=== PATIENT | male | born 1985 | race Caucasian/White ===

== ENCOUNTER 2017-12-15 01:18 | Emergency (ER) | payer MEDICAID ==
[~2017-12-15] VITALS: Ht 172.7 cm; Wt 100.7 kg
[~2017-12-15 01:18] MED LIST: ANAPROX DS550 MG PO; NKM
[2017-12-15] MEDS ORDERED: Morphine Sulfate 4mg/ml Inj IVP ONE (01:45)
[2017-12-15 01:53] LABS: APPEARANCE,URINE CLEAR; BILIRUBIN, URINE NEGATIVE (NEGATIVE); COLOR,URINE PALE YELLOW; GLUCOSE, URINE (UA) NEGATIVE (NEGATIVE); KETONES,URINE NEGATIVE (NEGATIVE); LEUKOCYTE ESTERASE ,URINE NEGATIVE (NEGATIVE); NITRITE,URINE NEGATIVE (NEGATIVE); PH,URINE 6 (4.5-8.0); PROTEIN,URINE NEGATIVE (NEGATIVE); UROBILINOGEN,URINE NORMAL MG/DL (0.0-1.0)
[2017-12-15 02:09] LABS: BASOPHILS % (AUTO) 0.9 % (0.0-2.0); EOSINOPHILS % (AUTO) 0.7 % (0.0-3.0); HEMATOCRIT 48.1 % (42.0-52.0); HEMOGLOBIN 16.5 G/DL (14.2-18.0); LYMPHOCYTES % (AUTO) 26.2 % (20.0-45.0); MEAN CORPUSCULAR VOLUME 81 FL (80-99); MONOCYTES % (AUTO) 9.5 % (1.0-10.0); NEUTROPHILS % (AUTO) 62.8 % (45.0-75.0); PLATELET COUNT 311 K/UL (150-450); RED BLOOD COUNT 5.91 M/UL (4.70-6.10); RED CELL DISTRIBUTION WIDTH 11.9 % (11.6-14.8); WHITE BLOOD COUNT 10.5 K/UL (4.8-10.8)
[2017-12-15 02:15] LABS: ANION GAP 11 mmol/L (5-15); BLOOD UREA NITROGEN 9 mg/dL (7-18); CALCIUM 9.2 MG/DL (8.5-10.1); CARBON DIOXIDE 26 MMOL/L (21-32); CHLORIDE 103 MMOL/L (98-107); CREATININE 1.1 MG/DL (0.55-1.30); POTASSIUM 3.7 MMOL/L (3.5-5.1); SODIUM 140 MMOL/L (136-145)
[2017-12-15 02:20] LABS: ALANINE AMINOTRANSFERASE 28 U/L (12-78); ALBUMIN 3.8 G/DL (3.4-5.0); ALBUMIN/GLOBULIN RATIO 0.9 (1.0-2.7); ALKALINE PHOSPHATASE 63 U/L (46-116); ASPARTATE AMINO TRANSFERASE 16 U/L (15-37); BILIRUBIN,TOTAL 0.3 MG/DL (0.2-1.0)
[2017-12-15] MEDS ORDERED: PEPCID AC20 M2 PO (02:28)
[2017-12-15] MEDS ORDERED: VISTARIL10 MG ORAL (02:28)
[2017-12-15] MEDS ORDERED: HydrOXYzine tab 25 MG TAB ORAL ONE (02:30)
[2017-12-15 02:34] VITALS: BP 130/79
[2017-12-15 02:40] VITALS: BP 130/79
--- NOTE | 2017-12-15 04:28 | Emergency Room Report ---
History of Present Illness General Chief Complaint: Abdominal Pain Source: Patient Present Illness HPI Patient is a 32-year-old male brought in by self after increased abdominal discomfort. Patient reports having increased epigastric pain after recent alcohol intake. He reports having prior history of pancreatitis. The patient describes having epigastric pain. This did not radiate. He had not been vomiting. He reported having some increased nausea. He denies any black or bloody stools. It having increased itching to his extremities Allergies: Coded Allergies: METOCLOPRAMIDE (Verified Adverse Reaction, Mild, 12/15/17) anxiety Patient History Past Medical History: see triage record Reviewed Nursing Documentation: PMH: Agreed; PSxH: Agreed Nursing Documentation-PMH Past Medical History: No History, Except For Review of Systems All Other Systems: negative except mentioned in HPI Physical Exam Vital Signs Date Time Temp Pulse Resp B/P (MAP) Pulse Ox O2 Delivery O2 Flow Rate FiO2 12/15/17 01:21 98.9 114 16 160/89 95 Room Air 99.0 Sp02 EP Interpretation: reviewed, normal General Appearance: normal inspection, well appearing, no apparent distress, alert, GCS 15 Head: atraumatic ENT: normal ENT inspection, hearing grossly normal, normal voice Neck: normal inspection, full range of motion, supple, no bony tend Respiratory: normal inspection, lungs clear, normal breath sounds, no respiratory distress, no retraction, no wheezing Cardiovascular #1: regular rate, rhythm, no edema Gastrointestinal: normal inspection, normal bowel sounds, non tender, soft, no guarding, no hernia Genitourinary: no CVA tenderness Musculoskeletal: normal inspection, back normal, normal range of motion Neurologic: normal inspection, alert, oriented x3, responsive, car 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 Differential diagnoses included ischemic bowel, appendicitis, perforated viscus, abdominal aortic aneurysm, inferior myocardial infarction, viral gastroenteritis. Because of complexity of patient' s case laboratory testing and imaging studies were ordered. The laboratory testing was unremarkable. Patient was noted at to have prior history which is somewhat concerning. The blood alcohol was noted to be somewhat elevated. Patient does not appear to be intoxicated at this time. The patient was given acid blockers as well as Atarax.patient does not appear to have pancreatitis this time. 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 Patient is advised to return if any worsening condition or if any changes in status that are concerning. This report is dictated with [employer] handle finisher software which may occasionally lead to discrepancies related to use of this software. Labs Test 12/15/17 01:20 12/15/17 01:50 Urine Color Pale yellow Urine Appearance Clear Urine pH 6 (4.5-8.0) Urine Specific [place] 1.010 (1.005-1.035) Urine Protein Negative (NEGATIVE) Urine Glucose (UA) Negative (NEGATIVE) Urine Ketones Negative (NEGATIVE) Urine Occult Blood 2+ (NEGATIVE) Urine Nitrite Negative (NEGATIVE) Urine Bilirubin Negative (NEGATIVE) Urine Urobilinogen Normal MG/DL (0.0-1.0) Urine Leukocyte Esterase Negative (NEGATIVE) Urine RBC 2-4 /HPF (0 - 0) Urine WBC 0 /HPF (0 - 0) Urine Squamous Epithelial Cells Occasional /LPF Urine Bacteria Occasional /HPF (NONE) White Blood Count 10.5 K/UL (4.8-10.8) Red Blood Count 5.91 M/UL (4.70-6.10) Hemoglobin 16.5 G/DL (14.2-18.0) Hematocrit 48.1 % (42.0-52.0) Mean Corpuscular Volume 81 FL (80-99) Mean Corpuscular Hemoglobin 27.9 PG (27.0-31.0) Mean Corpuscular Hemoglobin Concent 34.3 G/DL (32.0-36.0) Red Cell Distribution Width 11.9 % (11.6-14.8) Platelet Count 311 K/UL (150-450) Mean Platelet Volume 6.3 FL (6.5-10.1) Neutrophils (%) (Auto) 62.8 % (45.0-75.0) Lymphocytes (%) (Auto) 26.2 % (20.0-45.0) Monocytes (%) (Auto) 9.5 % (1.0-10.0) Eosinophils (%) (Auto) 0.7 % (0.0-3.0) Basophils (%) (Auto) 0.9 % (0.0-2.0) Prothrombin Time 10.2 SEC (9.30-11.50) Prothromb Time International Ratio 1.0 (0.9-1.1) Activated Partial Thromboplast Time 27 SEC (23-33) Sodium Level 140 MMOL/L (136-145) Potassium Level 3.7 MMOL/L (3.5-5.1) Chloride Level 103 MMOL/L (98-107) Carbon Dioxide Level 26 MMOL/L (21-32) Anion Gap 11 mmol/L (5-15) Blood Urea Nitrogen 9 mg/dL (7-18) Creatinine 1.1 MG/DL (0.55-1.30) Estimat Glomerular Filtration Rate > 60 mL/min (>60) Glucose Level 95 MG/DL (74-106) Calcium Level 9.2 MG/DL (8.5-10.1) Total Bilirubin 0.3 MG/DL (0.2-1.0) Aspartate Amino Transf (AST/SGOT) 16 U/L (15-37) Alanine Aminotransferase (ALT/SGPT) 28 U/L (12-78) Alkaline Phosphatase 63 U/L (46-116) Troponin I 0.017 ng/mL (0.000-0.056) Total Protein 8.2 G/DL (6.4-8.2) Albumin 3.8 G/DL (3.4-5.0) Globulin 4.4 g/dL Albumin/Globulin Ratio 0.9 (1.0-2.7) Lipase 175 U/L (73-393) Serum Alcohol 90 mg/dL Last Vital Signs Date Time Temp Pulse Resp B/P (MAP) Pulse Ox O2 Delivery O2 Flow Rate FiO2 12/15/17 02:40 97.8 90 14 130/79 97 Room Air 97.8 Status: improved Disposition: HOME, SELF-CARE Condition: Stable Scripts Hydroxyzine HCl (Hydroxyzine HCl) 10 Mg Tablet 10 MG ORAL EVERY 6 HOURS, #20 TAB 0 Refills Prov: Terrance oMy 12/15/17 Famotidine (PEPCID AC) 20 Mg Tablet 20 MG PO TWICE A DAY, #30 TAB Prov: Terrance Moy 12/15/17 Patient Instructions: Abdominal Pain, Adult Terrance Moy December 15, 2017 04:28
[2017-12-16] MEDS ORDERED: MAALOX MAXIMUM355 M1 PO (23:08)
[2017-12-16] MEDS ORDERED: TRAMADOL HCL50 MG ORAL (23:08)
[2017-12-16] MEDS ORDERED: BENADRYL ALLERG25 M1 PO (23:08)
[2017-12-16] MEDS ORDERED: LIDOCAINE VISC100 ML ORAL (23:08)
== END 2017-12-15 02:40 | disposition home or self-care (01) ==
LOC: EMR 01:42
DX: K29.70 Gastritis, unspecified, without bleeding (principal); Z88.8 Allergy status to other drugs, medicaments and biological substances
CPT/HCPCS: 36415; 80053; 80329; 81003; 82962; 83690; 84484; 85025; 85610; 85730; 96360; 96374; 96375; 99284; J2270; S0028

== ENCOUNTER 2017-12-16 20:00 | Emergency (ER) | payer MEDICAID ==
[~2017-12-16] VITALS: Ht 172.7 cm; Wt 99.8 kg
[~2017-12-16 20:00] MED LIST changes: +PEPCID AC20 M2 PO; +VISTARIL10 MG ORAL
[2017-12-16 20:30] VITALS: BP 131/73
[2017-12-16] MEDS ORDERED: DiphenhydrAMINE 50mg/ml Inj IVP ONE (20:45)
[2017-12-16] MEDS ORDERED: EPINEPHrine 1mg/1ml Amp IM ONE (20:45)
[2017-12-16 21:03] LABS: BASOPHILS % (AUTO) 0.7 % (0.0-2.0); EOSINOPHILS % (AUTO) 1.5 % (0.0-3.0); HEMATOCRIT 45.2 % (42.0-52.0); HEMOGLOBIN 14.8 G/DL (14.2-18.0); MEAN CORPUSCULAR VOLUME 81 FL (80-99); MONOCYTES % (AUTO) 11.6 % (1.0-10.0); NEUTROPHILS % (AUTO) 62.2 % (45.0-75.0); PLATELET COUNT 293 K/UL (150-450); RED BLOOD COUNT 5.58 M/UL (4.70-6.10); RED CELL DISTRIBUTION WIDTH 11.8 % (11.6-14.8); WHITE BLOOD COUNT 8.9 K/UL (4.8-10.8)
[2017-12-16 21:04] LABS: APPEARANCE,URINE CLEAR; BILIRUBIN, URINE NEGATIVE (NEGATIVE); COLOR,URINE PALE YELLOW; GLUCOSE, URINE (UA) NEGATIVE (NEGATIVE); KETONES,URINE NEGATIVE (NEGATIVE); LEUKOCYTE ESTERASE ,URINE NEGATIVE (NEGATIVE); NITRITE,URINE NEGATIVE (NEGATIVE); PH,URINE 7 (4.5-8.0); PROTEIN,URINE 1+ (NEGATIVE); UROBILINOGEN,URINE NORMAL MG/DL (0.0-1.0)
[2017-12-16 21:16] LABS: ANION GAP 12 mmol/L (5-15); BLOOD UREA NITROGEN 10 mg/dL (7-18); CALCIUM 9.5 MG/DL (8.5-10.1); CARBON DIOXIDE 24 MMOL/L (21-32); CHLORIDE 103 MMOL/L (98-107); CREATININE 1.1 MG/DL (0.55-1.30); POTASSIUM 3.6 MMOL/L (3.5-5.1); SODIUM 139 MMOL/L (136-145)
[2017-12-16 21:21] LABS: ALANINE AMINOTRANSFERASE 27 U/L (12-78); ALBUMIN 3.8 G/DL (3.4-5.0); ALBUMIN/GLOBULIN RATIO 0.9 (1.0-2.7); ALKALINE PHOSPHATASE 62 U/L (46-116); ASPARTATE AMINO TRANSFERASE 18 U/L (15-37); BILIRUBIN,TOTAL 0.4 MG/DL (0.2-1.0); CREATINE KINASE 196 U/L (26-308)
[2017-12-16 22:28] VITALS: BP 108/73
[2017-12-16] MEDS ORDERED: Morphine Sulfate 4mg/ml Inj IVP ONE (22:45)
--- NOTE | 2017-12-16 22:51 | Emergency Room Report ---
History of Present Illness General Chief Complaint: Abdominal Pain Source: Patient Present Illness HPI Patient presents with hives nausea and epigastric pain. This has been a recurrent problem. Appetite has epigastric pain he gets hives. He was discharged on Pepcid. The pain is fairly severe in his epigastric area. Denies vomiting blood. He states is allergic to Reglan but hasn't had any recently. The pain is rated at 7/10, burning, constant and not radiating. No pain medicine at home or medicine for vomiting/nausea. No melena. The hives are mainly on his arms - redness and itching. No swelling in his throat or difficulty breathing or swallowing. He was seen yesterday after the ingestion of alcohol. Dx gastritis and rx pepcid. The patient has a history of gastritis. He also has a history of pancreatitis in the past. He has no pain medication at home. He was recently prescribed Pepcid. He states he has not had endoscopy, that during prior hospitalizations, he gets better and leaves the hospital before endoscopy is performed. He drank some alcohol a few days ago (beers) and feels this might be related to pain and episodes of vomiting. No fevers, chills, chest pain, dyspnea, cough, sore throat, headache, rashes, extremity pain, SI. Allergies: Coded Allergies: METOCLOPRAMIDE (Verified Adverse Reaction, Mild, 12/15/17) anxiety Patient History Past Medical History: see triage record Social History: Reports: alcohol use; Denies: smoking Social History Narrative at home Reviewed Nursing Documentation: PMH: Agreed; PSxH: Agreed Nursing Documentation-PM Past Medical History: No History, Except For Hx Gastrointestinal Problems: Yes - pancreatitis Review of Systems All Other Systems: negative except mentioned in HPI Physical Exam Vital Signs Date Time Temp Pulse Resp B/P (MAP) Pulse Ox O2 Delivery O2 Flow Rate FiO2 12/16/17 20:18 98.0 69 18 144/88 96 Room Air 98.1 Sp02 EP Interpretation: reviewed, normal General Appearance: well appearing, no apparent distress, GCS 15 Head: normocephalic Eyes: bilateral eye normal inspection, bilateral eye PERRL ENT: moist mucus membranes - vomitus without blood Neck: supple Respiratory: lungs clear, normal breath sounds Cardiovascular #1: regular rate, rhythm Cardiovascular #2: 2+ radial (R) Gastrointestinal: normal inspection, normal bowel sounds, no mass, non- distended, no guarding, no rebound, tenderness - epigastric area Musculoskeletal: back normal, gait/station normal, normal range of motion Neurologic: alert, oriented x3, grossly normal Psychiatric: mood/affect normal Skin: warm/dry, other - erythema and slightly raised lesions (wheel flare) anticubital areas Medical Decision Making Diagnostic Impression: Primary Impression: Hives Additional Impressions: Abdominal pain Qualified Codes: R10.13 - Epigastric pain Gastritis Qualified Codes: K29.20 - Alcoholic gastritis without bleeding ER Course Patient presents with epigastric pain and vomiting and hives. He states that he gets the epigastric pain he breaks out in hives. He's doesn't believe it's any medication he's been exposed to causing the skin break out. He does not show signs of anaphylaxis at this time. Needs be treated with Benadryl, Pepcid and epinephrine. Need to exclude pancreatitis and cardiac cause. EKG without injury. Labs with normal WBC, H/H, CMP and lipase. Patient rashes better after treatment. Now is complaining about epigastric pain is 7/10. Discussion with him about what to treat him with a padgett he is requesting morphine. A dose of morphine has been ordered. Patient improved with morphine. Patient stable for outpatient observation and treatment. Laboratory Tests Test 12/16/17 20:40 White Blood Count 8.9 K/UL (4.8-10.8) Red Blood Count 5.58 M/UL (4.70-6.10) Hemoglobin 14.8 G/DL (14.2-18.0) Hematocrit 45.2 % (42.0-52.0) Mean Corpuscular Volume 81 FL (80-99) Mean Corpuscular Hemoglobin 26.4 PG (27.0-31.0) L Mean Corpuscular Hemoglobin Concent 32.6 G/DL (32.0-36.0) Red Cell Distribution Width 11.8 % (11.6-14.8) Platelet Count 293 K/UL (150-450) Mean Platelet Volume 5.9 FL (6.5-10.1) L Neutrophils (%) (Auto) 62.2 % (45.0-75.0) Lymphocytes (%) (Auto) 24.0 % (20.0-45.0) Monocytes (%) (Auto) 11.6 % (1.0-10.0) H Eosinophils (%) (Auto) 1.5 % (0.0-3.0) Basophils (%) (Auto) 0.7 % (0.0-2.0) Urine Color Pale yellow Urine Appearance Clear Urine pH 7 (4.5-8.0) Urine Specific [place] 1.010 (1.005-1.035) Urine Protein 1+ (NEGATIVE) H Urine Glucose (UA) Negative (NEGATIVE) Urine Ketones Negative (NEGATIVE) Urine Occult Blood 2+ (NEGATIVE) H Urine Nitrite Negative (NEGATIVE) Urine Bilirubin Negative (NEGATIVE) Urine Urobilinogen Normal MG/DL (0.0-1.0) Urine Leukocyte Esterase Negative (NEGATIVE) Urine RBC 5-10 /HPF (0 - 0) H Urine WBC 0-2 /HPF (0 - 0) Urine Squamous Epithelial Cells None /LPF (NONE/OCC) Urine Bacteria Occasional /HPF (NONE) Sodium Level 139 MMOL/L (136-145) Potassium Level 3.6 MMOL/L (3.5-5.1) Chloride Level 103 MMOL/L (98-107) Carbon Dioxide Level 24 MMOL/L (21-32) Anion Gap 12 mmol/L (5-15) Blood Urea Nitrogen 10 mg/dL (7-18) Creatinine 1.1 MG/DL (0.55-1.30) Estimate Glomerular Filtration Rate > 60 mL/min (>60) Glucose Level 92 MG/DL (74-106) Calcium Level 9.5 MG/DL (8.5-10.1) Total Bilirubin 0.4 MG/DL (0.2-1.0) Aspartate Amino Transferase (AST) 18 U/L (15-37) Alanine Aminotransferase (ALT) 27 U/L (12-78) Alkaline Phosphatase 62 U/L (46-116) Total Creatine Kinase 196 U/L (26-308) Total Protein 8.0 G/DL (6.4-8.2) Albumin 3.8 G/DL (3.4-5.0) Globulin 4.2 g/dL Albumin/Globulin Ratio 0.9 (1.0-2.7) L Lipase 136 U/L (73-393) EKG Diagnostic Results Rate: normal Rhythm: NSR ST Segments: no acute changes Rhythm Strip Diag. Results EP Interpretation: yes Rhythm: NSR, no PVC's, no ectopy Last Vital Signs Date Time Temp Pulse Resp B/P (MAP) Pulse Ox O2 Delivery O2 Flow Rate FiO2 12/16/17 23:45 98.2 66 19 143/77 100 Room Air 98.2 Status: improved Disposition: HOME, SELF-CARE Condition: Improved Scripts Tramadol Hcl* (ULTRAM*) 50 Mg Tablet 50 MG ORAL Q6H PRN for For Pain, #6 TAB 0 Refills Prov: Jamie aCrrillo M.D. 12/16/17 Mag Hydrox/Al Hydrox/Simeth (MAALOX MAXIMUM STRENGTH SUSP) 355 Ml Oral.susp 30 ML PO Q6HR, #240 ML Prov: Jamie Carrillo M.D. 12/16/17 Lidocaine HCl 2% Viscous (Lidocaine HCl 2% Viscous) 100 Ml Solution 10 ML ORAL QID PRN for For Pain, #90 ML Prov: Jamie Carrillo M.D. 12/16/17 Diphenhydramine Hcl (BENADRYL ALLERGY) 25 Mg Tablet 25 MG PO Q6HR PRN for Itching, #14 TAB Prov: Jamie Carrillo M.D. 12/16/17 Jamie Carrillo M.D. December 16, 2017 22:51
[2017-12-16] MEDS ORDERED: TRAMADOL HCL50 MG ORAL (23:08)
[2017-12-16] MEDS ORDERED: BENADRYL ALLERG25 M1 PO (23:08)
[2017-12-16] MEDS ORDERED: LIDOCAINE VISC100 ML ORAL (23:08)
[2017-12-16] MEDS ORDERED: MAALOX MAXIMUM355 M1 PO (23:08)
[2017-12-16 23:43] VITALS: BP 143/77
[2017-12-16 23:45] VITALS: BP 143/77
--- NOTE | 2017-12-20 19:38 | Cardiology Report ---
APPROVED REPORT EKG Measurement Heart [id number] Normal sinus rhythm with sinus arrhythmia Normal ECG
== END 2017-12-16 23:45 | disposition home or self-care (01) ==
LOC: EMR 23:04
DX: L50.9 Urticaria, unspecified (principal); K29.70 Gastritis, unspecified, without bleeding; Z88.8 Allergy status to other drugs, medicaments and biological substances
CPT/HCPCS: 36415; 80053; 81003; 82550; 83690; 85025; 93005; 96361; 96372; 96374; 96375; 99284; J0171; J1200; J2270; J2405; S0028

== ENCOUNTER 2018-01-01 22:48 | Emergency (ER) | payer MEDICAID ==
[~2018-01-01] VITALS: Ht 172.7 cm; Wt 98.9 kg
[~2018-01-01 22:48] MED LIST changes: +BENADRYL ALLERG25 M1 PO; +LIDOCAINE VISC100 ML ORAL; +MAALOX MAXIMUM355 M1 PO; +TRAMADOL HCL50 MG ORAL
[2018-01-01] MEDS ORDERED: NKM (23:07)
[2018-01-01 23:30] VITALS: BP 140/79
--- NOTE | 2018-01-02 00:10 | Emergency Room Report ---
History of Present Illness General Chief Complaint: Abdominal Pain Source: Patient Present Illness HPI Is a 32-year-old male with a history of chronic abdominal pain with vomiting and diarrhea. Also complaining of rash. He presents with chief complaint abdominal pain with itchiness and rash. Onset for last 2 days. His been here multiple times in this month already. Workup unremarkable. He said he can get a CAT scan because he had 5 CAT scan done in [place] already. Said all were negative. No trauma. Pain is 7 out of 10. Vomiting is nonbloody nonbilious. Diarrhea is watery. Allergies: Coded Allergies: KETOROLAC (Verified Allergy, Unknown, 01/01/18) METOCLOPRAMIDE (Verified Adverse Reaction, Mild, 12/15/17) anxiety Patient History Past Medical History: see triage record, old chart reviewed Past Surgical History: none Pertinent Family History: none Social History: Denies: smoking Immunizations: other Reviewed Nursing Documentation: PMH: Agreed; PSxH: Agreed Nursing Documentation-PMH Hx Gastrointestinal Problems: Yes - pancreatitis, gastritis Review of Systems Eye: Denies: eye pain, blurred vision ENT: Denies: ear pain, nose congestion, throat swelling Respiratory: Denies: cough, shortness of breath Cardiovascular: Denies: chest pain, palpitations Gastrointestinal: Reports: abdominal pain, diarrhea, nausea, vomiting Musculoskeletal: Denies: back pain, joint pain Skin: Denies: rash Neurological: Denies: headache, numbness Endocrine: Denies: increased thirst, increased urine Hematologic/Lymphatic: Denies: easy bruising All Other Systems: negative except mentioned in HPI Physical Exam Vital Signs Date Time Temp Pulse Resp B/P (MAP) Pulse Ox O2 Delivery O2 Flow Rate FiO2 01/01/18 23:02 98.3 81 18 142/87 99 Room Air 98.2 vitals normal Sp02 EP Interpretation: reviewed, normal General Appearance: well appearing, no apparent distress, alert Head: normocephalic, atraumatic Eyes: bilateral eye PERRL, bilateral eye EOMI ENT: hearing grossly normal, normal pharynx Neck: full range of motion, supple, no meningismus Respiratory: chest non-tender, lungs clear, normal breath sounds Cardiovascular #1: regular rate, rhythm, no murmur Gastrointestinal: normal bowel sounds, non tender, no mass, no organomegaly, no bruit, non-distended Musculoskeletal: back normal, gait/station normal, normal range of motion Psychiatric: mood/affect normal Skin: warm/dry Medical Decision Making Diagnostic Impression: Primary Impression: Abdominal pain Qualified Codes: R10.84 - Generalized abdominal pain ER Course Patient presents with chief point abdominal pain. There is no evidence of any acute abdomen on exam. He has no pain on my examination. His rash is not consistent. I gave him Benadryl here. He refuse any further workup. After getting the Benadryl he got up and left. I suspect there may be some psychological issue going on. She left without paperwork. Last Vital Signs Date Time Temp Pulse Resp B/P (MAP) Pulse Ox O2 Delivery O2 Flow Rate FiO2 01/01/18 23:02 98.3 81 18 142/87 99 Room Air 98.2 Status: unchanged Disposition: HOME, SELF-CARE Condition: Stable Referrals: NOT CHOSEN IPA/,REFERRING (PCP) Patient Instructions: Abdominal Pain, Adult ISIS YBARRA M.D. January 02, 2018 00:10
[2018-01-02 01:00] VITALS: BP 140/79
== END 2018-01-02 01:00 | disposition home or self-care (01) ==
LOC: EMR 23:18
DX: R10.9 Unspecified abdominal pain (principal); R19.7 Diarrhea, unspecified; R11.2 Nausea with vomiting, unspecified; Z88.8 Allergy status to other drugs, medicaments and biological substances; Z87.19 Personal history of other diseases of the digestive system
CPT/HCPCS: 80307; 99283

== ENCOUNTER 2018-11-20 12:34 | Inpatient (IN) | payer MEDICAID ==
[~2018-11-20] VITALS: Ht 172.7 cm; Wt 98.9 kg
[2018-11-20] MEDS ORDERED: ZOFRAN ODT8 MG ORAL (12:42)
[2018-11-20 13:01] VITALS: BP 146/87
[2018-11-20] MEDS ORDERED: Morphine Sulfate 4mg/ml Inj (IV USE ONLY) IVP ONE ×2 (13:30→17:15)
[2018-11-20 14:06] LABS: APPEARANCE,URINE CLEAR; BILIRUBIN, URINE NEGATIVE (NEGATIVE); COLOR,URINE PALE YELLOW; GLUCOSE, URINE (UA) NEGATIVE (NEGATIVE); KETONES,URINE NEGATIVE (NEGATIVE); LEUKOCYTE ESTERASE ,URINE NEGATIVE (NEGATIVE); NITRITE,URINE NEGATIVE (NEGATIVE); PH,URINE 6 (4.5-8.0); PROTEIN,URINE 1+ (NEGATIVE); UROBILINOGEN,URINE NORMAL MG/DL (0.0-1.0)
[2018-11-20 14:08] LABS: BASOPHILS % (AUTO) 0.9 % (0.0-2.0); EOSINOPHILS % (AUTO) 1.6 % (0.0-3.0); HEMATOCRIT 46.1 % (42.0-52.0); LYMPHOCYTES % (AUTO) 24.1 % (20.0-45.0); MEAN CORPUSCULAR VOLUME 80 FL (80-99); MONOCYTES % (AUTO) 11.2 % (1.0-10.0); NEUTROPHILS % (AUTO) 62.2 % (45.0-75.0); PLATELET COUNT 307 K/UL (150-450); RED BLOOD COUNT 5.79 M/UL (4.70-6.10); RED CELL DISTRIBUTION WIDTH 12.6 % (11.6-14.8); WHITE BLOOD COUNT 11.4 K/UL (4.8-10.8)
--- NOTE | 2018-11-20 14:26 | Diagnostic Imaging Report ---
Indication: Abdominal pain Technique: Supine view of the abdomen Comparison: none Findings: The bowel gas pattern is unremarkable. A catheter is seen in the epigastric region, likely a pancreatic duct stent. No masses or unusual calcifications are demonstrated. Impression: No acute process Probable pancreatic duct stent noted
--- NOTE | 2018-11-20 14:26 | Diagnostic Imaging Report ---
Indication: Chest pain Technique: One view of the chest Comparison: none Findings: Lungs and pleural spaces are clear. Heart size is normal Impression: No acute process
--- NOTE | 2018-11-20 14:27 | Emergency Room Report ---
History of Present Illness General Chief Complaint: Abdominal Pain Source: Patient (Jamie Carrillo MD) Present Illness HPI Patient presents with 3 days of vomiting unable to keep down medication. He has Zofran at home that's not working. He states he is unable to take any other antiemetics He also has epigastric and right upper quadrant pain it's rating towards his back. In the past he's had pancreatitis when he's had pain like this. He has a stent placed 3 months ago in [place]. He' been vomiting clear material. Also he's had loose stools since also been clear and brown without any blood or melena. He denies any fevers or chills. He does have Imbler at home but elected not to take it as he was vomiting. He states there is some anatomic and normally in his pancreatic ducts. He was told that the condition was extremely rare. This was by the doctor that placed the stent. He has been improved after the stent placement. No chest pain, palpitations, dysuria, shortness of breath, depression, visual changes, headache. (Jamie Carrillo MD) Allergies: Coded Allergies: MORPHINE (Verified Allergy, Mild, itching, 11/20/18) HALOPERIDOL (Verified Allergy, Unknown, 11/20/18) KETOROLAC (Verified Allergy, Unknown, 01/01/18) PROCHLORPERAZINE (Verified Allergy, Unknown, 11/20/18) PROMETHAZINE (Verified Allergy, Unknown, 11/20/18) METOCLOPRAMIDE (Verified Adverse Reaction, Mild, 12/15/17) anxiety Patient History Past Medical History: see triage record Social History: Denies: smoking, alcohol use Social History Narrative from home Reviewed Nursing Documentation: PMH: Agreed; PSxH: Agreed (Jamie Carrillo MD) Nursing Documentation-PMH Past Medical History: No History, Except For Hx Gastrointestinal Problems: Yes - PANCREATITIS (Jamie Carrillo MD) Review of Systems All Other Systems: negative except mentioned in HPI (Jamie Carrillo MD) Physical Exam Vital Signs Date Time Temp Pulse Resp B/P (MAP) Pulse Ox O2 Delivery O2 Flow Rate FiO2 11/20/18 12:40 98.6 84 18 161/95 99 Room Air Sp02 EP Interpretation: reviewed, normal General Appearance: well appearing, no apparent distress, GCS 15 Head: normocephalic Eyes: bilateral eye normal inspection, bilateral eye PERRL, bilateral eye EOMI ENT: moist mucus membranes Neck: supple Respiratory: lungs clear, normal breath sounds Cardiovascular #1: regular rate, rhythm Cardiovascular #2: 2+ radial (R) Gastrointestinal: no mass, non-distended, no guarding, no rebound, tenderness - Epigastric Genitourinary: no CVA tenderness Musculoskeletal: back normal, gait/station normal, normal range of motion Neurologic: alert, oriented x3, grossly normal Psychiatric: mood/affect normal Skin: normal inspection, warm/dry (Jamie Carrillo MD) Medical Decision Making Diagnostic Impression: Primary Impression: Abdominal pain Qualified Codes: R10.13 - Epigastric pain Additional Impression: Pancreatitis Qualified Codes: K85.90 - Acute pancreatitis without necrosis or infection, unspecified ER Course Patient with a pancreatic stent 3 months ago presents with abdominal pain. Differential includes acute pancreatitis, gallbladder disease, gastritis, gastroenteritis with dehydration, drug-seeking behavior amongst others. Evaluation will be with abdominal film, chest x-ray and labs. The patient will be treated with IV hydration, Zofran, Pepcid and morphine. EKG without injury. Chest x-ray globular heart. Abdomen with pancreatic stent and nonspecific bowel gas pattern. Labs with slightly elevated white count. Lipase is elevated. The rest of the CMP is normal. Urinalysis clear. Pain somewhat improved. Ultrasound ordered. Ultrasound with suboptimal exam due to bowel gas. No masses or gallbladder disease identified. Patient had erythema both antecubital areas and response to morphine. Benadryl and Solu-Medrol administered. Continued pain and Dilaudid ordered. Patient somewhat improved however due to continued nausea and pain patient admitted to the hospital. Admitted to medical floor Dr. Colon. Laboratory Tests Test 11/20/18 13:45 White Blood Count 11.4 K/UL (4.8-10.8) H Red Blood Count 5.79 M/UL (4.70-6.10) Hemoglobin 15.0 G/DL (14.2-18.0) Hematocrit 46.1 % (42.0-52.0) Mean Corpuscular Volume 80 FL (80-99) Mean Corpuscular Hemoglobin 25.9 PG (27.0-31.0) L Mean Corpuscular Hemoglobin Concent 32.4 G/DL (32.0-36.0) Red Cell Distribution Width 12.6 % (11.6-14.8) Platelet Count 307 K/UL (150-450) Mean Platelet Volume 5.7 FL (6.5-10.1) L Neutrophils (%) (Auto) 62.2 % (45.0-75.0) Lymphocytes (%) (Auto) 24.1 % (20.0-45.0) Monocytes (%) (Auto) 11.2 % (1.0-10.0) H Eosinophils (%) (Auto) 1.6 % (0.0-3.0) Basophils (%) (Auto) 0.9 % (0.0-2.0) Prothrombin Time 10.7 SEC (9.30-11.50) Prothrombin Time INR 1.0 (0.9-1.1) PTT 25 SEC (23-33) Urine Color Pale yellow Urine Appearance Clear Urine pH 6 (4.5-8.0) Urine Specific [place] 1.020 (1.005-1.035) Urine Protein 1+ (NEGATIVE) H Urine Glucose (UA) Negative (NEGATIVE) Urine Ketones Negative (NEGATIVE) Urine Blood 2+ (NEGATIVE) H Urine Nitrite Negative (NEGATIVE) Urine Bilirubin Negative (NEGATIVE) Urine Urobilinogen Normal MG/DL (0.0-1.0) Urine Leukocyte Esterase Negative (NEGATIVE) Urine RBC 0-2 /HPF (0 - 0) H Urine WBC 0 /HPF (0 - 0) Urine Squamous Epithelial Cells Occasional /LPF Urine Bacteria Occasional /HPF (NONE) Sodium Level 142 MMOL/L (136-145) Potassium Level 4.7 MMOL/L (3.5-5.1) Chloride Level 106 MMOL/L (98-107) Carbon Dioxide Level 24 MMOL/L (21-32) Anion Gap 12 mmol/L (5-15) Blood Urea Nitrogen 14 mg/dL (7-18) Creatinine 1.0 MG/DL (0.55-1.30) Estimate Glomerular Filtration Rate > 60 mL/min (>60) Glucose Level 99 MG/DL (74-106) Calcium Level 8.6 MG/DL (8.5-10.1) Total Bilirubin 0.2 MG/DL (0.2-1.0) Aspartate Amino Transferase (AST) 15 U/L (15-37) Alanine Aminotransferase (ALT) 22 U/L (12-78) Alkaline Phosphatase 61 U/L (46-116) Total Creatine Kinase 105 U/L (26-308) Total Protein 7.5 G/DL (6.4-8.2) Albumin 3.5 G/DL (3.4-5.0) Globulin 4.0 g/dL Albumin/Globulin Ratio 0.9 (1.0-2.7) L Lipase 892 U/L (73-393) H (Jamie Carrillo MD) EKG Diagnostic Results Rate: normal Rhythm: NSR ST Segments: no acute changes (Jamie Carrillo MD) Rhythm Strip Diag. Results EP Interpretation: yes Rhythm: NSR, no PVC's, no ectopy (Jamie Carrillo MD) Chest X-Ray Diagnostic Results Chest X-Ray Diagnostic Results : Chest X-Ray Ordered: Yes # of Views/Limited/Complete: 1 View Indication: Other EP Interpretation: Yes Interpretation: no consolidation, no effusion, no pneumothorax Impression: Other Electronically Signed by: Electronically signed by Jamie Carrillo MD (Jamie Carrillo MD) Other X-Ray Diagnostic Results Other X-Ray Diagnostic Results : X-Ray ordered: abd # of Views/Limited Vs Complete: 2 View Indication: Pain Interpretation: nonspecific bowel gas, no sbo, other - pancreatic stent Impression: Other Electronically Signed by: Electronically signed by Jamie Carrillo MD (Jamie Carrillo MD) CT/MRI/US Diagnostic Results CT/MRI/US Diagnostic Results : Imaging Test Ordered: u/s abdomen Impression suboptimal exam. No abscess noted. Normal biliary system. Stent present (Jamie Carrillo MD) Last Vital Signs Date Time Temp Pulse Resp B/P (MAP) Pulse Ox O2 Delivery O2 Flow Rate FiO2 11/20/18 22:01 Room Air 11/20/18 21:23 98.5 89 18 145/87 (106) 100 Status: improved (Jamie Carrillo MD) Disposition: ADMITTED INPATIENT Condition: Serious Referrals: NON PHYSICIAN (PCP) Jamie Carrillo MD Nov 20, 2018 14:27 Terrance Moy MD Nov 20, 2018 19:39
[2018-11-20] MEDS ORDERED: DiphenhydrAMINE 50mg/ml Inj IVP ONE ×2 (14:30→17:45)
[2018-11-20 14:31] LABS: ANION GAP 12 mmol/L (5-15); BLOOD UREA NITROGEN 14 mg/dL (7-18); CALCIUM 8.6 MG/DL (8.5-10.1); CARBON DIOXIDE 24 MMOL/L (21-32); CHLORIDE 106 MMOL/L (98-107); POTASSIUM 4.7 MMOL/L (3.5-5.1); SODIUM 142 MMOL/L (136-145)
[2018-11-20 14:36] LABS: ALANINE AMINOTRANSFERASE 22 U/L (12-78); ALBUMIN 3.5 G/DL (3.4-5.0); ALBUMIN/GLOBULIN RATIO 0.9 (1.0-2.7); ALKALINE PHOSPHATASE 61 U/L (46-116); ASPARTATE AMINO TRANSFERASE 15 U/L (15-37); BILIRUBIN,TOTAL 0.2 MG/DL (0.2-1.0); CREATINE KINASE 105 U/L (26-308)
[2018-11-20 15:00] VITALS: BP 153/71
[2018-11-20] MEDS ORDERED: Hydromorphone 0.5mg/0.5ml inj IVP ONE (15:00)
[2018-11-20] MEDS ORDERED: Solu-MEDROL 125mg Inj IVP ONE (15:00)
--- NOTE | 2018-11-20 16:58 | Diagnostic Imaging Report ---
Indication: Abdominal pain Technique: Huntley-scale and duplex images of the upper abdomen were obtained. Doppler interrogation of the pancreatic and hepatic vessels. Comparison: none Findings: Exam is limited due to patient body habitus and bowel gas. Gallbladder is nondistended. No definite stones. No pericholecystic fluid Sonographic Renae's sign is negative. Common bile duct measures 2 mm in diameter. No intrahepatic biliary ductal dilatation. Liver demonstrates slightly increased echogenicity. It is enlarged. No focal abnormality Portal vein and hepatic veins are patent. Pancreas is obscured by bowel gas. The pancreatic duct stent demonstrated on recent plain radiograph is demonstrated, however. Spleen is unremarkable. Left kidney measures 12.4 cm in length. Right kidney measures 11.8 cm length. Both kidneys demonstrate normal echogenicity. There is no hydronephrosis. No focal abnormality . Abdominal aorta is obscured by bowel gas . Impression: Limited exam, as described. Note nonvisualization of the pancreas and abdominal aorta Nondistended gallbladder. No gross stones. No biliary ductal dilatation Liver demonstrates diffusely increased echogenicity, consistent with diffuse hepatocellular disease, most likely fatty change. It is mildly enlarged Pancreatic duct stent described on prior radiograph isn't visualized
[2018-11-20 17:00] VITALS: BP 149/69
[2018-11-20] MEDS ORDERED: DiphenhydrAMINE 25mg/10ml Elixir ORAL ONE (17:45)
[2018-11-20] MEDS ORDERED: DiphenhydrAMINE 50mg/ml Inj ONE (17:46)
[2018-11-20] MEDS ORDERED: HYDROmorphone 1 MG in NS 55 ML IV ONE (19:30)
[2018-11-20 21:23] VITALS: BP 145/87
[2018-11-20] MEDS: Hydromorphone 0.5mg/0.5ml inj IVP PRN (22:15)
[2018-11-20] MEDS: DiphenhydrAMINE 50mg/ml Inj IVP PRN (23:27)
[2018-11-21] VITALS: BP 122/73
[2018-11-21] MEDS: Hydromorphone 0.5mg/0.5ml inj IVP PRN ×8 (01:38→23:56)
[2018-11-21] MEDS: DiphenhydrAMINE 50mg/ml Inj IVP PRN ×3 (05:29→18:29)
[2018-11-21 06:36] LABS: HEMATOCRIT 47.1 % (42.0-52.0); HEMOGLOBIN 15.2 G/DL (14.2-18.0); MEAN CORPUSCULAR VOLUME 80 FL (80-99); PLATELET COUNT 304 K/UL (150-450); RED BLOOD COUNT 5.89 M/UL (4.70-6.10); WHITE BLOOD COUNT 15.8 K/UL (4.8-10.8)
[2018-11-21 07:03] LABS: ALANINE AMINOTRANSFERASE 26 U/L (12-78); ALBUMIN 3.8 G/DL (3.4-5.0); ALKALINE PHOSPHATASE 59 U/L (46-116); AMYLASE 63 U/L (25-115); ANION GAP 14 mmol/L (5-15); ASPARTATE AMINO TRANSFERASE 20 U/L (15-37); BILIRUBIN,TOTAL 0.5 MG/DL (0.2-1.0); BLOOD UREA NITROGEN 15 mg/dL (7-18); CALCIUM 9.3 MG/DL (8.5-10.1); CARBON DIOXIDE 21 MMOL/L (21-32); CHLORIDE 105 MMOL/L (98-107); CREATININE 0.8 MG/DL (0.55-1.30); POTASSIUM 5.1 MMOL/L (3.5-5.1); SODIUM 140 MMOL/L (136-145)
[2018-11-21] MEDS: Pantoprazole Inj IVP SCH ×2 (08:06→20:49)
[2018-11-21] MEDS: Heparin 5000 units/ml inj SUBQ SCH ×2 (08:36→20:53)
[2018-11-21] MEDS: Piperacillin/Tazobactam 3.375 GM in NS 110 ML IVPB SCH ×2 (11:11→20:49)
--- NOTE | 2018-11-21 15:30 | History and Physical Report ---
DATE OF ADMISSION: 11/20/2018 REASON FOR ADMISSION: Pancreatitis. HISTORY: This is a 33-year-old male with known history of prior pancreatitis. The patient apparently has two pancreatic ducts, has had prior stent. The patient readmits with epigastric pain. The patient denies any alcohol use. PAST MEDICAL HISTORY: Notable for recurrent pancreatitis, multiple pancreatic ducts with prior stent. MEDICATIONS: Reviewed. ALLERGIES: Reviewed. SOCIAL HISTORY: Nonsmoker and nondrinker. PHYSICAL EXAMINATION: GENERAL: A well-developed male, comfortable at present. VITAL SIGNS: Otherwise stable. LUNGS: Otherwise clear. CARDIAC: S1 and S2. Regular rate and rhythm without murmurs, rubs, or gallops. ABDOMEN: Soft and nontender. EXTREMITIES: No edema. LABORATORY DATA: Reviewed. Amylase and lipase reviewed. Lipase now improved from 892 to 470. White cell count however increased from 11.4 to 15.8. IMPRESSION: Pancreatitis, leukocytosis of unclear etiology. RECOMMENDATION: Start clear liquids, so we will obtain an ID evaluation for further care and management and further stabilization and discharge when the patient improves. Guido Colon M.D. DR: ARI JOB#: [id number] CC: MARCUS
[2018-11-21 16:00] VITALS: BP 133/77
--- NOTE | 2018-11-21 17:30 | Consultation ---
DATE OF CONSULTATION: 11/21/2018 INFECTIOUS DISEASE CONSULTATION CONSULTING PHYSICIAN: Reg Cuenca M.D. REFERRING PHYSICIAN: Guido Colon M.D. REASON FOR CONSULTATION: Pancreatitis. HISTORY OF PRESENT ILLNESS: This is a 33-year-old gentleman with history of pancreas divisum, who had a stent placed in the bile duct and history of pancreatitis, who comes in with nausea and vomiting as well as abdominal pain. He also had some diarrhea. He had his stent placed three months ago in [place]. He was found to have pancreatitis and an Infectious Disease consultation has been obtained for antibiotics. PAST MEDICAL HISTORY: 1. History of pancreatic divisum, status post stent placement. 2. History of pancreatitis. SOCIAL HISTORY: He does not smoke. He does not drink. He does not use drugs. FAMILY HISTORY: Noncontributory. REVIEW OF SYSTEMS: RESPIRATORY: He had fever and chills. He denies any cough, shortness of breath, or chest pain. CARDIAC: No chest pain. No palpitations. No dizziness. No syncope. GASTROINTESTINAL: He has nausea and vomiting. He complains of abdominal pain. He did have some mild diarrhea. MEDICATIONS: As an inpatient, he is on Protonix, subcutaneous heparin, Benadryl, Zofran, and hydromorphone. ALLERGIES: 1. Haloperidol. 2. Ketoralac. 3. Metoclopramide. 4. Morphine. 5. Prochlorperazine. 6. Promethazine. PHYSICAL EXAMINATION: VITAL SIGNS: Temperature 98.7, T-max of 98.7, pulse 75, respiratory rate 18, and blood pressure 153/71. O2 saturation of 100%. HEENT: Pupils are equally reactive to light and accommodation. Mouth appears clean without thrush. NECK: Supple. No adenopathy. No JVD. CARDIOVASCULAR: Regular rate and rhythm. No murmurs. LUNGS: Clear to auscultation bilaterally. No crackles. No wheezes. ABDOMEN: Soft. Diffuse tenderness. No organomegaly. EXTREMITIES: No cyanosis, no clubbing, no edema. LABORATORY AND DIAGNOSTIC DATA: White count 15.8, hemoglobin 15.2, hematocrit 47.1, MCV 80, and platelet count 304. Neutrophils of 89%. Sodium 140, potassium 5.1, chloride 105, bicarb 21, BUN 15, and creatinine 0.8. Glucose 107. Calcium 9.3. Total bilirubin 0.5, AST 20, ALT 26, and alkaline phosphatase 59. Total protein 7.7. Albumin 3.8. Amylase 63, lipase yesterday was 892, today is 417. UA showing 0 white cells. Abdominal ultrasound showing nondistended gallbladder. No gallstones. No biliary ductal dilatation noted. Diffuse hepatocellular disease noted. Pancreatic duct stent visualized. Abdomen x-ray is showing probable pancreatic duct stent noted. Chest x-ray showing no acute process. ASSESSMENT: This is a 33-year-old gentleman with history of pancreatic divisum, who had pancreatitis before now comes in with nausea, vomiting, abdominal pain, fever and chills and is found to have, 1. Pancreatitis, that is improving. 2. Leukocytosis, that is worsening. PLAN: 1. We will start the patient on Zosyn. 2. We would suggest a GI evaluation. 3. We will order blood cultures. I would like to thank, Dr. Colon, for this consultation. Reg Cuenca M.D. DR: SHAILESH JOB#: [id number] CC:
[2018-11-22] VITALS: BP 117/61
[2018-11-22] MEDS: DiphenhydrAMINE 50mg/ml Inj IVP PRN ×4 (00:36→18:46)
[2018-11-22] MEDS: Hydromorphone 0.5mg/0.5ml inj IVP PRN ×6 (03:02→21:49)
[2018-11-22 04:00] VITALS: BP 120/65
[2018-11-22] MEDS: Piperacillin/Tazobactam 3.375 GM in NS 110 ML IVPB SCH ×2 (04:18→12:44)
[2018-11-22 06:23] LABS: BASOPHILS % (AUTO) 0.6 % (0.0-2.0); EOSINOPHILS % (AUTO) 0.8 % (0.0-3.0); HEMATOCRIT 44.1 % (42.0-52.0); HEMOGLOBIN 14.4 G/DL (14.2-18.0); LYMPHOCYTES % (AUTO) 30.1 % (20.0-45.0); MEAN CORPUSCULAR VOLUME 80 FL (80-99); MONOCYTES % (AUTO) 12.9 % (1.0-10.0); NEUTROPHILS % (AUTO) 55.6 % (45.0-75.0); PLATELET COUNT 284 K/UL (150-450); RED BLOOD COUNT 5.52 M/UL (4.70-6.10); WHITE BLOOD COUNT 9.2 K/UL (4.8-10.8)
[2018-11-22 07:59] VITALS: BP 142/86
[2018-11-22] MEDS: Heparin 5000 units/ml inj SUBQ SCH ×2 (08:02→21:00)
[2018-11-22] MEDS: Pantoprazole Inj IVP SCH ×2 (08:02→21:00)
--- NOTE | 2018-11-22 10:58 | Pulmonology Progress Note ---
Assessment/Plan Assessment/Plan REASON FOR ADMISSION: Pancreatitis. HISTORY: This is a 33-year-old male with known history of prior pancreatitis. The patient apparently has two pancreatic ducts, has had prior stent. The patient readmits with epigastric pain. The patient denies any alcohol use. PAST MEDICAL HISTORY: Notable for recurrent pancreatitis, pancreatic ducts with prior stent. MEDICATIONS: Reviewed. ALLERGIES: Reviewed. SOCIAL HISTORY: Nonsmoker and nondrinker. PHYSICAL EXAMINATION: GENERAL: A well-developed male, comfortable at present. VITAL SIGNS: Otherwise stable. LUNGS: Otherwise clear. CARDIAC: S1 and S2. Regular rate and rhythm without murmurs, rubs, or gallops. ABDOMEN: Soft and nontender. EXTREMITIES: No edema. LABORATORY DATA: Reviewed. Amylase and lipase reviewed. Lipase now improved from 892 to 470. White cell count however increased from 11.4 to 15.8. IMPRESSION: Pancreatitis, Pancreatic Divisum, Previous Pancreatic Duct Stent, AB per ID RECOMMENDATION: Start clear liquids, DC on Augmentin today if stable, FU with PMD/GI as OPD Subjective ROS Limited/Unobtainable: No Allergies: Coded Allergies: MORPHINE (Verified Allergy, Mild, itching, 11/20/18) HALOPERIDOL (Verified Allergy, Unknown, 11/20/18) KETOROLAC (Verified Allergy, Unknown, 01/01/18) PROCHLORPERAZINE (Verified Allergy, Unknown, 11/20/18) PROMETHAZINE (Verified Allergy, Unknown, 11/20/18) METOCLOPRAMIDE (Verified Adverse Reaction, Mild, 12/15/17) anxiety Objective Last 24 Hour Vital Signs Date Time Temp Pulse Resp B/P (MAP) Pulse Ox O2 Delivery O2 Flow Rate FiO2 11/22/18 09:00 Room Air 11/22/18 07:59 97.9 60 14 142/86 (104) 98 11/22/18 04:00 97.7 60 18 120/65 (83) 98 11/22/18 00:00 97.9 70 18 117/61 (79) 98 11/21/18 22:00 Room Air 11/21/18 16:00 97.3 67 20 133/77 (95) 97 Intake and Output 11/21/18 11/22/18 19:00 07:00 Intake Total 800 ml Balance 800 ml Intake Oral 800 ml # Voids 4 1 Laboratory Tests 11/22/18 05:10: White Blood Count 9.2, Red Blood Count 5.52, Hemoglobin 14.4, Hematocrit 44.1, Mean Corpuscular Volume 80, Mean Corpuscular Hemoglobin 26.1L, Mean Corpuscular Hemoglobin Concent 32.6, Red Cell Distribution Width 13.0, Platelet Count 284, Mean Platelet Volume 5.8L, Neutrophils (%) (Auto) 55.6, Lymphocytes (%) (Auto) 30.1, Monocytes (%) (Auto) 12.9H, Eosinophils (%) (Auto) 0.8, Basophils (%) ( Auto) 0.6, Lipase 473H Current Medications Medications (Trade) Dose Ordered Sig/Jeffrey Route PRN Reason Start Time Stop Time Status Last Admin Dose Admin Diphenhydramine HCl (Benadryl) 50 mg Q6H PRN IVP Itching 11/22/18 10:43 12/20/18 10:42 Heparin Sodium (Porcine) (Heparin 5000 units/ml) 5,000 units EVERY 12 HOURS SUBQ 11/21/18 09:00 12/21/18 08:59 11/21/18 20:53 Hydromorphone HCl (Dilaudid) 0.5 mg Q3H PRN IVP For Pain 11/20/18 22:00 11/27/18 21:59 11/22/18 09:54 Ondansetron HCl (Zofran) 4 mg Q6H PRN IVP Nausea & Vomiting 11/20/18 22:00 12/20/18 21:59 11/22/18 08:01 Pantoprazole (Protonix) 40 mg EVERY 12 HOURS IVP 11/21/18 09:00 12/21/18 08:59 11/22/18 08:02 Piperacillin Sod/ Tazobactam Sod 3.375 gm/Sodium Chloride 110 ml @ 27.5 mls/hr Q8H IVPB 11/21/18 12:00 11/28/18 11:59 11/22/18 04:18 Sodium Chloride 1,000 ml @ 100 mls/hr Q10H IV 11/20/18 22:00 12/20/18 21:59 11/21/18 17:32 Jamie Gilmore MD Nov 22, 2018 10:58
[2018-11-22 12:00] VITALS: BP 133/78
--- NOTE | 2018-11-22 12:38 | Infectious Diseases Prog Note ---
Assessment/Plan Assessment/Plan A: 1. Pancreatitis, 2. Leukocytosis, resolved PLAN: 1. Continue Zosyn. Subjective ROS Limited/Unobtainable: No Constitutional: Reports: no symptoms Gastrointestinal/Abdominal: Reports: nausea, vomiting, diarrhea, other - epigastric pain Genitourinary: Reports: no symptoms Neurologic: Reports: no symptoms Allergies: Coded Allergies: MORPHINE (Verified Allergy, Mild, itching, 11/20/18) HALOPERIDOL (Verified Allergy, Unknown, 11/20/18) KETOROLAC (Verified Allergy, Unknown, 01/01/18) PROCHLORPERAZINE (Verified Allergy, Unknown, 11/20/18) PROMETHAZINE (Verified Allergy, Unknown, 11/20/18) METOCLOPRAMIDE (Verified Adverse Reaction, Mild, 12/15/17) anxiety Objective Vital Signs Last 24 Hour Vital Signs Date Time Temp Pulse Resp B/P (MAP) Pulse Ox O2 Delivery O2 Flow Rate FiO2 11/22/18 10:24 97.9 11/22/18 09:00 Room Air 11/22/18 07:59 97.9 60 14 142/86 (104) 98 11/22/18 04:00 97.7 60 18 120/65 (83) 98 11/22/18 00:00 97.9 70 18 117/61 (79) 98 11/21/18 22:00 Room Air 11/21/18 16:00 97.3 67 20 133/77 (95) 97 Height (Feet): 5 Height (Inches): 8.00 Weight (Pounds): 210 General Appearance: no acute distress HEENT: mucous membranes moist Respiratory/Chest: lungs clear Cardiovascular: normal rate, other - soft. mildly tender in upper abdomen Extremities: no edema Neurologic/Psychiatric: alert, oriented x 3, responsive Laboratory Tests Test 11/22/18 05:10 White Blood Count 9.2 K/UL (4.8-10.8) Red Blood Count 5.52 M/UL (4.70-6.10) Hemoglobin 14.4 G/DL (14.2-18.0) Hematocrit 44.1 % (42.0-52.0) Mean Corpuscular Volume 80 FL (80-99) Mean Corpuscular Hemoglobin 26.1 PG (27.0-31.0) L Mean Corpuscular Hemoglobin Concent 32.6 G/DL (32.0-36.0) Red Cell Distribution Width 13.0 % (11.6-14.8) Platelet Count 284 K/UL (150-450) Mean Platelet Volume 5.8 FL (6.5-10.1) L Neutrophils (%) (Auto) 55.6 % (45.0-75.0) Lymphocytes (%) (Auto) 30.1 % (20.0-45.0) Monocytes (%) (Auto) 12.9 % (1.0-10.0) H Eosinophils (%) (Auto) 0.8 % (0.0-3.0) Basophils (%) (Auto) 0.6 % (0.0-2.0) Lipase 473 U/L (73-393) H Current Medications Medications (Trade) Dose Ordered Sig/Jeffrey Route PRN Reason Start Time Stop Time Status Last Admin Dose Admin Diphenhydramine HCl (Benadryl) 50 mg Q6H PRN IVP Itching 11/22/18 10:43 12/20/18 10:42 Heparin Sodium (Porcine) (Heparin 5000 units/ml) 5,000 units EVERY 12 HOURS SUBQ 11/21/18 09:00 12/21/18 08:59 11/21/18 20:53 Hydromorphone HCl (Dilaudid) 0.5 mg Q3H PRN IVP For Pain 11/20/18 22:00 11/27/18 21:59 11/22/18 09:54 Ondansetron HCl (Zofran) 4 mg Q6H PRN IVP Nausea & Vomiting 11/20/18 22:00 12/20/18 21:59 11/22/18 08:01 Pantoprazole (Protonix) 40 mg EVERY 12 HOURS IVP 11/21/18 09:00 12/21/18 08:59 11/22/18 08:02 Piperacillin Sod/ Tazobactam Sod 3.375 gm/Sodium Chloride 110 ml @ 27.5 mls/hr Q8H IVPB 11/21/18 12:00 11/28/18 11:59 11/22/18 04:18 Sodium Chloride 1,000 ml @ 100 mls/hr Q10H IV 11/20/18 22:00 12/20/18 21:59 11/21/18 17:32 Pedro Luis Vines MD Nov 22, 2018 12:37
--- NOTE | 2018-11-22 18:11 | General Progress Note ---
Assessment/Plan Assessment/Plan GI CONSULT Assessment - Panc divisum - s/p recent PD stent - recurrent pancreatitis Recommendation - NPO or sips of Clears as tolerated - ERCP with PD stent removal Sunday Thank you P MD Alaina Subjective Allergies: Coded Allergies: MORPHINE (Verified Allergy, Mild, itching, 11/20/18) HALOPERIDOL (Verified Allergy, Unknown, 11/20/18) KETOROLAC (Verified Allergy, Unknown, 01/01/18) PROCHLORPERAZINE (Verified Allergy, Unknown, 11/20/18) PROMETHAZINE (Verified Allergy, Unknown, 11/20/18) METOCLOPRAMIDE (Verified Adverse Reaction, Mild, 12/15/17) anxiety Objective Last 24 Hour Vital Signs Date Time Temp Pulse Resp B/P (MAP) Pulse Ox O2 Delivery O2 Flow Rate FiO2 11/22/18 13:13 97.9 11/22/18 12:00 97.9 60 16 133/78 (96) 98 11/22/18 09:00 Room Air 11/22/18 07:59 97.9 60 14 142/86 (104) 98 11/22/18 04:00 97.7 60 18 120/65 (83) 98 11/22/18 00:00 97.9 70 18 117/61 (79) 98 11/21/18 22:00 Room Air Intake and Output 11/21/18 11/22/18 19:00 07:00 Intake Total 800 ml Balance 800 ml Intake Oral 800 ml # Voids 4 1 Laboratory Tests 11/22/18 05:10: White Blood Count 9.2, Red Blood Count 5.52, Hemoglobin 14.4, Hematocrit 44.1, Mean Corpuscular Volume 80, Mean Corpuscular Hemoglobin 26.1L, Mean Corpuscular Hemoglobin Concent 32.6, Red Cell Distribution Width 13.0, Platelet Count 284, Mean Platelet Volume 5.8L, Neutrophils (%) (Auto) 55.6, Lymphocytes (%) (Auto) 30.1, Monocytes (%) (Auto) 12.9H, Eosinophils (%) (Auto) 0.8, Basophils (%) ( Auto) 0.6, Lipase 473H Height (Feet): 5 Height (Inches): 8.00 Weight (Pounds): 210 Mikael Foley MD Nov 22, 2018 18:11
[2018-11-22 21:55] VITALS: BP 122/80
--- NOTE | 2018-11-22 22:45 | Consultation ---
DATE OF CONSULTATION: 11/22/2018 GASTROENTEROLOGY CONSULTATION CONSULTING PHYSICIAN: Mikael Foley M.D. REFERRING PHYSICIAN: Guido Colon M.D. CHIEF COMPLAINT: I was asked to see this patient by Dr. Guido Colon for evaluation of pancreatitis. HISTORY OF PRESENT ILLNESS: The patient is a 33-year-old white man with a history of recurrent pancreatitis since 2017. He has had about eight hospitalizations or so for this condition. Recently, he was in [place] and after then he was diagnosed with idiopathic pancreatitis, however, in [place], MRI was done showing pancreatic divisum anatomy and therefore, he underwent an ERCP with pancreatic duct stent placement. The patient states that since then, his abdominal pain has been nearly continuous and he felt worse. He now comes to this hospital and has recurrent episodes of acute pancreatitis. He does not drink alcohol. PAST MEDICAL HISTORY: Otherwise negative. FAMILY HISTORY: Noncontributory. SOCIAL HISTORY: The patient does not smoke or drink. He is single. He does not have a job at this time. REVIEW OF SYSTEMS: Otherwise negative. MEDICATIONS: See the chart list for details. PHYSICAL EXAMINATION: GENERAL: A pleasant white man, seen in his room. HEENT: Normocephalic and atraumatic. Sclerae are anicteric. Oropharynx is clear. NECK: Supple. CHEST: Clear to auscultation. CARDIOVASCULAR: Revealed regular rate. ABDOMEN: Soft. There is some tenderness in the epigastric region. EXTREMITIES: Revealed no edema. LABORATORY DATA: Noted. ASSESSMENT: This patient has recurrent pancreatitis despite pancreatic duct stent placement. Options are to remove this stent and placing a larger one. Alternatives would include pancreatic duct dilatation. These were discussed with Dr. Mccray and the appropriate procedure will be scheduled for Sunday. In the meantime, the patient will be kept NPO, but perhaps sips of clear liquids can be given as tolerated. RECOMMENDATIONS: Per above discussion and per orders written in the chart. Thank you for asking me to participate in the care of this patient. Mikael Foley M.D. DR: AUGUSTUS JOB#: [id number] CC:
[2018-11-23 00:09] VITALS: BP 128/78
[2018-11-23] MEDS: DiphenhydrAMINE 50mg/ml Inj IVP PRN ×4 (00:58→19:12)
[2018-11-23] MEDS: Hydromorphone 0.5mg/0.5ml inj IVP PRN ×8 (00:59→22:00)
[2018-11-23 04:08] VITALS: BP 129/79
[2018-11-23 08:00] VITALS: BP 142/88
[2018-11-23] MEDS: Heparin 5000 units/ml inj SUBQ SCH ×2 (09:00→21:00)
[2018-11-23] MEDS: Pantoprazole Inj IVP SCH ×2 (09:00→21:00)
--- NOTE | 2018-11-23 10:35 | General Progress Note ---
Assessment/Plan Problem List: (1) Abdominal pain ICD Codes: R10.9 - Unspecified abdominal pain SNOMED: 20813409 Qualifiers: Qualified Codes: R10.13 - Epigastric pain (2) Pancreatitis ICD Codes: K85.90 - Acute pancreatitis without necrosis or infection, unspecified SNOMED: 22159955 Qualifiers: Qualified Codes: K85.90 - Acute pancreatitis without necrosis or infection, unspecified Assessment/Plan plan ERCP on Sunday Subjective ROS Limited/Unobtainable: Yes Allergies: Coded Allergies: MORPHINE (Verified Allergy, Mild, itching, 11/20/18) HALOPERIDOL (Verified Allergy, Unknown, 11/20/18) KETOROLAC (Verified Allergy, Unknown, 01/01/18) PROCHLORPERAZINE (Verified Allergy, Unknown, 11/20/18) PROMETHAZINE (Verified Allergy, Unknown, 11/20/18) METOCLOPRAMIDE (Verified Adverse Reaction, Mild, 12/15/17) anxiety Subjective abd pain Objective Last 24 Hour Vital Signs Date Time Temp Pulse Resp B/P (MAP) Pulse Ox O2 Delivery O2 Flow Rate FiO2 11/23/18 09:00 Room Air 11/23/18 08:00 98.3 60 20 142/88 (106) 98 11/23/18 04:25 97.6 11/23/18 04:08 97.6 55 18 129/79 (96) 98 11/23/18 00:09 97.5 59 18 128/78 (95) 99 11/22/18 22:31 Room Air 11/22/18 21:55 97.5 60 18 122/80 (94) 99 11/22/18 12:00 97.9 60 16 133/78 (96) 98 Intake and Output 11/22/18 11/23/18 18:59 06:59 Intake Total 327.5 ml 1100 ml Output Total 800 ml 1000 ml Balance -472.5 ml 100 ml Intake Oral 300 ml IV Total 27.5 ml 1100 ml Output Urine Total 800 ml 1000 ml Height (Feet): 5 Height (Inches): 8.00 Weight (Pounds): 210 General Appearance: alert EENT: normal ENT inspection Neck: supple Cardiovascular: normal rate Respiratory/Chest: lungs clear Abdomen: soft, tender Extremities: non-tender Saurabh Mccray MD Nov 23, 2018 10:35
[2018-11-23 12:00] VITALS: BP 147/85
[2018-11-23 16:00] VITALS: BP 137/77
--- NOTE | 2018-11-23 17:30 | Pulmonology Progress Note ---
Assessment/Plan Assessment/Plan REASON FOR ADMISSION: Pancreatitis. HISTORY: This is a 33-year-old male with known history of prior pancreatitis. The patient apparently has two pancreatic ducts, has had prior stent. The patient readmits with epigastric pain. The patient denies any alcohol use. Currently NPO, on IVF PAST MEDICAL HISTORY: Notable for recurrent pancreatitis,pancreatic ducts with prior stent. MEDICATIONS: Reviewed. ALLERGIES: Reviewed. SOCIAL HISTORY: Nonsmoker and nondrinker. PHYSICAL EXAMINATION: GENERAL: A well-developed male, comfortable at present. VITAL SIGNS: Otherwise stable. LUNGS: Otherwise clear. CARDIAC: S1 and S2. Regular rate and rhythm without murmurs, rubs, or gallops. ABDOMEN: Soft and nontender. EXTREMITIES: No edema. LABORATORY DATA: Reviewed. Amylase and lipase reviewed. Lipase now improved from 892 to 470. White cell count however increased from 11.4 to 15.8. IMPRESSION: Pancreatitis, Pancreatic Divisum, Previous Pancreatic Duct Stent, AB per ID RECOMMENDATION: IVF follow labs, GI following Subjective ROS Limited/Unobtainable: No Allergies: Coded Allergies: MORPHINE (Verified Allergy, Mild, itching, 11/20/18) HALOPERIDOL (Verified Allergy, Unknown, 11/20/18) KETOROLAC (Verified Allergy, Unknown, 01/01/18) PROCHLORPERAZINE (Verified Allergy, Unknown, 11/20/18) PROMETHAZINE (Verified Allergy, Unknown, 11/20/18) METOCLOPRAMIDE (Verified Adverse Reaction, Mild, 12/15/17) anxiety Objective Last 24 Hour Vital Signs Date Time Temp Pulse Resp B/P (MAP) Pulse Ox O2 Delivery O2 Flow Rate FiO2 11/23/18 16:00 97.7 58 20 137/77 (97) 99 11/23/18 12:00 98.2 78 19 147/85 (105) 98 11/23/18 09:00 Room Air 11/23/18 08:00 98.3 60 20 142/88 (106) 98 11/23/18 04:25 97.6 11/23/18 04:08 97.6 55 18 129/79 (96) 98 11/23/18 00:09 97.5 59 18 128/78 (95) 99 11/22/18 22:31 Room Air 11/22/18 21:55 97.5 60 18 122/80 (94) 99 Intake and Output 11/22/18 11/23/18 19:00 07:00 Intake Total 427.5 ml 1000 ml Output Total 800 ml 1000 ml Balance -372.5 ml 0 ml Intake Oral 300 ml IV Total 127.5 ml 1000 ml Output Urine Total 800 ml 1000 ml Microbiology Date/Time Source Procedure Growth Status 11/21/18 16:50 Blood Blood Culture - Preliminary NO GROWTH AFTER 24 HOURS Resulted Current Medications Medications (Trade) Dose Ordered Sig/Jeffrey Route PRN Reason Start Time Stop Time Status Last Admin Dose Admin Diphenhydramine HCl (Benadryl) 50 mg Q6H PRN IVP Itching 11/22/18 10:43 12/20/18 10:42 11/23/18 13:08 Heparin Sodium (Porcine) (Heparin 5000 units/ml) 5,000 units EVERY 12 HOURS SUBQ 11/21/18 09:00 12/21/18 08:59 11/21/18 20:53 Hydromorphone HCl (Dilaudid) 0.5 mg Q3H PRN IVP For Pain 11/20/18 22:00 11/27/18 21:59 11/23/18 16:12 Ondansetron HCl (Zofran) 4 mg Q6H PRN IVP Nausea & Vomiting 11/20/18 22:00 12/20/18 21:59 11/22/18 08:01 Pantoprazole (Protonix) 40 mg EVERY 12 HOURS IVP 11/21/18 09:00 12/21/18 08:59 11/22/18 08:02 Sodium Chloride 1,000 ml @ 100 mls/hr Q10H IV 11/20/18 22:00 12/20/18 21:59 11/23/18 16:13 Jamie Gilmore MD Nov 23, 2018 17:30
[2018-11-23 20:00] VITALS: BP 153/97
[2018-11-24] VITALS: BP 133/76
[2018-11-24] MEDS: Hydromorphone 0.5mg/0.5ml inj IVP PRN ×8 (01:02→23:51)
[2018-11-24] MEDS: DiphenhydrAMINE 50mg/ml Inj IVP PRN ×4 (01:02→20:56)
[2018-11-24 04:00] VITALS: BP 125/76
[2018-11-24] MEDS: Heparin 5000 units/ml inj SUBQ SCH ×2 (08:48→21:00)
[2018-11-24] MEDS: Pantoprazole Inj IVP SCH ×2 (08:48→21:00)
--- NOTE | 2018-11-24 10:39 | General Progress Note ---
Assessment/Plan Problem List: (1) Abdominal pain ICD Codes: R10.9 - Unspecified abdominal pain SNOMED: 57406669 Qualifiers: Qualified Codes: R10.13 - Epigastric pain (2) Pancreatitis ICD Codes: K85.90 - Acute pancreatitis without necrosis or infection, unspecified SNOMED: [id number] Qualifiers: Qualified Codes: K85.90 - Acute pancreatitis without necrosis or infection, unspecified Assessment/Plan plan ERCP on Sunday Subjective ROS Limited/Unobtainable: Yes Allergies: Coded Allergies: MORPHINE (Verified Allergy, Mild, itching, 11/20/18) HALOPERIDOL (Verified Allergy, Unknown, 11/20/18) KETOROLAC (Verified Allergy, Unknown, 01/01/18) PROCHLORPERAZINE (Verified Allergy, Unknown, 11/20/18) PROMETHAZINE (Verified Allergy, Unknown, 11/20/18) METOCLOPRAMIDE (Verified Adverse Reaction, Mild, 12/15/17) anxiety Subjective abd pain Objective Last 24 Hour Vital Signs Date Time Temp Pulse Resp B/P (MAP) Pulse Ox O2 Delivery O2 Flow Rate FiO2 11/24/18 09:00 Room Air 11/24/18 04:00 97.5 60 16 125/76 (92) 96 11/24/18 00:00 98.5 59 16 133/76 (95) 98 11/23/18 20:36 Room Air 11/23/18 20:00 98.8 72 17 153/97 (115) 97 11/23/18 16:00 97.7 58 20 137/77 (97) 99 11/23/18 12:00 98.2 78 19 147/85 (105) 98 Intake and Output 11/23/18 11/24/18 18:59 06:59 Intake Total 1780 ml 1820 ml Balance 1780 ml 1820 ml Intake Oral 980 ml 720 ml IV Total 800 ml 1100 ml # Voids 4 3 Height (Feet): 5 Height (Inches): 8.00 Weight (Pounds): 210 General Appearance: alert EENT: normal ENT inspection Neck: supple Cardiovascular: normal rate Respiratory/Chest: decreased breath sounds Abdomen: normal bowel sounds, non tender, soft Extremities: non-tender Saurabh Mccray MD Nov 24, 2018 10:39
[2018-11-24 11:26] LABS: BASOPHILS % (AUTO) 0.8 % (0.0-2.0); EOSINOPHILS % (AUTO) 3.1 % (0.0-3.0); HEMATOCRIT 46.3 % (42.0-52.0); HEMOGLOBIN 15.2 G/DL (14.2-18.0); LYMPHOCYTES % (AUTO) 27.5 % (20.0-45.0); MEAN CORPUSCULAR VOLUME 79 FL (80-99); MONOCYTES % (AUTO) 9.2 % (1.0-10.0); NEUTROPHILS % (AUTO) 59.4 % (45.0-75.0); PLATELET COUNT 276 K/UL (150-450); RED BLOOD COUNT 5.84 M/UL (4.70-6.10); RED CELL DISTRIBUTION WIDTH 12.7 % (11.6-14.8); WHITE BLOOD COUNT 9.3 K/UL (4.8-10.8)
[2018-11-24 11:52] LABS: ALANINE AMINOTRANSFERASE 19 U/L (12-78); ALBUMIN 3.3 G/DL (3.4-5.0); ALBUMIN/GLOBULIN RATIO 0.9 (1.0-2.7); ALKALINE PHOSPHATASE 54 U/L (46-116); AMYLASE 47 U/L (25-115); ANION GAP 2 mmol/L (5-15); ASPARTATE AMINO TRANSFERASE 11 U/L (15-37); BILIRUBIN,TOTAL 0.4 MG/DL (0.2-1.0); BLOOD UREA NITROGEN 4 mg/dL (7-18); CALCIUM 8.9 MG/DL (8.5-10.1); CARBON DIOXIDE 31 MMOL/L (21-32); CHLORIDE 104 MMOL/L (98-107); CHOLESTEROL 138 MG/DL (< 200); CREATININE 0.9 MG/DL (0.55-1.30); HDL CHOLESTEROL 28 MG/DL (40-60); POTASSIUM 3.8 MMOL/L (3.5-5.1); SODIUM 137 MMOL/L (136-145); TRIGLYCERIDES 279 MG/DL (30-150)
[2018-11-24 12:00] VITALS: BP 147/92
--- NOTE | 2018-11-24 13:34 | Infectious Diseases Prog Note ---
Assessment/Plan Assessment/Plan A: 1. Pancreatitis, 2. Leukocytosis, resolved PLAN: 1. Continue Zosyn 2. will have ERCP tomorrow Subjective ROS Limited/Unobtainable: No Constitutional: Reports: no symptoms Respiratory: Reports: no symptoms Gastrointestinal/Abdominal: Reports: vomiting, other - pain Genitourinary: Reports: no symptoms Allergies: Coded Allergies: MORPHINE (Verified Allergy, Mild, itching, 11/20/18) HALOPERIDOL (Verified Allergy, Unknown, 11/20/18) KETOROLAC (Verified Allergy, Unknown, 01/01/18) PROCHLORPERAZINE (Verified Allergy, Unknown, 11/20/18) PROMETHAZINE (Verified Allergy, Unknown, 11/20/18) METOCLOPRAMIDE (Verified Adverse Reaction, Mild, 12/15/17) anxiety Objective Vital Signs Last 24 Hour Vital Signs Date Time Temp Pulse Resp B/P (MAP) Pulse Ox O2 Delivery O2 Flow Rate FiO2 11/24/18 09:00 Room Air 11/24/18 04:00 97.5 60 16 125/76 (92) 96 11/24/18 00:00 98.5 59 16 133/76 (95) 98 11/23/18 20:36 Room Air 11/23/18 20:00 98.8 72 17 153/97 (115) 97 11/23/18 16:00 97.7 58 20 137/77 (97) 99 Height (Feet): 5 Height (Inches): 8.00 Weight (Pounds): 210 General Appearance: no acute distress HEENT: mucous membranes moist Respiratory/Chest: lungs clear Cardiovascular: normal rate Abdomen: other - mild epigastric tenderness Extremities: no edema Neurologic/Psychiatric: alert, oriented x 3, responsive Microbiology Date/Time Source Procedure Growth Status 11/21/18 16:50 Blood Blood Culture - Preliminary NO GROWTH AFTER 48 HOURS Resulted Laboratory Tests Test 11/24/18 11:00 White Blood Count 9.3 K/UL (4.8-10.8) Red Blood Count 5.84 M/UL (4.70-6.10) Hemoglobin 15.2 G/DL (14.2-18.0) Hematocrit 46.3 % (42.0-52.0) Mean Corpuscular Volume 79 FL (80-99) L Mean Corpuscular Hemoglobin 26.0 PG (27.0-31.0) L Mean Corpuscular Hemoglobin Concent 32.8 G/DL (32.0-36.0) Red Cell Distribution Width 12.7 % (11.6-14.8) Platelet Count 276 K/UL (150-450) Mean Platelet Volume 5.5 FL (6.5-10.1) L Neutrophils (%) (Auto) 59.4 % (45.0-75.0) Lymphocytes (%) (Auto) 27.5 % (20.0-45.0) Monocytes (%) (Auto) 9.2 % (1.0-10.0) Eosinophils (%) (Auto) 3.1 % (0.0-3.0) H Basophils (%) (Auto) 0.8 % (0.0-2.0) Sodium Level 137 MMOL/L (136-145) Potassium Level 3.8 MMOL/L (3.5-5.1) Chloride Level 104 MMOL/L (98-107) Carbon Dioxide Level 31 MMOL/L (21-32) Anion Gap 2 mmol/L (5-15) L Blood Urea Nitrogen 4 mg/dL (7-18) L Creatinine 0.9 MG/DL (0.55-1.30) Estimat Glomerular Filtration Rate > 60 mL/min (>60) Glucose Level 69 MG/DL (74-106) L Calcium Level 8.9 MG/DL (8.5-10.1) Total Bilirubin 0.4 MG/DL (0.2-1.0) Aspartate Amino Transf (AST/SGOT) 11 U/L (15-37) L Alanine Aminotransferase (ALT/SGPT) 19 U/L (12-78) Alkaline Phosphatase 54 U/L (46-116) Total Protein 7.0 G/DL (6.4-8.2) Albumin 3.3 G/DL (3.4-5.0) L Globulin 3.7 g/dL Albumin/Globulin Ratio 0.9 (1.0-2.7) L Triglycerides Level 279 MG/DL (30-150) H Cholesterol Level 138 MG/DL (< 200) LDL Cholesterol 78 mg/dL (<100) HDL Cholesterol 28 MG/DL (40-60) L Cholesterol/HDL Ratio 4.9 (3.3-4.4) H Amylase Level 47 U/L (25-115) Lipase 268 U/L (73-393) Current Medications Medications (Trade) Dose Ordered Sig/Jeffrey Route PRN Reason Start Time Stop Time Status Last Admin Dose Admin Diphenhydramine HCl (Benadryl) 50 mg Q6H PRN IVP Itching 11/22/18 10:43 12/20/18 10:42 11/24/18 13:07 Heparin Sodium (Porcine) (Heparin 5000 units/ml) 5,000 units EVERY 12 HOURS SUBQ 11/21/18 09:00 12/21/18 08:59 11/21/18 20:53 Hydromorphone HCl (Dilaudid) 0.5 mg Q3H PRN IVP For Pain 11/20/18 22:00 11/27/18 21:59 11/24/18 13:07 Ondansetron HCl (Zofran) 4 mg Q6H PRN IVP Nausea & Vomiting 11/20/18 22:00 12/20/18 21:59 11/22/18 08:01 Pantoprazole (Protonix) 40 mg EVERY 12 HOURS IVP 11/21/18 09:00 12/21/18 08:59 11/22/18 08:02 Sodium Chloride 1,000 ml @ 100 mls/hr Q10H IV 11/20/18 22:00 12/20/18 21:59 11/24/18 01:00 Pedro Luis Vines MD Nov 24, 2018 13:34
--- NOTE | 2018-11-24 18:36 | Pulmonology Progress Note ---
Assessment/Plan Assessment/Plan REASON FOR ADMISSION: Pancreatitis. HISTORY: This is a 33-year-old male with known history of prior pancreatitis. The patient apparently has two pancreatic ducts, has had prior stent. The patient readmits with epigastric pain. The patient denies any alcohol use. Abdo pain improving PAST MEDICAL HISTORY: Notable for recurrent pancreatitis,pancreatic ducts with prior stent. MEDICATIONS: Reviewed. ALLERGIES: Reviewed. SOCIAL HISTORY: Nonsmoker and nondrinker. PHYSICAL EXAMINATION: GENERAL: A well-developed male, comfortable at present. VITAL SIGNS: Otherwise stable. LUNGS: Otherwise clear. CARDIAC: S1 and S2. Regular rate and rhythm without murmurs, rubs, or gallops. ABDOMEN: Soft and nontender. EXTREMITIES: No edema. LABORATORY DATA: Reviewed. Amylase and lipase reviewed. Lipase now improved from 892 to 470. White cell count however increased from 11.4 to 15.8. IMPRESSION: Pancreatitis, Pancreatic Divisum, Previous Pancreatic Duct Stent, AB per ID RECOMMENDATION: IVF follow labs, GI following Subjective ROS Limited/Unobtainable: No Allergies: Coded Allergies: MORPHINE (Verified Allergy, Mild, itching, 11/20/18) HALOPERIDOL (Verified Allergy, Unknown, 11/20/18) KETOROLAC (Verified Allergy, Unknown, 01/01/18) PROCHLORPERAZINE (Verified Allergy, Unknown, 11/20/18) PROMETHAZINE (Verified Allergy, Unknown, 11/20/18) METOCLOPRAMIDE (Verified Adverse Reaction, Mild, 12/15/17) anxiety Objective Last 24 Hour Vital Signs Date Time Temp Pulse Resp B/P (MAP) Pulse Ox O2 Delivery O2 Flow Rate FiO2 11/24/18 12:00 98.5 80 19 147/92 (110) 98 11/24/18 09:00 Room Air 11/24/18 04:00 97.5 60 16 125/76 (92) 96 11/24/18 00:00 98.5 59 16 133/76 (95) 98 11/23/18 20:36 Room Air 11/23/18 20:00 98.8 72 17 153/97 (115) 97 Intake and Output 11/23/18 11/24/18 19:00 07:00 Intake Total 1780 ml 1820 ml Balance 1780 ml 1820 ml Intake Oral 980 ml 720 ml IV Total 800 ml 1100 ml # Voids 4 3 Laboratory Tests 11/24/18 11:00: White Blood Count 9.3, Red Blood Count 5.84, Hemoglobin 15.2, Hematocrit 46.3, Mean Corpuscular Volume 79L, Mean Corpuscular Hemoglobin 26.0L, Mean Corpuscular Hemoglobin Concent 32.8, Red Cell Distribution Width 12.7, Platelet Count 276, Mean Platelet Volume 5.5L, Neutrophils (%) (Auto) 59.4, Lymphocytes ( %) (Auto) 27.5, Monocytes (%) (Auto) 9.2, Eosinophils (%) (Auto) 3.1H, Basophils (%) (Auto) 0.8, Sodium Level 137, Potassium Level 3.8, Chloride Level 104, Carbon Dioxide Level 31, Anion Gap 2L, Blood Urea Nitrogen 4L, Creatinine 0.9, Estimat Glomerular Filtration Rate > 60, Glucose Level 69L, Calcium Level 8.9, Total Bilirubin 0.4, Aspartate Amino Transf (AST/SGOT) 11L, Alanine Aminotransferase (ALT/SGPT) 19, Alkaline Phosphatase 54, Total Protein 7.0, Albumin 3.3L, Globulin 3.7, Albumin/Globulin Ratio 0.9L, Triglycerides Level 279H, Cholesterol Level 138, LDL Cholesterol 78, HDL Cholesterol 28L, Cholesterol/HDL Ratio 4.9H, Amylase Level 47, Lipase 268 Current Medications Medications (Trade) Dose Ordered Sig/Jeffrey Route PRN Reason Start Time Stop Time Status Last Admin Dose Admin Diphenhydramine HCl (Benadryl) 50 mg Q6H PRN IVP Itching 11/22/18 10:43 12/20/18 10:42 11/24/18 13:07 Heparin Sodium (Porcine) (Heparin 5000 units/ml) 5,000 units EVERY 12 HOURS SUBQ 11/21/18 09:00 12/21/18 08:59 11/21/18 20:53 Hydromorphone HCl (Dilaudid) 0.5 mg Q3H PRN IVP For Pain 11/20/18 22:00 11/27/18 21:59 11/24/18 17:46 Ondansetron HCl (Zofran) 4 mg Q6H PRN IVP Nausea & Vomiting 11/20/18 22:00 12/20/18 21:59 11/22/18 08:01 Pantoprazole (Protonix) 40 mg EVERY 12 HOURS IVP 11/21/18 09:00 12/21/18 08:59 11/22/18 08:02 Sodium Chloride 1,000 ml @ 100 mls/hr Q10H IV 11/20/18 22:00 12/20/18 21:59 11/24/18 01:00 Jamie Gilmore MD Nov 24, 2018 18:36
[2018-11-24 20:00] VITALS: BP 135/90
[2018-11-25] VITALS (10 sets, daily range): BP systolic 121–149; BP diastolic 74–92
[2018-11-25] MEDS: DiphenhydrAMINE 50mg/ml Inj IVP PRN ×4 (02:46→21:47)
[2018-11-25] MEDS: Hydromorphone 0.5mg/0.5ml inj IVP PRN ×6 (02:46→21:47)
--- NOTE | 2018-11-25 08:29 | General Progress Note ---
Assessment/Plan Assessment/Plan pancreatitis leukocytosis PLAN ERCP possible dc today if stable resume po lipase now normal Subjective Allergies: Coded Allergies: MORPHINE (Verified Allergy, Mild, itching, 11/20/18) HALOPERIDOL (Verified Allergy, Unknown, 11/20/18) KETOROLAC (Verified Allergy, Unknown, 01/01/18) PROCHLORPERAZINE (Verified Allergy, Unknown, 11/20/18) PROMETHAZINE (Verified Allergy, Unknown, 11/20/18) METOCLOPRAMIDE (Verified Adverse Reaction, Mild, 12/15/17) anxiety Subjective care noted for ERCP Objective Last 24 Hour Vital Signs Date Time Temp Pulse Resp B/P (MAP) Pulse Ox O2 Delivery O2 Flow Rate FiO2 11/25/18 04:00 97.5 60 17 128/87 (101) 98 11/25/18 00:00 97.7 64 16 121/76 (91) 97 11/24/18 21:00 Room Air 11/24/18 20:00 98.5 70 17 135/90 (105) 98 11/24/18 12:00 98.5 80 19 147/92 (110) 98 11/24/18 09:00 Room Air Intake and Output 11/24/18 11/25/18 19:00 07:00 Intake Total 300 ml 600 ml Balance 300 ml 600 ml Intake Oral 300 ml 600 ml # Voids 2 Laboratory Tests 11/24/18 11:00: White Blood Count 9.3, Red Blood Count 5.84, Hemoglobin 15.2, Hematocrit 46.3, Mean Corpuscular Volume 79L, Mean Corpuscular Hemoglobin 26.0L, Mean Corpuscular Hemoglobin Concent 32.8, Red Cell Distribution Width 12.7, Platelet Count 276, Mean Platelet Volume 5.5L, Neutrophils (%) (Auto) 59.4, Lymphocytes ( %) (Auto) 27.5, Monocytes (%) (Auto) 9.2, Eosinophils (%) (Auto) 3.1H, Basophils (%) (Auto) 0.8, Sodium Level 137, Potassium Level 3.8, Chloride Level 104, Carbon Dioxide Level 31, Anion Gap 2L, Blood Urea Nitrogen 4L, Creatinine 0.9, Estimat Glomerular Filtration Rate > 60, Glucose Level 69L, Calcium Level 8.9, Total Bilirubin 0.4, Aspartate Amino Transf (AST/SGOT) 11L, Alanine Aminotransferase (ALT/SGPT) 19, Alkaline Phosphatase 54, Total Protein 7.0, Albumin 3.3L, Globulin 3.7, Albumin/Globulin Ratio 0.9L, Triglycerides Level 279H, Cholesterol Level 138, LDL Cholesterol 78, HDL Cholesterol 28L, Cholesterol/HDL Ratio 4.9H, Amylase Level 47, Lipase 268 Height (Feet): 5 Height (Inches): 8.00 Weight (Pounds): 210 Objective WDWN NAD clear breath sounds bilaterally without rhonchi or wheeze [id number] without MRG NABS nontender no HSM no CCE nonfocal Guido Colon MD Nov 25, 2018 08:29
[2018-11-25] MEDS: Heparin 5000 units/ml inj SUBQ SCH ×2 (09:00→20:15)
[2018-11-25] MEDS: Pantoprazole Inj IVP SCH ×2 (09:21→20:15)
[2018-11-25 09:27] LABS: BASOPHILS % (AUTO) 0.8 % (0.0-2.0); EOSINOPHILS % (AUTO) 3.7 % (0.0-3.0); HEMATOCRIT 51.2 % (42.0-52.0); HEMOGLOBIN 16.6 G/DL (14.2-18.0); LYMPHOCYTES % (AUTO) 21.7 % (20.0-45.0); MEAN CORPUSCULAR VOLUME 79 FL (80-99); MONOCYTES % (AUTO) 8.1 % (1.0-10.0); NEUTROPHILS % (AUTO) 65.7 % (45.0-75.0); PLATELET COUNT 283 K/UL (150-450); RED BLOOD COUNT 6.46 M/UL (4.70-6.10); RED CELL DISTRIBUTION WIDTH 12.5 % (11.6-14.8); WHITE BLOOD COUNT 9.6 K/UL (4.8-10.8)
[2018-11-25 09:38] LABS: ANION GAP 5 mmol/L (5-15); BLOOD UREA NITROGEN 4 mg/dL (7-18); CALCIUM 9.3 MG/DL (8.5-10.1); CARBON DIOXIDE 32 MMOL/L (21-32); CHLORIDE 101 MMOL/L (98-107); CREATININE 0.9 MG/DL (0.55-1.30); POTASSIUM 4.1 MMOL/L (3.5-5.1); SODIUM 138 MMOL/L (136-145)
--- NOTE | 2018-11-25 10:49 | General Progress Note ---
Assessment/Plan Assessment/Plan Assessment - Panc divisum - s/p recent PD stent - recurrent pancreatitis Recommendation - NPO - ERCP with PD stent removal and/or exchange Subjective Allergies: Coded Allergies: MORPHINE (Verified Allergy, Mild, itching, 11/20/18) HALOPERIDOL (Verified Allergy, Unknown, 11/20/18) KETOROLAC (Verified Allergy, Unknown, 01/01/18) PROCHLORPERAZINE (Verified Allergy, Unknown, 11/20/18) PROMETHAZINE (Verified Allergy, Unknown, 11/20/18) METOCLOPRAMIDE (Verified Adverse Reaction, Mild, 12/15/17) anxiety Subjective Feels OK abd pain gone for ERCP today says has had post ERCP pancreatitis in past advised same risk exists with today's ERCP - understands and accepts Objective Last 24 Hour Vital Signs Date Time Temp Pulse Resp B/P (MAP) Pulse Ox O2 Delivery O2 Flow Rate FiO2 11/25/18 09:00 Room Air 11/25/18 08:00 97.9 66 15 147/91 (109) 100 11/25/18 04:00 97.5 60 17 128/87 (101) 98 11/25/18 00:00 97.7 64 16 121/76 (91) 97 11/24/18 21:00 Room Air 11/24/18 20:00 98.5 70 17 135/90 (105) 98 11/24/18 12:00 98.5 80 19 147/92 (110) 98 Intake and Output 11/24/18 11/25/18 19:00 07:00 Intake Total 300 ml 600 ml Balance 300 ml 600 ml Intake Oral 300 ml 600 ml # Voids 2 Laboratory Tests 11/24/18 11:00: White Blood Count 9.3, Red Blood Count 5.84, Hemoglobin 15.2, Hematocrit 46.3, Mean Corpuscular Volume 79L, Mean Corpuscular Hemoglobin 26.0L, Mean Corpuscular Hemoglobin Concent 32.8, Red Cell Distribution Width 12.7, Platelet Count 276, Mean Platelet Volume 5.5L, Neutrophils (%) (Auto) 59.4, Lymphocytes ( %) (Auto) 27.5, Monocytes (%) (Auto) 9.2, Eosinophils (%) (Auto) 3.1H, Basophils (%) (Auto) 0.8, Sodium Level 137, Potassium Level 3.8, Chloride Level 104, Carbon Dioxide Level 31, Anion Gap 2L, Blood Urea Nitrogen 4L, Creatinine 0.9, Estimat Glomerular Filtration Rate > 60, Glucose Level 69L, Calcium Level 8.9, Total Bilirubin 0.4, Aspartate Amino Transf (AST/SGOT) 11L, Alanine Aminotransferase (ALT/SGPT) 19, Alkaline Phosphatase 54, Total Protein 7.0, Albumin 3.3L, Globulin 3.7, Albumin/Globulin Ratio 0.9L, Triglycerides Level 279H, Cholesterol Level 138, LDL Cholesterol 78, HDL Cholesterol 28L, Cholesterol/HDL Ratio 4.9H, Amylase Level 47, Lipase 268 11/25/18 08:25: White Blood Count 9.6, Red Blood Count 6.46H, Hemoglobin 16.6, Hematocrit 51.2, Mean Corpuscular Volume 79L, Mean Corpuscular Hemoglobin 25.7L, Mean Corpuscular Hemoglobin Concent 32.4, Red Cell Distribution Width 12.5, Platelet Count 283, Mean Platelet Volume 5.9L, Neutrophils (%) (Auto) 65.7, Lymphocytes ( %) (Auto) 21.7, Monocytes (%) (Auto) 8.1, Eosinophils (%) (Auto) 3.7H, Basophils (%) (Auto) 0.8, Sodium Level 138, Potassium Level 4.1, Chloride Level 101, Carbon Dioxide Level 32, Anion Gap 5, Blood Urea Nitrogen 4L, Creatinine 0.9, Estimat Glomerular Filtration Rate > 60, Glucose Level 76, Calcium Level 9.3, Lipase 281 Height (Feet): 5 Height (Inches): 8.00 Weight (Pounds): 210 Objective WDWN NCAT supple CTA RR abd soft no edema non focal Mikael Foley MD Nov 25, 2018 10:49
[2018-11-25] MEDS ORDERED: Iothalamate Meglumine 60% 30ML INJ ONE ×2 (11:21→12:05)
[2018-11-25] MEDS ORDERED: fentaNYL 100 mcg/2 mL IV PRN (11:30)
[2018-11-25] MEDS ORDERED: DiphenhydrAMINE 50mg/ml Inj IVP PRN (11:30)
[2018-11-25] MEDS ORDERED: Propofol 200mg/20ml IV ONE (11:30)
[2018-11-25] MEDS ORDERED: Atropine Inj 1mg/10ml Syr IV PRN (11:30)
[2018-11-25] MEDS ORDERED: fentaNYL 100 mcg/2 mL IV ONE (11:30)
[2018-11-25] MEDS ORDERED: Midazolam 2mg/2ml Inj IVP PRN (11:30)
[2018-11-25] MEDS ORDERED: Lidocaine 1% MPF 10mg/ml 5ml ONE (11:30)
[2018-11-25] MEDS ORDERED: Midazolam 2mg/2ml Inj ONE (11:30)
--- NOTE | 2018-11-25 11:34 | Pre-Procedure Note/Attestation ---
Pre-Procedure Note/Attestation Complete Prior to Procedure Planned Procedure: not applicable Procedure Narrative: ercp Indications for Procedure Pre-Operative Diagnosis: pancreatitis Attestation I attest that I discussed the nature of the procedure; its benefits; risks and complications; and alternatives (and the risks and benefits of such alternatives ), prior to the procedure, with the patient (or the patient's legal loan servicing representative). I attest that, if there was a reasonable possibility of needing a blood transfusion, the patient (or the patient's legal loan servicing representative) was given the [facility] standardized written summary, pursuant to the [employer]akelin Blood Safety Act ([place] Health and Safety Code # 1645, as amended). I attest that I re-evaluated the patient just prior to the surgery and that there has been no change in the patient's H&P, except as documented below: Saurabh Mccray MD Nov 25, 2018 11:34
--- NOTE | 2018-11-25 11:38 | Anethesia Preoperative Eval ---
Anesthesia Pre-op PMH/ROS General Date of Evaluation: Nov 25, 2018 Time of Evaluation: 11:11 Anesthesiologist: christie ASA Score: ASA 2 Mallampati Score Class I : Soft palate, uvula, fauces, pillars visible Class II: Soft palate, uvula, fauces visible Class III: Soft palate, base of uvula visible Class IV: Only hard plate visible Mallampati Classification: Class II Surgeon: brown Diagnosis: pancreatitis Surgical Procedure: ercp Anesthesia History: none Social History: smoking - nonsmoker Family History: no anesthesia problems Allergies: Coded Allergies: MORPHINE (Verified Allergy, Mild, itching, 11/20/18) HALOPERIDOL (Verified Allergy, Unknown, 11/20/18) KETOROLAC (Verified Allergy, Unknown, 01/01/18) PROCHLORPERAZINE (Verified Allergy, Unknown, 11/20/18) PROMETHAZINE (Verified Allergy, Unknown, 11/20/18) METOCLOPRAMIDE (Verified Adverse Reaction, Mild, 12/15/17) anxiety Medications: see eMAR Patient NPO?: Yes Past Medical History Gastrointestinal/Genitourinary: Reports: other - pancraetitis, gastritis, abdominal pain, testicular sx PSxH Narrative: testicular sx Anesthesia Pre-op Phys. Exam Physician Exam Last Vital Signs Date Time Temp Pulse Resp B/P (MAP) Pulse Ox O2 Delivery O2 Flow Rate FiO2 11/25/18 09:00 Room Air 11/25/18 08:00 97.9 66 15 147/91 (109) 100 Constitutional: NAD Neurologic: CN 2-12 intact Cardiovascular: RRR Respiratory: CTA Gastrointestinal: S/NT/ND Airway Exam Mallampati Score: Class II MO: full Neck: flexible TMD: 2fb ROM: full Teeth: intact Anesthesia Pre-op A/P Labs Hematology Test 11/25/18 08:25 White Blood Count 9.6 K/UL (4.8-10.8) Red Blood Count 6.46 M/UL (4.70-6.10) H Hemoglobin 16.6 G/DL (14.2-18.0) Hematocrit 51.2 % (42.0-52.0) Mean Corpuscular Volume 79 FL (80-99) L Mean Corpuscular Hemoglobin 25.7 PG (27.0-31.0) L Mean Corpuscular Hemoglobin Concent 32.4 G/DL (32.0-36.0) Red Cell Distribution Width 12.5 % (11.6-14.8) Platelet Count 283 K/UL (150-450) Mean Platelet Volume 5.9 FL (6.5-10.1) L Neutrophils (%) (Auto) 65.7 % (45.0-75.0) Lymphocytes (%) (Auto) 21.7 % (20.0-45.0) Monocytes (%) (Auto) 8.1 % (1.0-10.0) Eosinophils (%) (Auto) 3.7 % (0.0-3.0) H Basophils (%) (Auto) 0.8 % (0.0-2.0) Chemistry Test 11/25/18 08:25 Sodium Level 138 MMOL/L (136-145) Potassium Level 4.1 MMOL/L (3.5-5.1) Chloride Level 101 MMOL/L (98-107) Carbon Dioxide Level 32 MMOL/L (21-32) Anion Gap 5 mmol/L (5-15) Blood Urea Nitrogen 4 mg/dL (7-18) L Creatinine 0.9 MG/DL (0.55-1.30) Estimat Glomerular Filtration Rate > 60 mL/min (>60) Glucose Level 76 MG/DL (74-106) Calcium Level 9.3 MG/DL (8.5-10.1) Lipase 281 U/L (73-393) Risk Assessment & Plan Assessment: asa2 Plan: mac Status Change Before Surgery: No Pre-Antibiotics Drug: Serene Medina MD Nov 25, 2018 11:38
[2018-11-25] MEDS ORDERED: NS 500ML IVPB ONE ×2 (11:45→12:20)
--- NOTE | 2018-11-25 12:40 | Endoscopy Procedure Note ---
Endoscopy Procedure Note General Indication for Procedure: pancreatitis Procedures Performed: ERCP Operative Findings/Diagnosis: same Specimen: none Pt Tolerated Procedure Well: Yes Estimated Blood Loss: none Anesthesia Anesthesiologist: christie Anesthesia: MAC Inserted Devices Implant(s) used?: No GI Core Measures 50 yrs or older w/o bx or poly: Not Applicable 10yrs. F/U not recommended: Not Applicable Saurabh Mccray MD Nov 25, 2018 12:40
--- NOTE | 2018-11-25 13:01 | Immediate Post-Op Evaluation ---
Immediate Post-Op Evalulation Immediate Post-Op Evalulation Procedure: ercp w/removal and replacement of stent Date of Evaluation: Nov 25, 2018 Time of Evaluation: 12:49 IV Fluids: 550ml 0.9ns Blood Products: none Estimated Blood Loss: negligible Blood Pressure Systolic: 128 Blood Pressure Diastolic: 74 Pulse Rate: 72 Respiratory Rate: 18 O2 Sat by Pulse Oximetry: 100 Temperature (Fahrenheit): 97.2 Pain Score (1-10): 2 Nausea: No Vomiting: No Complications none Patient Status: awake, reacts, patent Hydration Status: adequate Drug: Serene Medina MD Nov 25, 2018 13:01
--- NOTE | 2018-11-25 13:02 | 48 Hour Post Anesthesia Eval ---
Post Anesthesia Evaluation Procedure: ercp w/removal and replacement of stent Date of Evaluation: Nov 25, 2018 Time of Evaluation: 12:51 Blood Pressure Systolic: 127 0: 75 Pulse Rate: 75 Respiratory Rate: 18 Temperature (Fahrenheit): 97.2 O2 Sat by Pulse Oximetry: 100 Airway: patent Nausea: No Vomiting: No Pain Intensity: 0 Hydration Status: adequate Cardiopulmonary Status: stable Mental Status/LOC: patient returned to baseline Post-Anesthesia Complications: none Follow-up care needed: N/A Serene Taveras MD Nov 25, 2018 13:02
--- NOTE | 2018-11-25 14:45 | Diagnostic Imaging Report ---
INDICATION: Pain, intraoperative TECHNIQUE: Intraoperative imaging Fluoroscopy time: 84.8 seconds Total dose: 0.75674 mGym2 Total number of images: 5 COMPARISON: None FINDINGS: Intraoperative imaging initially a pancreatic duct stent. Subsequent images demonstrate opacification of the pancreatic duct and subsequent placement of a new stent IMPRESSION: Intraoperative imaging, as described
--- NOTE | 2018-11-25 19:15 | Procedure Note ---
DATE OF PROCEDURE: 11/25/2018 SURGEON: Saurabh Mccray M.D. PROCEDURE: Endoscopic retrograde cholangiopancreatography with pancreatic duct exchange. ANESTHESIA: Per Dr. Bennett. INSTRUMENT: ERCP scope. INDICATION: Pancreatitis. REASON FOR PROCEDURE: The procedure, risks, benefits, and possible consequences, including hemorrhage, aspiration, perforation and infection, and alternative treatments, were explained to the patient/legal guardian by Dr. Saurabh Mccray and the patient/legal guardian understood and accepted these risks. DESCRIPTION OF PROCEDURE: After informed consent was obtained and the patient was adequately sedated, the ERCP scope was advanced from the mouth into the second portion of duodenum. Pancreatic duct was seen in the minor ampulla protruding to a minor ampulla. Using a snare, the pancreatic stent was removed. The stent was 5-Korean by almost 9 cm in length. Then, over a guidewire, using a tapered tip catheter, we cannulated the pancreatic duct again. Initial pancreatic gland showed no obvious large stricture. Pancreatic duct looked normal in caliber. Over a guidewire, we placed a 5-Korean 5 cm stent without any complication. After the stent was placed, the drainage was good. We see a nice fluid drainage through the stent into the second portion of the duodenum. The patient tolerated the procedure very well without any complication. SUMMARY OF FINDINGS: 1. Pancreatic divisum with stent in the minor ampulla. 2. Status pancreatic duct exchange. RECOMMENDATIONS: Resume diet slowly. Advance as tolerated. Monitor labs. Discharge planning per primary team. I want to thank, Dr. Foley, for this kind referral. Saurabh Mccray M.D. DR: ALEX JOB#: [id number] CC: Mikael Foley M.D.; Fax#: [phone]
[2018-11-25] MEDS: HYDROmorphone 1mg/ml Carpuject IVP PRN (23:21)
[2018-11-26 00:38] VITALS: BP 120/76
[2018-11-26] MEDS: HYDROmorphone 1mg/ml Carpuject IVP PRN ×7 (02:16→20:57)
[2018-11-26 04:28] VITALS: BP 134/71
[2018-11-26] MEDS: DiphenhydrAMINE 50mg/ml Inj IVP PRN ×3 (05:16→18:00)
[2018-11-26] MEDS ORDERED: Metoclopramide 10mg/2ml Inj IVP PRN (06:15)
[2018-11-26 08:00] VITALS: BP 127/78
--- NOTE | 2018-11-26 08:04 | General Progress Note ---
Assessment/Plan Assessment: pancreatitis leukocytosis PLAN ERCP completed dc home if ok with gi resume po per gi dc dilaudid lipase now normal Subjective Allergies: Coded Allergies: MORPHINE (Verified Allergy, Mild, itching, 11/20/18) HALOPERIDOL (Verified Allergy, Unknown, 11/20/18) KETOROLAC (Verified Allergy, Unknown, 01/01/18) PROCHLORPERAZINE (Verified Allergy, Unknown, 11/20/18) PROMETHAZINE (Verified Allergy, Unknown, 11/20/18) METOCLOPRAMIDE (Verified Adverse Reaction, Mild, 12/15/17) anxiety Subjective care noted s/p ERCP still co pain and vomiting Objective Last 24 Hour Vital Signs Date Time Temp Pulse Resp B/P (MAP) Pulse Ox O2 Delivery O2 Flow Rate FiO2 11/26/18 05:47 98.8 11/26/18 04:28 98.8 69 18 134/71 (92) 100 11/26/18 00:38 98.0 74 18 120/76 (91) 99 11/25/18 22:56 Room Air 11/25/18 22:17 98.4 11/25/18 20:35 98.4 74 18 145/92 (109) 100 11/25/18 16:00 98.1 70 16 149/92 (111) 99 11/25/18 13:02 75 18 100 11/25/18 13:01 72 18 100 11/25/18 13:00 83 18 142/90 95 Simple Mask 5 11/25/18 12:52 97.4 88 18 125/91 95 Room Air 11/25/18 12:47 77 18 131/79 95 Room Air 11/25/18 12:42 92 18 128/74 95 Simple Mask 5 11/25/18 12:37 97.2 92 18 128/74 95 Simple Mask 5 11/25/18 09:00 Room Air Intake and Output 11/25/18 11/26/18 19:00 07:00 Intake Total 1620 ml 700 ml Balance 1620 ml 700 ml Intake Oral 720 ml IV Total 900 ml 700 ml # Voids 2 Laboratory Tests 11/25/18 08:25: White Blood Count 9.6, Red Blood Count 6.46H, Hemoglobin 16.6, Hematocrit 51.2, Mean Corpuscular Volume 79L, Mean Corpuscular Hemoglobin 25.7L, Mean Corpuscular Hemoglobin Concent 32.4, Red Cell Distribution Width 12.5, Platelet Count 283, Mean Platelet Volume 5.9L, Neutrophils (%) (Auto) 65.7, Lymphocytes ( %) (Auto) 21.7, Monocytes (%) (Auto) 8.1, Eosinophils (%) (Auto) 3.7H, Basophils (%) (Auto) 0.8, Sodium Level 138, Potassium Level 4.1, Chloride Level 101, Carbon Dioxide Level 32, Anion Gap 5, Blood Urea Nitrogen 4L, Creatinine 0.9, Estimat Glomerular Filtration Rate > 60, Glucose Level 76, Calcium Level 9.3, Lipase 281 Height (Feet): 5 Height (Inches): 8.00 Weight (Pounds): 210 Objective WDWN NAD clear breath sounds bilaterally without rhonchi or wheeze [id number] without MRG NABS nontender no HSM no CCE nonfocal Guido Colon MD Nov 26, 2018 08:04
[2018-11-26] MEDS: Heparin 5000 units/ml inj SUBQ SCH ×2 (09:00→20:53)
[2018-11-26] MEDS: Pantoprazole Inj IVP SCH ×2 (09:00→20:53)
[2018-11-26 09:22] LABS: BASOPHILS % (AUTO) 0.7 % (0.0-2.0); EOSINOPHILS % (AUTO) 2.3 % (0.0-3.0); HEMATOCRIT 48.6 % (42.0-52.0); HEMOGLOBIN 15.7 G/DL (14.2-18.0); LYMPHOCYTES % (AUTO) 19.2 % (20.0-45.0); MEAN CORPUSCULAR VOLUME 79 FL (80-99); MONOCYTES % (AUTO) 9.3 % (1.0-10.0); NEUTROPHILS % (AUTO) 68.5 % (45.0-75.0); PLATELET COUNT 272 K/UL (150-450); RED BLOOD COUNT 6.13 M/UL (4.70-6.10); RED CELL DISTRIBUTION WIDTH 12.5 % (11.6-14.8); WHITE BLOOD COUNT 11.1 K/UL (4.8-10.8)
[2018-11-26 09:40] LABS: ALANINE AMINOTRANSFERASE 21 U/L (12-78); ALBUMIN 3.9 G/DL (3.4-5.0); ALBUMIN/GLOBULIN RATIO 0.9 (1.0-2.7); ALKALINE PHOSPHATASE 66 U/L (46-116); ANION GAP 6 mmol/L (5-15); ASPARTATE AMINO TRANSFERASE 10 U/L (15-37); BILIRUBIN,TOTAL 0.8 MG/DL (0.2-1.0); BLOOD UREA NITROGEN 6 mg/dL (7-18); CALCIUM 9.6 MG/DL (8.5-10.1); CARBON DIOXIDE 30 MMOL/L (21-32); CHLORIDE 102 MMOL/L (98-107); CREATININE 0.9 MG/DL (0.55-1.30); POTASSIUM 3.8 MMOL/L (3.5-5.1); SODIUM 138 MMOL/L (136-145)
--- NOTE | 2018-11-26 10:32 | Infectious Diseases Prog Note ---
Assessment/Plan Assessment/Plan antibiotics : none A 1. pancreatitis s/p ERCP increased lipase 2. pancreatic divisum P 1. start zosyn 2. will follow up clinically Subjective Constitutional: Denies: fever, chills Respiratory: Denies: shortness of breath, dry cough Gastrointestinal/Abdominal: Reports: vomiting; Denies: nausea, diarrhea Musculoskeletal: Reports: pain - abdominal Allergies: Coded Allergies: MORPHINE (Verified Allergy, Mild, itching, 11/20/18) HALOPERIDOL (Verified Allergy, Unknown, 11/20/18) KETOROLAC (Verified Allergy, Unknown, 01/01/18) PROCHLORPERAZINE (Verified Allergy, Unknown, 11/20/18) PROMETHAZINE (Verified Allergy, Unknown, 11/20/18) METOCLOPRAMIDE (Verified Adverse Reaction, Mild, 12/15/17) anxiety Objective Vital Signs Last 24 Hour Vital Signs Date Time Temp Pulse Resp B/P (MAP) Pulse Ox O2 Delivery O2 Flow Rate FiO2 11/26/18 08:00 98.5 71 16 127/78 (94) 98 11/26/18 05:47 98.8 11/26/18 04:28 98.8 69 18 134/71 (92) 100 11/26/18 00:38 98.0 74 18 120/76 (91) 99 11/25/18 22:56 Room Air 11/25/18 22:17 98.4 11/25/18 20:35 98.4 74 18 145/92 (109) 100 11/25/18 16:00 98.1 70 16 149/92 (111) 99 11/25/18 13:02 75 18 100 11/25/18 13:01 72 18 100 11/25/18 13:00 83 18 142/90 95 Simple Mask 5 11/25/18 12:52 97.4 88 18 125/91 95 Room Air 11/25/18 12:47 77 18 131/79 95 Room Air 11/25/18 12:42 92 18 128/74 95 Simple Mask 5 11/25/18 12:37 97.2 92 18 128/74 95 Simple Mask 5 Height (Feet): 5 Height (Inches): 8.00 Weight (Pounds): 210 Respiratory/Chest: lungs clear Cardiovascular: normal rate, regular rhythm, no gallop/murmur Abdomen: soft, non tender Extremities: no edema Laboratory Tests Test 11/26/18 09:10 White Blood Count 11.1 K/UL (4.8-10.8) H Red Blood Count 6.13 M/UL (4.70-6.10) H Hemoglobin 15.7 G/DL (14.2-18.0) Hematocrit 48.6 % (42.0-52.0) Mean Corpuscular Volume 79 FL (80-99) L Mean Corpuscular Hemoglobin 25.7 PG (27.0-31.0) L Mean Corpuscular Hemoglobin Concent 32.4 G/DL (32.0-36.0) Red Cell Distribution Width 12.5 % (11.6-14.8) Platelet Count 272 K/UL (150-450) Mean Platelet Volume 5.8 FL (6.5-10.1) L Neutrophils (%) (Auto) 68.5 % (45.0-75.0) Lymphocytes (%) (Auto) 19.2 % (20.0-45.0) L Monocytes (%) (Auto) 9.3 % (1.0-10.0) Eosinophils (%) (Auto) 2.3 % (0.0-3.0) Basophils (%) (Auto) 0.7 % (0.0-2.0) Sodium Level 138 MMOL/L (136-145) Potassium Level 3.8 MMOL/L (3.5-5.1) Chloride Level 102 MMOL/L (98-107) Carbon Dioxide Level 30 MMOL/L (21-32) Anion Gap 6 mmol/L (5-15) Blood Urea Nitrogen 6 mg/dL (7-18) L Creatinine 0.9 MG/DL (0.55-1.30) Estimat Glomerular Filtration Rate > 60 mL/min (>60) Glucose Level 87 MG/DL (74-106) Calcium Level 9.6 MG/DL (8.5-10.1) Total Bilirubin 0.8 MG/DL (0.2-1.0) Aspartate Amino Transf (AST/SGOT) 10 U/L (15-37) L Alanine Aminotransferase (ALT/SGPT) 21 U/L (12-78) Alkaline Phosphatase 66 U/L (46-116) Total Protein 8.3 G/DL (6.4-8.2) H Albumin 3.9 G/DL (3.4-5.0) Globulin 4.4 g/dL Albumin/Globulin Ratio 0.9 (1.0-2.7) L Lipase 1978 U/L (73-393) H Current Medications Medications (Trade) Dose Ordered Sig/Jeffrey Route PRN Reason Start Time Stop Time Status Last Admin Dose Admin Diphenhydramine HCl (Benadryl) 50 mg Q6H PRN IVP Itching 11/22/18 10:43 12/20/18 10:42 11/26/18 05:16 Heparin Sodium (Porcine) (Heparin 5000 units/ml) 5,000 units EVERY 12 HOURS SUBQ 11/21/18 09:00 12/21/18 08:59 11/21/18 20:53 Hydromorphone HCl (Dilaudid) 1 mg Q3H PRN IVP Severe Pain (Pain Scale 7-10) 11/26/18 10:00 12/03/18 09:59 Ondansetron HCl (Zofran) 4 mg Q6H PRN IVP Nausea & Vomiting 11/20/18 22:00 12/20/18 21:59 11/26/18 06:26 Pantoprazole (Protonix) 40 mg EVERY 12 HOURS IVP 11/21/18 09:00 12/21/18 08:59 11/25/18 09:21 Sodium Chloride 1,000 ml @ 150 mls/hr Q6H40M IV 11/26/18 22:00 12/20/18 21:59 11/26/18 06:27 Reg Cuenca MD Nov 26, 2018 10:32
[2018-11-26] MEDS: D5NS 1,000 ML IV SCH ×3 (11:17→21:13)
[2018-11-26] MEDS ORDERED: Heparin1,000 units/500ml Premix(Conc:2 units/ml) IV PRN (11:45)
[2018-11-26] MEDS ORDERED: Lidocaine 1% Plain 30 ml INJ PRN (11:45)
[2018-11-26] MEDS ORDERED: Piperacillin/Tazobactam 3.375 GM in NS 110 ML IVPB SCH (12:00)
--- NOTE | 2018-11-26 15:08 | Diagnostic Imaging Report ---
Indications: Needs long-term IV access Technique: Ultrasound confirms patent compressible left brachial vein. Total sterile technique, including sterile probe cover and sterile gel, hat, mask, sterile gown, large sterile drape, and preparation with 2% chlorhexidine utilized. Local anesthesia with 1% lidocaine. Under real-time ultrasound guidance, puncture brachial vein using 21-gauge needle, documented and archived, passage 0.018 guidewire under direct fluoroscopy, which was used to determine appropriate catheter length, exchange for 4 Norwegian peel-away sheath. 4 Norwegian Bard dual-lumen power PICC cut to 46 cm. It was inserted through the peel-away sheath. Peel-away sheath and guidewire removed. Catheter fixed to the skin. Both catheter ports aspirated and flushed. Patient tolerated procedure well, without immediate complication. Digital radiograph documents satisfactory catheter tip position, at the cavoatrial junction. Total fluoroscopy time 11.1 seconds. Total dose area product [id number] Total number of images: 1 Impression: Successful placement of left arm PICC under sonographic and fluoroscopic guidance, as described above.
[2018-11-26] MEDS: Piperacillin/Tazobactam 3.375 GM in NS 110 ML IVPB SCH ×2 (15:13→21:14)
[2018-11-26 16:00] VITALS: BP 139/81
--- NOTE | 2018-11-26 17:42 | General Progress Note ---
Assessment/Plan Assessment: Assessment - Panc divisum - s/p PD stent eschange - recurrent pancreatitis Recommendation - IVF - clears - pain control Subjective Allergies: Coded Allergies: MORPHINE (Verified Allergy, Mild, itching, 11/20/18) HALOPERIDOL (Verified Allergy, Unknown, 11/20/18) KETOROLAC (Verified Allergy, Unknown, 01/01/18) PROCHLORPERAZINE (Verified Allergy, Unknown, 11/20/18) PROMETHAZINE (Verified Allergy, Unknown, 11/20/18) METOCLOPRAMIDE (Verified Adverse Reaction, Mild, 12/15/17) anxiety Subjective s/p ERCP with stent exchange yesterday c/o recurrent abd pain Objective Last 24 Hour Vital Signs Date Time Temp Pulse Resp B/P (MAP) Pulse Ox O2 Delivery O2 Flow Rate FiO2 11/26/18 09:00 Room Air 11/26/18 08:00 98.5 71 16 127/78 (94) 98 11/26/18 05:47 98.8 11/26/18 04:28 98.8 69 18 134/71 (92) 100 11/26/18 00:38 98.0 74 18 120/76 (91) 99 11/25/18 22:56 Room Air 11/25/18 22:17 98.4 11/25/18 20:35 98.4 74 18 145/92 (109) 100 Intake and Output 11/25/18 11/26/18 18:59 06:59 Intake Total 1720 ml 700 ml Balance 1720 ml 700 ml Intake Oral 720 ml IV Total 1000 ml 700 ml # Voids 2 Laboratory Tests 11/26/18 09:10: White Blood Count 11.1H, Red Blood Count 6.13H, Hemoglobin 15.7, Hematocrit 48.6 , Mean Corpuscular Volume 79L, Mean Corpuscular Hemoglobin 25.7L, Mean Corpuscular Hemoglobin Concent 32.4, Red Cell Distribution Width 12.5, Platelet Count 272, Mean Platelet Volume 5.8L, Neutrophils (%) (Auto) 68.5, Lymphocytes ( %) (Auto) 19.2L, Monocytes (%) (Auto) 9.3, Eosinophils (%) (Auto) 2.3, Basophils (%) (Auto) 0.7, Sodium Level 138, Potassium Level 3.8, Chloride Level 102, Carbon Dioxide Level 30, Anion Gap 6, Blood Urea Nitrogen 6L, Creatinine 0.9, Estimat Glomerular Filtration Rate > 60, Glucose Level 87, Calcium Level 9.6, Total Bilirubin 0.8, Aspartate Amino Transf (AST/SGOT) 10L, Alanine Aminotransferase (ALT/SGPT) 21, Alkaline Phosphatase 66, Total Protein 8.3H, Albumin 3.9, Globulin 4.4, Albumin/Globulin Ratio 0.9L, Lipase 1978H Height (Feet): 5 Height (Inches): 8.00 Weight (Pounds): 210 Objective WDWN NCAT supple CTA RR abd soft, mild epigastric TTP no edema non focal Mikael Foley MD Nov 26, 2018 17:42
[2018-11-26 20:00] VITALS: BP 139/91
[2018-11-26] MEDS: Dyna-Hex 2% Top Sol 2oz TOPIC SCH (20:52)
[2018-11-27] VITALS (7 sets, daily range): BP systolic 119–145; BP diastolic 68–90
[2018-11-27] MEDS: DiphenhydrAMINE 50mg/ml Inj IVP PRN ×4 (00:04→18:55)
[2018-11-27] MEDS: HYDROmorphone 1mg/ml Carpuject IVP PRN ×8 (00:04→21:55)
[2018-11-27 06:17] LABS: BASOPHILS % (AUTO) 0.6 % (0.0-2.0); EOSINOPHILS % (AUTO) 2.9 % (0.0-3.0); HEMATOCRIT 42.4 % (42.0-52.0); HEMOGLOBIN 13.7 G/DL (14.2-18.0); LYMPHOCYTES % (AUTO) 23.7 % (20.0-45.0); MEAN CORPUSCULAR VOLUME 79 FL (80-99); NEUTROPHILS % (AUTO) 62.8 % (45.0-75.0); PLATELET COUNT 209 K/UL (150-450); RED BLOOD COUNT 5.37 M/UL (4.70-6.10); RED CELL DISTRIBUTION WIDTH 12.7 % (11.6-14.8); WHITE BLOOD COUNT 8.4 K/UL (4.8-10.8)
[2018-11-27] MEDS: Piperacillin/Tazobactam 3.375 GM in NS 110 ML IVPB SCH ×3 (06:21→21:47)
[2018-11-27 06:34] LABS: ANION GAP 8 mmol/L (5-15); BLOOD UREA NITROGEN 4 mg/dL (7-18); CALCIUM 8.4 MG/DL (8.5-10.1); CARBON DIOXIDE 28 MMOL/L (21-32); CHLORIDE 104 MMOL/L (98-107); CREATININE 0.9 MG/DL (0.55-1.30); POTASSIUM 3.7 MMOL/L (3.5-5.1); SODIUM 140 MMOL/L (136-145)
[2018-11-27] MEDS: D5NS 1,000 ML IV SCH ×3 (07:13→21:34)
[2018-11-27] MEDS: Pantoprazole Inj IVP SCH ×2 (09:00→21:35)
[2018-11-27] MEDS: Heparin 5000 units/ml inj SUBQ SCH ×2 (09:00→21:00)
--- NOTE | 2018-11-27 14:37 | Pulmonology Progress Note ---
Assessment/Plan Assessment/Plan REASON FOR ADMISSION: Pancreatitis. HISTORY: This is a 33-year-old male with known history of prior pancreatitis. The patient apparently has two pancreatic ducts, has had prior stent. The patient readmits with epigastric pain. The patient denies any alcohol use. Abdo pain improving s/p ERCP, on clears PAST MEDICAL HISTORY: Notable for recurrent pancreatitis,pancreatic ducts with prior stent. MEDICATIONS: Reviewed. ALLERGIES: Reviewed. SOCIAL HISTORY: Nonsmoker and nondrinker. PHYSICAL EXAMINATION: GENERAL: A well-developed male, comfortable at present. VITAL SIGNS: Otherwise stable. LUNGS: Otherwise clear. CARDIAC: S1 and S2. Regular rate and rhythm without murmurs, rubs, or gallops. ABDOMEN: Soft and nontender. EXTREMITIES: No edema. LABORATORY DATA: Reviewed. A IMPRESSION: Pancreatitis, Pancreatic Divisum, Previous Pancreatic Duct Stent, AB per ID PLAN: ERCP completed dc home if ok with gi resume po per gi dc dilaudid lipase now normal Subjective ROS Limited/Unobtainable: No Allergies: Coded Allergies: MORPHINE (Verified Allergy, Mild, itching, 11/20/18) HALOPERIDOL (Verified Allergy, Unknown, 11/20/18) KETOROLAC (Verified Allergy, Unknown, 01/01/18) PROCHLORPERAZINE (Verified Allergy, Unknown, 11/20/18) PROMETHAZINE (Verified Allergy, Unknown, 11/20/18) METOCLOPRAMIDE (Verified Adverse Reaction, Mild, 12/15/17) anxiety Objective Last 24 Hour Vital Signs Date Time Temp Pulse Resp B/P (MAP) Pulse Ox O2 Delivery O2 Flow Rate FiO2 11/27/18 12:00 97.9 72 20 119/68 (85) 100 11/27/18 09:00 Room Air 11/27/18 08:00 98.2 84 19 145/90 (108) 100 11/27/18 04:08 97.7 80 17 125/69 (87) 100 11/27/18 00:00 97.2 80 17 131/74 (93) 98 11/26/18 21:00 Room Air 11/26/18 20:00 98.5 81 17 139/91 (107) 99 11/26/18 16:00 98.9 77 17 139/81 (100) 98 Intake and Output 11/26/18 11/27/18 19:00 07:00 Intake Total 1552.5 ml 1687.5 ml Balance 1552.5 ml 1687.5 ml Intake Oral 720 ml 500 ml IV Total 832.5 ml 1187.5 ml # Voids 3 3 Laboratory Tests 11/27/18 06:00: White Blood Count 8.4, Red Blood Count 5.37, Hemoglobin 13.7L, Hematocrit 42.4, Mean Corpuscular Volume 79L, Mean Corpuscular Hemoglobin 25.5L, Mean Corpuscular Hemoglobin Concent 32.2, Red Cell Distribution Width 12.7, Platelet Count 209, Mean Platelet Volume 5.6L, Neutrophils (%) (Auto) 62.8, Lymphocytes ( %) (Auto) 23.7, Monocytes (%) (Auto) 10.0, Eosinophils (%) (Auto) 2.9, Basophils (%) (Auto) 0.6, Sodium Level 140, Potassium Level 3.7, Chloride Level 104, Carbon Dioxide Level 28, Anion Gap 8, Blood Urea Nitrogen 4L, Creatinine 0.9, Estimat Glomerular Filtration Rate > 60, Glucose Level 107H, Calcium Level 8.4L, Lipase 1484H Current Medications Medications (Trade) Dose Ordered Sig/Jeffrey Route PRN Reason Start Time Stop Time Status Last Admin Dose Admin Chlorhexidine Gluconate (Stormy-Hex 2%) 1 applic DAILY@2000 TOPIC 11/26/18 20:00 12/26/18 19:59 11/26/18 20:52 Dextrose/Sodium Chloride 1,000 ml @ 150 mls/hr Q6H40M IV 11/26/18 10:45 12/26/18 10:44 11/27/18 14:26 Diphenhydramine HCl (Benadryl) 50 mg Q6H PRN IVP Itching 11/22/18 10:43 12/20/18 10:42 11/27/18 12:49 Heparin Sodium (Porcine) (Heparin 5000 units/ml) 5,000 units EVERY 12 HOURS SUBQ 11/21/18 09:00 12/21/18 08:59 11/21/18 20:53 Hydromorphone HCl (Dilaudid) 1 mg Q3H PRN IVP Severe Pain (Pain Scale 7-10) 11/26/18 10:00 12/03/18 09:59 11/27/18 12:50 Ondansetron HCl (Zofran) 4 mg Q6H PRN IVP Nausea & Vomiting 11/20/18 22:00 12/20/18 21:59 11/27/18 08:07 Pantoprazole (Protonix) 40 mg EVERY 12 HOURS IVP 11/21/18 09:00 12/21/18 08:59 11/26/18 20:53 Piperacillin Sod/ Tazobactam Sod 3.375 gm/Sodium Chloride 110 ml @ 27.5 mls/hr Q8HR IVPB 11/26/18 15:00 12/03/18 14:59 11/27/18 14:25 Jamie Gilmore MD Nov 27, 2018 14:37
--- NOTE | 2018-11-27 18:19 | General Progress Note ---
Assessment/Plan Assessment: Assessment - Panc divisum - s/p PD stent eschange - recurrent pancreatitis Recommendation - IVF - clears - pain control Diagnoses Results of Pharmacotherapy: Assessment - chronic recurrent pancreatitis - pancreas divisum - s/p PD stent exchange Recommendations - advance diet slowly - monitor labs and exam - anticipate D/C by Fri Subjective Allergies: Coded Allergies: MORPHINE (Verified Allergy, Mild, itching, 11/20/18) HALOPERIDOL (Verified Allergy, Unknown, 11/20/18) KETOROLAC (Verified Allergy, Unknown, 01/01/18) PROCHLORPERAZINE (Verified Allergy, Unknown, 11/20/18) PROMETHAZINE (Verified Allergy, Unknown, 11/20/18) METOCLOPRAMIDE (Verified Adverse Reaction, Mild, 12/15/17) anxiety Subjective Better less pain Objective Last 24 Hour Vital Signs Date Time Temp Pulse Resp B/P (MAP) Pulse Ox O2 Delivery O2 Flow Rate FiO2 11/27/18 16:00 97.5 83 19 135/79 (97) 99 11/27/18 12:00 97.9 72 20 119/68 (85) 100 11/27/18 09:00 Room Air 11/27/18 08:00 98.2 84 19 145/90 (108) 100 11/27/18 04:08 97.7 80 17 125/69 (87) 100 11/27/18 00:00 97.2 80 17 131/74 (93) 98 11/26/18 21:00 Room Air 11/26/18 20:00 98.5 81 17 139/91 (107) 99 Intake and Output 11/26/18 11/27/18 19:00 07:00 Intake Total 1552.5 ml 1687.5 ml Balance 1552.5 ml 1687.5 ml Intake Oral 720 ml 500 ml IV Total 832.5 ml 1187.5 ml # Voids 3 3 Laboratory Tests 11/27/18 06:00: White Blood Count 8.4, Red Blood Count 5.37, Hemoglobin 13.7L, Hematocrit 42.4, Mean Corpuscular Volume 79L, Mean Corpuscular Hemoglobin 25.5L, Mean Corpuscular Hemoglobin Concent 32.2, Red Cell Distribution Width 12.7, Platelet Count 209, Mean Platelet Volume 5.6L, Neutrophils (%) (Auto) 62.8, Lymphocytes ( %) (Auto) 23.7, Monocytes (%) (Auto) 10.0, Eosinophils (%) (Auto) 2.9, Basophils (%) (Auto) 0.6, Sodium Level 140, Potassium Level 3.7, Chloride Level 104, Carbon Dioxide Level 28, Anion Gap 8, Blood Urea Nitrogen 4L, Creatinine 0.9, Estimat Glomerular Filtration Rate > 60, Glucose Level 107H, Calcium Level 8.4L, Lipase 1484H Height (Feet): 5 Height (Inches): 8.00 Weight (Pounds): 218 Objective WDWN NCAT supple CTA RR abd soft, mild epigastric TTP no edema non focal Mikael Foley MD Nov 27, 2018 18:19
[2018-11-27] MEDS: Dyna-Hex 2% Top Sol 2oz TOPIC SCH (20:00)
[2018-11-28] VITALS: BP 147/77
[2018-11-28] MEDS: HYDROmorphone 1mg/ml Carpuject IVP PRN ×8 (00:48→22:38)
[2018-11-28] MEDS: DiphenhydrAMINE 50mg/ml Inj IVP PRN ×4 (00:48→19:39)
[2018-11-28] MEDS: D5NS 1,000 ML IV SCH ×4 (03:54→18:57)
[2018-11-28 04:00] VITALS: BP 124/78
[2018-11-28] MEDS: Piperacillin/Tazobactam 3.375 GM in NS 110 ML IVPB SCH ×3 (06:34→22:11)
[2018-11-28 07:36] LABS: BASOPHILS % (AUTO) 0.6 % (0.0-2.0); EOSINOPHILS % (AUTO) 5.8 % (0.0-3.0); HEMATOCRIT 41.1 % (42.0-52.0); HEMOGLOBIN 13.6 G/DL (14.2-18.0); LYMPHOCYTES % (AUTO) 25.6 % (20.0-45.0); MEAN CORPUSCULAR VOLUME 79 FL (80-99); MONOCYTES % (AUTO) 10.4 % (1.0-10.0); NEUTROPHILS % (AUTO) 57.6 % (45.0-75.0); PLATELET COUNT 156 K/UL (150-450); RED CELL DISTRIBUTION WIDTH 12.7 % (11.6-14.8); WHITE BLOOD COUNT 6.3 K/UL (4.8-10.8)
[2018-11-28 07:52] LABS: ANION GAP 8 mmol/L (5-15); BLOOD UREA NITROGEN 4 mg/dL (7-18); CALCIUM 8.9 MG/DL (8.5-10.1); CARBON DIOXIDE 27 MMOL/L (21-32); CHLORIDE 103 MMOL/L (98-107); CREATININE 0.8 MG/DL (0.55-1.30); POTASSIUM 3.8 MMOL/L (3.5-5.1); SODIUM 138 MMOL/L (136-145)
[2018-11-28 08:00] VITALS: BP 133/90
--- NOTE | 2018-11-28 08:40 | General Progress Note ---
Assessment/Plan Assessment: pancreatitis leukocytosis PLAN ERCP completed dc home if ok with gi in am resume po per gi and advance diet monitor lipase impression, plan, and exam edited and reviewed in detail care discussed with RN Subjective Allergies: Coded Allergies: MORPHINE (Verified Allergy, Mild, itching, 11/20/18) HALOPERIDOL (Verified Allergy, Unknown, 11/20/18) KETOROLAC (Verified Allergy, Unknown, 01/01/18) PROCHLORPERAZINE (Verified Allergy, Unknown, 11/20/18) PROMETHAZINE (Verified Allergy, Unknown, 11/20/18) METOCLOPRAMIDE (Verified Adverse Reaction, Mild, 12/15/17) anxiety Subjective care noted s/p ERCP elevated enzymes now improved Objective Last 24 Hour Vital Signs Date Time Temp Pulse Resp B/P (MAP) Pulse Ox O2 Delivery O2 Flow Rate FiO2 11/28/18 08:00 98.4 85 18 133/90 (104) 98 11/28/18 04:00 97.5 74 19 124/78 (93) 96 11/28/18 00:00 98.2 88 20 147/77 (100) 99 11/27/18 21:00 Room Air 11/27/18 20:50 98.1 86 20 141/82 (101) 99 11/27/18 16:00 97.5 83 19 135/79 (97) 99 11/27/18 12:00 97.9 72 20 119/68 (85) 100 11/27/18 09:00 Room Air Intake and Output 11/27/18 11/28/18 19:00 07:00 Intake Total 2682.5 ml 2062.5 ml Balance 2682.5 ml 2062.5 ml Intake Oral 1000 ml 500 ml IV Total 1682.5 ml 1562.5 ml # Voids 4 2 # Bowel Movements 1 Laboratory Tests 11/28/18 06:25: White Blood Count 6.3, Red Blood Count 5.20, Hemoglobin 13.6L, Hematocrit 41.1L , Mean Corpuscular Volume 79L, Mean Corpuscular Hemoglobin 26.1L, Mean Corpuscular Hemoglobin Concent 33.0, Red Cell Distribution Width 12.7, Platelet Count 156, Mean Platelet Volume 5.3L, Neutrophils (%) (Auto) 57.6, Lymphocytes ( %) (Auto) 25.6, Monocytes (%) (Auto) 10.4H, Eosinophils (%) (Auto) 5.8H, Basophils (%) (Auto) 0.6, Sodium Level 138, Potassium Level 3.8, Chloride Level 103, Carbon Dioxide Level 27, Anion Gap 8, Blood Urea Nitrogen 4L, Creatinine 0.8, Estimat Glomerular Filtration Rate > 60, Glucose Level 120H, Calcium Level 8.9, Lipase 820H Height (Feet): 5 Height (Inches): 8.00 Weight (Pounds): 218 Objective WDWN NAD clear breath sounds bilaterally without rhonchi or wheeze [id number] without MRG NABS nontender no HSM no CCE nonfocal Guido Colon MD Nov 28, 2018 08:40
[2018-11-28] MEDS: Pantoprazole Inj IVP SCH ×2 (08:57→20:56)
[2018-11-28] MEDS: Heparin 5000 units/ml inj SUBQ SCH ×2 (08:59→20:58)
--- NOTE | 2018-11-28 11:03 | General Progress Note ---
Assessment/Plan Assessment: Assessment - Panc divisum - s/p PD stent eschange - recurrent pancreatitis Recommendation - IVF - low fat diet - pain control Subjective Allergies: Coded Allergies: MORPHINE (Verified Allergy, Mild, itching, 11/20/18) HALOPERIDOL (Verified Allergy, Unknown, 11/20/18) KETOROLAC (Verified Allergy, Unknown, 01/01/18) PROCHLORPERAZINE (Verified Allergy, Unknown, 11/20/18) PROMETHAZINE (Verified Allergy, Unknown, 11/20/18) METOCLOPRAMIDE (Verified Adverse Reaction, Mild, 12/15/17) anxiety Subjective Better less pain advised to f/u with teaching center with advance panc-biliary experience after d /c ([facility], [facility], or [facility]) Objective Last 24 Hour Vital Signs Date Time Temp Pulse Resp B/P (MAP) Pulse Ox O2 Delivery O2 Flow Rate FiO2 11/28/18 09:00 Room Air 11/28/18 08:00 98.4 85 18 133/90 (104) 98 11/28/18 04:00 97.5 74 19 124/78 (93) 96 11/28/18 00:00 98.2 88 20 147/77 (100) 99 11/27/18 21:00 Room Air 11/27/18 20:50 98.1 86 20 141/82 (101) 99 11/27/18 16:00 97.5 83 19 135/79 (97) 99 11/27/18 12:00 97.9 72 20 119/68 (85) 100 Intake and Output 11/27/18 11/28/18 19:00 07:00 Intake Total 2682.5 ml 2062.5 ml Balance 2682.5 ml 2062.5 ml Intake Oral 1000 ml 500 ml IV Total 1682.5 ml 1562.5 ml # Voids 4 2 # Bowel Movements 1 Laboratory Tests 11/28/18 06:25: White Blood Count 6.3, Red Blood Count 5.20, Hemoglobin 13.6L, Hematocrit 41.1L , Mean Corpuscular Volume 79L, Mean Corpuscular Hemoglobin 26.1L, Mean Corpuscular Hemoglobin Concent 33.0, Red Cell Distribution Width 12.7, Platelet Count 156, Mean Platelet Volume 5.3L, Neutrophils (%) (Auto) 57.6, Lymphocytes ( %) (Auto) 25.6, Monocytes (%) (Auto) 10.4H, Eosinophils (%) (Auto) 5.8H, Basophils (%) (Auto) 0.6, Sodium Level 138, Potassium Level 3.8, Chloride Level 103, Carbon Dioxide Level 27, Anion Gap 8, Blood Urea Nitrogen 4L, Creatinine 0.8, Estimat Glomerular Filtration Rate > 60, Glucose Level 120H, Calcium Level 8.9, Lipase 820H Height (Feet): 5 Height (Inches): 8.00 Weight (Pounds): 218 Objective WDWN NCAT supple CTA RR abd soft, mild epigastric TTP no edema non focal Mikael Foley MD Nov 28, 2018 11:03
[2018-11-28 12:00] VITALS: BP 150/90
--- NOTE | 2018-11-28 13:41 | Infectious Diseases Prog Note ---
Assessment/Plan Assessment/Plan A: 1. Pancreatitis, 2. Leukocytosis, resolved 3. Pancreatic Divisum 4. s/p pancreatic duct stent exchange PLAN: 1. Continue Zosyn Subjective ROS Limited/Unobtainable: No Constitutional: Reports: no symptoms Respiratory: Reports: no symptoms Cardiovascular: Reports: no symptoms Gastrointestinal/Abdominal: Reports: nausea, vomiting, other - abdominal pain Genitourinary: Reports: no symptoms Allergies: Coded Allergies: MORPHINE (Verified Allergy, Mild, itching, 11/20/18) HALOPERIDOL (Verified Allergy, Unknown, 11/20/18) KETOROLAC (Verified Allergy, Unknown, 01/01/18) PROCHLORPERAZINE (Verified Allergy, Unknown, 11/20/18) PROMETHAZINE (Verified Allergy, Unknown, 11/20/18) METOCLOPRAMIDE (Verified Adverse Reaction, Mild, 12/15/17) anxiety Objective Vital Signs Last 24 Hour Vital Signs Date Time Temp Pulse Resp B/P (MAP) Pulse Ox O2 Delivery O2 Flow Rate FiO2 11/28/18 09:00 Room Air 11/28/18 08:00 98.4 85 18 133/90 (104) 98 11/28/18 04:00 97.5 74 19 124/78 (93) 96 11/28/18 00:00 98.2 88 20 147/77 (100) 99 11/27/18 21:00 Room Air 11/27/18 20:50 98.1 86 20 141/82 (101) 99 11/27/18 16:00 97.5 83 19 135/79 (97) 99 Height (Feet): 5 Height (Inches): 8.00 Weight (Pounds): 218 General Appearance: no acute distress HEENT: mucous membranes moist Respiratory/Chest: lungs clear Cardiovascular: normal rate Abdomen: soft, non tender Extremities: no edema Neurologic/Psychiatric: alert, oriented x 3, responsive Laboratory Tests Test 11/28/18 06:25 White Blood Count 6.3 K/UL (4.8-10.8) Red Blood Count 5.20 M/UL (4.70-6.10) Hemoglobin 13.6 G/DL (14.2-18.0) L Hematocrit 41.1 % (42.0-52.0) L Mean Corpuscular Volume 79 FL (80-99) L Mean Corpuscular Hemoglobin 26.1 PG (27.0-31.0) L Mean Corpuscular Hemoglobin Concent 33.0 G/DL (32.0-36.0) Red Cell Distribution Width 12.7 % (11.6-14.8) Platelet Count 156 K/UL (150-450) Mean Platelet Volume 5.3 FL (6.5-10.1) L Neutrophils (%) (Auto) 57.6 % (45.0-75.0) Lymphocytes (%) (Auto) 25.6 % (20.0-45.0) Monocytes (%) (Auto) 10.4 % (1.0-10.0) H Eosinophils (%) (Auto) 5.8 % (0.0-3.0) H Basophils (%) (Auto) 0.6 % (0.0-2.0) Sodium Level 138 MMOL/L (136-145) Potassium Level 3.8 MMOL/L (3.5-5.1) Chloride Level 103 MMOL/L (98-107) Carbon Dioxide Level 27 MMOL/L (21-32) Anion Gap 8 mmol/L (5-15) Blood Urea Nitrogen 4 mg/dL (7-18) L Creatinine 0.8 MG/DL (0.55-1.30) Estimat Glomerular Filtration Rate > 60 mL/min (>60) Glucose Level 120 MG/DL (74-106) H Calcium Level 8.9 MG/DL (8.5-10.1) Lipase 820 U/L (73-393) H Current Medications Medications (Trade) Dose Ordered Sig/Jeffrey Route PRN Reason Start Time Stop Time Status Last Admin Dose Admin Chlorhexidine Gluconate (Stormy-Hex 2%) 1 applic DAILY@2000 TOPIC 11/26/18 20:00 12/26/18 19:59 11/26/18 20:52 Dextrose/Sodium Chloride 1,000 ml @ 150 mls/hr Q6H40M IV 11/26/18 10:45 12/26/18 10:44 11/28/18 11:13 Diphenhydramine HCl (Benadryl) 50 mg Q6H PRN IVP Itching 11/22/18 10:43 12/20/18 10:42 11/28/18 13:08 Heparin Sodium (Porcine) (Heparin 5000 units/ml) 5,000 units EVERY 12 HOURS SUBQ 11/21/18 09:00 12/21/18 08:59 11/21/18 20:53 Hydromorphone HCl (Dilaudid) 1 mg Q3H PRN IVP Severe Pain (Pain Scale 7-10) 11/26/18 10:00 12/03/18 09:59 11/28/18 13:08 Ondansetron HCl (Zofran) 4 mg Q6H PRN IVP Nausea & Vomiting 11/20/18 22:00 12/20/18 21:59 11/27/18 08:07 Pantoprazole (Protonix) 40 mg EVERY 12 HOURS IVP 11/21/18 09:00 12/21/18 08:59 11/28/18 08:57 Piperacillin Sod/ Tazobactam Sod 3.375 gm/Sodium Chloride 110 ml @ 27.5 mls/hr Q8HR IVPB 11/26/18 15:00 12/03/18 14:59 11/28/18 06:34 Pedro Luis Vines MD Nov 28, 2018 13:41
[2018-11-28 16:00] VITALS: BP 120/75
[2018-11-28 20:00] VITALS: BP 150/98
[2018-11-28] MEDS: Dyna-Hex 2% Top Sol 2oz TOPIC SCH (20:01)
[2018-11-29] VITALS: BP 137/89
[2018-11-29] MEDS: DiphenhydrAMINE 50mg/ml Inj IVP PRN ×4 (01:36→19:45)
[2018-11-29] MEDS: HYDROmorphone 1mg/ml Carpuject IVP PRN ×8 (01:36→22:46)
[2018-11-29 04:00] VITALS: BP 132/86
[2018-11-29 05:14] LABS: BASOPHILS % (AUTO) 0.6 % (0.0-2.0); EOSINOPHILS % (AUTO) 4.8 % (0.0-3.0); HEMOGLOBIN 13.3 G/DL (14.2-18.0); LYMPHOCYTES % (AUTO) 25.9 % (20.0-45.0); MEAN CORPUSCULAR VOLUME 79 FL (80-99); NEUTROPHILS % (AUTO) 57.7 % (45.0-75.0); PLATELET COUNT 230 K/UL (150-450); RED BLOOD COUNT 5.07 M/UL (4.70-6.10); RED CELL DISTRIBUTION WIDTH 12.6 % (11.6-14.8); WHITE BLOOD COUNT 7.7 K/UL (4.8-10.8)
[2018-11-29 05:20] LABS: ANION GAP 7 mmol/L (5-15); BLOOD UREA NITROGEN 5 mg/dL (7-18); CARBON DIOXIDE 29 MMOL/L (21-32); CHLORIDE 104 MMOL/L (98-107); CREATININE 1.1 MG/DL (0.55-1.30); POTASSIUM 3.9 MMOL/L (3.5-5.1); SODIUM 140 MMOL/L (136-145)
[2018-11-29] MEDS: Piperacillin/Tazobactam 3.375 GM in NS 110 ML IVPB SCH ×3 (05:42→22:05)
[2018-11-29] MEDS: D5NS 1,000 ML IV SCH ×3 (05:42→20:32)
[2018-11-29] MEDS: Pantoprazole Inj IVP SCH ×2 (07:37→20:32)
[2018-11-29] MEDS: Heparin 5000 units/ml inj SUBQ SCH ×2 (07:38→19:57)
[2018-11-29 08:00] VITALS: BP_SYST 134; BP_SYST 145; BP_DIAS 86; BP_DIAS 89
--- NOTE | 2018-11-29 10:05 | Infectious Diseases Prog Note ---
"Assessment/Plan Assessment/Plan antibiotics : zosyn A 1. pancreatitis s/p ERCP | stent change improving lipase decreased 2. pancreatic divisum P 1. continue zosyn 2. will follow up clinically Subjective Constitutional: Denies: fever, chills Respiratory: Denies: shortness of breath Gastrointestinal/Abdominal: Reports: nausea, vomiting - yesterday, diarrhea - yesterday Musculoskeletal: Reports: pain - in abdomen Allergies: Coded Allergies: MORPHINE (Verified Allergy, Mild, itching, 11/20/18) HALOPERIDOL (Verified Allergy, Unknown, 11/20/18) KETOROLAC (Verified Allergy, Unknown, 01/01/18) PROCHLORPERAZINE (Verified Allergy, Unknown, 11/20/18) PROMETHAZINE (Verified Allergy, Unknown, 11/20/18) METOCLOPRAMIDE (Verified Adverse Reaction, Mild, 12/15/17) anxiety Objective Vital Signs Last 24 Hour Vital Signs Date Time Temp Pulse Resp B/P (MAP) Pulse Ox O2 Delivery O2 Flow Rate FiO2 11/29/18 08:25 Room Air 11/29/18 08:07 98.7 11/29/18 08:00 98.0 82 18 145/86 (105) 16 11/29/18 04:00 98.7 66 16 132/86 (101) 97 11/29/18 00:00 97.8 79 16 137/89 (105) 97 11/28/18 21:38 Room Air 11/28/18 20:00 98.4 88 17 150/98 (115) 97 11/28/18 16:00 97.7 79 18 120/75 (90) 97 11/28/18 12:00 98.3 73 20 150/90 (110) 98 Height (Feet): 5 Height (Inches): 8.00 Weight (Pounds): 218 Respiratory/Chest: lungs clear Cardiovascular: normal rate, regular rhythm, no gallop/murmur Abdomen: soft, non tender Extremities: no edema, other - left arm PICC Laboratory Tests Test 11/29/18 04:45 White Blood Count 7.7 K/UL (4.8-10.8) Red Blood Count 5.07 M/UL (4.70-6.10) Hemoglobin 13.3 G/DL (14.2-18.0) L Hematocrit 40.0 % (42.0-52.0) L Mean Corpuscular Volume 79 FL (80-99) L Mean Corpuscular Hemoglobin 26.2 PG (27.0-31.0) L Mean Corpuscular Hemoglobin Concent 33.2 G/DL (32.0-36.0) Red Cell Distribution Width 12.6 % (11.6-14.8) Platelet Count 230 K/UL (150-450) Mean Platelet Volume 5.7 FL (6.5-10.1) L Neutrophils (%) (Auto) 57.7 % (45.0-75.0) Lymphocytes (%) (Auto) 25.9 % (20.0-45.0) Monocytes (%) (Auto) 11.0 % (1.0-10.0) H Eosinophils (%) (Auto) 4.8 % (0.0-3.0) H Basophils (%) (Auto) 0.6 % (0.0-2.0) Sodium Level 140 MMOL/L (136-145) Potassium Level 3.9 MMOL/L (3.5-5.1) Chloride Level 104 MMOL/L (98-107) Carbon Dioxide Level 29 MMOL/L (21-32) Anion Gap 7 mmol/L (5-15) Blood Urea Nitrogen 5 mg/dL (7-18) L Creatinine 1.1 MG/DL (0.55-1.30) Estimat Glomerular Filtration Rate > 60 mL/min (>60) Glucose Level 112 MG/DL (74-106) H Calcium Level 9.0 MG/DL (8.5-10.1) Lipase 805 U/L (73-393) H Current Medications Medications (Trade) Dose Ordered Sig/Jeffrey Route PRN Reason Start Time Stop Time Status Last Admin Dose Admin Chlorhexidine Gluconate (Stormy-Hex 2%) 1 applic DAILY@2000 TOPIC 11/26/18 20:00 12/26/18 19:59 11/28/18 20:01 Dextrose/Sodium Chloride 1,000 ml @ 150 mls/hr Q6H40M IV 11/26/18 10:45 12/26/18 10:44 11/29/18 05:42 Diphenhydramine HCl (Benadryl) 50 mg Q6H PRN IVP Itching 11/22/18 10:43 12/20/18 10:42 11/29/18 07:37 Heparin Sodium (Porcine) (Heparin 5000 units/ml) 5,000 units EVERY 12 HOURS SUBQ 11/21/18 09:00 12/21/18 08:59 11/21/18 20:53 Hydromorphone HCl (Dilaudid) 1 mg Q3H PRN IVP Severe Pain (Pain Scale 7-10) 11/26/18 10:00 12/03/18 09:59 11/29/18 07:37 Ondansetron HCl (Zofran) 4 mg Q6H PRN IVP Nausea & Vomiting 11/20/18 22:00 12/20/18 21:59 11/29/18 08:35 Pantoprazole (Protonix) 40 mg EVERY 12 HOURS IVP 11/21/18 09:00 12/21/18 08:59 11/29/18 07:37 Piperacillin Sod/ Tazobactam Sod 3.375 gm/Sodium Chloride 110 ml @ 27.5 mls/hr Q8HR IVPB 11/26/18 15:00 12/03/18 14:59 11/29/18 05:42 Reg Cuenca MD Nov 29, 2018 10:05"
[2018-11-29 12:00] VITALS: BP 139/82
[2018-11-29] MEDS ORDERED: D5NS 1000ml IV ONE (13:57)
[2018-11-29] MEDS ORDERED: NS 275ml ONE (13:57)
[2018-11-29] MEDS ORDERED: Tubing IV Secondary IV ONE (13:57)
--- NOTE | 2018-11-29 15:33 | General Progress Note ---
Assessment/Plan Assessment: Assessment - Panc divisum - s/p PD stent eschange - recurrent pancreatitis Recommendation - IVF - low fat diet - pain control - follow labs Subjective Allergies: Coded Allergies: MORPHINE (Verified Allergy, Mild, itching, 11/20/18) HALOPERIDOL (Verified Allergy, Unknown, 11/20/18) KETOROLAC (Verified Allergy, Unknown, 01/01/18) PROCHLORPERAZINE (Verified Allergy, Unknown, 11/20/18) PROMETHAZINE (Verified Allergy, Unknown, 11/20/18) METOCLOPRAMIDE (Verified Adverse Reaction, Mild, 12/15/17) anxiety Subjective still with pain lipase elevated Objective Last 24 Hour Vital Signs Date Time Temp Pulse Resp B/P (MAP) Pulse Ox O2 Delivery O2 Flow Rate FiO2 11/29/18 14:08 98.7 11/29/18 12:00 98.3 79 18 139/82 (101) 16 11/29/18 08:25 Room Air 11/29/18 08:00 98.0 82 18 145/86 (105) 16 11/29/18 04:00 98.7 66 16 132/86 (101) 97 11/29/18 00:00 97.8 79 16 137/89 (105) 97 11/28/18 21:38 Room Air 11/28/18 20:00 98.4 88 17 150/98 (115) 97 11/28/18 16:00 97.7 79 18 120/75 (90) 97 Intake and Output 11/28/18 11/29/18 19:00 07:00 Intake Total 2920.0 ml 1557.5 ml Balance 2920.0 ml 1557.5 ml Intake Oral 1200 ml 480 ml IV Total 1720.0 ml 1077.5 ml # Voids 6 2 Laboratory Tests 11/29/18 04:45: White Blood Count 7.7, Red Blood Count 5.07, Hemoglobin 13.3L, Hematocrit 40.0L , Mean Corpuscular Volume 79L, Mean Corpuscular Hemoglobin 26.2L, Mean Corpuscular Hemoglobin Concent 33.2, Red Cell Distribution Width 12.6, Platelet Count 230, Mean Platelet Volume 5.7L, Neutrophils (%) (Auto) 57.7, Lymphocytes ( %) (Auto) 25.9, Monocytes (%) (Auto) 11.0H, Eosinophils (%) (Auto) 4.8H, Basophils (%) (Auto) 0.6, Sodium Level 140, Potassium Level 3.9, Chloride Level 104, Carbon Dioxide Level 29, Anion Gap 7, Blood Urea Nitrogen 5L, Creatinine 1.1, Estimat Glomerular Filtration Rate > 60, Glucose Level 112H, Calcium Level 9.0, Lipase 805H Height (Feet): 5 Height (Inches): 8.00 Weight (Pounds): 218 Objective WDWN NCAT supple CTA RR abd soft, mild epigastric TTP no edema non focal Mikael Foley MD Nov 29, 2018 15:33
[2018-11-29 16:00] VITALS: BP 142/88
--- NOTE | 2018-11-29 16:20 | General Progress Note ---
Assessment/Plan Assessment: pancreatitis leukocytosis abdominal pain PLAN still with elevated lipase resume po per gi and advance diet monitor lipase for change impression, plan, and exam edited and reviewed in detail care discussed with RN Subjective Allergies: Coded Allergies: MORPHINE (Verified Allergy, Mild, itching, 11/20/18) HALOPERIDOL (Verified Allergy, Unknown, 11/20/18) KETOROLAC (Verified Allergy, Unknown, 01/01/18) PROCHLORPERAZINE (Verified Allergy, Unknown, 11/20/18) PROMETHAZINE (Verified Allergy, Unknown, 11/20/18) METOCLOPRAMIDE (Verified Adverse Reaction, Mild, 12/15/17) anxiety Subjective care noted elevated enzymes still elevated Objective Last 24 Hour Vital Signs Date Time Temp Pulse Resp B/P (MAP) Pulse Ox O2 Delivery O2 Flow Rate FiO2 11/29/18 14:08 98.7 11/29/18 12:00 98.3 79 18 139/82 (101) 16 11/29/18 08:25 Room Air 11/29/18 08:00 98.0 82 18 145/86 (105) 16 11/29/18 04:00 98.7 66 16 132/86 (101) 97 11/29/18 00:00 97.8 79 16 137/89 (105) 97 11/28/18 21:38 Room Air 11/28/18 20:00 98.4 88 17 150/98 (115) 97 Intake and Output 11/28/18 11/29/18 19:00 07:00 Intake Total 2920.0 ml 1557.5 ml Balance 2920.0 ml 1557.5 ml Intake Oral 1200 ml 480 ml IV Total 1720.0 ml 1077.5 ml # Voids 6 2 Laboratory Tests 11/29/18 04:45: White Blood Count 7.7, Red Blood Count 5.07, Hemoglobin 13.3L, Hematocrit 40.0L , Mean Corpuscular Volume 79L, Mean Corpuscular Hemoglobin 26.2L, Mean Corpuscular Hemoglobin Concent 33.2, Red Cell Distribution Width 12.6, Platelet Count 230, Mean Platelet Volume 5.7L, Neutrophils (%) (Auto) 57.7, Lymphocytes ( %) (Auto) 25.9, Monocytes (%) (Auto) 11.0H, Eosinophils (%) (Auto) 4.8H, Basophils (%) (Auto) 0.6, Sodium Level 140, Potassium Level 3.9, Chloride Level 104, Carbon Dioxide Level 29, Anion Gap 7, Blood Urea Nitrogen 5L, Creatinine 1.1, Estimat Glomerular Filtration Rate > 60, Glucose Level 112H, Calcium Level 9.0, Lipase 805H Height (Feet): 5 Height (Inches): 8.00 Weight (Pounds): 218 Objective WDWN NAD clear breath sounds bilaterally without rhonchi or wheeze [id number] without MRG NABS nontender no HSM no CCE nonfocal Guido Colon MD Nov 29, 2018 16:20
[2018-11-29] MEDS: Dyna-Hex 2% Top Sol 2oz TOPIC SCH (20:32)
[2018-11-29 20:43] VITALS: BP 131/91
[2018-11-30] MEDS: D5NS 1,000 ML IV SCH ×4 (01:25→22:40)
[2018-11-30] MEDS: DiphenhydrAMINE 50mg/ml Inj IVP PRN ×4 (01:41→20:30)
[2018-11-30 01:42] VITALS: BP 135/89
[2018-11-30] MEDS: HYDROmorphone 1mg/ml Carpuject IVP PRN ×8 (01:42→23:39)
[2018-11-30 04:55] VITALS: BP 127/71
[2018-11-30] MEDS: Piperacillin/Tazobactam 3.375 GM in NS 110 ML IVPB SCH ×3 (04:55→22:40)
[2018-11-30 05:12] LABS: BASOPHILS % (AUTO) 0.5 % (0.0-2.0); EOSINOPHILS % (AUTO) 3.6 % (0.0-3.0); HEMATOCRIT 40.6 % (42.0-52.0); HEMOGLOBIN 13.2 G/DL (14.2-18.0); MEAN CORPUSCULAR VOLUME 79 FL (80-99); MONOCYTES % (AUTO) 11.9 % (1.0-10.0); NEUTROPHILS % (AUTO) 54.9 % (45.0-75.0); PLATELET COUNT 244 K/UL (150-450); RED BLOOD COUNT 5.13 M/UL (4.70-6.10); RED CELL DISTRIBUTION WIDTH 12.7 % (11.6-14.8); WHITE BLOOD COUNT 8.1 K/UL (4.8-10.8)
[2018-11-30 05:22] LABS: ANION GAP 5 mmol/L (5-15); BLOOD UREA NITROGEN 8 mg/dL (7-18); CALCIUM 8.7 MG/DL (8.5-10.1); CARBON DIOXIDE 31 MMOL/L (21-32); CHLORIDE 104 MMOL/L (98-107); CREATININE 1.1 MG/DL (0.55-1.30); SODIUM 140 MMOL/L (136-145)
[2018-11-30 07:43] VITALS: BP 134/87
[2018-11-30] MEDS: Pantoprazole Inj IVP SCH ×2 (08:33→20:30)
[2018-11-30] MEDS: Heparin 5000 units/ml inj SUBQ SCH ×2 (08:33→20:30)
--- NOTE | 2018-11-30 10:21 | General Progress Note ---
Assessment/Plan Assessment: pancreatitis leukocytosis abdominal pain PLAN still with elevated lipase dc per gi monitor lipase for change impression, plan, and exam edited and reviewed in detail care discussed with RN Subjective Allergies: Coded Allergies: MORPHINE (Verified Allergy, Mild, itching, 11/20/18) HALOPERIDOL (Verified Allergy, Unknown, 11/20/18) KETOROLAC (Verified Allergy, Unknown, 01/01/18) PROCHLORPERAZINE (Verified Allergy, Unknown, 11/20/18) PROMETHAZINE (Verified Allergy, Unknown, 11/20/18) METOCLOPRAMIDE (Verified Adverse Reaction, Mild, 12/15/17) anxiety Subjective care noted elevated enzymes but improved has pain Objective Last 24 Hour Vital Signs Date Time Temp Pulse Resp B/P (MAP) Pulse Ox O2 Delivery O2 Flow Rate FiO2 11/30/18 09:00 Room Air 11/30/18 07:43 98.4 81 18 134/87 (103) 98 11/30/18 05:13 96.5 11/30/18 04:55 96.5 65 18 127/71 (89) 95 11/30/18 01:42 97.0 82 18 135/89 (104) 98 11/29/18 20:55 Room Air 11/29/18 20:43 98.2 87 18 131/91 (104) 98 11/29/18 16:00 98.2 88 18 142/88 (106) 16 11/29/18 12:00 98.3 79 18 139/82 (101) 16 Intake and Output 11/29/18 11/30/18 19:00 07:00 Intake Total 1792.5 ml 2265.0 ml Balance 1792.5 ml 2265.0 ml Intake Oral 1000 ml 600 ml IV Total 792.5 ml 1665.0 ml # Voids 4 4 Laboratory Tests 11/30/18 05:00: White Blood Count 8.1, Red Blood Count 5.13, Hemoglobin 13.2L, Hematocrit 40.6L , Mean Corpuscular Volume 79L, Mean Corpuscular Hemoglobin 25.7L, Mean Corpuscular Hemoglobin Concent 32.6, Red Cell Distribution Width 12.7, Platelet Count 244, Mean Platelet Volume 5.5L, Neutrophils (%) (Auto) 54.9, Lymphocytes ( %) (Auto) 29.0, Monocytes (%) (Auto) 11.9H, Eosinophils (%) (Auto) 3.6H, Basophils (%) (Auto) 0.5, Sodium Level 140, Potassium Level 4.0, Chloride Level 104, Carbon Dioxide Level 31, Anion Gap 5, Blood Urea Nitrogen 8, Creatinine 1.1 , Estimat Glomerular Filtration Rate > 60, Glucose Level 91, Calcium Level 8.7, Lipase 671H Height (Feet): 5 Height (Inches): 8.00 Weight (Pounds): 218 Objective WDWN NAD clear breath sounds bilaterally without rhonchi or wheeze [id number] without MRG NABS nontender no HSM no CCE nonfocal Guido Colon MD Nov 30, 2018 10:21
--- NOTE | 2018-11-30 18:19 | General Progress Note ---
Assessment/Plan Assessment: Assessment - Panc divisum - s/p PD stent eschange - recurrent pancreatitis Recommendation - IVF - low fat diet - pain control - follow labs - hopefully can d/c in am Subjective Allergies: Coded Allergies: MORPHINE (Verified Allergy, Mild, itching, 11/20/18) HALOPERIDOL (Verified Allergy, Unknown, 11/20/18) KETOROLAC (Verified Allergy, Unknown, 01/01/18) PROCHLORPERAZINE (Verified Allergy, Unknown, 11/20/18) PROMETHAZINE (Verified Allergy, Unknown, 11/20/18) METOCLOPRAMIDE (Verified Adverse Reaction, Mild, 12/15/17) anxiety Subjective still with pain lipase lower some episodes of nausea advised to cut down on narcotic requests Objective Last 24 Hour Vital Signs Date Time Temp Pulse Resp B/P (MAP) Pulse Ox O2 Delivery O2 Flow Rate FiO2 11/30/18 09:00 Room Air 11/30/18 07:43 98.4 81 18 134/87 (103) 98 11/30/18 05:13 96.5 11/30/18 04:55 96.5 65 18 127/71 (89) 95 11/30/18 01:42 97.0 82 18 135/89 (104) 98 11/29/18 20:55 Room Air 11/29/18 20:43 98.2 87 18 131/91 (104) 98 Intake and Output 11/29/18 11/30/18 19:00 07:00 Intake Total 1792.5 ml 2265.0 ml Balance 1792.5 ml 2265.0 ml Intake Oral 1000 ml 600 ml IV Total 792.5 ml 1665.0 ml # Voids 4 4 Laboratory Tests 11/30/18 05:00: White Blood Count 8.1, Red Blood Count 5.13, Hemoglobin 13.2L, Hematocrit 40.6L , Mean Corpuscular Volume 79L, Mean Corpuscular Hemoglobin 25.7L, Mean Corpuscular Hemoglobin Concent 32.6, Red Cell Distribution Width 12.7, Platelet Count 244, Mean Platelet Volume 5.5L, Neutrophils (%) (Auto) 54.9, Lymphocytes ( %) (Auto) 29.0, Monocytes (%) (Auto) 11.9H, Eosinophils (%) (Auto) 3.6H, Basophils (%) (Auto) 0.5, Sodium Level 140, Potassium Level 4.0, Chloride Level 104, Carbon Dioxide Level 31, Anion Gap 5, Blood Urea Nitrogen 8, Creatinine 1.1 , Estimat Glomerular Filtration Rate > 60, Glucose Level 91, Calcium Level 8.7, Lipase 671H Height (Feet): 5 Height (Inches): 8.00 Weight (Pounds): 218 Objective WDWN NCAT supple CTA RR abd soft, mild epigastric TTP no edema non focal Mikael Foley MD Nov 30, 2018 18:19
[2018-11-30 20:00] VITALS: BP 158/87
[2018-11-30] MEDS: Dyna-Hex 2% Top Sol 2oz TOPIC SCH (20:29)
[2018-12-01 00:26] VITALS: BP 109/66
[2018-12-01] MEDS: DiphenhydrAMINE 50mg/ml Inj IVP PRN ×4 (02:42→21:30)
[2018-12-01] MEDS: HYDROmorphone 1mg/ml Carpuject IVP PRN ×7 (02:43→21:31)
[2018-12-01 04:00] VITALS: BP 118/89
[2018-12-01] MEDS: Piperacillin/Tazobactam 3.375 GM in NS 110 ML IVPB SCH (05:04)
[2018-12-01] MEDS: D5NS 1,000 ML IV SCH ×3 (05:04→17:32)
[2018-12-01 07:11] LABS: BASOPHILS % (AUTO) 0.4 % (0.0-2.0); EOSINOPHILS % (AUTO) 3.3 % (0.0-3.0); HEMATOCRIT 41.4 % (42.0-52.0); HEMOGLOBIN 13.7 G/DL (14.2-18.0); LYMPHOCYTES % (AUTO) 24.9 % (20.0-45.0); MEAN CORPUSCULAR VOLUME 80 FL (80-99); MONOCYTES % (AUTO) 11.4 % (1.0-10.0); NEUTROPHILS % (AUTO) 60.1 % (45.0-75.0); PLATELET COUNT 232 K/UL (150-450); RED BLOOD COUNT 5.21 M/UL (4.70-6.10); RED CELL DISTRIBUTION WIDTH 12.8 % (11.6-14.8); WHITE BLOOD COUNT 7.8 K/UL (4.8-10.8)
[2018-12-01 08:00] VITALS: BP 156/108
[2018-12-01 08:33] LABS: ANION GAP 12 mmol/L (5-15); BLOOD UREA NITROGEN 8 mg/dL (7-18); CALCIUM 9.1 MG/DL (8.5-10.1); CARBON DIOXIDE 26 MMOL/L (21-32); CHLORIDE 102 MMOL/L (98-107); POTASSIUM 3.9 MMOL/L (3.5-5.1); SODIUM 140 MMOL/L (136-145)
[2018-12-01] MEDS: Pantoprazole Inj IVP SCH ×3 (09:00→20:40)
[2018-12-01] MEDS: Heparin 5000 units/ml inj SUBQ SCH ×2 (09:00→20:39)
[2018-12-01] MEDS ORDERED: D5NS 1000ml IV ONE (09:10)
--- NOTE | 2018-12-01 11:37 | General Progress Note ---
Assessment/Plan Assessment: Assessment - Panc divisum - s/p PD stent eschange - recurrent pancreatitis Recommendation - IVF - low fat diet - pain control - follow labs - d/c planning per PMD Subjective Allergies: Coded Allergies: MORPHINE (Verified Allergy, Mild, itching, 11/20/18) HALOPERIDOL (Verified Allergy, Unknown, 11/20/18) KETOROLAC (Verified Allergy, Unknown, 01/01/18) PROCHLORPERAZINE (Verified Allergy, Unknown, 11/20/18) PROMETHAZINE (Verified Allergy, Unknown, 11/20/18) METOCLOPRAMIDE (Verified Adverse Reaction, Mild, 12/15/17) anxiety Subjective still with pain, but better lipase lower wants to postpone discharge to am Objective Last 24 Hour Vital Signs Date Time Temp Pulse Resp B/P (MAP) Pulse Ox O2 Delivery O2 Flow Rate FiO2 12/01/18 08:00 98.9 98 18 156/108 (124) 98 12/01/18 04:00 97.9 84 19 118/89 (99) 100 12/01/18 00:26 98.1 80 18 109/66 (80) 95 11/30/18 23:52 Room Air 11/30/18 20:00 98.2 86 18 158/87 (110) 97 Intake and Output 11/30/18 12/01/18 19:00 07:00 Intake Total 2165.0 ml 1887.5 ml Output Total 1600 ml Balance 2165.0 ml 287.5 ml Intake Oral 800 ml 700 ml IV Total 1365.0 ml 1187.5 ml Output Urine Total 1600 ml # Voids 3 Laboratory Tests 12/01/18 05:20: White Blood Count 7.8, Red Blood Count 5.21, Hemoglobin 13.7L, Hematocrit 41.4L , Mean Corpuscular Volume 80, Mean Corpuscular Hemoglobin 26.2L, Mean Corpuscular Hemoglobin Concent 33.0, Red Cell Distribution Width 12.8, Platelet Count 232, Mean Platelet Volume 5.6L, Neutrophils (%) (Auto) 60.1, Lymphocytes ( %) (Auto) 24.9, Monocytes (%) (Auto) 11.4H, Eosinophils (%) (Auto) 3.3H, Basophils (%) (Auto) 0.4, Sodium Level 140, Potassium Level 3.9, Chloride Level 102, Carbon Dioxide Level 26, Anion Gap 12, Blood Urea Nitrogen 8, Creatinine 1.0, Estimat Glomerular Filtration Rate > 60, Glucose Level 102, Calcium Level 9.1, Lipase 636H Height (Feet): 5 Height (Inches): 8.00 Weight (Pounds): 218 Objective WDWN NCAT supple CTA RR abd soft, mild epigastric TTP no edema non focal Mikael Foley MD Dec 01, 2018 11:37
--- NOTE | 2018-12-01 12:48 | Infectious Diseases Prog Note ---
Assessment/Plan Assessment/Plan A: 1. Pancreatitis, improving gradually 2. Leukocytosis, resolved 3. Pancreatic Divisum 4. s/p pancreatic duct stent exchange PLAN: 1. Discontinue Zosyn 2. Observe off antibiotic Subjective ROS Limited/Unobtainable: No Constitutional: Reports: no symptoms Respiratory: Reports: no symptoms Cardiovascular: Reports: no symptoms Gastrointestinal/Abdominal: Reports: no symptoms, other - pain controlled Genitourinary: Reports: no symptoms Allergies: Coded Allergies: MORPHINE (Verified Allergy, Mild, itching, 11/20/18) HALOPERIDOL (Verified Allergy, Unknown, 11/20/18) KETOROLAC (Verified Allergy, Unknown, 01/01/18) PROCHLORPERAZINE (Verified Allergy, Unknown, 11/20/18) PROMETHAZINE (Verified Allergy, Unknown, 11/20/18) METOCLOPRAMIDE (Verified Adverse Reaction, Mild, 12/15/17) anxiety Objective Vital Signs Last 24 Hour Vital Signs Date Time Temp Pulse Resp B/P (MAP) Pulse Ox O2 Delivery O2 Flow Rate FiO2 12/01/18 08:00 98.9 98 18 156/108 (124) 98 12/01/18 04:00 97.9 84 19 118/89 (99) 100 12/01/18 00:26 98.1 80 18 109/66 (80) 95 11/30/18 23:52 Room Air 11/30/18 20:00 98.2 86 18 158/87 (110) 97 Height (Feet): 5 Height (Inches): 8.00 Weight (Pounds): 218 General Appearance: no acute distress HEENT: mucous membranes moist Respiratory/Chest: lungs clear Cardiovascular: normal rate, other - PICC line Abdomen: soft, non tender Extremities: no edema Skin: no rash, no ulcers Neurologic/Psychiatric: alert, oriented x 3, responsive Laboratory Tests Test 12/01/18 05:20 White Blood Count 7.8 K/UL (4.8-10.8) Red Blood Count 5.21 M/UL (4.70-6.10) Hemoglobin 13.7 G/DL (14.2-18.0) L Hematocrit 41.4 % (42.0-52.0) L Mean Corpuscular Volume 80 FL (80-99) Mean Corpuscular Hemoglobin 26.2 PG (27.0-31.0) L Mean Corpuscular Hemoglobin Concent 33.0 G/DL (32.0-36.0) Red Cell Distribution Width 12.8 % (11.6-14.8) Platelet Count 232 K/UL (150-450) Mean Platelet Volume 5.6 FL (6.5-10.1) L Neutrophils (%) (Auto) 60.1 % (45.0-75.0) Lymphocytes (%) (Auto) 24.9 % (20.0-45.0) Monocytes (%) (Auto) 11.4 % (1.0-10.0) H Eosinophils (%) (Auto) 3.3 % (0.0-3.0) H Basophils (%) (Auto) 0.4 % (0.0-2.0) Sodium Level 140 MMOL/L (136-145) Potassium Level 3.9 MMOL/L (3.5-5.1) Chloride Level 102 MMOL/L (98-107) Carbon Dioxide Level 26 MMOL/L (21-32) Anion Gap 12 mmol/L (5-15) Blood Urea Nitrogen 8 mg/dL (7-18) Creatinine 1.0 MG/DL (0.55-1.30) Estimat Glomerular Filtration Rate > 60 mL/min (>60) Glucose Level 102 MG/DL (74-106) Calcium Level 9.1 MG/DL (8.5-10.1) Lipase 636 U/L (73-393) H Current Medications Medications (Trade) Dose Ordered Sig/Jeffrey Route PRN Reason Start Time Stop Time Status Last Admin Dose Admin Chlorhexidine Gluconate (Stormy-Hex 2%) 1 applic DAILY@2000 TOPIC 11/26/18 20:00 12/26/18 19:59 11/30/18 20:29 Dextrose/Sodium Chloride 1,000 ml @ 150 mls/hr Q6H40M IV 11/26/18 10:45 12/26/18 10:44 12/01/18 11:31 Diphenhydramine HCl (Benadryl) 50 mg Q6H PRN IVP Itching 11/22/18 10:43 12/20/18 10:42 12/01/18 09:16 Heparin Sodium (Porcine) (Heparin 5000 units/ml) 5,000 units EVERY 12 HOURS SUBQ 11/21/18 09:00 12/21/18 08:59 11/21/18 20:53 Hydromorphone HCl (Dilaudid) 1 mg Q3H PRN IVP Severe Pain (Pain Scale 7-10) 11/26/18 10:00 12/03/18 09:59 12/01/18 12:33 Ondansetron HCl (Zofran) 4 mg Q6H PRN IVP Nausea & Vomiting 11/20/18 22:00 12/20/18 21:59 11/30/18 17:58 Pantoprazole (Protonix) 40 mg EVERY 12 HOURS IVP 11/21/18 09:00 12/21/18 08:59 11/30/18 08:33 Piperacillin Sod/ Tazobactam Sod 3.375 gm/Sodium Chloride 110 ml @ 27.5 mls/hr Q8HR IVPB 11/26/18 15:00 12/03/18 14:59 12/01/18 05:04 Pedro Luis Vines MD Dec 01, 2018 12:48
--- NOTE | 2018-12-01 13:09 | General Progress Note ---
Assessment/Plan Assessment: pancreatitis leukocytosis abdominal pain PLAN still with elevated lipase dc per gi monitor lipase for change advance diet impression, plan, and exam edited and reviewed in detail care discussed with RN Subjective Allergies: Coded Allergies: MORPHINE (Verified Allergy, Mild, itching, 11/20/18) HALOPERIDOL (Verified Allergy, Unknown, 11/20/18) KETOROLAC (Verified Allergy, Unknown, 01/01/18) PROCHLORPERAZINE (Verified Allergy, Unknown, 11/20/18) PROMETHAZINE (Verified Allergy, Unknown, 11/20/18) METOCLOPRAMIDE (Verified Adverse Reaction, Mild, 12/15/17) anxiety Subjective care noted elevated enzymes slowly improving has pain Objective Last 24 Hour Vital Signs Date Time Temp Pulse Resp B/P (MAP) Pulse Ox O2 Delivery O2 Flow Rate FiO2 12/01/18 08:00 98.9 98 18 156/108 (124) 98 12/01/18 04:00 97.9 84 19 118/89 (99) 100 12/01/18 00:26 98.1 80 18 109/66 (80) 95 11/30/18 23:52 Room Air 11/30/18 20:00 98.2 86 18 158/87 (110) 97 Intake and Output 11/30/18 12/01/18 19:00 07:00 Intake Total 2165.0 ml 1887.5 ml Output Total 1600 ml Balance 2165.0 ml 287.5 ml Intake Oral 800 ml 700 ml IV Total 1365.0 ml 1187.5 ml Output Urine Total 1600 ml # Voids 3 Laboratory Tests 12/01/18 05:20: White Blood Count 7.8, Red Blood Count 5.21, Hemoglobin 13.7L, Hematocrit 41.4L , Mean Corpuscular Volume 80, Mean Corpuscular Hemoglobin 26.2L, Mean Corpuscular Hemoglobin Concent 33.0, Red Cell Distribution Width 12.8, Platelet Count 232, Mean Platelet Volume 5.6L, Neutrophils (%) (Auto) 60.1, Lymphocytes ( %) (Auto) 24.9, Monocytes (%) (Auto) 11.4H, Eosinophils (%) (Auto) 3.3H, Basophils (%) (Auto) 0.4, Sodium Level 140, Potassium Level 3.9, Chloride Level 102, Carbon Dioxide Level 26, Anion Gap 12, Blood Urea Nitrogen 8, Creatinine 1.0, Estimat Glomerular Filtration Rate > 60, Glucose Level 102, Calcium Level 9.1, Lipase 636H Height (Feet): 5 Height (Inches): 8.00 Weight (Pounds): 218 Objective WDWN NAD clear breath sounds bilaterally without rhonchi or wheeze [id number] without MRG NABS nontender no HSM no CCE nonfocal Guido Colon MD Dec 01, 2018 13:09
[2018-12-01 16:00] VITALS: BP 129/77
[2018-12-01 20:00] VITALS: BP 142/98
[2018-12-01] MEDS: Dyna-Hex 2% Top Sol 2oz TOPIC SCH (20:40)
[2018-12-02] MEDS: D5NS 1,000 ML IV SCH ×2 (00:24→06:36)
[2018-12-02] MEDS: HYDROmorphone 1mg/ml Carpuject IVP PRN ×4 (00:32→09:54)
[2018-12-02 00:48] VITALS: BP 114/70
[2018-12-02] MEDS: DiphenhydrAMINE 50mg/ml Inj IVP PRN ×2 (03:34→09:54)
[2018-12-02 04:00] VITALS: BP 145/83
[2018-12-02 05:26] LABS: BASOPHILS % (AUTO) 0.6 % (0.0-2.0); EOSINOPHILS % (AUTO) 2.8 % (0.0-3.0); HEMATOCRIT 43.8 % (42.0-52.0); HEMOGLOBIN 14.2 G/DL (14.2-18.0); LYMPHOCYTES % (AUTO) 23.7 % (20.0-45.0); MEAN CORPUSCULAR VOLUME 79 FL (80-99); MONOCYTES % (AUTO) 13.3 % (1.0-10.0); NEUTROPHILS % (AUTO) 59.6 % (45.0-75.0); PLATELET COUNT 242 K/UL (150-450); RED BLOOD COUNT 5.53 M/UL (4.70-6.10); RED CELL DISTRIBUTION WIDTH 12.6 % (11.6-14.8); WHITE BLOOD COUNT 8.6 K/UL (4.8-10.8)
--- NOTE | 2018-12-02 07:49 | General Progress Note ---
Assessment/Plan Assessment: pancreatitis leukocytosis abdominal pain PLAN dc home bland diet cleared by gi follow up with pmd for ongoing testing and monitoring impression, plan, and exam edited and reviewed in detail care discussed with RN Subjective Allergies: Coded Allergies: MORPHINE (Verified Allergy, Mild, itching, 11/20/18) HALOPERIDOL (Verified Allergy, Unknown, 11/20/18) KETOROLAC (Verified Allergy, Unknown, 01/01/18) PROCHLORPERAZINE (Verified Allergy, Unknown, 11/20/18) PROMETHAZINE (Verified Allergy, Unknown, 11/20/18) METOCLOPRAMIDE (Verified Adverse Reaction, Mild, 12/15/17) anxiety Subjective care noted elevated enzymes slowly improving improved pain Objective Last 24 Hour Vital Signs Date Time Temp Pulse Resp B/P (MAP) Pulse Ox O2 Delivery O2 Flow Rate FiO2 12/02/18 04:00 97.7 79 18 145/83 (103) 97 12/02/18 00:48 97.1 87 18 114/70 (85) 95 12/01/18 21:00 Room Air 12/01/18 20:00 98.7 89 18 142/98 (113) 97 12/01/18 16:00 98.2 81 18 129/77 (94) 98 12/01/18 09:00 Room Air 12/01/18 08:00 98.9 98 18 156/108 (124) 98 Intake and Output 12/01/18 12/02/18 18:59 06:59 Intake Total 600 ml 1650 ml Output Total 2 ml Balance 600 ml 1648 ml Intake Oral 600 ml IV Total 1650 ml Output Urine Total 2 ml # Voids 5 Laboratory Tests 12/02/18 05:00: White Blood Count 8.6, Red Blood Count 5.53, Hemoglobin 14.2, Hematocrit 43.8, Mean Corpuscular Volume 79L, Mean Corpuscular Hemoglobin 25.8L, Mean Corpuscular Hemoglobin Concent 32.5, Red Cell Distribution Width 12.6, Platelet Count 242, Mean Platelet Volume 5.5L, Neutrophils (%) (Auto) 59.6, Lymphocytes ( %) (Auto) 23.7, Monocytes (%) (Auto) 13.3H, Eosinophils (%) (Auto) 2.8, Basophils (%) (Auto) 0.6, Lipase 548H Height (Feet): 5 Height (Inches): 8.00 Weight (Pounds): 218 Objective WDWN NAD clear breath sounds bilaterally without rhonchi or wheeze [id number] without MRG NABS nontender no HSM no CCE nonfocal Guido Colon MD Dec 02, 2018 07:48
[2018-12-02 08:00] VITALS: BP 156/87
[2018-12-02] MEDS: Pantoprazole Inj IVP SCH (09:00)
[2018-12-02] MEDS: Heparin 5000 units/ml inj SUBQ SCH (09:00)
[2018-12-02 12:00] VITALS: BP 158/88
--- NOTE | 2018-12-02 12:11 | Cardiology Report ---
APPROVED REPORT EKG Measurement Heart [id number] [id number] [id number] Normal sinus rhythm Normal ECG
[2018-12-02] MEDS ORDERED: D5NS 1000ml IV ONE (14:59)
--- NOTE | 2018-12-02 21:20 | General Progress Note ---
Assessment/Plan Assessment: Assessment - Panc divisum - s/p PD stent eschange - recurrent pancreatitis Recommendation - IVF - low fat diet - pain control - follow labs - d/c planning per PMD Subjective Allergies: Coded Allergies: MORPHINE (Verified Allergy, Mild, itching, 11/20/18) HALOPERIDOL (Verified Allergy, Unknown, 11/20/18) KETOROLAC (Verified Allergy, Unknown, 01/01/18) PROCHLORPERAZINE (Verified Allergy, Unknown, 11/20/18) PROMETHAZINE (Verified Allergy, Unknown, 11/20/18) METOCLOPRAMIDE (Verified Adverse Reaction, Mild, 12/15/17) anxiety Subjective still with pain, but better for discharge today Objective Last 24 Hour Vital Signs Date Time Temp Pulse Resp B/P (MAP) Pulse Ox O2 Delivery O2 Flow Rate FiO2 12/02/18 12:00 97.5 77 22 158/88 (111) 99 12/02/18 09:00 Room Air 12/02/18 08:00 97.9 79 24 156/87 (110) 98 12/02/18 04:00 97.7 79 18 145/83 (103) 97 12/02/18 00:48 97.1 87 18 114/70 (85) 95 Intake and Output 12/01/18 12/02/18 19:00 07:00 Intake Total 750 ml 1500 ml Output Total 2 ml Balance 750 ml 1498 ml Intake Oral 600 ml IV Total 150 ml 1500 ml Output Urine Total 2 ml # Voids 5 Laboratory Tests 12/02/18 05:00: White Blood Count 8.6, Red Blood Count 5.53, Hemoglobin 14.2, Hematocrit 43.8, Mean Corpuscular Volume 79L, Mean Corpuscular Hemoglobin 25.8L, Mean Corpuscular Hemoglobin Concent 32.5, Red Cell Distribution Width 12.6, Platelet Count 242, Mean Platelet Volume 5.5L, Neutrophils (%) (Auto) 59.6, Lymphocytes ( %) (Auto) 23.7, Monocytes (%) (Auto) 13.3H, Eosinophils (%) (Auto) 2.8, Basophils (%) (Auto) 0.6, Lipase 548H Height (Feet): 5 Height (Inches): 8.00 Weight (Pounds): 218 Objective WDWN NCAT supple CTA RR abd soft, mild epigastric TTP no edema non focal Mikael Foley MD Dec 02, 2018 21:20
--- NOTE | 2018-12-03 08:15 | Discharge Summary ---
Discharge Summary Discharge Summary _ DATE OF ADMISSION: 11/20/2018 DATE OF DISCHARGE: 10/04/2018 DISCHARGED BY: Dr. Colon REASON FOR ADMISSION: 33 years old male with past medical history of pancreatitis, and prior pancreatic duct stent placed 3 months ago, presented with 3 days of vomiting. Patient was unable to keep down food or medication. Patient reported epigastric and right upper quadrant pain, radiating towards his back. Emesis was described as clear, no bile, no blood. Patient also reported loose stools, but no blood, no melena. Patient denied fever and chills. Upon evaluation vital signs revealed the morning elevated blood pressure 161/95. Laboratory workup revealed leukocytosis WBC 11.4, hemoglobin 15, hematocrit 46.1 , neutrophils 62. Urinalysis revealed no evidence of urinary tract infection +1 protein. Stable electrolytes, BUN 14, creatinine 1.0. Glucose 99. AST 15, ALT 22. Lipase 892. Total bilirubin 0.2. EKG revealed sinus rhythm, no acute ischemic changes. Chest x-ray revealed no acute cardiopulmonary pathology. Abdominal x-ray demonstrated no acute process , probable pancreatic duct stent noted. In emergency department patient received analgesia ,IV hydration and antiemetic. Patient was admitted for further management CONSULTANTS: ID specialist Dr. Cuenca GI specialist Dr. Foley [facility] COURSE: Patient admitted to medical surgical floor Patient started on the IV hydration and clear liquid diet as tolerated. ID and GI consults were requested. Pain management was addressed. Antiemetic provided as needed. Abdominal ultrasound demonstrated nondistended gallbladder. No gross stones. No biliary ductal dilatation. Liver demonstrated diffusely increased echogenicity, consistent with diffuse hepatocellular disease, most likely fatty change , mildly enlarged. Pancreatic duct stent described on abdominal x-ray , was not visualized. GI specialist closely followed. Per GI specialist patient had recurrent pancreatitis despite presence of pancreatic duct stent. Options were discussed with the patient : remove the stent and exchange to the larger one with alternative to provide dilatation of pancreatic duct. Subsequently patient undergone ERCP with pancreatic duct exchange, which revealed pancreas divisum. Old pancreatic stent was removed. Pancreatic gland showed no obvious large stricture. Another pancreatic stent was placed without complication with good drainage. Patient tolerated procedure well. Patient was slowly resumed on diet and advanced as tolerated to low-fat diet. Pain management was addressed. Lipase was trended on a daily basis. Lipase from 892 down to 548. Lipid panel stable DVT prophylaxis provided. Patient initially started on antibiotic due to leukocytosis. ID specialist closely follow. Leukocytosis resolved. No fevers. Blood cultures were negative. Antibiotics stopped. Patient clinically stabilized. GI specialist cleared patient for discharge. Patient was discharged home with outpatient follow-up with his GI specialist. FINAL DIAGNOSES: Pancreas divisum Status post recent pancreatic duct stent Recurrent pancreatitis Post ERCP with pancreatic duct stent exchange Leukocytosis- resolved DISCHARGE MEDICATIONS: List of medication was sent with patient. DISCHARGE INSTRUCTIONS: Patient was discharged home. Follow up with primary care provider in one week. I have been assigned to dictate discharge summary for this account. I was not involved in the patient's management. Erin Trejo NP Dec 03, 2018 08:15
== END 2018-12-02 15:00 | disposition home or self-care (01) | DRG 282 ==
LOC: EMR 14:15 → 3E 15:25 → EDBEDREQ 20:14 → 4E 11-21 21:39
PROC: 0F7D8DZ Dilation of Pancreatic Duct with Intraluminal Device, Via Natural or Artificial Opening Endoscopic (ICD-10-PCS; principal; 2018-11-25 12:05)
PROC: 0FPD8DZ Removal of Intraluminal Device from Pancreatic Duct, Via Natural or Artificial Opening Endoscopic (ICD-10-PCS; principal; 2018-11-25 12:05)
DX: K85.90 Acute pancreatitis without necrosis or infection, unspecified (principal); Q45.3 Other congenital malformations of pancreas and pancreatic duct; D72.829 Elevated white blood cell count, unspecified; K86.1 Other chronic pancreatitis
CPT/HCPCS: 36415; 36569; 71045; 74018; 74329; 76000; 76700; 76937; 80048; 80053; 80061; 81003; 82150; 82550; 83690; 85007; 85025; 85610; 85730; 87040; 93005; 94003; 94150; 96361; 96374; 96375; 96376; 99285; J2250; J2405

== ENCOUNTER 2018-12-31 04:39 | Emergency (ER) | payer MEDICAID ==
[~2018-12-31] VITALS: Ht 172.7 cm; Wt 97.1 kg
[~2018-12-31 04:39] MED LIST changes: +ZOFRAN ODT8 MG ORAL
--- NOTE | 2018-12-31 05:07 | Emergency Room Report ---
History of Present Illness General Chief Complaint: Abdominal Pain Source: Patient Present Illness HPI This is a 33-year-old male with a history of alcoholic pancreatitis. He had a previous pancreatic stent placed at [facility] in [place]. Apparently this was done in October. He was admitted here in November and had a new stent placed because of pancreatitis. He had upper quadrant pain before the states and ever since then. He has been to numerous hospitals in [facility] and [place]. He was recently at [facility]. He said that no one want to take out the stent and told to go back to where he get it done. He present here with abdominal pain. He said his been vomiting for last 3 days. No fever chills. No diarrhea. Pain is 10 out of 10. Nothing made it better. Nothing made it worse. Patient requesting admission and IV Dilaudid. Allergies: Coded Allergies: MORPHINE (Verified Allergy, Mild, itching, 11/20/18) HALOPERIDOL (Verified Allergy, Unknown, 11/20/18) KETOROLAC (Verified Allergy, Unknown, 01/01/18) PROCHLORPERAZINE (Verified Allergy, Unknown, 11/20/18) PROMETHAZINE (Verified Allergy, Unknown, 11/20/18) METOCLOPRAMIDE (Verified Adverse Reaction, Mild, 12/15/17) anxiety Patient History Past Medical History: see triage record, old chart reviewed Past Surgical History: other Pertinent Family History: none Social History: Reports: alcohol use; Denies: smoking Immunizations: other Reviewed Nursing Documentation: PMH: Agreed; PSxH: Agreed Nursing Documentation-PMH Past Medical History: No History, Except For Hx Cancer: No Hx Gastrointestinal Problems: Yes - PANCREATITIS Hx Neurological Problems: No Review of Systems Eye: Denies: eye pain, blurred vision ENT: Denies: ear pain, nose congestion, throat swelling Respiratory: Denies: cough, shortness of breath Cardiovascular: Denies: chest pain, palpitations Gastrointestinal: Reports: abdominal pain, nausea, vomiting; Denies: diarrhea Musculoskeletal: Denies: back pain, joint pain Skin: Denies: rash Neurological: Denies: headache, numbness Endocrine: Denies: increased thirst, increased urine Hematologic/Lymphatic: Denies: easy bruising All Other Systems: negative except mentioned in HPI Physical Exam Vital Signs Date Time Temp Pulse Resp B/P (MAP) Pulse Ox O2 Delivery O2 Flow Rate FiO2 12/31/18 04:40 98.1 107 17 100 Room Air vitals with high blood pressure Sp02 EP Interpretation: reviewed, normal General Appearance: well appearing, no apparent distress, alert Head: normocephalic, atraumatic Eyes: bilateral eye PERRL, bilateral eye EOMI ENT: hearing grossly normal, normal pharynx Neck: full range of motion, supple, no meningismus Respiratory: chest non-tender, lungs clear, normal breath sounds Cardiovascular #1: regular rate, rhythm, no murmur Gastrointestinal: normal bowel sounds, no mass, no organomegaly, no bruit, non- distended, tenderness - Left upper quadrant Musculoskeletal: back normal, gait/station normal, normal range of motion Psychiatric: mood/affect normal Skin: warm/dry Medical Decision Making Diagnostic Impression: Primary Impression: Abdominal pain Qualified Codes: R10.12 - Left upper quadrant pain ER Course Patient presents with abdominal pain. He may or may not have to pancreatitis. His pain has been persistently for the pancreatic duct stent and persistent since. Patient said he was at urgent care yesterday and lab works were normal. I told patient that I will check labs to see if he has pancreatitis. He refuse CT scan. He said he has multiple CT scans in the past. CT scans have been negative. He has me to call the GI doctor to get his stent removed. I explained to him that would not be calling anybody in the middle the night without results back from his laboratory data or diagnostic study. I told patient will hold off on any IV pain medication. Patient is specifically asking for Dilaudid. He claimed that he is allergic to Toradol and morphine. Patient was very rude and combative. He was been aggressive and using profanity to me and nursing staff. Because he was not getting any pain medication, he said he relief. He is asked for a number to the GI doctor who replaced stent. Also told patient to follow-up with the initial GI doctor who placed his stent in the first place. Explained to the patient that if the lipase was normal and that mean his stent is working and that is not the cause of his pain. If his lipase was normal, I have no indication to get the patient. Patient left AMA. Last Vital Signs Date Time Temp Pulse Resp B/P (MAP) Pulse Ox O2 Delivery O2 Flow Rate FiO2 12/31/18 04:40 98.1 107 17 100 Room Air Status: unchanged Disposition: AGAINST MEDICAL ADVICE Condition: Stable Referrals: NOT CHOSEN IPA/MD,REFERRING (PCP) Patient Instructions: Abdominal Pain, Adult Additional Instructions: Follow up with your doctor in 7 days. Return if worse. Ean Fuentes MD December 31, 2018 05:07
--- NOTE | 2018-12-31 05:15 | NUR ---
ED Nurse Note: RECIEVED PT FROM HOME, HERE WITH C/O "I WANT YOUTO TAKE THIS STENT OUT", PT IS VERY ANXIOUSLY YELLING AT STAFF THAT WE NEED TO REMOVE HIS ABDOMINAL STENT, PT HAS CONFLICTING STORY OF WHERE HE WAS TREATED AND WHOM HIS GI DOCTOR IS, PT HAD PROCEDURE HERE BUT STATES THE GI MD DID NOT DO IT, PT IS YELLING AT DOCTOR DEMANDING FOR THE SERVICE, PT HAS BEEN TO [facility] DIFFERENT HOSPITALS WITH SAME REQUEST AND STATES THATS WHY HE IS ANGRY, PT WAS TOLD WE WILL CHECK LABS AND START FROM THERE, PT SUDDENNLY TOOK OFF ALL EQUIPMENT AND STATES HIS LABS ARE NORMAL HE WENT TO MD YESTERDAY, PT IS VERY ANGRY, MD ATTEMPTED TO TALK AND EXPLAIN TO PT MANY TIMES PROCEDURES IN ER, PT ANGRILY WANTS TO LEAVE, PT WAS GIVEN HIS GI F/U INFO AND AFTER CARE INSTRUCTIONS FOR F/U. PT VERY RUDELY CALLING MD NAMES AND USING PROFANITY.
[2018-12-31 05:26] VITALS: BP 163/110
== END 2018-12-31 05:26 | disposition left against medical advice (07) ==
LOC: EMR 04:56
DX: R10.12 Left upper quadrant pain (principal); R11.10 Vomiting, unspecified; Z88.6 Allergy status to analgesic agent; Z88.0 Allergy status to penicillin
CPT/HCPCS: 99282

== ENCOUNTER 2019-02-17 18:33 | Inpatient (IN) | payer MEDICAID ==
[~2019-02-17] VITALS: Ht 172.7 cm; Wt 94.4 kg
[2019-02-17] MEDS ORDERED: HYDROmorphone 1mg/ml Carpuject IVP ONE (18:45)
[2019-02-17] MEDS ORDERED: DiphenhydrAMINE 50mg/ml Inj IVP ONE (18:45)
--- NOTE | 2019-02-17 18:45 | NUR ---
ED Nurse Note: pt walked in c/o abd pain, n/v for a week, pt states he recently had gall bladder removed and stent was placed in. noted surgical site on right upper abd area with mild redness but edges closed, healing well, no sx infection noted. pt denies fever and chills. pt AA&ox4, gcs=15, skin warm and dry, noted tachypnea, O2sat= 100% on RA, vss, NSr on physical medicine physician, will cont monitor.
[2019-02-17 18:55] VITALS: BP 151/91
--- NOTE | 2019-02-17 19:20 | NUR ---
HANDOFF: report given to JASON Ewing and endorsed care.
[2019-02-17 19:36] LABS: BASOPHILS % (AUTO) 0.7 % (0.0-2.0); EOSINOPHILS % (AUTO) 1.4 % (0.0-3.0); HEMATOCRIT 52.5 % (42.0-52.0); HEMOGLOBIN 16.5 G/DL (14.2-18.0); MEAN CORPUSCULAR VOLUME 79 FL (80-99); MONOCYTES % (AUTO) 10.9 % (1.0-10.0); PLATELET COUNT 349 K/UL (150-450); RED BLOOD COUNT 6.64 M/UL (4.70-6.10); RED CELL DISTRIBUTION WIDTH 12.7 % (11.6-14.8)
[2019-02-17 19:49] LABS: ANION GAP 13 mmol/L (5-15); BLOOD UREA NITROGEN 21 mg/dL (7-18); CALCIUM 9.4 MG/DL (8.5-10.1); CARBON DIOXIDE 28 MMOL/L (21-32); CHLORIDE 102 MMOL/L (98-107); CREATININE 1.2 MG/DL (0.55-1.30); POTASSIUM 3.9 MMOL/L (3.5-5.1); SODIUM 143 MMOL/L (136-145)
[2019-02-17 19:53] LABS: ALANINE AMINOTRANSFERASE 21 U/L (12-78); ALBUMIN 4.7 G/DL (3.4-5.0); ALBUMIN/GLOBULIN RATIO 1.1 (1.0-2.7); ALKALINE PHOSPHATASE 74 U/L (46-116); ASPARTATE AMINO TRANSFERASE 16 U/L (15-37); BILIRUBIN,TOTAL 0.3 MG/DL (0.2-1.0); CREATINE KINASE 167 U/L (26-308)
[2019-02-17 19:56] LABS: INR 0.9 (0.9-1.1)
[2019-02-17] MEDS ORDERED: Piperacillin/Tazobactam 3.375 GM in NS 110 ML IVPB ONE (20:30)
[2019-02-17 20:36] LABS: APPEARANCE,URINE CLEAR; BILIRUBIN, URINE NEGATIVE (NEGATIVE); COLOR,URINE PALE YELLOW; GLUCOSE, URINE (UA) NEGATIVE (NEGATIVE); KETONES,URINE NEGATIVE (NEGATIVE); LEUKOCYTE ESTERASE ,URINE 2+ (NEGATIVE); NITRITE,URINE NEGATIVE (NEGATIVE); PH,URINE 6.5 (4.5-8.0); PROTEIN,URINE NEGATIVE (NEGATIVE); UROBILINOGEN,URINE NORMAL MG/DL (0.0-1.0)
[2019-02-17] MEDS ORDERED: Hydromorphone 0.5mg/0.5ml inj IVP ONE (20:45)
--- NOTE | 2019-02-17 20:45 | Emergency Room Report ---
History of Present Illness General Chief Complaint: Abdominal Pain Source: Patient Present Illness [facility] The patient presents with abdominal pain. He had a cholecystectomy two weeks ago in [place]. [facility] He has 2 common bile ducts. The thinking was that he might be passing small stones. They discharged him with [place] and Zofran. He has not been taking the [place] because he does not like to. The pain now is 8/10. It is constant. He feels nauseated. He is having difficulty eating. The patient has a history of pancreatitis in addition. He has had multiple visits here for elevated lipase. He was last admitted in November of this year. His stools have been loose. He denies melena or hematochezia. No fevers, chills, chest pain, palpitations, vomiting, diarrhea, dysuria, shortness of breath, depression, visual changes, headache. Allergies: Coded Allergies: MORPHINE (Verified Allergy, Mild, itching, 11/20/18) HALOPERIDOL (Verified Allergy, Unknown, 11/20/18) KETOROLAC (Verified Allergy, Unknown, 01/01/18) PROCHLORPERAZINE (Verified Allergy, Unknown, 11/20/18) PROMETHAZINE (Verified Allergy, Unknown, 11/20/18) METOCLOPRAMIDE (Verified Adverse Reaction, Mild, 12/15/17) anxiety Patient History Past Medical History: see triage record Past Surgical History: maureen Social History: Denies: smoking, alcohol use, drug use - Opiates Social History Narrative From home Reviewed Nursing Documentation: PMH: Agreed; PSxH: Agreed Nursing Documentation-PMH Hx Cancer: No Hx Gastrointestinal Problems: Yes - PANCREATITIS, GALL BLADDER REMOVAL Hx Neurological Problems: No Review of Systems All Other Systems: negative except mentioned in HPI Physical Exam Vital Signs Date Time Temp Pulse Resp B/P (MAP) Pulse Ox O2 Delivery O2 Flow Rate FiO2 02/17/19 18:35 98.8 96 18 151/91 (111) 99 Room Air Sp02 EP Interpretation: reviewed, normal General Appearance: well appearing, no apparent distress, GCS 15 Head: normocephalic Eyes: bilateral eye normal inspection, bilateral eye PERRL ENT: moist mucus membranes Neck: supple Respiratory: lungs clear, normal breath sounds Cardiovascular #1: regular rate, rhythm Cardiovascular #2: 2+ radial (R) Gastrointestinal: normal inspection, normal bowel sounds, no mass, non- distended, no guarding, no rebound, tenderness - Epigastric Genitourinary: no CVA tenderness Musculoskeletal: back normal, gait/station normal, normal range of motion Neurologic: alert, oriented x3, grossly normal Psychiatric: anxious Skin: warm/dry, other - Surgical scars well-healed Medical Decision Making Diagnostic Impression: Primary Impression: Abdominal pain Qualified Codes: R10.13 - Epigastric pain Additional Impressions: Pancreatitis Qualified Codes: K86.1 - Other chronic pancreatitis Leukocytosis Qualified Codes: D72.828 - Other elevated white blood cell count ER Course The patient presents with epigastric pain post cholecystectomy and stent placement. Differential includes malfunctioning stent, cholecystitis, pancreatitis, gastritis, drug-seeking behavior amongst others. The patient will be evaluated with labs, EKG, chest x-ray, abdominal films. The patient will be treated with IV hydration and analgesia. Pepcid will be administered. EKG without injury. Chest x-ray clear. Abdominal films with stent. Labs with leukocytosis and elevated lipase. Tox screen negative. Due to leukocytosis and elevated lipase patient admitted. Antibiotics begun. Pain medicine repeated. US not able to determine if dilatation. Examined by Dr. Rodriguez in ED. Patient admitted medical floor. Laboratory Tests Test 02/17/19 19:25 02/17/19 20:20 White Blood Count 13.0 K/UL (4.8-10.8) H Red Blood Count 6.64 M/UL (4.70-6.10) H Hemoglobin 16.5 G/DL (14.2-18.0) Hematocrit 52.5 % (42.0-52.0) H Mean Corpuscular Volume 79 FL (80-99) L Mean Corpuscular Hemoglobin 24.9 PG (27.0-31.0) L Mean Corpuscular Hemoglobin Concent 31.5 G/DL (32.0-36.0) L Red Cell Distribution Width 12.7 % (11.6-14.8) Platelet Count 349 K/UL (150-450) Mean Platelet Volume 5.6 FL (6.5-10.1) L Neutrophils (%) (Auto) 63.0 % (45.0-75.0) Lymphocytes (%) (Auto) 24.0 % (20.0-45.0) Monocytes (%) (Auto) 10.9 % (1.0-10.0) H Eosinophils (%) (Auto) 1.4 % (0.0-3.0) Basophils (%) (Auto) 0.7 % (0.0-2.0) Prothrombin Time 10.0 SEC (9.30-11.50) Prothrombin Time INR 0.9 (0.9-1.1) PTT 27 SEC (23-33) Sodium Level 143 MMOL/L (136-145) Potassium Level 3.9 MMOL/L (3.5-5.1) Chloride Level 102 MMOL/L (98-107) Carbon Dioxide Level 28 MMOL/L (21-32) Anion Gap 13 mmol/L (5-15) Blood Urea Nitrogen 21 mg/dL (7-18) H Creatinine 1.2 MG/DL (0.55-1.30) Estimate Glomerular Filtration Rate > 60 mL/min (>60) Glucose Level 82 MG/DL (74-106) Calcium Level 9.4 MG/DL (8.5-10.1) Magnesium Level 1.8 MG/DL (1.8-2.4) Total Bilirubin 0.3 MG/DL (0.2-1.0) Aspartate Amino Transferase (AST) 16 U/L (15-37) Alanine Aminotransferase (ALT) 21 U/L (12-78) Alkaline Phosphatase 74 U/L (46-116) Total Creatine Kinase 167 U/L (26-308) Total Protein 8.8 G/DL (6.4-8.2) H Albumin 4.7 G/DL (3.4-5.0) Globulin 4.1 g/dL Albumin/Globulin Ratio 1.1 (1.0-2.7) Lipase 592 U/L (73-393) H Serum Alcohol < 3 mg/dL Urine Color Pale yellow Urine Appearance Clear Urine pH 6.5 (4.5-8.0) Urine Specific [place] 1.010 (1.005-1.035) Urine Protein Negative (NEGATIVE) Urine Glucose (UA) Negative (NEGATIVE) Urine Ketones Negative (NEGATIVE) Urine Blood 1+ (NEGATIVE) H Urine Nitrite Negative (NEGATIVE) Urine Bilirubin Negative (NEGATIVE) Urine Urobilinogen Normal MG/DL (0.0-1.0) Urine Leukocyte Esterase 2+ (NEGATIVE) H Urine RBC 0-2 /HPF (0 - 0) H Urine WBC 2-4 /HPF (0 - 0) Urine Squamous Epithelial Cells None /LPF (NONE/OCC) Urine Bacteria Few /HPF (NONE) Urine Opiates Screen Negative (NEGATIVE) Urine Barbiturates Screen Negative (NEGATIVE) Phencyclidine (PCP) Screen Negative (NEGATIVE) Urine Amphetamines Screen Negative (NEGATIVE) Urine Benzodiazepines Screen Negative (NEGATIVE) Urine Cocaine Screen Negative (NEGATIVE) Urine Marijuana (THC) Screen Negative (NEGATIVE) EKG Diagnostic Results Rate: normal Rhythm: NSR ST Segments: no acute changes Rhythm Strip Diag. Results EP Interpretation: yes Rhythm: NSR, no PVC's, no ectopy Chest X-Ray Diagnostic Results Chest X-Ray Diagnostic Results : Chest X-Ray Ordered: Yes # of Views/Limited/Complete: 1 View Indication: Other EP Interpretation: Yes Interpretation: no consolidation, no effusion, no pneumothorax Impression: No acute disease Electronically Signed by: Electronically signed by Jamie Carrillo MD Other X-Ray Diagnostic Results Other X-Ray Diagnostic Results : X-Ray ordered: Abdomen # of Views/Limited Vs Complete: 2 View Indication: Pain EP Interpretation: Yes Interpretation: nonspecific bowel gas, no sbo, other - stent Impression: Other Electronically Signed by: Electronically signed by Jamie Carrillo MD CT/MRI/US Diagnostic Results CT/MRI/US Diagnostic Results : Imaging Test Ordered: ultrasound abd Impression Poor visualization due to gas Last Vital Signs Date Time Temp Pulse Resp B/P (MAP) Pulse Ox O2 Delivery O2 Flow Rate FiO2 02/17/19 23:48 Room Air 02/17/19 22:40 98.1 83 18 139/92 (108) 97 Status: improved Disposition: ADMITTED INPATIENT Condition: Serious Referrals: NOT CHOSEN IPA/,REFERRING (PCP) Jamie Carrillo MD Feb 17, 2019 20:45
[2019-02-17 20:55] VITALS: BP 151/91
--- NOTE | 2019-02-17 21:39 | Consultation ---
History of Present Illness General Date patient seen: Feb 17, 2019 Reason for Hospitalization: Abdominal Pain Present Illness HPI 33 year old male with known history of pancreatic divisum presented with abdominal pain, nausea, emesis. Patient with history of prior ERCP and stent placement for chronic episodes of pancreatitis. Was in [place] 2 weeks ago and had acute attack of pancreatitis where laparoscopic cholecystectomy was performed. post op developed worsening pancreatitis and had ERCP with sent placement as per patient. was discharged safely and came back home to [place] but began to have mid epigastric abdominal pain with associated nausea and emesis. In ED labs okay but noted to have elevated lipase. Surgery called to evaluate. patient seen, chart reviewed, patient examined. Allergies: Coded Allergies: MORPHINE (Verified Allergy, Mild, itching, 11/20/18) HALOPERIDOL (Verified Allergy, Unknown, 11/20/18) KETOROLAC (Verified Allergy, Unknown, 01/01/18) PROCHLORPERAZINE (Verified Allergy, Unknown, 11/20/18) PROMETHAZINE (Verified Allergy, Unknown, 11/20/18) METOCLOPRAMIDE (Verified Adverse Reaction, Mild, 12/15/17) anxiety Medication History Scheduled PRN Ondansetron Odt* (Zofran Odt*), 4 MG ORAL Q6H PRN for Nausea & Vomiting, ( Reported) Patient History History Provided By: Patient, Medical Record, PMD Healthcare decision maker Resuscitation status Advanced Directive on File Past Medical/Surgical History Past Medical/Surgical History: (1) Gastritis (2) Leukocytosis (3) Pancreatitis (4) Abdominal pain Review of Systems Review of Symptoms General ROS: no weight loss or fever Psychological ROS: no depression or mood changes, no memory loss Ophthalmic ROS: no visual changes or eye irritation ENT ROS: no nasal congestion, hearing loss, dizziness Allergy and Immunology ROS: no allergic symptoms or urticaria Hematological and Lymphatic ROS: no swollen glands, unusual bleeding or bruising Endocrine ROS: no polyuria, polydipsia, weight changes, temperature intolerance Respiratory ROS: no cough, shortness of breath, or wheezing Cardiovascular ROS: no chest pain or dyspnea on exertion Gastrointestinal ROS: abdominal pain, no bright red blood in stool. Musculoskeletal ROS: no myalgias or arthralgias Neurological ROS: no TIA or stroke symptoms Dermatological ROS: no new or changing skin lesions, rashes or pruritis Physical Exam Physical Exam General appearance: alert, cooperative, no distress, appears stated age Head: Normocephalic, without obvious abnormality, atraumatic Eyes: conjunctivae/corneas clear. PERRL, EOM's intact. Fundi benign Throat: Lips, mucosa, and tongue normal. Teeth and gums normal Neck: supple, symmetrical, trachea midline, no adenopathy, thyroid: not enlarged, symmetric, no tenderness/mass/nodules, no carotid bruit and no JVD Lungs: clear to auscultation bilaterally Heart: regular rate and rhythm, S1, S2 normal, no murmur, click, rub or gallop Abdomen: soft, mild epigastric discomfort on palpation. lap maureen incisions healing . Bowel sounds normal. No masses, no organomegaly Extremities: extremities normal, atraumatic, no cyanosis or edema Pulses: 2+ and symmetric Skin: Skin color, texture, turgor normal. No rashes or lesions Neurologic: Grossly normal Last 24 Hour Vital Signs Date Time Temp Pulse Resp B/P (MAP) Pulse Ox O2 Delivery O2 Flow Rate FiO2 02/17/19 18:35 98.8 96 18 151/91 (111) 99 Room Air Laboratory Tests Test 02/17/19 19:25 02/17/19 20:20 White Blood Count 13.0 K/UL (4.8-10.8) H Red Blood Count 6.64 M/UL (4.70-6.10) H Hemoglobin 16.5 G/DL (14.2-18.0) Hematocrit 52.5 % (42.0-52.0) H Mean Corpuscular Volume 79 FL (80-99) L Mean Corpuscular Hemoglobin 24.9 PG (27.0-31.0) L Mean Corpuscular Hemoglobin Concent 31.5 G/DL (32.0-36.0) L Red Cell Distribution Width 12.7 % (11.6-14.8) Platelet Count 349 K/UL (150-450) Mean Platelet Volume 5.6 FL (6.5-10.1) L Neutrophils (%) (Auto) 63.0 % (45.0-75.0) Lymphocytes (%) (Auto) 24.0 % (20.0-45.0) Monocytes (%) (Auto) 10.9 % (1.0-10.0) H Eosinophils (%) (Auto) 1.4 % (0.0-3.0) Basophils (%) (Auto) 0.7 % (0.0-2.0) Prothrombin Time 10.0 SEC (9.30-11.50) Prothromb Time International Ratio 0.9 (0.9-1.1) Activated Partial Thromboplast Time 27 SEC (23-33) Sodium Level 143 MMOL/L (136-145) Potassium Level 3.9 MMOL/L (3.5-5.1) Chloride Level 102 MMOL/L (98-107) Carbon Dioxide Level 28 MMOL/L (21-32) Anion Gap 13 mmol/L (5-15) Blood Urea Nitrogen 21 mg/dL (7-18) H Creatinine 1.2 MG/DL (0.55-1.30) Estimat Glomerular Filtration Rate > 60 mL/min (>60) Glucose Level 82 MG/DL (74-106) Calcium Level 9.4 MG/DL (8.5-10.1) Magnesium Level 1.8 MG/DL (1.8-2.4) Total Bilirubin 0.3 MG/DL (0.2-1.0) Aspartate Amino Transf (AST/SGOT) 16 U/L (15-37) Alanine Aminotransferase (ALT/SGPT) 21 U/L (12-78) Alkaline Phosphatase 74 U/L (46-116) Total Creatine Kinase 167 U/L (26-308) Total Protein 8.8 G/DL (6.4-8.2) H Albumin 4.7 G/DL (3.4-5.0) Globulin 4.1 g/dL Albumin/Globulin Ratio 1.1 (1.0-2.7) Lipase 592 U/L (73-393) H Serum Alcohol < 3 mg/dL Urine Color Pale yellow Urine Appearance Clear Urine pH 6.5 (4.5-8.0) Urine Specific [place] 1.010 (1.005-1.035) Urine Protein Negative (NEGATIVE) Urine Glucose (UA) Negative (NEGATIVE) Urine Ketones Negative (NEGATIVE) Urine Blood 1+ (NEGATIVE) H Urine Nitrite Negative (NEGATIVE) Urine Bilirubin Negative (NEGATIVE) Urine Urobilinogen Normal MG/DL (0.0-1.0) Urine Leukocyte Esterase 2+ (NEGATIVE) H Urine RBC 0-2 /HPF (0 - 0) H Urine WBC 2-4 /HPF (0 - 0) Urine Squamous Epithelial Cells None /LPF (NONE/OCC) Urine Bacteria Few /HPF (NONE) Urine Opiates Screen Negative (NEGATIVE) Urine Barbiturates Screen Negative (NEGATIVE) Phencyclidine (PCP) Screen Negative (NEGATIVE) Urine Amphetamines Screen Negative (NEGATIVE) Urine Benzodiazepines Screen Negative (NEGATIVE) Urine Cocaine Screen Negative (NEGATIVE) Urine Marijuana (THC) Screen Negative (NEGATIVE) Height (Feet): 5 Height (Inches): 8.00 Weight (Pounds): 220 Medications Current Medications Medications (Trade) Dose Ordered Sig/Jeffrey Route PRN Reason Start Time Stop Time Status Last Admin Dose Admin Acetaminophen (Tylenol) 650 mg Q4H PRN ORAL Mild Pain (Pain Scale 1-3) 02/17/19 20:45 03/19/19 20:44 Dextrose (Dextrose 50%) 25 ml Q30M PRN IV Hypoglycemia 02/17/19 20:45 03/19/19 20:44 Dextrose (Dextrose 50%) 50 ml Q30M PRN IV Hypoglycemia 02/17/19 20:45 03/19/19 20:44 Dextrose/Sodium Chloride 1,000 ml @ 100 mls/hr Q10H IV 02/17/19 21:37 03/19/19 21:36 UNV Diphenhydramine HCl (Benadryl) 25 mg Q6H PRN ORAL Itching/Pruritis 02/17/19 20:45 03/19/19 20:44 Enoxaparin Sodium (Lovenox) 40 mg Q24H SUBQ 02/17/19 21:45 03/19/19 21:44 UNV Ondansetron HCl (Zofran) 4 mg Q6H PRN IVP Nausea & Vomiting 02/17/19 20:45 03/19/19 20:44 Sodium Chloride 1,000 ml @ 300 mls/hr Q3H20M IV 02/17/19 18:45 03/19/19 18:44 02/17/19 19:47 Assessment/Plan Problem List: (1) Leukocytosis ICD Codes: D72.829 - Elevated white blood cell count, unspecified SNOMED: 890337671, 991470844 (2) Pancreatitis Assessment & Plan: secondary to pancreatic divisum chronic with multiple acute episodes admit npo iv fluids am labs will follow with recs thank you ICD Codes: K85.90 - Acute pancreatitis without necrosis or infection, unspecified SNOMED: 29641128 (3) Abdominal pain ICD Codes: R10.9 - Unspecified abdominal pain SNOMED: 64474549 (4) Gastritis ICD Codes: K29.70 - Gastritis, unspecified, without bleeding SNOMED: 8719677 Kodak Rodriguez Feb 17, 2019 21:39
[2019-02-17] MEDS: Enoxaparin 40mg Inj SUBQ SCH (21:45)
[2019-02-17 22:10] VITALS: BP 155/90
--- NOTE | 2019-02-17 22:10 | NUR ---
ED Nurse Note: Patient was admited to [facility] for observation,due to abdominal pain after gallblader removal. AAO x4, VSS at this time. Patient was transfered to unit via gurney, with all belongings.
--- NOTE | 2019-02-17 22:30 | NUR ---
NURSE NOTES: RECEIVED PATIENT FROM ER, GOT REPORT FROM JASON IRIZARRY. PATIENT IN BED, AOX4. IV IN PLACE, PATENT. NO S/S DISTRESS NOTED. NO COMPLAINTS OF PAIN AT THIS TIME. REVIEWED PATIENT BELONGINGS, PATIENT REFUSED TO PUT VALUABLED IN THE SAFE - $10, ID, CREDIT/DEBIT CARDS, PATIENT SIGNED BELONGINGS LIST. PATIENT REFUSED TO WEAR HOSPITAL GOWN/PAJAMA BOTTOMS, WEARING STREET CLOTHES, PER PATIENT "I'LL CHANGE TOMORROW." CHARGE NURSE AWARE. NOTED TO HAVE HEALING/HEALED SURGICAL SITES IN THE ABDOMEN. NO WOUNDS/PRESSURE ULCERS NOTED. PATIENT IS AMBULATORY. BED IN LOWEST POSITION, LOCKED, CALL LIGHT WITHIN REACH. WILL CONTINUE TO MONITOR.
[2019-02-17 22:40] VITALS: BP 139/92
--- NOTE | 2019-02-17 22:51 | NUR ---
NURSE NOTES: LEFT MESSAGE FOR DR. DELACRUZ REGARDING PATIENT REQUEST FOR DILAUDID PAIN MEDICATION AND ALSO TO SWITCH BENADRYL TO IVP. RECEIVED ORDER FOR DILAUDID 1 MG Q6HR PRN PAIN MEDICATION AND OKAY TO SWITCH BENADRYL TO IVP, ORDERS CARRIED OUT.
[2019-02-17] MEDS ORDERED: HYDROmorphone 1mg/ml Carpuject IVP PRN (23:00)
[2019-02-17] MEDS: D5NS 1,000 ML IV SCH (23:02)
--- NOTE | 2019-02-17 23:22 | NUR ---
NURSE NOTES: PATIENT REFUSED LOVENOX MEDICATION, NURSE EXPLAINED BENEFITS, PATIENT STILL REFUSED.
[2019-02-18] MEDS ORDERED: HYDROmorphone 1mg/ml Carpuject IVP PRN ×2 (00:45→09:15)
[2019-02-18] MEDS: DiphenhydrAMINE 50mg/ml Inj IVP PRN ×4 (02:58→21:43)
[2019-02-18] MEDS: D5NS 1,000 ML IV SCH ×3 (06:36→17:37)
--- NOTE | 2019-02-18 07:24 | NUR ---
HAND-OFF: Report given to MUNA Campoverde RN.
--- NOTE | 2019-02-18 07:43 | NUR ---
NURSE NOTES: ASLEEP. IN NO APPARENT DISTRESS.
[2019-02-18 08:00] VITALS: BP 122/78
[2019-02-18 08:28] LABS: BASOPHILS % (AUTO) 0.8 % (0.0-2.0); EOSINOPHILS % (AUTO) 2.5 % (0.0-3.0); HEMATOCRIT 42.8 % (42.0-52.0); HEMOGLOBIN 13.7 G/DL (14.2-18.0); LYMPHOCYTES % (AUTO) 32.1 % (20.0-45.0); MEAN CORPUSCULAR VOLUME 80 FL (80-99); MONOCYTES % (AUTO) 12.3 % (1.0-10.0); NEUTROPHILS % (AUTO) 52.4 % (45.0-75.0); PLATELET COUNT 272 K/UL (150-450); RED BLOOD COUNT 5.31 M/UL (4.70-6.10); RED CELL DISTRIBUTION WIDTH 13.4 % (11.6-14.8); WHITE BLOOD COUNT 8.7 K/UL (4.8-10.8)
[2019-02-18 08:52] LABS: ANION GAP 9 mmol/L (5-15); BLOOD UREA NITROGEN 16 mg/dL (7-18); CALCIUM 8.5 MG/DL (8.5-10.1); CARBON DIOXIDE 24 MMOL/L (21-32); CHLORIDE 107 MMOL/L (98-107); CREATININE 1.1 MG/DL (0.55-1.30); POTASSIUM 4.2 MMOL/L (3.5-5.1); SODIUM 140 MMOL/L (136-145)
[2019-02-18 08:57] LABS: AMYLASE 79 U/L (25-115)
--- NOTE | 2019-02-18 09:58 | Diagnostic Imaging Report ---
Indication: Abdominal pain, status post recent biliary stent placement Technique: Huntley-scale and duplex images of the upper abdomen were obtained. Doppler interrogation of the pancreatic and hepatic vessels Comparison: 11/20/2017 Findings: Gallbladder is surgically absent. Common bile duct measures 4 mm in diameter. Right echoes within the common bile duct probably reflects the none endobiliary stent. No intrahepatic biliary ductal dilatation. Liver demonstrates diffusely increased echogenicity, consistent with diffuse hepatocellular disease, most likely fatty change. Portal vein and hepatic veins are patent. Pancreas is incompletely visualized due to overlying bowel gas, visualized portions are unremarkable. Spleen is unremarkable. Left kidney measures 12.6 cm in length. Right kidney measures 13.4 cm length. Both kidneys demonstrate normal echogenicity. There is no hydronephrosis. No focal abnormality . Abdominal aorta is partially obscured by bowel gas, visualized portions are non-aneurysmal . Impression: Surgically absent gallbladder Negative for biliary ductal dilatation. Stent in place, not well demonstrated Liver demonstrates diffusely increased echogenicity, consistent with diffuse hepatocellular disease, most likely fatty change. Note limited visualization of the pancreas and abdominal aorta
--- NOTE | 2019-02-18 10:15 | GI Initial Consult Note ---
History of Present Illness General Date patient seen: Feb 18, 2019 Time patient seen: 10:10 Reason for Hospitalization: Abdominal Pain Referring physician: SHAWNEE GARCIA Reason for Consultation: PANCREATITIS Present Illness HPI The patient presents with abdominal pain. He had a cholecystectomy two weeks ago in [place]. A stent was placed afterwords. He has 2 common bile ducts. The thinking was that he might be passing small stones. They discharged him with Sawyer and Zofran. He has not been taking the Sawyer because he does not like to. The pain now is 8/10. It is constant. He feels nauseated. He is having difficulty eating. The patient has a history of pancreatitis in addition. He has had multiple visits here for elevated lipase. He was last admitted in November of this year. His stools have been loose. He denies melena or hematochezia. No fevers, chills, chest pain, palpitations, vomiting, diarrhea, dysuria, shortness of breath, depression, visual changes, headache. GI consulted for pancreatitis. Patient seen, awake alert and oriented x4 has complaint of severe abdominal pain. Patient states she has a history of chronic pancreatitis, had ERCP with stent placement approximately 2 weeks ago up in [place]. Patient presents today with a lipase level of 720. Urine toxicity negative for any drug use. No leukocytosis, no transaminitis. Abdominal ultrasound was performed which was negative for any biliary ductal dilation and hepatocellular disease. Also noted that the stent was present. Home Meds Reported Medications Ondansetron Odt* (ZOFRAN ODT*) 8 Mg Tab.rapdis, 4 MG ORAL Q6H PRN for Nausea & Vomiting, #30 TAB 11/20/18 Med list reviewed/reconciled: Yes Allergies: Coded Allergies: MORPHINE (Verified Allergy, Mild, itching, 11/20/18) HALOPERIDOL (Verified Allergy, Unknown, 11/20/18) KETOROLAC (Verified Allergy, Unknown, 01/01/18) PROCHLORPERAZINE (Verified Allergy, Unknown, 11/20/18) PROMETHAZINE (Verified Allergy, Unknown, 11/20/18) METOCLOPRAMIDE (Verified Adverse Reaction, Mild, 12/15/17) anxiety Patient History History Provided By: Patient, Medical Record PM Narrative Past Medical History: see triage record Past Surgical History: maureen Social History: Denies: smoking, alcohol use, drug use - Opiates Social History Narrative From home Reviewed Nursing Documentation: PMH: Agreed; PSxH: Agreed Nursing Documentation-PMH Hx Cancer: No Hx Gastrointestinal Problems: Yes - PANCREATITIS, GALL BLADDER REMOVAL Hx Neurological Problems: No Social History: Denies: smoking, alcohol use, drug use, other Review of Systems All Other Systems: negative except mentioned in HPI Physical Exam Vital Signs Date Time Temp Pulse Resp B/P (MAP) Pulse Ox O2 Delivery O2 Flow Rate FiO2 02/17/19 18:35 98.8 96 18 151/91 (111) 99 Room Air Sp02 EP Interpretation: reviewed, normal Labs Laboratory Tests Test 02/17/19 19:25 02/17/19 20:20 02/18/19 08:15 White Blood Count 13.0 K/UL (4.8-10.8) H 8.7 K/UL (4.8-10.8) Red Blood Count 6.64 M/UL (4.70-6.10) H 5.31 M/UL (4.70-6.10) Hemoglobin 16.5 G/DL (14.2-18.0) 13.7 G/DL (14.2-18.0) L Hematocrit 52.5 % (42.0-52.0) H 42.8 % (42.0-52.0) Mean Corpuscular Volume 79 FL (80-99) L 80 FL (80-99) Mean Corpuscular Hemoglobin 24.9 PG (27.0-31.0) L 25.8 PG (27.0-31.0) L Mean Corpuscular Hemoglobin Concent 31.5 G/DL (32.0-36.0) L 32.1 G/DL (32.0-36.0) Red Cell Distribution Width 12.7 % (11.6-14.8) 13.4 % (11.6-14.8) Platelet Count 349 K/UL (150-450) 272 K/UL (150-450) Mean Platelet Volume 5.6 FL (6.5-10.1) L 5.4 FL (6.5-10.1) L Neutrophils (%) (Auto) 63.0 % (45.0-75.0) 52.4 % (45.0-75.0) Lymphocytes (%) (Auto) 24.0 % (20.0-45.0) 32.1 % (20.0-45.0) Monocytes (%) (Auto) 10.9 % (1.0-10.0) H 12.3 % (1.0-10.0) H Eosinophils (%) (Auto) 1.4 % (0.0-3.0) 2.5 % (0.0-3.0) Basophils (%) (Auto) 0.7 % (0.0-2.0) 0.8 % (0.0-2.0) Prothrombin Time 10.0 SEC (9.30-11.50) 10.4 SEC (9.30-11.50) Prothromb Time International Ratio 0.9 (0.9-1.1) 1.0 (0.9-1.1) Activated Partial Thromboplast Time 27 SEC (23-33) 28 SEC (23-33) Sodium Level 143 MMOL/L (136-145) 140 MMOL/L (136-145) Potassium Level 3.9 MMOL/L (3.5-5.1) 4.2 MMOL/L (3.5-5.1) Chloride Level 102 MMOL/L (98-107) 107 MMOL/L (98-107) Carbon Dioxide Level 28 MMOL/L (21-32) 24 MMOL/L (21-32) Anion Gap 13 mmol/L (5-15) 9 mmol/L (5-15) Blood Urea Nitrogen 21 mg/dL (7-18) H 16 mg/dL (7-18) Creatinine 1.2 MG/DL (0.55-1.30) 1.1 MG/DL (0.55-1.30) Estimat Glomerular Filtration Rate > 60 mL/min (>60) > 60 mL/min (>60) Glucose Level 82 MG/DL (74-106) 96 MG/DL (74-106) Calcium Level 9.4 MG/DL (8.5-10.1) 8.5 MG/DL (8.5-10.1) Magnesium Level 1.8 MG/DL (1.8-2.4) Total Bilirubin 0.3 MG/DL (0.2-1.0) Aspartate Amino Transf (AST/SGOT) 16 U/L (15-37) Alanine Aminotransferase (ALT/SGPT) 21 U/L (12-78) Alkaline Phosphatase 74 U/L (46-116) Total Creatine Kinase 167 U/L (26-308) Total Protein 8.8 G/DL (6.4-8.2) H Albumin 4.7 G/DL (3.4-5.0) Globulin 4.1 g/dL Albumin/Globulin Ratio 1.1 (1.0-2.7) Lipase 592 U/L (73-393) H 720 U/L (73-393) H Serum Alcohol < 3 mg/dL Urine Color Pale yellow Urine Appearance Clear Urine pH 6.5 (4.5-8.0) Urine Specific [place] 1.010 (1.005-1.035) Urine Protein Negative (NEGATIVE) Urine Glucose (UA) Negative (NEGATIVE) Urine Ketones Negative (NEGATIVE) Urine Blood 1+ (NEGATIVE) H Urine Nitrite Negative (NEGATIVE) Urine Bilirubin Negative (NEGATIVE) Urine Urobilinogen Normal MG/DL (0.0-1.0) Urine Leukocyte Esterase 2+ (NEGATIVE) H Urine RBC 0-2 /HPF (0 - 0) H Urine WBC 2-4 /HPF (0 - 0) Urine Squamous Epithelial Cells None /LPF (NONE/OCC) Urine Bacteria Few /HPF (NONE) Urine Opiates Screen Negative (NEGATIVE) Urine Barbiturates Screen Negative (NEGATIVE) Phencyclidine (PCP) Screen Negative (NEGATIVE) Urine Amphetamines Screen Negative (NEGATIVE) Urine Benzodiazepines Screen Negative (NEGATIVE) Urine Cocaine Screen Negative (NEGATIVE) Urine Marijuana (THC) Screen Negative (NEGATIVE) Erythrocyte Sedimentation Rate 20 MM/HR (0-15) H C-Reactive Protein, Quantitative < 0.4 mg/dL (0.00-0.90) Amylase Level 79 U/L (25-115) General Appearance: well appearing, no apparent distress, alert Head: normocephalic EENT: PERRL/EOMI, normal ENT inspection Neck: supple Respiratory: normal breath sounds, no respiratory distress Cardiovascular: normal rate Gastrointestinal: normal inspection, non tender, soft, normal bowel sounds, non -distended Rectal: deferred Genitourinary: deferred Musculoskeletal: normal inspection, back normal Neurologic: normal inspection, alert, oriented x3, responsive Psychiatric: normal inspection, judgement/insight normal, memory normal Skin: normal inspection, normal color, no rash, warm/dry, palpation normal, well hydrated Lymphatic: normal inspection, no adenopathy Current Medications Current Medications Medications (Trade) Dose Ordered Sig/Jeffrey Route PRN Reason Start Time Stop Time Status Last Admin Dose Admin Acetaminophen (Tylenol) 650 mg Q4H PRN ORAL Mild Pain (Pain Scale 1-3) 02/17/19 20:45 03/19/19 20:44 Dextrose (Dextrose 50%) 25 ml Q30M PRN IV Hypoglycemia 02/17/19 20:45 03/19/19 20:44 Dextrose (Dextrose 50%) 50 ml Q30M PRN IV Hypoglycemia 02/17/19 20:45 03/19/19 20:44 Dextrose/Sodium Chloride 1,000 ml @ 100 mls/hr Q10H IV 02/17/19 21:37 03/19/19 21:36 02/18/19 06:36 Diphenhydramine HCl (Benadryl) 25 mg Q6H PRN IVP Itching 02/17/19 23:00 03/19/19 22:59 02/18/19 09:05 Enoxaparin Sodium (Lovenox) 40 mg Q24H SUBQ 02/17/19 21:45 03/19/19 21:44 Hydromorphone HCl (Dilaudid) 1 mg Q3HR PRN IVP Severe Pain 02/18/19 10:15 02/25/19 09:14 UNV Ondansetron HCl (Zofran) 4 mg Q6H PRN IVP Nausea & Vomiting 02/17/19 20:45 03/19/19 20:44 GI: Plan Problems: (1) Pancreatitis (2) Abdominal pain Plan History of ERCP with stent placement approximately 2 weeks ago History of cholecystectomy Elevated lipase level 720 Abdominal ultrasound reviewed negative for any biliary ductal dilation, noted hepatocellular disease and presence of stent No plans for any GI procedures at this time, medical management for pancreatitis Maintain n.p.o. plus IV fluids Pain management Zofran as needed PPI Repeat lipase levels Follow labs Discussed with Dr. Mccray. Thank you for this patient referral, we will follow. The patient was seen and examined at bedside and all new and available data was reviewed in the patients chart. I agree with the above findings, impression and plan. (Patient seen earlier today. Signature stamp does not reflect patient encounter time.). - Saurabh Vosoghi, MD [facility] [employer] Feb 18, 2019 10:15
--- NOTE | 2019-02-18 11:07 | Diagnostic Imaging Report ---
Indication: Chest pain Technique: One view of the chest Comparison: For 06/01/2019 Findings: Lungs and pleural spaces are clear. Heart size is normal. No significant interim change Impression: No acute process
--- NOTE | 2019-02-18 11:07 | Diagnostic Imaging Report ---
Indication: Abdominal pain Technique: Supine view of the abdomen Comparison: 11/20/2018 Findings: Again demonstrated is a pancreatic duct stent. This has been replaced in the interim as the current one has a pigtail. The bowel gas pattern is unremarkable. There are cholecystectomy clips. No masses or unusual calcifications are demonstrated Impression: No acute process
--- NOTE | 2019-02-18 11:15 | History and Physical Report ---
DATE OF ADMISSION: 02/17/2019 REASON FOR ADMISSION: 1. Abdominal pain. 2. Pancreatitis. HISTORY OF PRESENT ILLNESS: The patient is a 33-year-old gentleman with known pancreatic divisum. The patient presented with abdominal pain, nausea, and vomiting. He does have a prior ERCP and stent placement due to these chronic episodes of pancreatitis. Approximately two weeks ago while visiting friends in [place], he had an attack of pancreatitis and underwent a laparoscopic cholecystectomy. Postoperatively, he developed worsening pancreatitis and had another ERCP with stent placement. He came back to [place] and developed acute abdominal pain again with elevated lipase. General Surgery was consulted. The patient is resting comfortably, in no overt distress. ALLERGIES: Morphine, haloperidol, ketorolac, prochlorperazine, promethazine, and metoclopramide. PAST MEDICAL HISTORY: 1. Pancreatic divisum. 2. Chronic pancreatitis. 3. Gastritis. 4. Abdominal pain. FAMILY HISTORY: Positive for hypertension. PAST SURGICAL HISTORY: 1. ERCP. 2. Pancreatic stent placement. LABORATORY DATA: Labs dated February____2018, sodium 140, potassium 4.2, creatinine 1.1. Lipase 592. White cell count 8.7, hemoglobin 13.7, and platelet count 272. Toxicology screen negative. PHYSICAL EXAMINATION: VITAL SIGNS: Blood pressure 139/92, respiratory rate 18, pulse 83, temperature 98.1, and 97% oxygen saturation on room air. GENERAL: The patient is awake, alert, in no overt distress. HEENT: Extraocular muscles intact. No lymphadenopathy. Oropharyngeal mucosa is clear and dry. CARDIOVASCULAR: S1, S2. No rubs or gallops. PULMONARY: Clear to auscultation bilaterally. No rales, rhonchi, or wheezes. ABDOMEN: Nondistended and nontender with quiet bowel sounds. EXTREMITIES: No edema noted. ASSESSMENT AND PLAN: 1. Abdominal pain secondary to pancreatitis. The patient does have pancreatic divisum. At this time, NPO with IV fluids and pain management. The patient will be discharged once pancreatic enzymes have decreased and cleared by General Surgery. 2. Volume depletion. Continue IV fluids. 3. Pancreatitis for management through General Surgery. 4. Narcotic dependency. We will manage very carefully to control his pancreatitis without oversedating. 5. DVT prophylaxis with SCDs. Demarcus Lux MD DR: FABBY JOB#: [id number] CC:
--- NOTE | 2019-02-18 11:38 | Surgery Progress Note ---
Surgery Progress Note Subjective Additional Comments no acute events wbc improved lip elevated exam stable Objective Last 24 Hour Vital Signs Date Time Temp Pulse Resp B/P (MAP) Pulse Ox O2 Delivery O2 Flow Rate FiO2 02/18/19 09:00 Room Air 02/18/19 08:00 97.4 60 122/78 (93) 60 02/18/19 03:28 98.1 02/17/19 23:48 Room Air 02/17/19 22:40 98.1 83 18 139/92 (108) 97 02/17/19 22:10 98.8 84 18 155/90 99 Room Air 02/17/19 22:10 98.8 18 151/91 99 Room Air 02/17/19 20:55 98.8 18 151/91 99 Room Air 02/17/19 18:55 96 18 Room Air 02/17/19 18:55 98.8 18 151/91 99 Room Air 02/17/19 18:35 98.8 96 18 151/91 (111) 99 Room Air I&O Intake and Output 02/17/19 02/18/19 19:00 07:00 Intake Total 750 ml Balance 750 ml IV Total 750 ml # Voids 1 1 # Bowel Movements 1 Cardiovascular: RSR Respiratory: clear Abdomen: soft, flat, tenderness, present bowel sounds, non-distended Extremities: no edema, no tenderness, no cyanosis Laboratory Tests Test 02/17/19 19:25 02/17/19 20:20 02/18/19 08:15 White Blood Count 13.0 K/UL (4.8-10.8) H 8.7 K/UL (4.8-10.8) Red Blood Count 6.64 M/UL (4.70-6.10) H 5.31 M/UL (4.70-6.10) Hemoglobin 16.5 G/DL (14.2-18.0) 13.7 G/DL (14.2-18.0) L Hematocrit 52.5 % (42.0-52.0) H 42.8 % (42.0-52.0) Mean Corpuscular Volume 79 FL (80-99) L 80 FL (80-99) Mean Corpuscular Hemoglobin 24.9 PG (27.0-31.0) L 25.8 PG (27.0-31.0) L Mean Corpuscular Hemoglobin Concent 31.5 G/DL (32.0-36.0) L 32.1 G/DL (32.0-36.0) Red Cell Distribution Width 12.7 % (11.6-14.8) 13.4 % (11.6-14.8) Platelet Count 349 K/UL (150-450) 272 K/UL (150-450) Mean Platelet Volume 5.6 FL (6.5-10.1) L 5.4 FL (6.5-10.1) L Neutrophils (%) (Auto) 63.0 % (45.0-75.0) 52.4 % (45.0-75.0) Lymphocytes (%) (Auto) 24.0 % (20.0-45.0) 32.1 % (20.0-45.0) Monocytes (%) (Auto) 10.9 % (1.0-10.0) H 12.3 % (1.0-10.0) H Eosinophils (%) (Auto) 1.4 % (0.0-3.0) 2.5 % (0.0-3.0) Basophils (%) (Auto) 0.7 % (0.0-2.0) 0.8 % (0.0-2.0) Prothrombin Time 10.0 SEC (9.30-11.50) 10.4 SEC (9.30-11.50) Prothromb Time International Ratio 0.9 (0.9-1.1) 1.0 (0.9-1.1) Activated Partial Thromboplast Time 27 SEC (23-33) 28 SEC (23-33) Sodium Level 143 MMOL/L (136-145) 140 MMOL/L (136-145) Potassium Level 3.9 MMOL/L (3.5-5.1) 4.2 MMOL/L (3.5-5.1) Chloride Level 102 MMOL/L (98-107) 107 MMOL/L (98-107) Carbon Dioxide Level 28 MMOL/L (21-32) 24 MMOL/L (21-32) Anion Gap 13 mmol/L (5-15) 9 mmol/L (5-15) Blood Urea Nitrogen 21 mg/dL (7-18) H 16 mg/dL (7-18) Creatinine 1.2 MG/DL (0.55-1.30) 1.1 MG/DL (0.55-1.30) Estimat Glomerular Filtration Rate > 60 mL/min (>60) > 60 mL/min (>60) Glucose Level 82 MG/DL (74-106) 96 MG/DL (74-106) Calcium Level 9.4 MG/DL (8.5-10.1) 8.5 MG/DL (8.5-10.1) Magnesium Level 1.8 MG/DL (1.8-2.4) Total Bilirubin 0.3 MG/DL (0.2-1.0) Aspartate Amino Transf (AST/SGOT) 16 U/L (15-37) Alanine Aminotransferase (ALT/SGPT) 21 U/L (12-78) Alkaline Phosphatase 74 U/L (46-116) Total Creatine Kinase 167 U/L (26-308) Total Protein 8.8 G/DL (6.4-8.2) H Albumin 4.7 G/DL (3.4-5.0) Globulin 4.1 g/dL Albumin/Globulin Ratio 1.1 (1.0-2.7) Lipase 592 U/L (73-393) H 720 U/L (73-393) H Serum Alcohol < 3 mg/dL Urine Color Pale yellow Urine Appearance Clear Urine pH 6.5 (4.5-8.0) Urine Specific [place] 1.010 (1.005-1.035) Urine Protein Negative (NEGATIVE) Urine Glucose (UA) Negative (NEGATIVE) Urine Ketones Negative (NEGATIVE) Urine Blood 1+ (NEGATIVE) H Urine Nitrite Negative (NEGATIVE) Urine Bilirubin Negative (NEGATIVE) Urine Urobilinogen Normal MG/DL (0.0-1.0) Urine Leukocyte Esterase 2+ (NEGATIVE) H Urine RBC 0-2 /HPF (0 - 0) H Urine WBC 2-4 /HPF (0 - 0) Urine Squamous Epithelial Cells None /LPF (NONE/OCC) Urine Bacteria Few /HPF (NONE) Urine Opiates Screen Negative (NEGATIVE) Urine Barbiturates Screen Negative (NEGATIVE) Phencyclidine (PCP) Screen Negative (NEGATIVE) Urine Amphetamines Screen Negative (NEGATIVE) Urine Benzodiazepines Screen Negative (NEGATIVE) Urine Cocaine Screen Negative (NEGATIVE) Urine Marijuana (THC) Screen Negative (NEGATIVE) Erythrocyte Sedimentation Rate 20 MM/HR (0-15) H C-Reactive Protein, Quantitative < 0.4 mg/dL (0.00-0.90) Amylase Level 79 U/L (25-115) Plan Problems: (1) Leukocytosis (2) Pancreatitis Assessment & Plan: secondary to pancreatic divisum chronic with multiple acute episodes start clears iv fluids am labs US notedFindings: Gallbladder is surgically absent. Common bile duct measures 4 mm in diameter. Right echoes within the common bile duct probably reflects the none endobiliary stent. No intrahepatic biliary ductal dilatation. Liver demonstrates diffusely increased echogenicity, consistent with diffuse hepatocellular disease , most likely fatty change. Portal vein and hepatic veins are patent. Pancreas is incompletely visualized due to overlying bowel gas, visualized portions are unremarkable. Spleen is unremarkable. Left kidney measures 12.6 cm in length. Right kidney measures 13.4 cm length. Both kidneys demonstrate normal echogenicity. There is no hydronephrosis. No focal abnormality . Abdominal aorta is partially obscured by bowel gas, visualized portions are non-aneurysmal . will follow with recs thank you (3) Abdominal pain (4) Gastritis Kodak Rodriguez Feb 18, 2019 11:38
[2019-02-18 12:00] VITALS: BP 102/57
[2019-02-18] MEDS: HYDROmorphone 1mg/ml Carpuject IVP PRN ×4 (12:28→21:44)
--- NOTE | 2019-02-18 13:10 | Cardiology Report ---
APPROVED REPORT EKG Measurement Heart [id number] Normal sinus rhythm Normal ECG
--- NOTE | 2019-02-18 15:34 | NUR ---
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 PANCREATITIS VS: BP 155/90, P 96, T 98.8, RR 18, SpO2 99 WBC 13.0, RBC 6.64, HCT 52.5, BUN 21 ABD US: Liver demonstrates diffusely increased echogenicity, consistent with diffuse hepatocellular disease. IS:NS x1L IV DILAUDID 1mg IVP FAMOTIDINE 20mg IVP ZOFRAN 4mg IVP METRONIDAZOLE 100ml IVPB ZOSYN 110ml IVPB ADMITTED TO MED/SURG
[2019-02-18 16:00] VITALS: BP 111/75
--- NOTE | 2019-02-18 18:55 | NUR ---
NURSE NOTES: quiet in bed. in no acute distress.
--- NOTE | 2019-02-18 19:35 | NUR ---
HAND-OFF: Report given to Alexia VELASCO RN.
[2019-02-18 20:00] VITALS: BP 137/84
--- NOTE | 2019-02-18 20:30 | NUR ---
NURSE NOTES: Pt is in bed, awake and verbal. No acute distress noted. Vitas stable. Pt reports abdominal pain 7/10, pain medication will be given as ordered PRN. Pt instructed to lainey for assistance before getting out of bed. Bed locked low in position, side rails up and call light within reach. Pt will be monitored.
[2019-02-18] MEDS: Enoxaparin 40mg Inj SUBQ SCH (21:40)
[2019-02-19] VITALS: BP 131/84
[2019-02-19] MEDS: D5NS 1,000 ML IV SCH ×2 (00:49→13:07)
[2019-02-19] MEDS: HYDROmorphone 1mg/ml Carpuject IVP PRN ×8 (00:50→21:58)
[2019-02-19] MEDS: DiphenhydrAMINE 50mg/ml Inj IVP PRN ×4 (03:52→21:58)
[2019-02-19 04:00] VITALS: BP 146/79
--- NOTE | 2019-02-19 04:17 | NUR ---
NURSE NOTES: Pt is in bed, asleep. No acute distress noted. Pt requests pain medication q 3hrs, pain medication given as ordered PRN. D5NS running at 75ml/hr. Addendum: 02/19/19 at 0419 by TONA VELASCO RN RN D5NS running at 100ml/hr.
--- NOTE | 2019-02-19 06:36 | NUR ---
NURSE NOTES: Pt is refusing blood draw for lab now, procedures nurse to come back alter.
--- NOTE | 2019-02-19 07:18 | NUR ---
HAND-OFF: Report given to JASON Hillman.
--- NOTE | 2019-02-19 07:35 | NUR ---
NURSE NOTES: AWAKE/ALERT. PAIN SCALE 4/10. IN NO DISTRESS.
[2019-02-19 08:02] VITALS: BP 141/80
[2019-02-19 08:25] LABS: BASOPHILS % (AUTO) 0.5 % (0.0-2.0); EOSINOPHILS % (AUTO) 2.9 % (0.0-3.0); HEMATOCRIT 43.1 % (42.0-52.0); HEMOGLOBIN 13.7 G/DL (14.2-18.0); LYMPHOCYTES % (AUTO) 35.4 % (20.0-45.0); MEAN CORPUSCULAR VOLUME 79 FL (80-99); MONOCYTES % (AUTO) 10.2 % (1.0-10.0); PLATELET COUNT 293 K/UL (150-450); RED BLOOD COUNT 5.44 M/UL (4.70-6.10); RED CELL DISTRIBUTION WIDTH 13.2 % (11.6-14.8); WHITE BLOOD COUNT 8.7 K/UL (4.8-10.8)
--- NOTE | 2019-02-19 08:28 | Nephrology Progress Note ---
Assessment/Plan Assessment/Plan: A/P 1. Abdominal pain secondary to pancreatitis. The patient does have pancreatic divisum. - DC once cleared from surgery 2. Volume depletion. DC IVFs 3. Chronic Pancreatitis - management per General Surgery. 4. Narcotic dependency. We will manage very carefully to control his pancreatitis without oversedating. 5. DVT prophylaxis with SCDs. Subjective Date patient seen: Feb 19, 2019 Time patient seen: 08:26 ROS Limited/Unobtainable: No Allergies: Coded Allergies: MORPHINE (Verified Allergy, Mild, itching, 11/20/18) HALOPERIDOL (Verified Allergy, Unknown, 11/20/18) KETOROLAC (Verified Allergy, Unknown, 01/01/18) PROCHLORPERAZINE (Verified Allergy, Unknown, 11/20/18) PROMETHAZINE (Verified Allergy, Unknown, 11/20/18) METOCLOPRAMIDE (Verified Adverse Reaction, Mild, 12/15/17) anxiety Subjective Patient feeling little nauseated Objective Last 24 Hour Vital Signs Date Time Temp Pulse Resp B/P (MAP) Pulse Ox O2 Delivery O2 Flow Rate FiO2 02/19/19 08:16 Room Air 02/19/19 08:02 97.6 60 20 141/80 (100) 100 02/19/19 07:35 97.7 02/19/19 04:00 97.7 95 19 146/79 (101) 96 02/19/19 00:00 98.6 89 20 131/84 (100) 96 02/18/19 21:00 Room Air 02/18/19 20:00 98.8 86 18 137/84 (101) 97 02/18/19 16:00 97.4 58 18 111/75 (87) 100 02/18/19 12:00 97.5 60 16 102/57 (72) 97 02/18/19 09:00 Room Air Intake and Output 02/18/19 02/19/19 19:00 07:00 Intake Total 1830 ml 1900 ml Balance 1830 ml 1900 ml Intake Oral 780 ml 1000 ml IV Total 1050 ml 900 ml # Voids 3 5 Laboratory Tests 02/19/19 07:50: White Blood Count [Pending], Red Blood Count [Pending], Hemoglobin [Pending], Hematocrit [Pending], Mean Corpuscular Volume [Pending], Mean Corpuscular Hemoglobin [Pending], Mean Corpuscular Hemoglobin Concent [Pending], Red Cell Distribution Width [Pending], Platelet Count [Pending], Mean Platelet Volume [ Pending], Neutrophils (%) (Auto) [Pending], Lymphocytes (%) (Auto) [Pending], Monocytes (%) (Auto) [Pending], Eosinophils (%) (Auto) [Pending], Basophils (%) (Auto) [Pending], Sodium Level [Pending], Potassium Level [Pending], Chloride Level [Pending], Carbon Dioxide Level [Pending], Blood Urea Nitrogen [Pending], Creatinine [Pending], Estimat Glomerular Filtration Rate [Pending], Glucose Level [Pending], Calcium Level [Pending], Amylase Level [Pending], Lipase [ Pending] Height (Feet): 5 Height (Inches): 8.00 Weight (Pounds): 208 General Appearance: no apparent distress, alert EENT: normal ENT inspection Neck: normal alignment, supple Cardiovascular: normal rate, regular rhythm Respiratory/Chest: lungs clear, normal breath sounds Abdomen: non tender, soft Edema: no edema noted Arm (L), no edema noted Arm (R), no edema noted Leg (L), no edema noted Leg (R), no edema noted Pedal (L), no edema noted Pedal (R), no edema noted Generalized Demarcus Lux MD Feb 19, 2019 08:28
[2019-02-19 08:33] LABS: ANION GAP 8 mmol/L (5-15); BLOOD UREA NITROGEN 7 mg/dL (7-18); CALCIUM 8.7 MG/DL (8.5-10.1); CARBON DIOXIDE 25 MMOL/L (21-32); CHLORIDE 105 MMOL/L (98-107); POTASSIUM 3.6 MMOL/L (3.5-5.1); SODIUM 138 MMOL/L (136-145)
[2019-02-19 08:35] LABS: AMYLASE 93 U/L (25-115)
--- NOTE | 2019-02-19 10:56 | GI Progress Note ---
Assessment/Plan Problems: (1) Abdominal pain ICD Codes: R10.9 - Unspecified abdominal pain SNOMED: 29903659 Qualifiers: Qualified Codes: R10.13 - Epigastric pain (2) Pancreatitis ICD Codes: K85.90 - Acute pancreatitis without necrosis or infection, unspecified SNOMED: 63388770 Qualifiers: Qualified Codes: K86.1 - Other chronic pancreatitis Status: stable Status Narrative Discussed with Dr. Mccray. Assessment/Plan History of ERCP with stent placement approximately 2 weeks ago History of cholecystectomy Elevated lipase level increased to 1051 Abdominal ultrasound reviewed negative for any biliary ductal dilation, noted hepatocellular disease and presence of stent. No plans for any GI procedures at this time, medical management for pancreatitis revert back to [facility], patient had episode of emesis after regular diet. Advance as tolerated Pain management Zofran as needed PPI Repeat lipase levels Follow labs The patient was seen and examined at bedside and all new and available data was reviewed in the patients chart. I agree with the above findings, impression and plan. (Patient seen earlier today. Signature stamp does not reflect patient encounter time.). - Saurabh Mccray MD Subjective Gastrointestinal/Abdominal: Reports: no symptoms Objective Last 24 Hour Vital Signs Date Time Temp Pulse Resp B/P (MAP) Pulse Ox O2 Delivery O2 Flow Rate FiO2 02/19/19 10:33 97.6 02/19/19 08:16 Room Air 02/19/19 08:02 97.6 60 20 141/80 (100) 100 02/19/19 04:00 97.7 95 19 146/79 (101) 96 02/19/19 00:00 98.6 89 20 131/84 (100) 96 02/18/19 21:00 Room Air 02/18/19 20:00 98.8 86 18 137/84 (101) 97 02/18/19 16:00 97.4 58 18 111/75 (87) 100 02/18/19 12:00 97.5 60 16 102/57 (72) 97 Intake and Output 02/18/19 02/19/19 19:00 07:00 Intake Total 1830 ml 1900 ml Balance 1830 ml 1900 ml Intake Oral 780 ml 1000 ml IV Total 1050 ml 900 ml # Voids 3 5 Laboratory Tests Test 02/19/19 07:50 White Blood Count 8.7 K/UL (4.8-10.8) Red Blood Count 5.44 M/UL (4.70-6.10) Hemoglobin 13.7 G/DL (14.2-18.0) L Hematocrit 43.1 % (42.0-52.0) Mean Corpuscular Volume 79 FL (80-99) L Mean Corpuscular Hemoglobin 25.2 PG (27.0-31.0) L Mean Corpuscular Hemoglobin Concent 31.8 G/DL (32.0-36.0) L Red Cell Distribution Width 13.2 % (11.6-14.8) Platelet Count 293 K/UL (150-450) Mean Platelet Volume 5.8 FL (6.5-10.1) L Neutrophils (%) (Auto) 51.0 % (45.0-75.0) Lymphocytes (%) (Auto) 35.4 % (20.0-45.0) Monocytes (%) (Auto) 10.2 % (1.0-10.0) H Eosinophils (%) (Auto) 2.9 % (0.0-3.0) Basophils (%) (Auto) 0.5 % (0.0-2.0) Sodium Level 138 MMOL/L (136-145) Potassium Level 3.6 MMOL/L (3.5-5.1) Chloride Level 105 MMOL/L (98-107) Carbon Dioxide Level 25 MMOL/L (21-32) Anion Gap 8 mmol/L (5-15) Blood Urea Nitrogen 7 mg/dL (7-18) Creatinine 1.0 MG/DL (0.55-1.30) Estimat Glomerular Filtration Rate > 60 mL/min (>60) Glucose Level 151 MG/DL (74-106) H Calcium Level 8.7 MG/DL (8.5-10.1) Amylase Level 93 U/L (25-115) Lipase 1051 U/L (73-393) H Height (Feet): 5 Height (Inches): 8.00 Weight (Pounds): 208 General Appearance: WD/WN, no apparent distress, alert Cardiovascular: normal rate Respiratory/Chest: normal breath sounds, no respiratory distress Abdominal Exam: normal bowel sounds, non tender, soft Extremities: normal range of motion, non-tender Cirara Fuentes MAIN[employer] SOFTWARE DEVELOPER Feb 19, 2019 10:56
[2019-02-19] MEDS ORDERED: Isovue-300 100ml vial INJ PRN (11:15)
--- NOTE | 2019-02-19 11:22 | NUR ---
NURSE NOTES: PT REFUSED CT SCAN ABDOMEN/PELVIS. DR Kirk MARY CALLED LEFT MESSAGE TO RETURN CALL.
[2019-02-19] MEDS ORDERED: Gadavist 7.5mMol/7.5ml vial IV PRN (12:45)
--- NOTE | 2019-02-19 13:24 | Surgery Progress Note ---
Surgery Progress Note Subjective Symptoms: improved, tolerating diet, passing flatus, pain decreased Additional Comments lipase elevated today but clinically improving Objective Last 24 Hour Vital Signs Date Time Temp Pulse Resp B/P (MAP) Pulse Ox O2 Delivery O2 Flow Rate FiO2 02/19/19 10:33 97.6 02/19/19 08:16 Room Air 02/19/19 08:02 97.6 60 20 141/80 (100) 100 02/19/19 04:00 97.7 95 19 146/79 (101) 96 02/19/19 00:00 98.6 89 20 131/84 (100) 96 02/18/19 21:00 Room Air 02/18/19 20:00 98.8 86 18 137/84 (101) 97 02/18/19 16:00 97.4 58 18 111/75 (87) 100 I&O Intake and Output 02/18/19 02/19/19 19:00 07:00 Intake Total 1830 ml 1900 ml Balance 1830 ml 1900 ml Intake Oral 780 ml 1000 ml IV Total 1050 ml 900 ml # Voids 3 5 Cardiovascular: RSR Respiratory: clear Abdomen: soft, flat, non-tender, present bowel sounds, non-distended Extremities: no edema, no tenderness, no cyanosis Laboratory Tests Test 02/19/19 07:50 White Blood Count 8.7 K/UL (4.8-10.8) Red Blood Count 5.44 M/UL (4.70-6.10) Hemoglobin 13.7 G/DL (14.2-18.0) L Hematocrit 43.1 % (42.0-52.0) Mean Corpuscular Volume 79 FL (80-99) L Mean Corpuscular Hemoglobin 25.2 PG (27.0-31.0) L Mean Corpuscular Hemoglobin Concent 31.8 G/DL (32.0-36.0) L Red Cell Distribution Width 13.2 % (11.6-14.8) Platelet Count 293 K/UL (150-450) Mean Platelet Volume 5.8 FL (6.5-10.1) L Neutrophils (%) (Auto) 51.0 % (45.0-75.0) Lymphocytes (%) (Auto) 35.4 % (20.0-45.0) Monocytes (%) (Auto) 10.2 % (1.0-10.0) H Eosinophils (%) (Auto) 2.9 % (0.0-3.0) Basophils (%) (Auto) 0.5 % (0.0-2.0) Sodium Level 138 MMOL/L (136-145) Potassium Level 3.6 MMOL/L (3.5-5.1) Chloride Level 105 MMOL/L (98-107) Carbon Dioxide Level 25 MMOL/L (21-32) Anion Gap 8 mmol/L (5-15) Blood Urea Nitrogen 7 mg/dL (7-18) Creatinine 1.0 MG/DL (0.55-1.30) Estimat Glomerular Filtration Rate > 60 mL/min (>60) Glucose Level 151 MG/DL (74-106) H Calcium Level 8.7 MG/DL (8.5-10.1) Amylase Level 93 U/L (25-115) Lipase 1051 U/L (73-393) H Plan Problems: (1) Leukocytosis (2) Pancreatitis Assessment & Plan: secondary to pancreatic divisum chronic with multiple acute episodes iv fluids am labs US notedFindings: Gallbladder is surgically absent. Common bile duct measures 4 mm in diameter. Right echoes within the common bile duct probably reflects the none endobiliary stent. No intrahepatic biliary ductal dilatation. Liver demonstrates diffusely increased echogenicity, consistent with diffuse hepatocellular disease , most likely fatty change. Portal vein and hepatic veins are patent. Pancreas is incompletely visualized due to overlying bowel gas, visualized portions are unremarkable. Spleen is unremarkable. Left kidney measures 12.6 cm in length. Right kidney measures 13.4 cm length. Both kidneys demonstrate normal echogenicity. There is no hydronephrosis. No focal abnormality . Abdominal aorta is partially obscured by bowel gas, visualized portions are non-aneurysmal . recommend MRI to eval to ensure no pancreatic inflammation or post op complication from recent lap maureen at outside hospital if MRI okay then just lab data and clinically stable. d/c planning will follow with recs thank you (3) Abdominal pain (4) Gastritis Kodak Rodriguez Feb 19, 2019 13:24
--- NOTE | 2019-02-19 14:48 | NUR ---
MRI ABDOMEN W/WO COMPLETED
--- NOTE | 2019-02-19 15:28 | Diagnostic Imaging Report ---
Indication: Abdominal pain, recent laparoscopic cholecystectomy Technique: Axial single shot fast spin echo breath hold, coronal single shot fast spin-echo breath hold, axial T2 FRFSE fat-saturated, 2-D thick slab MRCP, axial 2-D FIESTA fat-saturated, axial 3-D dual echo breath-hold, precontrast axial and postcontrast axial and coronal water weighted axial LAVA FLEX images of the abdomen Comparison: 02/17/2019 sonogram, 02/17/2019 plain radiograph Findings: Normal caliber common bile duct and common hepatic duct. No filling defects. No intrahepatic biliary ductal dilatation demonstrated. No evidence of biloma. The pancreas demonstrates normal signal characteristics on all sequences, as well as normal enhancement on the postcontrast images. No evidence of peripancreatic inflammation. No focal pancreatic abnormality. The ductal anatomy of the pancreas is not well-demonstrated, best visualized on the postcontrast lava flex images. Per discussion with referring physician Dr. Rodriguez, patient has history of pancreas divisum. There is a suggestion of the main pancreatic duct traversing through the pancreatic head anterior to the common bile duct directly into the duodenum. There is suggestion of a communication with a smaller pancreatic duct within the SMA connecting with the common bile duct; these findings are consistent with that stated clinical history. Note that a pancreatic stent demonstrated on recent plain radiograph is not clearly evident on the MRCP images, except perhaps as a area of signal void in the duodenum representing the pigtail seen on the precontrast lava flex images. No evidence of pseudocyst or cystic tumor. The liver demonstrates a small cyst in segment 8 near the dome, is otherwise unremarkable. The spleen, adrenals, left kidney are all unremarkable. A tiny cyst is seen coming off of the upper pole of the right kidney. Impression: No MRI evidence of acute pancreatitis Ductal anatomy just above stated clinical history of pancreas divisum Note that pancreatic stent demonstrated on recent plain radiograph is not clearly evident Post surgical absence of the gallbladder. No biliary ductal dilatation. No evidence of biloma Incidental finding of right lobe hepatic cyst, right upper pole renal cyst Findings discussed by phone with Dr. Rodriguez at the time of interpretation
--- NOTE | 2019-02-19 17:30 | NUR ---
NURSE NOTES: ambulated out in the gamino ad selin as tolerated. in no distress.
--- NOTE | 2019-02-19 19:00 | NUR ---
NURSE NOTES: JUST MEDICATED FOR PAIN. RESTING IN BED. IN NO ACUTE DISTRESS.
--- NOTE | 2019-02-19 19:16 | NUR ---
NURSE NOTES: Received patient from day nurse, patient in bed, awake and oriented x 4. PIV 22 gauge on left AC, intact, patent, D5NS infusing at 100ml/hr.
--- NOTE | 2019-02-19 19:16 | NUR ---
HAND-OFF: Report given to GORGE GOMEZ.
[2019-02-19] MEDS ORDERED: D5NS 1000ml IV ONE (19:25)
[2019-02-19 20:00] VITALS: BP 117/68
[2019-02-19] MEDS: Enoxaparin 40mg Inj SUBQ SCH (21:45)
[2019-02-20] VITALS: BP 120/72
[2019-02-20] MEDS: D5NS 1,000 ML IV SCH (00:02)
[2019-02-20] MEDS: HYDROmorphone 1mg/ml Carpuject IVP PRN ×3 (01:02→06:58)
[2019-02-20] MEDS: DiphenhydrAMINE 50mg/ml Inj IVP PRN (03:56)
[2019-02-20 04:00] VITALS: BP 122/66
[2019-02-20 06:40] LABS: AMYLASE 88 U/L (25-115); ANION GAP 10 mmol/L (5-15); BLOOD UREA NITROGEN 7 mg/dL (7-18); CALCIUM 8.8 MG/DL (8.5-10.1); CARBON DIOXIDE 24 MMOL/L (21-32); CHLORIDE 104 MMOL/L (98-107); POTASSIUM 3.8 MMOL/L (3.5-5.1); SODIUM 138 MMOL/L (136-145)
--- NOTE | 2019-02-20 07:35 | NUR ---
NURSE NOTES: As junior technical writer was making rounds pt asked " Did the nurse tell you I wanted my pain medication and Benadryl together at 10 am" Ux Lead ask pt how could he anticipate pain or itching several hours later. Informed risk of taking benadryl and narcotic at the same time. " The medication makes me itch and break out. Possible allergic reaction explained. " They sending me home away, I want to leave" " Im going home with a high lipase , before they gave me pain medication," Low fat diet explained, chronic versus acute illness explained. Pt began yelling " They aint doing shit for me anyway" Pt encouraged to wait for the MD to make there rounds, so his questions can be answered.
--- NOTE | 2019-02-20 08:18 | General Progress Note ---
Assessment/Plan Status: stable Assessment/Plan: History of ERCP with stent placement approximately 2 weeks ago History of cholecystectomy Elevated lipase level increased to 1051 Abdominal ultrasound reviewed negative for any biliary ductal dilation, noted hepatocellular disease and presence of stent. No plans for any GI procedures at this time, medical management for pancreatitis on diet Pain management Zofran as needed PPI Repeat lipase levels>>improving Follow lab dc planning Subjective ROS Limited/Unobtainable: Yes Allergies: Coded Allergies: MORPHINE (Verified Allergy, Mild, itching, 11/20/18) HALOPERIDOL (Verified Allergy, Unknown, 11/20/18) KETOROLAC (Verified Allergy, Unknown, 01/01/18) PROCHLORPERAZINE (Verified Allergy, Unknown, 11/20/18) PROMETHAZINE (Verified Allergy, Unknown, 11/20/18) METOCLOPRAMIDE (Verified Adverse Reaction, Mild, 12/15/17) anxiety Objective Last 24 Hour Vital Signs Date Time Temp Pulse Resp B/P (MAP) Pulse Ox O2 Delivery O2 Flow Rate FiO2 02/20/19 04:00 98.0 81 20 122/66 (84) 99 02/20/19 00:00 98.1 74 20 120/72 (88) 100 02/19/19 21:00 Room Air 02/19/19 20:00 98.6 76 22 117/68 (84) 98 02/19/19 16:26 97.6 Intake and Output 02/19/19 02/20/19 19:00 07:00 Intake Total 2160 ml 480 ml Output Total 100 ml Balance 2060 ml 480 ml Intake Oral 960 ml 480 ml IV Total 1200 ml Output Emesis 100 ml # Voids 6 2 Laboratory Tests 02/20/19 05:40: Sodium Level 138, Potassium Level 3.8, Chloride Level 104, Carbon Dioxide Level 24, Anion Gap 10, Blood Urea Nitrogen 7, Creatinine 1.0, Estimat Glomerular Filtration Rate > 60, Glucose Level 155H, Calcium Level 8.8, Amylase Level 88, Lipase 968H Height (Feet): 5 Height (Inches): 8.00 Weight (Pounds): 208 General Appearance: alert EENT: normal ENT inspection Neck: supple Cardiovascular: normal rate Respiratory/Chest: lungs clear Abdomen: normal bowel sounds, non tender, soft Extremities: non-tender Saurbah Mccray MD Feb 20, 2019 08:18
--- NOTE | 2019-02-20 08:27 | Discharge Instructions ---
Discharge Instructions Discharge Instructions Services at Discharge: day care Resume Normal Activity?: Yes Activity: resume normal activities Follow Up Orders Follow up with [facility] specialist For Congestive Heart Failure Reminder Report to your physician any weight gain of 5 pounds or more in one week. Demarcus Lux MD Feb 20, 2019 08:27
--- NOTE | 2019-02-20 08:29 | Nephrology Progress Note ---
Assessment/Plan Status: stable Assessment/Plan: A/P 1. Abdominal pain secondary to pancreatitis. The patient does have pancreatic divisum. - DC today as cleared from surgery after negative MRI 2. Volume depletion. DC IVFs 3. Chronic Pancreatitis - management per General Surgery. Refer to outside specialist 4. Narcotic dependency. We will manage very carefully to control his pancreatitis without oversedating. 5. DVT prophylaxis with SCDs. DC today. Orders placed Subjective Date patient seen: Feb 20, 2019 Time patient seen: 08:28 ROS Limited/Unobtainable: No Allergies: Coded Allergies: MORPHINE (Verified Allergy, Mild, itching, 11/20/18) HALOPERIDOL (Verified Allergy, Unknown, 11/20/18) KETOROLAC (Verified Allergy, Unknown, 01/01/18) PROCHLORPERAZINE (Verified Allergy, Unknown, 11/20/18) PROMETHAZINE (Verified Allergy, Unknown, 11/20/18) METOCLOPRAMIDE (Verified Adverse Reaction, Mild, 12/15/17) anxiety Subjective Patient set for DC. Cleared from surgery Objective Last 24 Hour Vital Signs Date Time Temp Pulse Resp B/P (MAP) Pulse Ox O2 Delivery O2 Flow Rate FiO2 02/20/19 04:00 98.0 81 20 122/66 (84) 99 02/20/19 00:00 98.1 74 20 120/72 (88) 100 02/19/19 21:00 Room Air 02/19/19 20:00 98.6 76 22 117/68 (84) 98 02/19/19 16:26 97.6 Intake and Output 02/19/19 02/20/19 19:00 07:00 Intake Total 2160 ml 480 ml Output Total 100 ml Balance 2060 ml 480 ml Intake Oral 960 ml 480 ml IV Total 1200 ml Output Emesis 100 ml # Voids 6 2 Laboratory Tests 02/20/19 05:40: Sodium Level 138, Potassium Level 3.8, Chloride Level 104, Carbon Dioxide Level 24, Anion Gap 10, Blood Urea Nitrogen 7, Creatinine 1.0, Estimat Glomerular Filtration Rate > 60, Glucose Level 155H, Calcium Level 8.8, Amylase Level 88, Lipase 968H Height (Feet): 5 Height (Inches): 8.00 Weight (Pounds): 208 General Appearance: no apparent distress EENT: normal ENT inspection Neck: normal alignment, supple Cardiovascular: normal rate, regular rhythm Respiratory/Chest: lungs clear, normal breath sounds Abdomen: non tender, soft Edema: no edema noted Arm (L), no edema noted Arm (R), no edema noted Leg (L), no edema noted Leg (R), no edema noted Pedal (L), no edema noted Pedal (R), no edema noted Generalized Demarcus Lux MD Feb 20, 2019 08:29
[2019-02-20] MEDS ORDERED: HYDROmorphone 1mg/ml Carpuject IVP SCH (08:30)
--- NOTE | 2019-02-20 08:30 | NUR ---
NURSE NOTES: Pt walked out his room , holding up his arm " Take this out Im ready to go". Pt informed he did not have discharge orders. Informed of AMA options. Dr Mccray here spoke to pt encouraged him to wait for discharge, instead of leaving AMA , if he wanted to leave. Dr Mohan was here seen pt, pt requested pain medication before discharge. made aware that he recently was given pain medication at [address] moyer.
--- NOTE | 2019-02-20 09:35 | NUR ---
NURSE NOTES: Pt discharged required encouragement to stay and be reassessed fore use of Dilaudid, " The Dr said I can go Im not waiting" Pt yelling in hallway. Required to be redirected. " You are giving me a hard time, when I go to the ER they give me pain medication and send me on my way" Risk and benefits required to be explained. IV was removed. Discharge packet given to include low fat diet, and belongings list. Pt was in hallway exactly at 0925 reassessment for Dilaudid. Health Science Specialist was tending to another pt/ : " Take this out Im ready" Discharge packet given
--- NOTE | 2019-02-20 10:19 | Surgery Progress Note ---
Surgery Progress Note Subjective Symptoms: improved, tolerating diet, passing flatus, pain decreased Additional Comments MRI noted. exam stable labs improved Objective Last 24 Hour Vital Signs Date Time Temp Pulse Resp B/P (MAP) Pulse Ox O2 Delivery O2 Flow Rate FiO2 02/20/19 04:00 98.0 81 20 122/66 (84) 99 02/20/19 00:00 98.1 74 20 120/72 (88) 100 02/19/19 21:00 Room Air 02/19/19 20:00 98.6 76 22 117/68 (84) 98 02/19/19 16:26 97.6 I&O Intake and Output 02/19/19 02/20/19 19:00 07:00 Intake Total 2160 ml 480 ml Output Total 100 ml Balance 2060 ml 480 ml Intake Oral 960 ml 480 ml IV Total 1200 ml Output Emesis 100 ml # Voids 6 2 Cardiovascular: RSR Abdomen: flat, present bowel sounds, non-distended Extremities: no tenderness, no cyanosis Laboratory Tests Test 02/20/19 05:40 Sodium Level 138 MMOL/L (136-145) Potassium Level 3.8 MMOL/L (3.5-5.1) Chloride Level 104 MMOL/L (98-107) Carbon Dioxide Level 24 MMOL/L (21-32) Anion Gap 10 mmol/L (5-15) Blood Urea Nitrogen 7 mg/dL (7-18) Creatinine 1.0 MG/DL (0.55-1.30) Estimat Glomerular Filtration Rate > 60 mL/min (>60) Glucose Level 155 MG/DL (74-106) H Calcium Level 8.8 MG/DL (8.5-10.1) Amylase Level 88 U/L (25-115) Lipase 968 U/L (73-393) H Plan Problems: (1) Leukocytosis (2) Pancreatitis Assessment & Plan: secondary to pancreatic divisum chronic with multiple acute episodes iv fluids am labs US notedFindings: Gallbladder is surgically absent. Common bile duct measures 4 mm in diameter. Right echoes within the common bile duct probably reflects the none endobiliary stent. No intrahepatic biliary ductal dilatation. Liver demonstrates diffusely increased echogenicity, consistent with diffuse hepatocellular disease , most likely fatty change. Portal vein and hepatic veins are patent. Pancreas is incompletely visualized due to overlying bowel gas, visualized portions are unremarkable. Spleen is unremarkable. Left kidney measures 12.6 cm in length. Right kidney measures 13.4 cm length. Both kidneys demonstrate normal echogenicity. There is no hydronephrosis. No focal abnormality . Abdominal aorta is partially obscured by bowel gas, visualized portions are non-aneurysmal . MRI noted - no pancreatic inflammation labs improved okay to d/c f/u with pancreatic surgeon outpatient will follow with recs thank you (3) Abdominal pain (4) Gastritis Kodak Rodriguez Feb 20, 2019 10:19
--- NOTE | 2019-02-20 12:37 | Discharge Summary ---
Discharge Summary Discharge Summary _ DATE OF ADMISSION: 02/17/2019 DATE OF DISCHARGE: 02/20/2019 DISCHARGED BY: dr. Lux REASON FOR ADMISSION: 33 years old male with past medical history of chronic pancreatitis, gastritis, pancreatic divisum, presented to emergency department with abdominal pain, nausea and vomiting. Patient with history of prior ERCP and stent placement for chronic episodes of pancreatitis. About 2 weeks ago, while visiting friends in [place], he had an attack of pancreatitis and underwent a laparoscopic cholecystectomy. Postoperatively he developed worsening pancreatitis and had another ERCP with stent placement. Patient was discharged on O'Brien and Zofran. After returning to [place] he developed acute abdominal pain. Patient did not take the O'Brien . because he did not like it. Pain described as constant, 8 out of 10, on a scale 1-10. Patient reported difficulty eating, he felt nauseated. Patient also reported loose stools. No melena or hematochezia. Upon evaluation vital signs revealed elevated blood pressure 151/91. Laboratory work-up revealed leukocytosis WBC 13, stable hemoglobin and hematocrit. Stable electrolytes. BUN 21, creatinine 1.2. Stable LFT. Lipase 592. Serum alcohol less than 3. Urine toxicology was negative. Urinalysis revealed no evidence of urinary tract infection. EKG revealed normal sinus rhythm, no acute ischemic changes. Chest x-ray revealed no acute cardiopulmonary pathology. Abdominal x-ray revealed no acute process. Abdominal ultrasound demonstrated surgically absent gallbladder. No evidence of biliary ductal dilatation. Stent in place. Liver demonstrated diffusely increased echogenicity consistent with a diffuse hepatocellular disease, most likely fatty changes. Limited visualization of pancreas and abdominal aorta. Patient was examined in emergency room by surgeon and subsequently admitted to medical surgical floor for further management. CONSULTANTS: GI specialist Dr. Mccray surgery Dr. Rodriguez [facility] COURSE: Patient admitted to medical surgical floor. Patient was kept n.p.o. Patient started on IV fluids. Pain management was addressed as needed. Lipase was trended. DVT prophylaxis provided. Surgeon and GI specialist closely followed. Patient subsequently undergone abdominal MRI which revealed no evidence of acute pancreatitis. Ductal anatomy was consistent with clinical history of pancreas divisum. Lipase trended up to 1051 and then started to trend down. Amylase within normal limits. Leukocytosis resolved. Symptomatic treatment provided. Antiemetic provided as needed. GI prophylaxis provided. Per surgeon, MRI of the abdomen revealed no evidence of pancreatic inflammation. Labs were improving. Surgeon cleared patient for discharge and outpatient follow-up with pancreatic surgeon. Per GI specialist, no plans for any GI procedure at this time. He recommended medical management of pancreatitis and continue with symptomatic treatment Patient clinically stabilized. Lipase started to trend down. Patient tolerated diet. Pain controlled. Patient was stable for discharge home. FINAL DIAGNOSES: Pancreatitis Abdominal pain , secondary to pancreatitis Leukocytosis-resolved Pancreatic divisum Gastritis Volume depletion with dehydration Narcotic dependency DISCHARGE MEDICATIONS: See Medication Reconciliation list. DISCHARGE INSTRUCTIONS: Patient was discharged home Follow up with primary care provider in one week. I have been assigned to dictate discharge summary for this account. I was not involved in the patient's management. Erin Trejo NP Feb 20, 2019 12:37
== END 2019-02-20 09:41 | disposition home or self-care (01) | DRG 282 ==
LOC: EMR 18:56 → 3E 19:24 → EDBEDREQ 21:51 → 3E 02-18 08:48
DX: K85.90 Acute pancreatitis without necrosis or infection, unspecified (principal); F11.20 Opioid dependence, uncomplicated; K29.70 Gastritis, unspecified, without bleeding; F17.200 Nicotine dependence, unspecified, uncomplicated; K86.89 Other specified diseases of pancreas; E86.0 Dehydration; E86.9 Volume depletion, unspecified; Z88.6 Allergy status to analgesic agent; Z88.8 Allergy status to other drugs, medicaments and biological substances; Z90.49 Acquired absence of other specified parts of digestive tract
CPT/HCPCS: 36415; 71045; 74018; 74183; 76700; 80048; 80053; 80307; 80329; 81003; 82150; 82550; 83690; 83735; 85025; 85610; 85651; 85730; 86140; 93005; 96361; 96365; 96368; 96375; 96376; 99285; A9585; J2405

== ENCOUNTER 2019-03-25 07:27 | Inpatient (IN) | payer MEDICAID ==
[~2019-03-25] VITALS: Ht 172.7 cm; Wt 96.2 kg
[2019-03-25] MEDS ORDERED: NKM (07:38)
[2019-03-25 07:47] VITALS: BP 183/106
--- NOTE | 2019-03-25 07:49 | NUR ---
ED Nurse Note: Pt came in from home due to upper medial abdominal pain with nausea,vomiting x 3 days. Last bowel movement was 3 days ago. Pain 8/10 randy. Pt has hx of Cholecystectomy and stent placed on lower medial abdomen. AOx4, Tachycardia and HTN noted, ERMD aware. Will cont to monitor.
[2019-03-25] MEDS ORDERED: DiphenhydrAMINE 50mg/ml Inj IVP ONE (08:00)
--- NOTE | 2019-03-25 08:11 | NUR ---
ED Nurse Note: X-ray at bedside for imaging.
[2019-03-25 08:19] LABS: BASOPHILS % (AUTO) 1.3 % (0.0-2.0); EOSINOPHILS % (AUTO) 1.6 % (0.0-3.0); HEMATOCRIT 49.5 % (42.0-52.0); LYMPHOCYTES % (AUTO) 24.7 % (20.0-45.0); MEAN CORPUSCULAR VOLUME 79 FL (80-99); NEUTROPHILS % (AUTO) 61.6 % (45.0-75.0); PLATELET COUNT 399 K/UL (150-450); RED CELL DISTRIBUTION WIDTH 13.3 % (11.6-14.8); WHITE BLOOD COUNT 13.8 K/UL (4.8-10.8)
[2019-03-25 08:22] LABS: APPEARANCE,URINE CLEAR; BILIRUBIN, URINE NEGATIVE (NEGATIVE); COLOR,URINE PALE YELLOW; GLUCOSE, URINE (UA) NEGATIVE (NEGATIVE); KETONES,URINE NEGATIVE (NEGATIVE); LEUKOCYTE ESTERASE ,URINE NEGATIVE (NEGATIVE); NITRITE,URINE NEGATIVE (NEGATIVE); PH,URINE 6 (4.5-8.0); PROTEIN,URINE 2+ (NEGATIVE); UROBILINOGEN,URINE NORMAL MG/DL (0.0-1.0)
--- NOTE | 2019-03-25 08:24 | NUR ---
ED Nurse Note: Pt became verbally aggressive with staffs. IV line could not be initiated at this time by 2 RNs.
[2019-03-25 08:25] LABS: ANION GAP 10 mmol/L (5-15); BLOOD UREA NITROGEN 12 mg/dL (7-18); CALCIUM 9.1 MG/DL (8.5-10.1); CARBON DIOXIDE 24 MMOL/L (21-32); CHLORIDE 105 MMOL/L (98-107); CREATININE 1.2 MG/DL (0.55-1.30); POTASSIUM 4.3 MMOL/L (3.5-5.1); SODIUM 139 MMOL/L (136-145)
[2019-03-25 08:29] LABS: ALANINE AMINOTRANSFERASE 24 U/L (12-78); ALBUMIN 3.8 G/DL (3.4-5.0); ALBUMIN/GLOBULIN RATIO 0.9 (1.0-2.7); ALKALINE PHOSPHATASE 61 U/L (46-116); AMYLASE 46 U/L (25-115); ASPARTATE AMINO TRANSFERASE 20 U/L (15-37); BILIRUBIN,TOTAL 0.2 MG/DL (0.2-1.0); CREATINE KINASE 170 U/L (26-308)
--- NOTE | 2019-03-25 08:32 | Emergency Room Report ---
History of Present Illness General Chief Complaint: Abdominal Pain Source: Patient, Medical Record Present Illness HPI The patient presents with 3 days of epigastric pain. He is also been vomiting and unable to keep down liquids. He has a history of chronic pancreatitis. He has had several procedures with multiple stents placed. Most recently he was up at [facility]. He saw his private doctor yesterday and claims that his lipase is normal. The previous admission his lipase was minimally elevated but continued to rise. He feels he was discharged prematurely based on an agreement that he made with the surgeon. He believes that placing an another stent may be helpful. 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 He rates the pain . He says he has no medication at home for pain at this time. He is requesting Dilaudid Benadryl and Zofran. He claims he is not taking anything. Patient denies fevers, chills, hemoptysis, hematemesis, melena, hematochezia. No sore throat, chest pain, palpitations, diarrhea, dysuria, shortness of breath , joint pain, rashes, depression, anxiety, visual changes, headache. The patient was last discharged February 20 with these discharge diagnoses: Pancreatitis Abdominal pain , secondary to pancreatitis Leukocytosis-resolved Pancreatic divisum Gastritis Volume depletion with dehydration Narcotic dependency Allergies: Coded Allergies: MORPHINE (Verified Allergy, Mild, itching, 11/20/18) HALOPERIDOL (Verified Allergy, Unknown, 11/20/18) KETOROLAC (Verified Allergy, Unknown, 01/01/18) PROCHLORPERAZINE (Verified Allergy, Unknown, 11/20/18) PROMETHAZINE (Verified Allergy, Unknown, 11/20/18) METOCLOPRAMIDE (Verified Adverse Reaction, Mild, 12/15/17) anxiety Patient History Past Medical History: see triage record, old chart reviewed Past Surgical History: maureen, other - Pancreatic stents Social History: Reports: drug use; Denies: alcohol use Social History Narrative From home Reviewed Nursing Documentation: PMH: Agreed; PSxH: Agreed Nursing Documentation-PMH Hx Cardiac Problems: No Hx Cancer: No Hx Gastrointestinal Problems: Yes - PANCREATITIS, GALL BLADDER REMOVAL Hx Neurological Problems: No Review of Systems All Other Systems: negative except mentioned in HPI Physical Exam Vital Signs Date Time Temp Pulse Resp B/P (MAP) Pulse Ox O2 Delivery O2 Flow Rate FiO2 03/25/19 07:36 98.8 110 20 151/123 (132) 95 Room Air Sp02 EP Interpretation: reviewed, normal General Appearance: well appearing, no apparent distress, GCS 15 Head: normocephalic, atraumatic Eyes: bilateral eye normal inspection, bilateral eye PERRL, bilateral eye EOMI ENT: moist mucus membranes Neck: supple Respiratory: lungs clear, normal breath sounds Cardiovascular #1: regular rate, rhythm Cardiovascular #2: 2+ radial (R) Gastrointestinal: normal inspection, normal bowel sounds, no mass, non- distended, no guarding, no rebound, tenderness Genitourinary: no CVA tenderness Musculoskeletal: back normal, gait/station normal, normal range of motion Neurologic: alert, oriented x3, grossly normal Psychiatric: mood/affect normal, anxious - Slightly Skin: no rash Medical Decision Making Diagnostic Impression: Primary Impression: Abdominal pain Qualified Codes: R10.13 - Epigastric pain Additional Impressions: Leukocytosis Qualified Codes: D72.828 - Other elevated white blood cell count Presence of pancreatic duct stent Pancreatic divisum Narcotic dependence, episodic use ER Course The patient presents with abdominal pain persistent vomiting with a history of pancreatitis. Differential includes gastritis, pancreatitis, electrolyte imbalance, drug-seeking behavior, peptic ulcer disease, diverticulitis amongst others. The patient will be evaluated with EKG, chest x-ray, abdominal film and labs. The patient will be treated with IV hydration and analgesics. Due to the complex nature of the patient's problems and the fact that he is unable to tolerate oral intake the patient will be admitted to for observation. EKG sinus tachycardia rate [address]-T wave changes. Chest x-ray no infiltrates. Abdominal film nonspecific bowel gas pattern without obstruction scope clips right upper quadrant. Urine + opiates. Leukocytosis elevated hemoglobin hematocrit. CMP essentially normal. Lipase normal. This patient has chronic pancreatitis is possible that his pancreas may still be inflamed with a normal lipase. He is somewhat improved but due to the leukocytosis needs to be admitted for observation. Admit to . Laboratory Tests Test 03/25/19 08:05 White Blood Count 13.8 K/UL (4.8-10.8) H Red Blood Count 6.30 M/UL (4.70-6.10) H Hemoglobin 16.0 G/DL (14.2-18.0) Hematocrit 49.5 % (42.0-52.0) Mean Corpuscular Volume 79 FL (80-99) L Mean Corpuscular Hemoglobin 25.4 PG (27.0-31.0) L Mean Corpuscular Hemoglobin Concent 32.3 G/DL (32.0-36.0) Red Cell Distribution Width 13.3 % (11.6-14.8) Platelet Count 399 K/UL (150-450) Mean Platelet Volume 5.7 FL (6.5-10.1) L Neutrophils (%) (Auto) 61.6 % (45.0-75.0) Lymphocytes (%) (Auto) 24.7 % (20.0-45.0) Monocytes (%) (Auto) 11.0 % (1.0-10.0) H Eosinophils (%) (Auto) 1.6 % (0.0-3.0) Basophils (%) (Auto) 1.3 % (0.0-2.0) Prothrombin Time 10.4 SEC (9.30-11.50) Prothrombin Time INR 1.0 (0.9-1.1) PTT 24 SEC (23-33) Urine Color Pale yellow Urine Appearance Clear Urine pH 6 (4.5-8.0) Urine Specific [place] 1.020 (1.005-1.035) Urine Protein 2+ (NEGATIVE) H Urine Glucose (UA) Negative (NEGATIVE) Urine Ketones Negative (NEGATIVE) Urine Blood 3+ (NEGATIVE) H Urine Nitrite Negative (NEGATIVE) Urine Bilirubin Negative (NEGATIVE) Urine Urobilinogen Normal MG/DL (0.0-1.0) Urine Leukocyte Esterase Negative (NEGATIVE) Urine RBC 5-10 /HPF (0 - 0) H Urine WBC 0-2 /HPF (0 - 0) Urine Squamous Epithelial Cells Occasional /LPF Urine Bacteria Occasional /HPF (NONE) Urine Hyaline Casts 0-2 /LPF (NONE) H Urine Fine Granular Casts 0-2 /LPF (NONE) H Sodium Level 139 MMOL/L (136-145) Potassium Level 4.3 MMOL/L (3.5-5.1) Chloride Level 105 MMOL/L (98-107) Carbon Dioxide Level 24 MMOL/L (21-32) Anion Gap 10 mmol/L (5-15) Blood Urea Nitrogen 12 mg/dL (7-18) Creatinine 1.2 MG/DL (0.55-1.30) Estimate Glomerular Filtration Rate > 60 mL/min (>60) Glucose Level 112 MG/DL (74-106) H Calcium Level 9.1 MG/DL (8.5-10.1) Total Bilirubin 0.2 MG/DL (0.2-1.0) Aspartate Amino Transferase (AST) 20 U/L (15-37) Alanine Aminotransferase (ALT) 24 U/L (12-78) Alkaline Phosphatase 61 U/L (46-116) Total Creatine Kinase 170 U/L (26-308) Total Protein 8.1 G/DL (6.4-8.2) Albumin 3.8 G/DL (3.4-5.0) Globulin 4.3 g/dL Albumin/Globulin Ratio 0.9 (1.0-2.7) L Amylase Level 46 U/L (25-115) Lipase 185 U/L (73-393) Urine Opiates Screen Positive (NEGATIVE) H Urine Barbiturates Screen Negative (NEGATIVE) Phencyclidine (PCP) Screen Negative (NEGATIVE) Urine Amphetamines Screen Negative (NEGATIVE) Urine Benzodiazepines Screen Negative (NEGATIVE) Urine Cocaine Screen Negative (NEGATIVE) Urine Marijuana (THC) Screen Negative (NEGATIVE) EKG Diagnostic Results Rate: tachycardiac Rhythm: NSR ST Segments: no acute changes Rhythm Strip Diag. Results EP Interpretation: yes Rhythm: no PVC's, no ectopy, other - Sinus tachycardia Chest X-Ray Diagnostic Results Chest X-Ray Diagnostic Results : Chest X-Ray Ordered: Yes # of Views/Limited/Complete: 1 View Indication: Other EP Interpretation: Yes Interpretation: no consolidation, no effusion, no pneumothorax Impression: No acute disease Electronically Signed by: Electronically signed by Jamie Carrillo MD Other X-Ray Diagnostic Results Other X-Ray Diagnostic Results : # of Views/Limited Vs Complete: 2 View Indication: Pain EP Interpretation: Yes Interpretation: nonspecific bowel gas, no sbo, other - Right upper quadrant clips Impression: Other Electronically Signed by: Electronically signed by Jamie Carrillo MD Last Vital Signs Date Time Temp Pulse Resp B/P (MAP) Pulse Ox O2 Delivery O2 Flow Rate FiO2 03/25/19 18:34 98.8 03/25/19 16:00 74 143/99 (114) 03/25/19 11:32 Room Air 03/25/19 09:38 20 99 Status: improved Disposition: PLACE IN OBSERVATION Condition: Serious Referrals: NOT CHOSEN IPA/,REFERRING (PCP) Jamie Carrillo MD Mar 25, 2019 08:32
--- NOTE | 2019-03-25 08:45 | NUR ---
ED Nurse Note: IV line initiated and medications given at this time.
--- NOTE | 2019-03-25 08:54 | NUR ---
ED Nurse Note: pt requested 24g iv on foot. RN confirmed with Dr. Carrillo that it is ok start iv access on foot. RN establised 22g iv on left foot.
[2019-03-25 08:55] VITALS: BP 142/88
[2019-03-25] MEDS ORDERED: HYDROmorphone 1mg/ml Carpuject IVP ONE (09:30)
--- NOTE | 2019-03-25 09:38 | NUR ---
ED Nurse Note: Report given to JASON Kelsey at ext [phone]. Pt to be transfered to room 404-2 on [facility] per protocol. Denied belongings list to be done, RN [facility]East aware.
--- NOTE | 2019-03-25 10:00 | NUR ---
NURSE NOTES: Received patient from ED via wheelchair. Belongings accounted for. Oriented patient to room. IV site at left foot, 22 gauge, saline lock. Call light within reach. In no apparent distress at this time. Will continue to monitor.
--- NOTE | 2019-03-25 10:14 | Consultation ---
Consult Note Consult Note asked to eval at the request of dr moody for fluid management The patient presents with 3 days of epigastric pain. He is also been vomiting and unable to keep down liquids. He has a history of chronic pancreatitis. He has had several procedures with multiple stents placed. Most recently he was up at [facility]. He saw his private doctor yesterday and claims that his lipase is normal. The previous admission his lipase was minimally elevated but continued to rise. He feels he was discharged prematurely based on an agreement that he made with the surgeon. He believes that placing an another stent may be helpful. He had a new fisher line last admission. He rates the pain 8/ 10. He says he has no medication at home for pain at this time. He is requesting Dilaudid Benadryl and Zofran. He claims he is not taking anything. Patient denies fevers, chills, hemoptysis, hematemesis, melena, hematochezia. No sore throat, chest pain, palpitations, diarrhea, dysuria, shortness of breath , joint pain, rashes, depression, anxiety, visual changes, headache. The patient was last discharged February 20 with these discharge diagnoses: Pancreatitis Abdominal pain , secondary to pancreatitis Leukocytosis-resolved Pancreatic divisum Gastritis Volume depletion with dehydration Narcotic dependency Allergies: MORPHINE (Verified Allergy, Mild, itching, 11/20/18) HALOPERIDOL (Verified Allergy, Unknown, 11/20/18) KETOROLAC (Verified Allergy, Unknown, 01/01/18) PROCHLORPERAZINE (Verified Allergy, Unknown, 11/20/18) PROMETHAZINE (Verified Allergy, Unknown, 11/20/18) METOCLOPRAMIDE (Verified Adverse Reaction, Mild, 12/15/17) Assessment/Plan 1. Abdominal pain secondary to pancreatitis. The patient does have pancreatic divisum. 2. Volume depletion. 3. Chronic Pancreatitis - 4. Narcotic dependency. 5. Proteinuria 6. s/p Gall bladder removal plan: NPO IV protonix IV reglan Hydrate per Aldair Chinchilla MD Mar 25, 2019 10:14
[2019-03-25 10:15] VITALS: BP 155/97
[2019-03-25] MEDS ORDERED: Metoclopramide 10mg/2ml Inj IVP PRN (10:17)
--- NOTE | 2019-03-25 11:17 | GI Initial Consult Note ---
History of Present Illness General Date patient seen: Mar 25, 2019 Time patient seen: 11:12 Reason for Hospitalization: Abdominal Pain Referring physician: YRN Reason for Consultation: ABDOMINAL PAIN Present Illness HPI The patient presents with 3 days of epigastric pain. He is also been vomiting and unable to keep down liquids. He has a history of chronic pancreatitis. He has had several procedures with multiple stents placed. Most recently he was up at [facility]. He saw his private doctor yesterday and claims that his lipase is normal. The previous admission his lipase was minimally elevated but continued to rise. He feels he was discharged prematurely based on an agreement that he made with the surgeon. He believes that placing an another stent may be helpful. 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 He rates the pain . He says he has no medication at home for pain at this time. He is requesting Dilaudid Benadryl and Zofran. He claims he is not taking anything. Patient denies fevers, chills, hemoptysis, hematemesis, melena, hematochezia. No sore throat, chest pain, palpitations, diarrhea, dysuria, shortness of breath , joint pain, rashes, depression, anxiety, visual changes, headache. The patient was last discharged February 20 with these discharge diagnoses: Pancreatitis Abdominal pain , secondary to pancreatitis Leukocytosis-resolved Pancreatic divisum Gastritis Volume depletion with dehydration Narcotic dependency Home Meds Reported Medications No Known Medications* (NKM - No Known Medications*) ., 0 ., 0 Refills 03/25/19 Med list reviewed/reconciled: Yes Allergies: Coded Allergies: MORPHINE (Verified Allergy, Mild, itching, 11/20/18) HALOPERIDOL (Verified Allergy, Unknown, 11/20/18) KETOROLAC (Verified Allergy, Unknown, 01/01/18) PROCHLORPERAZINE (Verified Allergy, Unknown, 11/20/18) PROMETHAZINE (Verified Allergy, Unknown, 11/20/18) METOCLOPRAMIDE (Verified Adverse Reaction, Mild, 12/15/17) anxiety Patient History History Provided By: Patient, Medical Record PMH Narrative Past Medical History: see triage record, old chart reviewed Past Surgical History: maureen, other - Pancreatic stents Social History: Reports: drug use; Denies: alcohol use Social History Narrative From home Reviewed Nursing Documentation: PMH: Agreed; PSxH: Agreed Nursing Documentation-PMH Hx Cardiac Problems: No Hx Cancer: No Hx Gastrointestinal Problems: Yes - PANCREATITIS, GALL BLADDER REMOVAL Hx Neurological Problems: No Social History: Denies: smoking, alcohol use, drug use, other Review of Systems All Other Systems: negative except mentioned in HPI Physical Exam Vital Signs Date Time Temp Pulse Resp B/P (MAP) Pulse Ox O2 Delivery O2 Flow Rate FiO2 03/25/19 07:36 98.8 110 20 151/123 (132) 95 Room Air Sp02 EP Interpretation: reviewed, normal Labs Laboratory Tests Test 03/25/19 08:05 White Blood Count 13.8 K/UL (4.8-10.8) H Red Blood Count 6.30 M/UL (4.70-6.10) H Hemoglobin 16.0 G/DL (14.2-18.0) Hematocrit 49.5 % (42.0-52.0) Mean Corpuscular Volume 79 FL (80-99) L Mean Corpuscular Hemoglobin 25.4 PG (27.0-31.0) L Mean Corpuscular Hemoglobin Concent 32.3 G/DL (32.0-36.0) Red Cell Distribution Width 13.3 % (11.6-14.8) Platelet Count 399 K/UL (150-450) Mean Platelet Volume 5.7 FL (6.5-10.1) L Neutrophils (%) (Auto) 61.6 % (45.0-75.0) Lymphocytes (%) (Auto) 24.7 % (20.0-45.0) Monocytes (%) (Auto) 11.0 % (1.0-10.0) H Eosinophils (%) (Auto) 1.6 % (0.0-3.0) Basophils (%) (Auto) 1.3 % (0.0-2.0) Prothrombin Time 10.4 SEC (9.30-11.50) Prothromb Time International Ratio 1.0 (0.9-1.1) Activated Partial Thromboplast Time 24 SEC (23-33) Urine Color Pale yellow Urine Appearance Clear Urine pH 6 (4.5-8.0) Urine Specific [place] 1.020 (1.005-1.035) Urine Protein 2+ (NEGATIVE) H Urine Glucose (UA) Negative (NEGATIVE) Urine Ketones Negative (NEGATIVE) Urine Blood 3+ (NEGATIVE) H Urine Nitrite Negative (NEGATIVE) Urine Bilirubin Negative (NEGATIVE) Urine Urobilinogen Normal MG/DL (0.0-1.0) Urine Leukocyte Esterase Negative (NEGATIVE) Urine RBC 5-10 /HPF (0 - 0) H Urine WBC 0-2 /HPF (0 - 0) Urine Squamous Epithelial Cells Occasional /LPF Urine Bacteria Occasional /HPF (NONE) Urine Hyaline Casts 0-2 /LPF (NONE) H Urine Fine Granular Casts 0-2 /LPF (NONE) H Sodium Level 139 MMOL/L (136-145) Potassium Level 4.3 MMOL/L (3.5-5.1) Chloride Level 105 MMOL/L (98-107) Carbon Dioxide Level 24 MMOL/L (21-32) Anion Gap 10 mmol/L (5-15) Blood Urea Nitrogen 12 mg/dL (7-18) Creatinine 1.2 MG/DL (0.55-1.30) Estimat Glomerular Filtration Rate > 60 mL/min (>60) Glucose Level 112 MG/DL (74-106) H Calcium Level 9.1 MG/DL (8.5-10.1) Total Bilirubin 0.2 MG/DL (0.2-1.0) Aspartate Amino Transf (AST/SGOT) 20 U/L (15-37) Alanine Aminotransferase (ALT/SGPT) 24 U/L (12-78) Alkaline Phosphatase 61 U/L (46-116) Total Creatine Kinase 170 U/L (26-308) Total Protein 8.1 G/DL (6.4-8.2) Albumin 3.8 G/DL (3.4-5.0) Globulin 4.3 g/dL Albumin/Globulin Ratio 0.9 (1.0-2.7) L Amylase Level 46 U/L (25-115) Lipase 185 U/L (73-393) Urine Opiates Screen Positive (NEGATIVE) H Urine Barbiturates Screen Negative (NEGATIVE) Phencyclidine (PCP) Screen Negative (NEGATIVE) Urine Amphetamines Screen Negative (NEGATIVE) Urine Benzodiazepines Screen Negative (NEGATIVE) Urine Cocaine Screen Negative (NEGATIVE) Urine Marijuana (THC) Screen Negative (NEGATIVE) General Appearance: well appearing, no apparent distress, alert Head: normocephalic EENT: PERRL/EOMI, normal ENT inspection Neck: supple Respiratory: normal breath sounds, no respiratory distress Cardiovascular: normal rate Gastrointestinal: normal inspection, non tender, soft, normal bowel sounds, non -distended Rectal: deferred Genitourinary: deferred Musculoskeletal: normal inspection, back normal Neurologic: normal inspection, alert, oriented x3, responsive Psychiatric: normal inspection, judgement/insight normal, memory normal Skin: normal inspection, normal color, no rash, warm/dry, palpation normal, well hydrated Lymphatic: normal inspection, no adenopathy Current Medications Current Medications Medications (Trade) Dose Ordered Sig/Jeffrey Route PRN Reason Start Time Stop Time Status Last Admin Dose Admin Dextrose/ Electrolytes 1,000 ml @ 75 mls/hr [id number] IV 03/25/19 11:00 04/24/19 10:59 Metoclopramide HCl (Reglan) 10 mg Q6H PRN IVP Nausea & Vomiting 03/25/19 10:17 04/24/19 10:16 Pantoprazole (Protonix) 40 mg EVERY 12 HOURS IVP 03/25/19 10:18 04/24/19 10:17 GI: Plan Problems: (1) Pancreatitis (2) Abdominal pain (3) Leukocytosis Plan History of ERCP with Pancreatic divisum with stent replacement in the minor ampulla. History of cholecystectomy Abdominal ultrasound from previous study, hepatocellular disease and presence of stent. utox noted for opiates No plans for any GI procedures at this time, medical management for pancreatitis advance diet as tolerated Pain management Zofran as needed PPI Follow labs Discussed with Dr. Mccray. Thank you for this patient referral, we will follow. The patient was seen and examined at bedside and all new and available data was reviewed in the patients chart. I agree with the above findings, impression and plan. (Patient seen earlier today. Signature stamp does not reflect patient encounter time.). - MD Gina Tinoco AnhGita APRON CLEANER Mar 25, 2019 11:17
[2019-03-25 12:00] VITALS: BP 145/95
[2019-03-25] MEDS ORDERED: Hydromorphone 0.5mg/0.5ml inj IVP SCH (12:00)
[2019-03-25] MEDS: DiphenhydrAMINE 50mg/ml Inj IVP PRN ×3 (12:30→22:06)
[2019-03-25] MEDS: Pantoprazole Inj IVP SCH ×2 (12:31→22:05)
--- NOTE | 2019-03-25 12:38 | Diagnostic Imaging Report ---
Indication: Reason For Exam: ABD PAIN Technique: Supine views of the abdomen Comparison: Abdominal radiograph dated 02/17/2019 Findings: Bowel gas pattern is nonobstructive. Status post cholecystectomy. Interval removal of previously seen catheter overlying the epigastrium. Lung bases are clear. Impression: Nonobstructive bowel gas pattern.
--- NOTE | 2019-03-25 12:39 | Diagnostic Imaging Report ---
Indication: Reason For Exam: ABD PAIN Technique: Single AP view of the chest. Comparison: Chest radiograph dated 03/01/2019 Findings: The cardiomediastinal silhouette is within normal limits. There is no focal consolidation, pneumothorax or pleural effusion. Osseous structures demonstrate no acute abnormality. IMPRESSION: No radiographic evidence of acute cardiopulmonary disease.
[2019-03-25] MEDS: D5 1/2NS w/KCl 20mEq 1,000 ML IV SCH (13:45)
[2019-03-25] MEDS: HYDROmorphone 1mg/ml Carpuject IVP PRN ×3 (14:08→22:06)
[2019-03-25 16:00] VITALS: BP 143/99
--- NOTE | 2019-03-25 17:30 | Consultation ---
DATE OF CONSULTATION: 03/25/2019 INFECTIOUS DISEASE CONSULTATION CONSULTING PHYSICIAN: Pedro Luis Vines M.D. PRIMARY ATTENDING PHYSICIAN: Tamera Ponce M.D. REASON FOR CONSULT: Leukocytosis and pancreatitis. HISTORY OF PRESENT ILLNESS: This is a 33-year-old white male admitted today from home complained of nausea, vomiting, and epigastric abdominal pain. The patient has history of chronic pancreatitis and multiple procedures in the past including pancreatic stent placement. He states that he does not feel good since discharge from the hospital in February of 2019. He believes that 1 of the stents came out. PAST MEDICAL HISTORY: As mentioned chronic pancreatitis secondary to pancreatic divisum, gastritis, and narcotic dependency. PAST SURGICAL HISTORY: He had history of cholecystectomy, ERCP, and pancreatic stent placement. MEDICATIONS: Hydromorphone, Protonix, and Reglan. ALLERGIES: Allergic to haloperidol, ketorolac, metoclopramide, morphine, prochlorperazine, and promethazine. SOCIAL HISTORY: Denies alcohol, drug abuse, and smoking. He is single. REVIEW OF SYSTEMS: No fever. No chills. Epigastric pain, nausea, and vomiting. No coughing. No diarrhea. No problem passing urine. PHYSICAL EXAMINATION: VITAL SIGNS: Temperature 98.8, pulse 89, and blood pressure 142/88. GENERAL APPEARANCE: Seems to be well-developed. HEAD AND NECK: [place] conjunctiva. No oral lesion. HEART: S1 and S2. Regular. LUNGS: Clear. ABDOMEN: Tender in the epigastric area. Soft. EXTREMITIES: He has no edema. NEUROLOGIC: Awake, alert, and oriented x3. LABORATORY STUDIES: WBC 13.8, hemoglobin 16, hematocrit 49.5, and platelets is 319,000. Sodium 139, potassium 4.3, chloride 105, bicarb 24, BUN 12, creatinine 1.2, and glucose 112. Lipase is 185. Abdominal x-ray showed non-obstructive bowel gas pattern. A chest x-ray was negative. IMPRESSION: Leukocytosis, may be reactive and nausea and vomiting. The patient also has chronic pancreatitis, has pancreatic divisum, and narcotic dependency. RECOMMENDATIONS: We will observe off antibiotics and follow up the lipase level and CBC. At the end of my exam, I thank Dr. Ponce for involving me in the care of this patient. Pedro Luis Vines M.D. DR: NATHAN JOB#: [id number] CC:
--- NOTE | 2019-03-25 19:25 | NUR ---
HAND-OFF: Report given to JASON Morris.
[2019-03-25 20:13] VITALS: BP 115/74
--- NOTE | 2019-03-25 20:17 | NUR ---
NURSE NOTES: Received patient awake,alert,verbal,resting in bed,comfortable,kept on NPO as ordered.
--- NOTE | 2019-03-25 20:25 | NUR ---
CASE MANAGEMENT: REVIEW 33Y/MALE PRESENTED TO ED FROM HOME CC: N/V X 3-4 DAYS SI: EPIGASTRIC PAIN ABD . NARCOTIC DEPENDENCE . VOLUME DEPLETION w/DEHYDRATION . PANCREATITIS T 98.8 HR 110 RR 20 BP 183/106 SAT 95% ROOM AIR WBC 13.8 IS: NS IVF BOLUS X1 BENADRYL IV X1 DILAUDID IV X1 ZOFRAN IV X1 NPO PATIENT ADMITTED TO MED/SURG UNIT 03/25/2019 DCP: PATIENT IS FROM HOME
[2019-03-26] VITALS: BP 119/54
[2019-03-26] MEDS: DiphenhydrAMINE 50mg/ml Inj IVP PRN ×4 (02:02→14:08)
[2019-03-26] MEDS: D5 1/2NS w/KCl 20mEq 1,000 ML IV SCH (02:02)
[2019-03-26] MEDS: HYDROmorphone 1mg/ml Carpuject IVP PRN ×4 (02:03→14:08)
[2019-03-26 03:50] VITALS: BP 109/66
[2019-03-26 04:00] VITALS: BP 109/66
--- NOTE | 2019-03-26 07:17 | NUR ---
HAND-OFF: Report given to Sergio Gloria RN.
[2019-03-26 08:00] VITALS: BP 139/95
[2019-03-26 08:01] LABS: BASOPHILS % (AUTO) 0.9 % (0.0-2.0); EOSINOPHILS % (AUTO) 3.5 % (0.0-3.0); HEMATOCRIT 47.1 % (42.0-52.0); HEMOGLOBIN 15.2 G/DL (14.2-18.0); LYMPHOCYTES % (AUTO) 24.3 % (20.0-45.0); MEAN CORPUSCULAR VOLUME 79 FL (80-99); MONOCYTES % (AUTO) 10.9 % (1.0-10.0); NEUTROPHILS % (AUTO) 60.6 % (45.0-75.0); PLATELET COUNT 340 K/UL (150-450); RED BLOOD COUNT 5.98 M/UL (4.70-6.10); RED CELL DISTRIBUTION WIDTH 13.4 % (11.6-14.8); WHITE BLOOD COUNT 9.7 K/UL (4.8-10.8)
[2019-03-26 08:24] LABS: ALANINE AMINOTRANSFERASE 26 U/L (12-78); ALBUMIN 3.7 G/DL (3.4-5.0); ALBUMIN/GLOBULIN RATIO 0.9 (1.0-2.7); ALKALINE PHOSPHATASE 63 U/L (46-116); ANION GAP 6 mmol/L (5-15); ASPARTATE AMINO TRANSFERASE 19 U/L (15-37); BILIRUBIN,TOTAL 0.6 MG/DL (0.2-1.0); BLOOD UREA NITROGEN 10 mg/dL (7-18); CALCIUM 9.5 MG/DL (8.5-10.1); CARBON DIOXIDE 28 MMOL/L (21-32); CHLORIDE 103 MMOL/L (98-107); CHOLESTEROL 130 MG/DL (< 200); GAMMA GLUTAMYL TRANSPEPTIDASE 36 U/L (5-85); HDL CHOLESTEROL 31 MG/DL (40-60); PHOSPHORUS 3.8 MG/DL (2.5-4.9); POTASSIUM 4.7 MMOL/L (3.5-5.1); SODIUM 137 MMOL/L (136-145); TRIGLYCERIDES 273 MG/DL (30-150)
[2019-03-26] MEDS: Pantoprazole Inj IVP SCH (08:25)
--- NOTE | 2019-03-26 08:44 | History and Physical Report ---
DATE OF ADMISSION: 03/25/2019 NOTE: POOR AUDIO HISTORY OF PRESENT ILLNESS: The patient comes with abdominal pain and history of pancreatitis. The patient is status post pancreatic stent about 6 weeks ago in [facility]. The patient comes in with abdominal pain for the past four days. He has a history of chronic pancreatitis of the pancreatitis. The patient also complained of vomiting as well for the past couple of days. No appetite. The patient has a history of gallbladder cholecystectomy. PAST MEDICAL HISTORY: History of gallstones, history of congenital pancreatic , and gastritis. PAST SURGICAL HISTORY: Pancreatic stent and cholecystectomy. ALLERGIES: Haldol, , metoclopramide, morphine, prochlorperazine, and promethazine. MEDICATIONS: Zofran. FAMILY HISTORY: Noncontributory. SOCIAL HISTORY: Denies history of smoking, alcohol, or illicit drugs. Denies all of those. REVIEW OF SYSTEMS: HEENT: Denies headaches. RESPIRATORY: Denies shortness of breath. Denies cough. CARDIOVASCULAR: Denies chest pain. GASTROINTESTINAL: He does have nausea, vomiting, abdominal pain for the past four days. Denies rectal bleeding. EXTREMITIES: pain is constant. PHYSICAL EXAMINATION: VITAL SIGNS: Temperature 98, pulse is 73, blood pressure 144/95. HEENT: PERRLA. NECK: Supple. No lymphadenopathy. CHEST: Clear to auscultation. CARDIOVASCULAR: Regular rate and rhythm. No murmurs or extra sounds. GASTROINTESTINAL: Soft, distended with epigastric tenderness. No rebound. The patient is not in any acute distress. No organomegaly. EXTREMITIES: No edema. Moves all four extremities. Sensory intact. Reflexes equal in both sides. LABORATORY DATA: Labs are reviewed. WBC of 13.8, hemoglobin of 16, and platelets of 399,000. Sodium 139, potassium 4.2, BUN of 12, creatinine 1.2. ASSESSMENT AND PLAN: 1. Chronic pain syndrome. 2. Chronic pancreatitis, status post pancreatic stent. 3. Cholecystectomy. I have asked Dr. Mccray, Dr. Pedro Luis Vines, Dr. Henderson, and to see the patient for dehydration, pain management management of abdominal pain and vomiting. Ali Brooklyn Ponce DR: DAVID JOB#: [id number] CC:
--- NOTE | 2019-03-26 09:00 | Consultation ---
History of Present Illness General Date patient seen: Mar 26, 2019 Present Illness Allergies: Coded Allergies: MORPHINE (Verified Allergy, Mild, itching, 11/20/18) HALOPERIDOL (Verified Allergy, Unknown, 11/20/18) KETOROLAC (Verified Allergy, Unknown, 01/01/18) PROCHLORPERAZINE (Verified Allergy, Unknown, 11/20/18) PROMETHAZINE (Verified Allergy, Unknown, 11/20/18) METOCLOPRAMIDE (Verified Adverse Reaction, Mild, 12/15/17) anxiety Medication History Scheduled No Known Medications* (NKM - No Known Medications*), 0 ., (Reported) Patient History Healthcare decision maker Resuscitation status Full Code Advanced Directive on File Physical Exam Last 24 Hour Vital Signs Date Time Temp Pulse Resp B/P (MAP) Pulse Ox O2 Delivery O2 Flow Rate FiO2 03/26/19 08:00 98.0 75 18 139/95 (110) 03/26/19 06:36 97.8 03/26/19 04:00 97.8 59 16 109/66 (80) 98 03/26/19 00:00 97.2 56 16 119/54 (75) 95 03/25/19 20:59 Room Air 03/25/19 20:13 97.2 63 16 115/74 (88) 97 03/25/19 16:00 97.7 74 143/99 (114) 03/25/19 13:00 98.8 03/25/19 12:00 98.0 73 145/95 (112) 03/25/19 11:32 Room Air 03/25/19 11:29 Room Air 03/25/19 10:15 79.9 76 155/97 (116) 03/25/19 09:51 98.8 03/25/19 09:38 98.8 89 20 142/88 99 Room Air 03/25/19 09:18 98.8 Intake and Output 03/25/19 03/26/19 19:00 07:00 Intake Total 1375 ml 900 ml Output Total 310 ml 1000 ml Balance 1065 ml -100 ml Intake IV Total 1375 ml 900 ml Output Urine Total 310 ml 1000 ml # Voids 2 1 Laboratory Tests Test 03/26/19 07:30 White Blood Count 9.7 K/UL (4.8-10.8) Red Blood Count 5.98 M/UL (4.70-6.10) Hemoglobin 15.2 G/DL (14.2-18.0) Hematocrit 47.1 % (42.0-52.0) Mean Corpuscular Volume 79 FL (80-99) L Mean Corpuscular Hemoglobin 25.4 PG (27.0-31.0) L Mean Corpuscular Hemoglobin Concent 32.2 G/DL (32.0-36.0) Red Cell Distribution Width 13.4 % (11.6-14.8) Platelet Count 340 K/UL (150-450) Mean Platelet Volume 5.7 FL (6.5-10.1) L Neutrophils (%) (Auto) 60.6 % (45.0-75.0) Lymphocytes (%) (Auto) 24.3 % (20.0-45.0) Monocytes (%) (Auto) 10.9 % (1.0-10.0) H Eosinophils (%) (Auto) 3.5 % (0.0-3.0) H Basophils (%) (Auto) 0.9 % (0.0-2.0) Sodium Level 137 MMOL/L (136-145) Potassium Level 4.7 MMOL/L (3.5-5.1) Chloride Level 103 MMOL/L (98-107) Carbon Dioxide Level 28 MMOL/L (21-32) Anion Gap 6 mmol/L (5-15) Blood Urea Nitrogen 10 mg/dL (7-18) Creatinine 1.0 MG/DL (0.55-1.30) Estimat Glomerular Filtration Rate > 60 mL/min (>60) Glucose Level 88 MG/DL (74-106) Hemoglobin A1c 5.8 % (4.3-6.0) Uric Acid 8.3 MG/DL (2.6-7.2) H Calcium Level 9.5 MG/DL (8.5-10.1) Phosphorus Level 3.8 MG/DL (2.5-4.9) Magnesium Level 1.7 MG/DL (1.8-2.4) L Total Bilirubin 0.6 MG/DL (0.2-1.0) Gamma Glutamyl Transpeptidase 36 U/L (5-85) Aspartate Amino Transf (AST/SGOT) 19 U/L (15-37) Alanine Aminotransferase (ALT/SGPT) 26 U/L (12-78) Alkaline Phosphatase 63 U/L (46-116) C-Reactive Protein, Quantitative 0.9 mg/dL (0.00-0.90) Pro-B-Type Natriuretic Peptide 26 pg/mL (0-125) Total Protein 7.9 G/DL (6.4-8.2) Albumin 3.7 G/DL (3.4-5.0) Globulin 4.2 g/dL Albumin/Globulin Ratio 0.9 (1.0-2.7) L Triglycerides Level 273 MG/DL (30-150) H Cholesterol Level 130 MG/DL (< 200) LDL Cholesterol 68 mg/dL (<100) HDL Cholesterol 31 MG/DL (40-60) L Cholesterol/HDL Ratio 4.2 (3.3-4.4) Lipase 134 U/L (73-393) Thyroid Stimulating Hormone (TSH) 1.047 uiU/mL (0.358-3.740) Microbiology Date/Time Source Procedure Growth Status 03/25/19 16:00 Urine,Clean Catch Urine Culture - Preliminary NO GROWTH Resulted Height (Feet): 5 Height (Inches): 8.00 Weight (Pounds): 212 Medications Current Medications Medications (Trade) Dose Ordered Sig/Jeffrey Route PRN Reason Start Time Stop Time Status Last Admin Dose Admin Acetaminophen (Tylenol) 650 mg Q4H PRN ORAL Prn Headache/Temp > 101 03/25/19 19:45 04/24/19 19:44 Dextrose/ Electrolytes 1,000 ml @ 75 mls/hr [id number] IV 03/25/19 11:00 04/24/19 10:59 03/26/19 02:02 Diphenhydramine HCl (Benadryl) 25 mg Q4H PRN IVP Itching 03/25/19 11:30 04/24/19 11:29 03/26/19 06:07 Hydromorphone HCl (Dilaudid) 1 mg Q4H PRN IVP For Pain 03/25/19 14:00 04/01/19 13:59 03/26/19 06:06 Metoclopramide HCl (Reglan) 10 mg Q6H PRN IVP Nausea & Vomiting 03/25/19 10:17 04/24/19 10:16 Ondansetron HCl (Zofran) 4 mg Q6H PRN IVP Nausea & Vomiting 03/25/19 19:45 04/24/19 19:44 Pantoprazole (Protonix) 40 mg EVERY 12 HOURS IVP 03/25/19 10:18 04/24/19 10:17 03/26/19 08:25 Assessment/Plan Assessment/Plan: (1) Abdominal pain (2) Pancreatitis seen dictated Sincere García Mar 26, 2019 09:00
--- NOTE | 2019-03-26 09:39 | NUR ---
NURSE NOTES: PT AXOX4, RESTING IN BED, IN NO APPARENT DISTRESS DURING INITIAL ROUNDS. PT WAS AGITATED WHEN SPEAKING WITH RN, STATING "WHAT ARE THEY GONNA DO WITH ME?! THEY NEED TO DO SOMETHING ABOUT MY STENT. I NEED SOMEONE WHO'S GONNA DO SOMETHING". RN EDUCATED PT ON PLAN OF CARE, CURRENTLY STAY NPO, IV FLUIDS FOR HYDRATION. PER GI NOTE, NO PLAN FOR GI PROCEDURES AT THIS TIME. IVF RUNNING ON LEFT FOOT 24; ASYMPTOMATIC, PATENT AND INTACT. NO SIGNS OF SWELLING OR REDNESS. PT EDUCATED ON PRN DILAUDID AND BENADRYL. PT VERBALIZED UNDERSTANDING. CALL LIGHT WITHIN REACH. WILL CONTINUE TO MONITOR.
--- NOTE | 2019-03-26 10:56 | GI Progress Note ---
Assessment/Plan Problems: (1) Gastritis ICD Codes: K29.70 - Gastritis, unspecified, without bleeding SNOMED: 3168333 (2) Pancreatitis ICD Codes: K85.90 - Acute pancreatitis without necrosis or infection, unspecified SNOMED: 23519403 (3) Abdominal pain ICD Codes: R10.9 - Unspecified abdominal pain SNOMED: 85773544 Qualifiers: Qualified Codes: R10.13 - Epigastric pain (4) Pancreatic divisum ICD Codes: Q45.3 - Other congenital malformations of pancreas and pancreatic duct SNOMED: 44276584, 113413179 (5) Narcotic dependence, episodic use ICD Codes: F11.20 - Opioid dependence, uncomplicated SNOMED: 435523130, 116623569 Status: unchanged Status Narrative Discussed with Dr. Mccray. Assessment/Plan History of ERCP with Pancreatic divisum with stent replacement in the minor ampulla. History of cholecystectomy Abdominal ultrasound from previous study, hepatocellular disease and presence of stent. utox noted for opiates KUB d/w with radiology shows no evidence of biliary stent. no plans for biliary stent replacement given normal lipase levels symptomatic treatment advance diet as tolerated Pain management Zofran as needed PPI Follow labs The patient was seen and examined at bedside and all new and available data was reviewed in the patients chart. I agree with the above findings, impression and plan. (Patient seen earlier today. Signature stamp does not reflect patient encounter time.). - Saurabh Mccray MD Subjective Subjective decreased appetite Objective Last 24 Hour Vital Signs Date Time Temp Pulse Resp B/P (MAP) Pulse Ox O2 Delivery O2 Flow Rate FiO2 03/26/19 09:00 Room Air 03/26/19 08:00 98.0 75 18 139/95 (110) 03/26/19 06:36 97.8 03/26/19 04:00 97.8 59 16 109/66 (80) 98 03/26/19 00:00 97.2 56 16 119/54 (75) 95 03/25/19 20:59 Room Air 03/25/19 20:13 97.2 63 16 115/74 (88) 97 03/25/19 16:00 97.7 74 143/99 (114) 03/25/19 13:00 98.8 03/25/19 12:00 98.0 73 145/95 (112) 03/25/19 11:32 Room Air 03/25/19 11:29 Room Air Intake and Output 03/25/19 03/26/19 19:00 07:00 Intake Total 1375 ml 900 ml Output Total 310 ml 1000 ml Balance 1065 ml -100 ml Intake IV Total 1375 ml 900 ml Output Urine Total 310 ml 1000 ml # Voids 2 1 Laboratory Tests Test 03/26/19 07:30 White Blood Count 9.7 K/UL (4.8-10.8) Red Blood Count 5.98 M/UL (4.70-6.10) Hemoglobin 15.2 G/DL (14.2-18.0) Hematocrit 47.1 % (42.0-52.0) Mean Corpuscular Volume 79 FL (80-99) L Mean Corpuscular Hemoglobin 25.4 PG (27.0-31.0) L Mean Corpuscular Hemoglobin Concent 32.2 G/DL (32.0-36.0) Red Cell Distribution Width 13.4 % (11.6-14.8) Platelet Count 340 K/UL (150-450) Mean Platelet Volume 5.7 FL (6.5-10.1) L Neutrophils (%) (Auto) 60.6 % (45.0-75.0) Lymphocytes (%) (Auto) 24.3 % (20.0-45.0) Monocytes (%) (Auto) 10.9 % (1.0-10.0) H Eosinophils (%) (Auto) 3.5 % (0.0-3.0) H Basophils (%) (Auto) 0.9 % (0.0-2.0) Sodium Level 137 MMOL/L (136-145) Potassium Level 4.7 MMOL/L (3.5-5.1) Chloride Level 103 MMOL/L (98-107) Carbon Dioxide Level 28 MMOL/L (21-32) Anion Gap 6 mmol/L (5-15) Blood Urea Nitrogen 10 mg/dL (7-18) Creatinine 1.0 MG/DL (0.55-1.30) Estimat Glomerular Filtration Rate > 60 mL/min (>60) Glucose Level 88 MG/DL (74-106) Hemoglobin A1c 5.8 % (4.3-6.0) Uric Acid 8.3 MG/DL (2.6-7.2) H Calcium Level 9.5 MG/DL (8.5-10.1) Phosphorus Level 3.8 MG/DL (2.5-4.9) Magnesium Level 1.7 MG/DL (1.8-2.4) L Total Bilirubin 0.6 MG/DL (0.2-1.0) Gamma Glutamyl Transpeptidase 36 U/L (5-85) Aspartate Amino Transf (AST/SGOT) 19 U/L (15-37) Alanine Aminotransferase (ALT/SGPT) 26 U/L (12-78) Alkaline Phosphatase 63 U/L (46-116) C-Reactive Protein, Quantitative 0.9 mg/dL (0.00-0.90) Pro-B-Type Natriuretic Peptide 26 pg/mL (0-125) Total Protein 7.9 G/DL (6.4-8.2) Albumin 3.7 G/DL (3.4-5.0) Globulin 4.2 g/dL Albumin/Globulin Ratio 0.9 (1.0-2.7) L Triglycerides Level 273 MG/DL (30-150) H Cholesterol Level 130 MG/DL (< 200) LDL Cholesterol 68 mg/dL (<100) HDL Cholesterol 31 MG/DL (40-60) L Cholesterol/HDL Ratio 4.2 (3.3-4.4) Lipase 134 U/L (73-393) Thyroid Stimulating Hormone (TSH) 1.047 uiU/mL (0.358-3.740) Microbiology Date/Time Source Procedure Growth Status 03/25/19 16:00 Urine,Clean Catch Urine Culture - Preliminary NO GROWTH Resulted Height (Feet): 5 Height (Inches): 8.00 Weight (Pounds): 212 General Appearance: WD/WN, no apparent distress, alert Cardiovascular: normal rate Respiratory/Chest: normal breath sounds, no respiratory distress Abdominal Exam: normal bowel sounds, non tender, soft Extremities: normal range of motion, non-tender Ciarra Fuentes NP Mar 26, 2019 10:56
--- NOTE | 2019-03-26 12:26 | Nephrology Progress Note ---
Assessment/Plan Problem List: (1) Abdominal pain (2) Leukocytosis (3) Dehydration (4) Pancreatic divisum (5) Narcotic dependence, episodic use Assessment 1. Abdominal pain secondary to pancreatitis. The patient does have pancreatic divisum. 2. Volume depletion. 3. Chronic Pancreatitis - 4. Narcotic dependency. 5. Proteinuria 6. s/p Gall bladder removal Plan plan: NPO IV protonix IV reglan Hydrate per GI Subjective ROS Limited/Unobtainable: No Constitutional: Reports: malaise Objective Objective Last 24 Hour Vital Signs Date Time Temp Pulse Resp B/P (MAP) Pulse Ox O2 Delivery O2 Flow Rate FiO2 03/26/19 09:00 Room Air 03/26/19 08:00 98.0 75 18 139/95 (110) 03/26/19 06:36 97.8 03/26/19 04:00 97.8 59 16 109/66 (80) 98 03/26/19 00:00 97.2 56 16 119/54 (75) 95 03/25/19 20:59 Room Air 03/25/19 20:13 97.2 63 16 115/74 (88) 97 03/25/19 16:00 97.7 74 143/99 (114) 03/25/19 13:00 98.8 Intake and Output 03/25/19 03/26/19 19:00 07:00 Intake Total 1375 ml 900 ml Output Total 310 ml 1000 ml Balance 1065 ml -100 ml Intake IV Total 1375 ml 900 ml Output Urine Total 310 ml 1000 ml # Voids 2 1 Laboratory Tests 03/26/19 07:30: White Blood Count 9.7, Red Blood Count 5.98, Hemoglobin 15.2, Hematocrit 47.1, Mean Corpuscular Volume 79L, Mean Corpuscular Hemoglobin 25.4L, Mean Corpuscular Hemoglobin Concent 32.2, Red Cell Distribution Width 13.4, Platelet Count 340, Mean Platelet Volume 5.7L, Neutrophils (%) (Auto) 60.6, Lymphocytes ( %) (Auto) 24.3, Monocytes (%) (Auto) 10.9H, Eosinophils (%) (Auto) 3.5H, Basophils (%) (Auto) 0.9, Sodium Level 137, Potassium Level 4.7, Chloride Level 103, Carbon Dioxide Level 28, Anion Gap 6, Blood Urea Nitrogen 10, Creatinine 1.0, Estimat Glomerular Filtration Rate > 60, Glucose Level 88, Hemoglobin A1c 5.8, Uric Acid 8.3H, Calcium Level 9.5, Phosphorus Level 3.8, Magnesium Level 1.7L, Total Bilirubin 0.6, Gamma Glutamyl Transpeptidase 36, Aspartate Amino Transf (AST/SGOT) 19, Alanine Aminotransferase (ALT/SGPT) 26, Alkaline Phosphatase 63, C-Reactive Protein, Quantitative 0.9, Pro-B-Type Natriuretic Peptide 26, Total Protein 7.9, Albumin 3.7, Globulin 4.2, Albumin/Globulin Ratio 0.9L, Triglycerides Level 273H, Cholesterol Level 130, LDL Cholesterol 68 , HDL Cholesterol 31L, Cholesterol/HDL Ratio 4.2, Lipase 134, Thyroid Stimulating Hormone (TSH) 1.047 Height (Feet): 5 Height (Inches): 8.00 Weight (Pounds): 212 General Appearance: no apparent distress Cardiovascular: normal rate Abdomen: distended Aldair Henderson MD Mar 26, 2019 12:26
--- NOTE | 2019-03-26 12:53 | NUR ---
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 IS: Zofran 4mg IVP Dilaudid 2mg IVP NS 1000ml IV Benedryl 50mg IVP NS 1000ml IV Dilaudid 1mg IVP Admitted to [facility] Observation status DCP: Pending Hospital Stay
--- NOTE | 2019-03-26 13:55 | Infectious Diseases Prog Note ---
Assessment/Plan Assessment/Plan IMPRESSION: Leukocytosis,resolved Nausea and vomiting. Chronic pancreatitis, Pancreatic divisum, narcotic dependency. RECOMMENDATIONS: We will observe off antibiotics Subjective ROS Limited/Unobtainable: No Constitutional: Reports: no symptoms HEENT: Reports: no symptoms Respiratory: Reports: no symptoms Gastrointestinal/Abdominal: Reports: nausea, vomiting, other - epigastric pain Musculoskeletal: Reports: no symptoms Allergies: Coded Allergies: MORPHINE (Verified Allergy, Mild, itching, 11/20/18) HALOPERIDOL (Verified Allergy, Unknown, 11/20/18) KETOROLAC (Verified Allergy, Unknown, 01/01/18) PROCHLORPERAZINE (Verified Allergy, Unknown, 11/20/18) PROMETHAZINE (Verified Allergy, Unknown, 11/20/18) METOCLOPRAMIDE (Verified Adverse Reaction, Mild, 12/15/17) anxiety Objective Vital Signs Last 24 Hour Vital Signs Date Time Temp Pulse Resp B/P (MAP) Pulse Ox O2 Delivery O2 Flow Rate FiO2 03/26/19 09:00 Room Air 03/26/19 08:00 98.0 75 18 139/95 (110) 03/26/19 06:36 97.8 03/26/19 04:00 97.8 59 16 109/66 (80) 98 03/26/19 00:00 97.2 56 16 119/54 (75) 95 03/25/19 20:59 Room Air 03/25/19 20:13 97.2 63 16 115/74 (88) 97 03/25/19 16:00 97.7 74 143/99 (114) Height (Feet): 5 Height (Inches): 8.00 Weight (Pounds): 212 General Appearance: no acute distress HEENT: mucous membranes moist Respiratory/Chest: lungs clear Cardiovascular: normal rate Abdomen: non distended, other - soft Extremities: no edema Neurologic/Psychiatric: alert, oriented x 3, responsive Microbiology Date/Time Source Procedure Growth Status 03/25/19 16:00 Urine,Clean Catch Urine Culture - Preliminary NO GROWTH Resulted Laboratory Tests Test 03/26/19 07:30 White Blood Count 9.7 K/UL (4.8-10.8) Red Blood Count 5.98 M/UL (4.70-6.10) Hemoglobin 15.2 G/DL (14.2-18.0) Hematocrit 47.1 % (42.0-52.0) Mean Corpuscular Volume 79 FL (80-99) L Mean Corpuscular Hemoglobin 25.4 PG (27.0-31.0) L Mean Corpuscular Hemoglobin Concent 32.2 G/DL (32.0-36.0) Red Cell Distribution Width 13.4 % (11.6-14.8) Platelet Count 340 K/UL (150-450) Mean Platelet Volume 5.7 FL (6.5-10.1) L Neutrophils (%) (Auto) 60.6 % (45.0-75.0) Lymphocytes (%) (Auto) 24.3 % (20.0-45.0) Monocytes (%) (Auto) 10.9 % (1.0-10.0) H Eosinophils (%) (Auto) 3.5 % (0.0-3.0) H Basophils (%) (Auto) 0.9 % (0.0-2.0) Sodium Level 137 MMOL/L (136-145) Potassium Level 4.7 MMOL/L (3.5-5.1) Chloride Level 103 MMOL/L (98-107) Carbon Dioxide Level 28 MMOL/L (21-32) Anion Gap 6 mmol/L (5-15) Blood Urea Nitrogen 10 mg/dL (7-18) Creatinine 1.0 MG/DL (0.55-1.30) Estimat Glomerular Filtration Rate > 60 mL/min (>60) Glucose Level 88 MG/DL (74-106) Hemoglobin A1c 5.8 % (4.3-6.0) Uric Acid 8.3 MG/DL (2.6-7.2) H Calcium Level 9.5 MG/DL (8.5-10.1) Phosphorus Level 3.8 MG/DL (2.5-4.9) Magnesium Level 1.7 MG/DL (1.8-2.4) L Total Bilirubin 0.6 MG/DL (0.2-1.0) Gamma Glutamyl Transpeptidase 36 U/L (5-85) Aspartate Amino Transf (AST/SGOT) 19 U/L (15-37) Alanine Aminotransferase (ALT/SGPT) 26 U/L (12-78) Alkaline Phosphatase 63 U/L (46-116) C-Reactive Protein, Quantitative 0.9 mg/dL (0.00-0.90) Pro-B-Type Natriuretic Peptide 26 pg/mL (0-125) Total Protein 7.9 G/DL (6.4-8.2) Albumin 3.7 G/DL (3.4-5.0) Globulin 4.2 g/dL Albumin/Globulin Ratio 0.9 (1.0-2.7) L Triglycerides Level 273 MG/DL (30-150) H Cholesterol Level 130 MG/DL (< 200) LDL Cholesterol 68 mg/dL (<100) HDL Cholesterol 31 MG/DL (40-60) L Cholesterol/HDL Ratio 4.2 (3.3-4.4) Lipase 134 U/L (73-393) Thyroid Stimulating Hormone (TSH) 1.047 uiU/mL (0.358-3.740) Current Medications Medications (Trade) Dose Ordered Sig/Jeffrey Route PRN Reason Start Time Stop Time Status Last Admin Dose Admin Acetaminophen (Tylenol) 650 mg Q4H PRN ORAL Prn Headache/Temp > 101 03/25/19 19:45 04/24/19 19:44 Diphenhydramine HCl (Benadryl) 25 mg Q4H PRN IVP Itching 03/25/19 11:30 04/24/19 11:29 03/26/19 10:03 Hydromorphone HCl (Dilaudid) 1 mg Q4H PRN IVP For Pain 03/25/19 14:00 04/01/19 13:59 03/26/19 10:03 Metoclopramide HCl (Reglan) 10 mg Q6H PRN IVP Nausea & Vomiting 03/25/19 10:17 04/24/19 10:16 Ondansetron HCl (Zofran) 4 mg Q6H PRN IVP Nausea & Vomiting 03/25/19 19:45 04/24/19 19:44 Pantoprazole (Protonix) 40 mg EVERY 12 HOURS IVP 03/25/19 10:18 04/24/19 10:17 03/26/19 08:25 Pedro Luis Vines MD Mar 26, 2019 13:55
--- NOTE | 2019-03-26 15:18 | NUR ---
NURSE NOTES: PT AXOX4, EDUCATED ON DR POOL ORDER FOR DISCHARGE HOME IF CLEARED BY CRISTOFER. LORENZO (FOOD TASTER) CLEARED FOR DISCHARGE. PT STATES HE WILL GO HOME, LIVES WITH ROOMMATE. IV ACCESS DISCONTINUED.
--- NOTE | 2019-03-26 16:45 | NUR ---
NURSE NOTES: PT WAS EDUCATED ON DISCHARGE PACKET AND S/S TO CALL EMERGENCY SERVICES. PT VERBALIZED UNDERSTANDING. PT DID NOT WANT TO REVIEW BELONGINGS BUT STATED HE HAS EVERYTHING. PT SIGNED BELONGINGS LIST. PT CALLED [facility] TO GO HOME. PT WAS DISCHARGED IN STABLE CONDITION.
--- NOTE | 2019-03-27 06:30 | Consultation ---
DATE OF CONSULTATION: 03/26/2019 PAIN MANAGEMENT CONSULTATION CONSULTING PHYSICIAN: Mary Leal M.D. REFERRING PHYSICIAN: Tamera Ponce M.D. PHYSICIAN PATIENT ADMITTING CLERK: Fany Melchor CHIEF COMPLAINT: Abdominal pain. HISTORY OF PRESENT ILLNESS: This is a 33-year-old male who is being seen on the Med/Surg floor of [facility] for comprehensive pain management. The patient is a known patient from prior hospital admissions, admitted under the care of Dr. Ponce with abdominal pain. He has a history of pancreas divisum causing pancreatitis. Started on Dilaudid 1mg IV Q4H PRN severe pain and it has helped patient to tolerate his pain. REVIEW OF SYSTEMS: Denies rash, fever, chills, sweating, dizziness, drowsiness, blurred vision, sore throat, or change in weight. No shortness of breath or chest pain. No nausea, vomiting, or blood in the stool or urine. No bowel or bladder incontinence. He is complaining of abdominal pain. PHYSICAL EXAMINATION: GENERAL: Alert, oriented. VITAL SIGNS: Blood pressure 139/95, heart rate 75, oxygen saturation 98%, respiratory rate is 18, and temperature 98 degrees Fahrenheit. HEENT: PERRLA. NECK: Range of motion is full in all directions. No tenderness to paracervical muscles. No adenopathy. LUNGS: Decreased breath sounds bilaterally. HEART: S1 and S2 regular. ABDOMEN: Tenderness to palpation. EXTREMITIES: No cyanosis, no clubbing, no edema. NEUROLOGICAL: No focal deficits. ASSESSMENT AND PLAN: This is a 33-year-old male with abdominal pain and pancreatitis. The patient will be continued on Dilaudid as needed. The patient was discussed with Dr. Leal and he concurred. We will follow the patient. Thank you very much for the courtesy of this consultation. Mary Leal M.D. DONALD Melchor DR: DEION JOB#: [id number] CC: MARCUS
--- NOTE | 2019-03-27 12:15 | Discharge Summary ---
Discharge Summary Discharge Summary _ DATE OF ADMISSION: 03/25/2019 DATE OF DISCHARGE: 03/26/2019 DISCHARGED BY: Dr. Ponce REASON FOR ADMISSION: 33 years old male with past medical history of pancreatitis, gastritis, narcotic dependency, presented with three days of epigastric pain. Patient reported vomiting. He was unable to keep down food and liquids. Patient reported history of several procedures with multiply stents placement. Most recent was placed at [facility], as per patient. Patient saw his private doctor the day prior to presentation to ED , and stated that his lipase was normal. Pain reported 8 out of 10 on a scale 1-10. Patient reported no medication at home. Upon evaluation blood pressure was elevated 151/123 with heart rate 110. Laboratory work-up revealed leukocytosis WBC 13.8 , stable hemoglobin and hematocrit. Urinalysis revealed +2 protein, +3 blood , no evidence of urinary tract infection. Stable electrolytes and renal parameters. Glucose 112. AST 20 , ALT 24. Lipase 185, amylase 46. Albumin 3.8. Urine toxicology screen was positive for opiates. EKG revealed sinus tachycardia, no acute ischemic changes. Chest x-ray revealed no acute cardiopulmonary pathology. X-ray of the abdomen revealed nonobstructive bowel gas pattern. Patient admitted due to leukocytosis . Patient had chronic pancreatitis and his pancreas could have been inflamed even with normal lipase. CONSULTANTS: ID specialist Dr. Martins GI specialist Dr. Mccray switching operator Dr. Henderson pain specialist Dr. Leal [facility] COURSE: Patient admitted to medical surgical floor. Patient started on the IV fluids and initially was kept n.p.o. GI specialist followed. Pain management was addressed as per pain specialist recommendation. Symptomatic treatment provided. Abdominal ultrasound from previous admission revealed hepatocellular disease and presence of stents. KUB done on this admission, showed no evidence of biliary stent. Per GI specialist, no plans for biliary stent replacement, given normal lipase level. Patient slowly started on liquid diet, and diet was advanced as tolerated. Antiemetic provided as needed. GI prophylaxis with PPI provided. ID specialist followed. Leukocytosis resolved. No fevers. ID specialist recommended to observe patient off antibiotics. Abdominal pain was secondary to chronic pancreatitis. Patient had pancreatic divisum. Renal parameters and electrolytes were closely monitored. Electrolytes were corrected as needed. Nephrotoxics were avoided. Patient was able to tolerate diet. Pain was controlled. Patient clinically stabilized and was ready for discharge home. Due to rapid and unexpected improvement patient condition patient was discharged in 1 day FINAL DIAGNOSES: Chronic pancreatitis Gastritis Abdominal pain Pancreatic divisum Narcotic dependency with chronic pain syndrome Leukocytosis- resolved Dehydration Proteinuria Status post cholecystectomy DISCHARGE MEDICATIONS: See Medication Reconciliation list. DISCHARGE INSTRUCTIONS: Patient was discharged home . Follow up with primary care provider in one week. I have been assigned to dictate discharge summary for this account. I was not involved in the patient's management. Erin rTejo NP Mar 27, 2019 12:15
== END 2019-03-26 16:39 | disposition home or self-care (01) | DRG 282 ==
LOC: EDBEDREQ 07:51 → EMR 08:05 → EDBEDREQ 09:31 → 4E 09:45 → OBSVTOIN 11:58
DX: K86.1 Other chronic pancreatitis (principal); F11.20 Opioid dependence, uncomplicated; Q45.3 Other congenital malformations of pancreas and pancreatic duct; Z88.6 Allergy status to analgesic agent; Z88.8 Allergy status to other drugs, medicaments and biological substances; Z90.49 Acquired absence of other specified parts of digestive tract; K29.70 Gastritis, unspecified, without bleeding; G89.4 Chronic pain syndrome; E86.0 Dehydration; K85.90 Acute pancreatitis without necrosis or infection, unspecified
CPT/HCPCS: 36415; 71045; 74018; 80053; 80061; 80307; 81003; 82150; 82550; 82977; 83036; 83690; 83735; 83880; 84100; 84443; 84550; 85025; 85610; 85730; 86140; 87086; 93005; 96361; 96374; 96375; 96376; 99285; J2405

== ENCOUNTER 2019-07-03 11:03 | Inpatient (IN) | payer MEDICAID ==
[~2019-07-03] VITALS: Ht 172.7 cm; Wt 95.3 kg
--- NOTE | 2019-07-03 11:22 | NUR ---
ED Nurse Note: Patient brought self to ER from home d/t nausea, vomiting, and diarrhea. Patient stated he had pancreatic stent surgery done 9 days ago. Patient stated symptoms started 3 days ago. Patient c/o pain on stent site 03/22. Per patient, he suspects c-diff from his bowel movement. 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 No acute distress noted.
--- NOTE | 2019-07-03 11:22 | NUR ---
ED Nurse Note: Pancreatic stent surgical site clean and no s/sx of infection noted.
[2019-07-03 11:24] VITALS: BP 152/90
--- NOTE | 2019-07-03 11:56 | NUR ---
ED Nurse Note: MD at bedside.
--- NOTE | 2019-07-03 12:25 | NUR ---
ED Nurse Note: JASON Fuller at bedside for IV insertion.
--- NOTE | 2019-07-03 12:40 | NUR ---
ED Nurse Note: blood and urine sample sent to lab.
--- NOTE | 2019-07-03 12:45 | NUR ---
ED Nurse Note: pt reported abdominal pain 02/19. ANGELIKA made aware.
--- NOTE | 2019-07-03 12:48 | Emergency Room Report ---
History of Present Illness General Chief Complaint: Abdominal Pain Source: Patient Present Illness HPI Patient is a 34-year-old male presents after increased abdominal pain. He had prior history of biliary stent placement. He had reported increased abdominal discomfort as well as vomiting. He states he has chronic pancreatitis. He had reportedly been having increased abdominal bloating as well as epigastric pain. Pain was associated with some nausea and vomiting. He reports having been taking some pancreatic enzymes. He denies any alcohol use. Previous ERCPs in the past. Reports having severe pain. Does not radiate. Patient reports having multiple allergies. Denies hematemesis or bloody stools. Allergies: Coded Allergies: MORPHINE (Verified Allergy, Mild, itching, 11/20/18) HALOPERIDOL (Verified Allergy, Unknown, 11/20/18) KETOROLAC (Verified Allergy, Unknown, 01/01/18) PROCHLORPERAZINE (Verified Allergy, Unknown, 11/20/18) PROMETHAZINE (Verified Allergy, Unknown, 11/20/18) METOCLOPRAMIDE (Verified Adverse Reaction, Mild, 12/15/17) anxiety Patient History Past Medical History: see triage record Reviewed Nursing Documentation: PMH: Agreed; PSxH: Agreed Nursing Documentation-PMH Hx Cardiac Problems: No Hx Cancer: No Hx Gastrointestinal Problems: Yes - Pancreatic Stent Hx Neurological Problems: No Review of Systems All Other Systems: negative except mentioned in HPI Physical Exam Vital Signs Date Time Temp Pulse Resp B/P (MAP) Pulse Ox O2 Delivery O2 Flow Rate FiO2 07/03/19 11:11 99.0 93 20 152/97 (115) 97 Room Air Sp02 EP Interpretation: reviewed, normal General Appearance: normal inspection, well appearing, no apparent distress, alert, GCS 15 Head: atraumatic ENT: normal ENT inspection, hearing grossly normal, normal voice Neck: normal inspection, full range of motion, supple, no bony tend Respiratory: normal inspection, lungs clear, normal breath sounds, no respiratory distress, no retraction, no wheezing Cardiovascular #1: regular rate, rhythm, no edema Gastrointestinal: normal inspection, normal bowel sounds, non tender, soft, no guarding, no hernia Genitourinary: no CVA tenderness Musculoskeletal: normal inspection, back normal, normal range of motion Neurologic: normal inspection, alert, responsive, speech normal Psychiatric: normal inspection, judgement/insight normal, mood/affect normal Medical Decision Making Diagnostic Impression: Primary Impression: Abdominal pain Additional Impression: Pancreatitis ER Course Patient presented for abdominal pain. Differential diagnosis included but was not limited to pancreatitis, opiate withdrawal, biliary obstruction, among others. Laboratory testing showed elevated white blood count. Dr. Mccray was contacted for GI consult. Dr. Ponce was contacted for inpatient management due to prior admission after discussion with Dr. Mccray. Abdominal ultrasound was ordered and will be followed up as inpatient . Labs Test 07/03/19 12:40 White Blood Count 12.0 K/UL (4.8-10.8) Red Blood Count 5.95 M/UL (4.70-6.10) Hemoglobin 14.8 G/DL (14.2-18.0) Hematocrit 45.6 % (42.0-52.0) Mean Corpuscular Volume 77 FL (80-99) Mean Corpuscular Hemoglobin 24.9 PG (27.0-31.0) Mean Corpuscular Hemoglobin Concent 32.5 G/DL (32.0-36.0) Red Cell Distribution Width 13.7 % (11.6-14.8) Platelet Count 336 K/UL (150-450) Mean Platelet Volume 5.3 FL (6.5-10.1) Neutrophils (%) (Auto) 67.3 % (45.0-75.0) Lymphocytes (%) (Auto) 20.6 % (20.0-45.0) Monocytes (%) (Auto) 10.7 % (1.0-10.0) Eosinophils (%) (Auto) 0.8 % (0.0-3.0) Basophils (%) (Auto) 0.6 % (0.0-2.0) Prothrombin Time 9.6 SEC (9.30-11.50) Prothromb Time International Ratio 0.9 (0.9-1.1) Activated Partial Thromboplast Time 26 SEC (23-33) Urine Color Pale yellow Urine Appearance Clear Urine pH 5 (4.5-8.0) Urine Specific [place] 1.025 (1.005-1.035) Urine Protein 2+ (NEGATIVE) Urine Glucose (UA) Negative (NEGATIVE) Urine Ketones Negative (NEGATIVE) Urine Blood 2+ (NEGATIVE) Urine Nitrite Negative (NEGATIVE) Urine Bilirubin Negative (NEGATIVE) Urine Urobilinogen Normal MG/DL (0.0-1.0) Urine Leukocyte Esterase Negative (NEGATIVE) Urine RBC 0-2 /HPF (0 - 0) Urine WBC 0 /HPF (0 - 0) Urine Squamous Epithelial Cells None /LPF (NONE/OCC) Urine Bacteria None /HPF (NONE) Sodium Level 141 MMOL/L (136-145) Potassium Level 4.4 MMOL/L (3.5-5.1) Chloride Level 107 MMOL/L (98-107) Carbon Dioxide Level 23 MMOL/L (21-32) Anion Gap 11 mmol/L (5-15) Blood Urea Nitrogen 10 mg/dL (7-18) Creatinine 1.3 MG/DL (0.55-1.30) Estimat Glomerular Filtration Rate > 60 mL/min (>60) Glucose Level 104 MG/DL (74-106) Calcium Level 8.6 MG/DL (8.5-10.1) Total Bilirubin 0.3 MG/DL (0.2-1.0) Aspartate Amino Transf (AST/SGOT) 24 U/L (15-37) Alanine Aminotransferase (ALT/SGPT) 32 U/L (12-78) Alkaline Phosphatase 52 U/L (46-116) Troponin I 0.000 ng/mL (0.000-0.056) Total Protein 7.5 G/DL (6.4-8.2) Albumin 3.5 G/DL (3.4-5.0) Globulin 4.0 g/dL Albumin/Globulin Ratio 0.9 (1.0-2.7) Lipase 176 U/L (73-393) Urine Opiates Screen Positive (NEGATIVE) Urine Barbiturates Screen Negative (NEGATIVE) Phencyclidine (PCP) Screen Negative (NEGATIVE) Urine Amphetamines Screen Negative (NEGATIVE) Urine Benzodiazepines Screen Negative (NEGATIVE) Urine Cocaine Screen Negative (NEGATIVE) Urine Marijuana (THC) Screen Negative (NEGATIVE) Last Vital Signs Date Time Temp Pulse Resp B/P (MAP) Pulse Ox O2 Delivery O2 Flow Rate FiO2 07/03/19 11:24 89 21 Room Air 07/03/19 11:24 99.0 152/90 98 Status: unchanged Disposition: ADMITTED INPATIENT Condition: Stable Referrals: NOT CHOSEN IPA/,REFERRING (PCP) Terrance Moy MD Jul 03, 2019 12:48
[2019-07-03] MEDS ORDERED: HYDROmorphone 1 MG in NS 55 ML IV ONE (13:00)
[2019-07-03 13:04] LABS: APPEARANCE,URINE CLEAR; BILIRUBIN, URINE NEGATIVE (NEGATIVE); COLOR,URINE PALE YELLOW; GLUCOSE, URINE (UA) NEGATIVE (NEGATIVE); KETONES,URINE NEGATIVE (NEGATIVE); LEUKOCYTE ESTERASE ,URINE NEGATIVE (NEGATIVE); NITRITE,URINE NEGATIVE (NEGATIVE); PH,URINE 5 (4.5-8.0); PROTEIN,URINE 2+ (NEGATIVE); UROBILINOGEN,URINE NORMAL MG/DL (0.0-1.0)
[2019-07-03 13:11] LABS: BASOPHILS % (AUTO) 0.6 % (0.0-2.0); EOSINOPHILS % (AUTO) 0.8 % (0.0-3.0); HEMATOCRIT 45.6 % (42.0-52.0); HEMOGLOBIN 14.8 G/DL (14.2-18.0); LYMPHOCYTES % (AUTO) 20.6 % (20.0-45.0); MEAN CORPUSCULAR VOLUME 77 FL (80-99); MONOCYTES % (AUTO) 10.7 % (1.0-10.0); NEUTROPHILS % (AUTO) 67.3 % (45.0-75.0); PLATELET COUNT 336 K/UL (150-450); RED BLOOD COUNT 5.95 M/UL (4.70-6.10); RED CELL DISTRIBUTION WIDTH 13.7 % (11.6-14.8)
[2019-07-03 13:13] LABS: ANION GAP 11 mmol/L (5-15); BLOOD UREA NITROGEN 10 mg/dL (7-18); CALCIUM 8.6 MG/DL (8.5-10.1); CARBON DIOXIDE 23 MMOL/L (21-32); CHLORIDE 107 MMOL/L (98-107); CREATININE 1.3 MG/DL (0.55-1.30); POTASSIUM 4.4 MMOL/L (3.5-5.1); SODIUM 141 MMOL/L (136-145)
[2019-07-03 13:15] LABS: INR 0.9 (0.9-1.1)
[2019-07-03 13:18] LABS: ALANINE AMINOTRANSFERASE 32 U/L (12-78); ALBUMIN 3.5 G/DL (3.4-5.0); ALBUMIN/GLOBULIN RATIO 0.9 (1.0-2.7); ALKALINE PHOSPHATASE 52 U/L (46-116); ASPARTATE AMINO TRANSFERASE 24 U/L (15-37); BILIRUBIN,TOTAL 0.3 MG/DL (0.2-1.0)
[2019-07-03] MEDS ORDERED: Omnipaque-300 100ml vial INJ PRN (14:30)
--- NOTE | 2019-07-03 14:52 | NUR ---
ED Nurse Note: Low from imaging came to pick pt up and pt refused CT as stating "I have had so many CT in my life. you will give cancer. I want MRI, no CT. it is too much radiation." ERMD made aware.
--- NOTE | 2019-07-03 15:00 | NUR ---
ED Nurse Note: ERMD notified regarding patient request for pain medication.
--- NOTE | 2019-07-03 15:09 | NUR ---
ED Nurse Note: US at bedside.
--- NOTE | 2019-07-03 15:11 | NUR ---
ED Nurse Note: pt refused US as stating "I need pain medication first. you will press my belly and it will hurt. I won't get US unless i get pain medicine." ERMD made aware.
--- NOTE | 2019-07-03 15:20 | NUR ---
ED Nurse Note: Dr. Hernandez at bedside.
[2019-07-03] MEDS ORDERED: HYDROmorphone 1mg/ml Carpuject IVP ONE (15:30)
--- NOTE | 2019-07-03 15:33 | NUR ---
ED Nurse Note: US initiated at bedside.
--- NOTE | 2019-07-03 16:32 | Diagnostic Imaging Report ---
Indication: Abdominal pain Technique: Grayscale and duplex Doppler imaging of the abdomen performed. Comparison: None Findings: The liver is unremarkable. Doppler interrogation of the main portal vein shows patency with hepatopedal, monophasic flow. There is an echogenic structure in the CBD. CBD measures between 4 and 5 mm. There is no biliary ductal dilatation identified. Gallbladder is absent. There demonstrated part of the pancreas, aorta and IVC show no definite abnormalities. Both kidneys appear unremarkable. There is no hydronephrosis. IMPRESSION: No acute findings Post cholecystectomy Query CBD stent
--- NOTE | 2019-07-03 17:05 | NUR ---
ED Nurse Note: Report given to JASON Lyman.
--- NOTE | 2019-07-03 17:08 | NUR ---
ED Nurse Note: pt left unit with 1 RN in stable condition.
--- NOTE | 2019-07-03 17:55 | NUR ---
NURSE NOTES: Received report from JASON Lyman. Patient in bed resting, no active s/s cardiac, respiratory distress noticed at this time. Patient AOx4, anxious, stated n/v for 3 days prior to coming to the hospital, stated got stent placement 9 days prior to admission. No N/V at this time. IV on left hand 22G, asymptomatic, patent, intact. VS at this time T 97.8, BP 133/74, HR 69, O2 sat 94%, RR 16. Bed in lowest position, side rails upx2, call light within reach. Will continue to monitor.
--- NOTE | 2019-07-03 18:05 | NUR ---
NURSE NOTES: Paged Dr. Ponce for admission order. Awaiting for callback. Will continue to monitor.
--- NOTE | 2019-07-03 18:28 | NUR ---
NURSE NOTES: Admission order received, entered, carried out per Dr. Ponce. Dr. Ponce made aware patient requesting IV Dilaudid, Benadryl, Zofran. No new order given at this time. Will continue to monitor.
--- NOTE | 2019-07-03 19:19 | NUR ---
NURSE NOTES: Per Dr. Ponce, get order regard pain med from Dr. Leal. Per Dr. Ponce, PO Benadryl 25mg PO q4h. Order noted, entered, carried out. Will continue to monitor.
--- NOTE | 2019-07-03 19:45 | NUR ---
NURSE NOTES: Paged Dr. Leal for pain med. Awaiting for callback. Will continue to monitor.
[2019-07-03 20:00] VITALS: BP 119/74
--- NOTE | 2019-07-03 20:01 | NUR ---
HAND-OFF: Report given to JASON Marc.
--- NOTE | 2019-07-03 20:48 | NUR ---
NURSE NOTES: Received report from JASON Broussard. Patient is in bed resting, no active s/s cardiac, respiratory distress noticed at this time. Patient AOx4, anxious for pain medicine. paged MD for pain meds and awaiting response. IV on left hand 22G, asymptomatic, patent, intact. Bed in lowest position, locked, side rails upx2, call light within reach. Will continue to monitor.
[2019-07-03] MEDS: HYDROmorphone 1mg/ml Carpuject IVP PRN (22:46)
[2019-07-04] MEDS: HYDROmorphone 1mg/ml Carpuject IVP PRN ×6 (03:10→23:19)
--- NOTE | 2019-07-04 07:31 | NUR ---
HAND-OFF: Report given to JASON Mccoy.
--- NOTE | 2019-07-04 07:53 | NUR ---
NURSE NOTES: Pt resting in bed, pt awake, A/O x 4, complained of abd pain, 3/10 after IV pain med given, pts NPO, IVF infusing, voiding, no last BM 07/02/2019, no diarrhea, pt complained of itching groin area, Benadryl given, no rash, redness. call light within reach, bed alarm on, bed in low position, fall precaution maintained. will continue to monitor.
[2019-07-04 08:14] VITALS: BP 139/83
--- NOTE | 2019-07-04 09:22 | Consultation ---
History of Present Illness General Date patient seen: Jul 04, 2019 Chief Complaint: Present Illness Allergies: Coded Allergies: MORPHINE (Verified Allergy, Mild, itching, 11/20/18) HALOPERIDOL (Verified Allergy, Unknown, 11/20/18) KETOROLAC (Verified Allergy, Unknown, 01/01/18) PROCHLORPERAZINE (Verified Allergy, Unknown, 11/20/18) PROMETHAZINE (Verified Allergy, Unknown, 11/20/18) METOCLOPRAMIDE (Verified Adverse Reaction, Mild, 12/15/17) anxiety Medication History Scheduled No Known Medications* (NKM - No Known Medications*), 0 ., (Reported) Patient History Healthcare decision maker N Resuscitation status Full Code Advanced Directive on File Physical Exam Last 24 Hour Vital Signs Date Time Temp Pulse Resp B/P (MAP) Pulse Ox O2 Delivery O2 Flow Rate FiO2 07/04/19 08:14 97.7 66 18 139/83 (101) 99 07/04/19 07:35 97.7 07/03/19 21:00 Room Air 07/03/19 20:00 97.5 72 17 119/74 (89) 98 07/03/19 17:57 Room Air 07/03/19 17:08 98.8 79 16 140/86 98 Room Air 07/03/19 15:59 99.0 07/03/19 13:30 99.0 07/03/19 11:24 89 21 Room Air 07/03/19 11:24 99.0 89 21 152/90 98 Room Air 07/03/19 11:11 99.0 93 20 152/97 (115) 97 Room Air Intake and Output 07/03/19 07/04/19 19:00 07:00 Intake Total 56 ml Balance 56 ml Intake Oral 0 ml IV Total 56 ml # Bowel Movements 1 Laboratory Tests Test 07/03/19 12:40 White Blood Count 12.0 K/UL (4.8-10.8) H Red Blood Count 5.95 M/UL (4.70-6.10) Hemoglobin 14.8 G/DL (14.2-18.0) Hematocrit 45.6 % (42.0-52.0) Mean Corpuscular Volume 77 FL (80-99) L Mean Corpuscular Hemoglobin 24.9 PG (27.0-31.0) L Mean Corpuscular Hemoglobin Concent 32.5 G/DL (32.0-36.0) Red Cell Distribution Width 13.7 % (11.6-14.8) Platelet Count 336 K/UL (150-450) Mean Platelet Volume 5.3 FL (6.5-10.1) L Neutrophils (%) (Auto) 67.3 % (45.0-75.0) Lymphocytes (%) (Auto) 20.6 % (20.0-45.0) Monocytes (%) (Auto) 10.7 % (1.0-10.0) H Eosinophils (%) (Auto) 0.8 % (0.0-3.0) Basophils (%) (Auto) 0.6 % (0.0-2.0) Prothrombin Time 9.6 SEC (9.30-11.50) Prothromb Time International Ratio 0.9 (0.9-1.1) Activated Partial Thromboplast Time 26 SEC (23-33) Urine Color Pale yellow Urine Appearance Clear Urine pH 5 (4.5-8.0) Urine Specific [place] 1.025 (1.005-1.035) Urine Protein 2+ (NEGATIVE) H Urine Glucose (UA) Negative (NEGATIVE) Urine Ketones Negative (NEGATIVE) Urine Blood 2+ (NEGATIVE) H Urine Nitrite Negative (NEGATIVE) Urine Bilirubin Negative (NEGATIVE) Urine Urobilinogen Normal MG/DL (0.0-1.0) Urine Leukocyte Esterase Negative (NEGATIVE) Urine RBC 0-2 /HPF (0 - 0) H Urine WBC 0 /HPF (0 - 0) Urine Squamous Epithelial Cells None /LPF (NONE/OCC) Urine Bacteria None /HPF (NONE) Sodium Level 141 MMOL/L (136-145) Potassium Level 4.4 MMOL/L (3.5-5.1) Chloride Level 107 MMOL/L (98-107) Carbon Dioxide Level 23 MMOL/L (21-32) Anion Gap 11 mmol/L (5-15) Blood Urea Nitrogen 10 mg/dL (7-18) Creatinine 1.3 MG/DL (0.55-1.30) Estimat Glomerular Filtration Rate > 60 mL/min (>60) Glucose Level 104 MG/DL (74-106) Calcium Level 8.6 MG/DL (8.5-10.1) Total Bilirubin 0.3 MG/DL (0.2-1.0) Aspartate Amino Transf (AST/SGOT) 24 U/L (15-37) Alanine Aminotransferase (ALT/SGPT) 32 U/L (12-78) Alkaline Phosphatase 52 U/L (46-116) Troponin I 0.000 ng/mL (0.000-0.056) Total Protein 7.5 G/DL (6.4-8.2) Albumin 3.5 G/DL (3.4-5.0) Globulin 4.0 g/dL Albumin/Globulin Ratio 0.9 (1.0-2.7) L Lipase 176 U/L (73-393) Urine Opiates Screen Positive (NEGATIVE) H Urine Barbiturates Screen Negative (NEGATIVE) Phencyclidine (PCP) Screen Negative (NEGATIVE) Urine Amphetamines Screen Negative (NEGATIVE) Urine Benzodiazepines Screen Negative (NEGATIVE) Urine Cocaine Screen Negative (NEGATIVE) Urine Marijuana (THC) Screen Negative (NEGATIVE) Height (Feet): 5 Height (Inches): 8.00 Weight (Pounds): 210 Medications Current Medications Medications (Trade) Dose Ordered Sig/Jeffrey Route PRN Reason Start Time Stop Time Status Last Admin Dose Admin Acetaminophen (Tylenol) 650 mg Q4H PRN ORAL Mild Pain/Temp > 100.5 07/03/19 18:30 08/02/19 18:29 Diphenhydramine HCl (Benadryl) 25 mg Q4H PRN ORAL Itching 07/03/19 19:30 08/02/19 19:29 07/04/19 06:14 Hydromorphone HCl (Dilaudid) 1 mg Q4H PRN IVP For Pain 07/03/19 22:30 07/10/19 22:29 07/04/19 07:05 Iohexol (OMNIPAQUE-300 100ml) 100 ml NOW PRN INJ Radiology Procedure 07/03/19 14:30 07/05/19 14:30 Sodium Chloride 1,000 ml @ 70 mls/hr [id number] IV 07/03/19 18:45 08/02/19 18:44 07/03/19 18:44 Assessment/Plan Assessment/Plan: (1) Abdominal pain (2) Pancreas Divisum seen dictated Sincere García Jul 04, 2019 09:22
[2019-07-04 09:51] LABS: BASOPHILS % (AUTO) 0.5 % (0.0-2.0); EOSINOPHILS % (AUTO) 0.8 % (0.0-3.0); HEMATOCRIT 46.5 % (42.0-52.0); HEMOGLOBIN 14.9 G/DL (14.2-18.0); LYMPHOCYTES % (AUTO) 18.6 % (20.0-45.0); MEAN CORPUSCULAR VOLUME 77 FL (80-99); MONOCYTES % (AUTO) 8.1 % (1.0-10.0); PLATELET COUNT 311 K/UL (150-450); RED BLOOD COUNT 6.06 M/UL (4.70-6.10); RED CELL DISTRIBUTION WIDTH 13.8 % (11.6-14.8); WHITE BLOOD COUNT 14.1 K/UL (4.8-10.8)
[2019-07-04 10:29] LABS: ALANINE AMINOTRANSFERASE 29 U/L (12-78); ALBUMIN 3.3 G/DL (3.4-5.0); ALBUMIN/GLOBULIN RATIO 0.9 (1.0-2.7); ALKALINE PHOSPHATASE 46 U/L (46-116); ANION GAP 5 mmol/L (5-15); ASPARTATE AMINO TRANSFERASE 20 U/L (15-37); BILIRUBIN,TOTAL 0.5 MG/DL (0.2-1.0); BLOOD UREA NITROGEN 13 mg/dL (7-18); CALCIUM 8.4 MG/DL (8.5-10.1); CARBON DIOXIDE 28 MMOL/L (21-32); CHLORIDE 105 MMOL/L (98-107); SODIUM 138 MMOL/L (136-145)
--- NOTE | 2019-07-04 10:57 | General Progress Note ---
Assessment/Plan Assessment/Plan: Assessment/Plan Problems: (1) Gastritis ICD Codes: K29.70 - Gastritis, unspecified, without bleeding SNOMED: 5592538 (2) Pancreatitis ICD Codes: K85.90 - Acute pancreatitis without necrosis or infection, unspecified SNOMED: 06194932 (3) Abdominal pain ICD Codes: R10.9 - Unspecified abdominal pain SNOMED: 16371293 Qualifiers: Qualified Codes: R10.13 - Epigastric pain (4) Pancreatic divisum ICD Codes: Q45.3 - Other congenital malformations of pancreas and pancreatic duct SNOMED: 87914752, 970961971 (5) Narcotic dependence, episodic use ICD Codes: F11.20 - Opioid dependence, uncomplicated Assessment/Plan History of ERCP with Pancreatic divisum with stent replacement in the minor ampulla. History of cholecystectomy Pain management Zofran as needed PPI Follow labs per patient has had recent ERCP and stent placement 9 days ago ordered KUB start clears consider ERCP on Sunday Subjective ROS Limited/Unobtainable: Yes Allergies: Coded Allergies: MORPHINE (Verified Allergy, Mild, itching, 11/20/18) HALOPERIDOL (Verified Allergy, Unknown, 11/20/18) KETOROLAC (Verified Allergy, Unknown, 01/01/18) PROCHLORPERAZINE (Verified Allergy, Unknown, 11/20/18) PROMETHAZINE (Verified Allergy, Unknown, 11/20/18) METOCLOPRAMIDE (Verified Adverse Reaction, Mild, 12/15/17) anxiety Objective Last 24 Hour Vital Signs Date Time Temp Pulse Resp B/P (MAP) Pulse Ox O2 Delivery O2 Flow Rate FiO2 07/04/19 09:00 Room Air 07/04/19 08:14 97.7 66 18 139/83 (101) 99 07/04/19 07:35 97.7 07/03/19 21:00 Room Air 07/03/19 20:00 97.5 72 17 119/74 (89) 98 07/03/19 17:57 Room Air 07/03/19 17:08 98.8 79 16 140/86 98 Room Air 07/03/19 15:59 99.0 07/03/19 13:30 99.0 07/03/19 11:24 89 21 Room Air 07/03/19 11:24 99.0 89 21 152/90 98 Room Air 07/03/19 11:11 99.0 93 20 152/97 (115) 97 Room Air Intake and Output 07/03/19 07/04/19 19:00 07:00 Intake Total 56 ml Balance 56 ml Intake Oral 0 ml IV Total 56 ml # Bowel Movements 1 Laboratory Tests 07/03/19 12:40: White Blood Count 12.0H, Red Blood Count 5.95, Hemoglobin 14.8, Hematocrit 45.6 , Mean Corpuscular Volume 77L, Mean Corpuscular Hemoglobin 24.9L, Mean Corpuscular Hemoglobin Concent 32.5, Red Cell Distribution Width 13.7, Platelet Count 336, Mean Platelet Volume 5.3L, Neutrophils (%) (Auto) 67.3, Lymphocytes ( %) (Auto) 20.6, Monocytes (%) (Auto) 10.7H, Eosinophils (%) (Auto) 0.8, Basophils (%) (Auto) 0.6, Prothrombin Time 9.6, Prothromb Time International Ratio 0.9, Activated Partial Thromboplast Time 26, Urine Color Pale yellow, Urine Appearance Clear, Urine pH 5, Urine Specific [place] 1.025, Urine Protein 2+H, Urine Glucose (UA) Negative, Urine Ketones Negative, Urine Blood 2+H, Urine Nitrite Negative, Urine Bilirubin Negative, Urine Urobilinogen Normal, Urine Leukocyte Esterase Negative, Urine RBC 0-2H, Urine WBC 0, Urine Squamous Epithelial Cells None, Urine Bacteria None, Sodium Level 141, Potassium Level 4.4, Chloride Level 107, Carbon Dioxide Level 23, Anion Gap 11, Blood Urea Nitrogen 10, Creatinine 1.3, Estimat Glomerular Filtration Rate > 60, Glucose Level 104, Calcium Level 8.6, Total Bilirubin 0.3, Aspartate Amino Transf (AST/ SGOT) 24, Alanine Aminotransferase (ALT/SGPT) 32, Alkaline Phosphatase 52, Troponin I 0.000, Total Protein 7.5, Albumin 3.5, Globulin 4.0, Albumin/ Globulin Ratio 0.9L, Lipase 176, Urine Opiates Screen PositiveH, Urine Barbiturates Screen Negative, Phencyclidine (PCP) Screen Negative, Urine Amphetamines Screen Negative, Urine Benzodiazepines Screen Negative, Urine Cocaine Screen Negative, Urine Marijuana (THC) Screen Negative 07/04/19 09:15: White Blood Count 14.1H, Red Blood Count 6.06, Hemoglobin 14.9, Hematocrit 46.5 , Mean Corpuscular Volume 77L, Mean Corpuscular Hemoglobin 24.7L, Mean Corpuscular Hemoglobin Concent 32.1, Red Cell Distribution Width 13.8, Platelet Count 311, Mean Platelet Volume 5.2L, Neutrophils (%) (Auto) 72.0, Lymphocytes ( %) (Auto) 18.6L, Monocytes (%) (Auto) 8.1, Eosinophils (%) (Auto) 0.8, Basophils (%) (Auto) 0.5, Sodium Level 138, Potassium Level 4.0, Chloride Level 105, Carbon Dioxide Level 28, Anion Gap 5, Blood Urea Nitrogen 13, Creatinine 1.0, Estimat Glomerular Filtration Rate > 60, Glucose Level 85, Calcium Level 8.4L, Total Bilirubin 0.5, Aspartate Amino Transf (AST/SGOT) 20, Alanine Aminotransferase (ALT/SGPT) 29, Alkaline Phosphatase 46, Total Protein 7.0, Albumin 3.3L, Globulin 3.7, Albumin/Globulin Ratio 0.9L Height (Feet): 5 Height (Inches): 8.00 Weight (Pounds): 210 General Appearance: alert EENT: normal ENT inspection Neck: supple Cardiovascular: normal rate Respiratory/Chest: chest wall non-tender, lungs clear Abdomen: soft, hypoactive bowel sounds, tender Extremities: non-tender Saurabh Mccray MD Jul 04, 2019 10:57
[2019-07-04] MEDS ORDERED: DiphenhydrAMINE 50mg/ml Inj IVP PRN (11:30)
[2019-07-04] MEDS: DiphenhydrAMINE 50mg/ml Inj IVP PRN ×2 (11:46→18:18)
[2019-07-04 12:32] VITALS: BP 129/78
--- NOTE | 2019-07-04 13:50 | NUR ---
RADIOLOGY DEPT., SECOND ATTEMPT TO IMAGE PATIENT. PT REFUSED EXAM, ASSIGNED NURSE NOTIFIED.-VANNESSA
--- NOTE | 2019-07-04 15:15 | Consultation ---
DATE OF CONSULTATION: 07/04/2019 PAIN MANAGEMENT CONSULTATION CONSULTING PHYSICIAN: Mary Leal M.D. REFERRING PHYSICIAN: Tamera Ponce M.D. PHYSICIAN DIRECTOR PRODUCT SAFETY: Fany Melchor CHIEF COMPLAINT: Abdominal pain. HISTORY OF PRESENT ILLNESS: This is a 34-year-old male, who has been seen on the Med/Surg floor of [facility] for comprehensive pain management consultation. The patient is a known patient from prior admissions due to abdominal pain, history of pancreas divisum as well as chronic pancreatitis complaining of severe abdominal pain. Claims that he had recently done an ERCP and stent replacement, which has caused him to have increased pain where he had it performed was in [place] about 9 days ago and recently started to have severe abdominal pain and admitted under the diagnosis of pancreatitis; however, at this time labs are normal and is waiting to be seen by the data manager. Dr. Leal has started the patient on Dilaudid 1 mg IV every 4 hours as needed for pain, which the patient has taken 3 doses of in the last 24 hours. At this time, he is comfortable in the bed. Walking around. I explained the patient that we will continue the current medication regimen until data manager is able to assess him for any further testing. REVIEW OF SYSTEMS: Denies rash, fever, chills, sweating, dizziness, drowsiness, sore throat, change in hearing or weight. No shortness of breath or chest pain. No nausea, vomiting. No bowel or bladder incontinence. No dysuria. He is complaining of abdominal pain. PHYSICAL EXAMINATION: GENERAL: Alert, awake, and oriented. VITAL SIGNS: Blood pressure 139/82, heart rate 66, oxygen saturation 99%, respirations 18, temperature is 97.9 degrees Fahrenheit. LUNGS: Clear bilaterally. HEART: S1, S2 regular. ABDOMEN: Tenderness to palpation. EXTREMITIES: No cyanosis, no clubbing. NEUROLOGICAL: No focal deficit. ASSESSMENT AND PLAN: This is a 34-year-old male with abdominal pain, pancreas divisum. The patient will be continued on Dilaudid 1 mg IV every 4 hours as needed for severe pain. The patient was discussed with Dr. Leal and he concurred. We will follow up with the patient. Thank you very much for the courtesy of this consultation. Mary Leal M.D. DONALD Melchor DR: DEION JOB#: [id number] CC:
--- NOTE | 2019-07-04 15:37 | NUR ---
CUSTOMER SERVICE CORRESPONDENCE CLERKFIRMWARE ARCHITECT 34 YO MALE FROM HOME TO ER CC ABDOMINAL PAIN, NAUSEA/VOMITING/DIARRHEA S/P STENT PLACEMENT SI: PANCREATITIS T. 99.0 HR 93 RR 20 B/P 152/97 WBC 12.0 URINE TOX+ OPIATES ABD US+ NO ACUTE PROCESS IS: PEPCID IV ZOFRAN IV DILAUDID IV ADMITTED TO MED/SURG MED/SURG STATUS
--- NOTE | 2019-07-04 18:06 | NUR ---
NURSE NOTES: pt refused xray of abd twice. notified
[2019-07-04] MEDS ORDERED: ZOFRAN4 M3 ORAL (18:16)
--- NOTE | 2019-07-04 19:28 | NUR ---
HAND-OFF: Report given to Magdalena GOMEZ.
--- NOTE | 2019-07-04 19:35 | NUR ---
NURSE NOTES: Received patient in bed, awake, alert, oriented, able to make his needs known, IV site is clean dry and intact, no acute distress noted. Call light is within reach, bed is in low position, locked and alarm is on, will continue to monitor for comfort and safety.
--- NOTE | 2019-07-04 21:15 | Consultation ---
DATE OF CONSULTATION: 07/04/2019 INFECTIOUS DISEASE CONSULTATION CONSULTING PHYSICIAN: Pedro Luis Vines M.D. PRIMARY ATTENDING PHYSICIAN: Tamera Ponce M.D. REASON FOR CONSULTATION: Leukocytosis and pancreatitis. HISTORY OF PRESENT ILLNESS: This is a 34-year-old male admitted yesterday from home complaining of abdominal pain, nausea, vomiting, and diarrhea. The patient has history of prior admission to [facility] in March 2019. He has pancreatitis because of pancreatic divisum and had a stent placement. He is supposed to have pancreatitis enzyme at home. He is also on Zofran. He is not compliant with pancreatic enzyme as he states that they cause him to have rash. PAST MEDICAL HISTORY: Pancreatic divisum, narcotic dependence, history of cholecystectomy, ERCP, and gastritis. ALLERGIES: Allergic to haloperidol, ketorolac, metoclopramide, morphine, promethazine. SOCIAL HISTORY: Denies alcohol, drug abuse, or smoking. He is single. REVIEW OF SYSTEMS: No fever. No chills. No coughing. Currently, he has no nausea and no vomiting. watery diarrhea. No problem passing urine. He has upper abdominal pain. PHYSICAL EXAMINATION: VITAL SIGNS: Temperature 98.1, pulse 61, and blood pressure 129/78. GENERAL APPEARANCE: Well developed. HEAD AND NECK: Uriah conjunctivae. HEART: Normal rate. LUNGS: Clear. ABDOMEN: Soft. Mildly tender in the epigastric area. No rebound tenderness. EXTREMITIES: No edema. NEUROLOGIC: He is awake, alert, oriented, and ambulatory. LABORATORY AND DIAGNOSTIC DATA: WBC 14.1 coming up from 12 at the time of admission, hemoglobin 14.9, hematocrit 46.5, and platelet 311,000. Sodium 138, potassium 4, chloride 105, bicarbonate 28, BUN 13, and creatinine 1. Urine toxicology was positive for opiates. UA was negative. Abdominal ultrasound showed previous cholecystectomy and common bile duct stent. IMPRESSION: Leukocytosis, may have chronic pancreatitis, has gastritis, diarrhea, pancreatic divisum, and narcotic dependence. RECOMMENDATION: Observe off antibiotic. We will follow up CBC. We will follow up the lipase level. The first lipase level was 176. At the end of my exam, I thank Dr. Ponce for involving me in the care of this patient. Pedro Luis Vines M.D. DR: Daiana JOB#: [id number] CC: MARCUS
--- NOTE | 2019-07-04 23:45 | History and Physical Report ---
DATE OF ADMISSION: 07/03/2019 HISTORY OF PRESENT ILLNESS: The patient admitted for pancreatitis, abdominal pain, status post biliary stent in the past, complaining of epigastric pain and vomiting, admitted for pancreatitis, going on for couple of days. Denies rectal bleeding. Denies hematemesis. Denies chills. PAST MEDICAL HISTORY: History of pancreatitis, gastritis. PAST SURGICAL HISTORY: Biliary stent. ALLERGIES: Includes haldol, ketorolac, metoclopramide, morphine, prochlorperazine, and promethazine. FAMILY HISTORY: Noncontributory. SOCIAL HISTORY: He has history of smoking. Denies history of alcohol abuse. REVIEW OF SYSTEMS: HEENT: Denies headaches. RESPIRATORY: Denies shortness of breath. Denies cough. CARDIOVASCULAR: Denies chest pain. GI: Reports abdominal pain and nausea as well as some vomiting. Denies diarrhea. Does have chronic pain. CENTRAL NERVOUS SYSTEM: Denies changes in vision or speech pattern. PHYSICAL EXAMINATION: VITAL SIGNS: Temperature 97.7, pulse 66, blood pressure 139/83. HEENT: PERRLA. NECK: Supple. No lymphadenopathy. CHEST: Clear to auscultation. CARDIOVASCULAR: Regular rate and rhythm ABDOMEN: Epigastric tenderness. No rebound. Abdomen is soft. EXTREMITIES: No edema. Moves all four extremities. Sensory intact to light touch. Reflexes equal on both sides. Moves all four extremities. LABORATORY AND DIAGNOSTIC DATA: WBC of 12, hemoglobin 14.8, and platelets of 336. Sodium 141, potassium 4.4, BUN of 10, creatinine 1.3, glucose of 104. ASSESSMENT/PLAN: Pancreatitis, abdominal pain, status post biliary stent, status post vomiting. I have asked Dr. Leal, Dr. Mccray, and Dr. Pedro Luis Vines to see the patient for the above-mentioned diagnoses and treatment. Tamera Ponce M.D. DR: Jessica JOB#: [id number] CC:
[2019-07-05] MEDS: HYDROmorphone 1mg/ml Carpuject IVP PRN ×6 (03:22→23:56)
[2019-07-05] MEDS: DiphenhydrAMINE 50mg/ml Inj IVP PRN ×4 (03:22→21:38)
--- NOTE | 2019-07-05 07:22 | General Progress Note ---
Assessment/Plan Assessment/Plan: Assessment/Plan Problems: (1) Gastritis ICD Codes: K29.70 - Gastritis, unspecified, without bleeding SNOMED: 9267162 (2) Pancreatitis ICD Codes: K85.90 - Acute pancreatitis without necrosis or infection, unspecified SNOMED: 86383179 (3) Abdominal pain ICD Codes: R10.9 - Unspecified abdominal pain SNOMED: 91778313 Qualifiers: Qualified Codes: R10.13 - Epigastric pain (4) Pancreatic divisum ICD Codes: Q45.3 - Other congenital malformations of pancreas and pancreatic duct SNOMED: 50520273, 515465872 (5) Narcotic dependence, episodic use ICD Codes: F11.20 - Opioid dependence, uncomplicated Assessment/Plan History of ERCP with Pancreatic divisum with stent replacement in the minor ampulla. History of cholecystectomy Pain management Zofran as needed PPI Follow labs per patient has had recent ERCP and stent placement 9 days ago ordered KUB advance diet consider ERCP on Sunday Subjective ROS Limited/Unobtainable: Yes Allergies: Coded Allergies: MORPHINE (Verified Allergy, Mild, itching, 11/20/18) HALOPERIDOL (Verified Allergy, Unknown, 11/20/18) KETOROLAC (Verified Allergy, Unknown, 01/01/18) PROCHLORPERAZINE (Verified Allergy, Unknown, 11/20/18) PROMETHAZINE (Verified Allergy, Unknown, 11/20/18) METOCLOPRAMIDE (Verified Adverse Reaction, Mild, 12/15/17) anxiety Objective Last 24 Hour Vital Signs Date Time Temp Pulse Resp B/P (MAP) Pulse Ox O2 Delivery O2 Flow Rate FiO2 07/05/19 03:59 98.1 07/04/19 21:04 Room Air 07/04/19 12:32 98.1 61 17 129/78 (95) 99 07/04/19 09:00 Room Air 07/04/19 08:14 97.7 66 18 139/83 (101) 99 Intake and Output 07/04/19 07/05/19 18:59 06:59 Intake Total 70 ml Balance 70 ml IV Total 70 ml Laboratory Tests 07/04/19 09:15: White Blood Count 14.1H, Red Blood Count 6.06, Hemoglobin 14.9, Hematocrit 46.5 , Mean Corpuscular Volume 77L, Mean Corpuscular Hemoglobin 24.7L, Mean Corpuscular Hemoglobin Concent 32.1, Red Cell Distribution Width 13.8, Platelet Count 311, Mean Platelet Volume 5.2L, Neutrophils (%) (Auto) 72.0, Lymphocytes ( %) (Auto) 18.6L, Monocytes (%) (Auto) 8.1, Eosinophils (%) (Auto) 0.8, Basophils (%) (Auto) 0.5, Sodium Level 138, Potassium Level 4.0, Chloride Level 105, Carbon Dioxide Level 28, Anion Gap 5, Blood Urea Nitrogen 13, Creatinine 1.0, Estimat Glomerular Filtration Rate > 60, Glucose Level 85, Calcium Level 8.4L, Total Bilirubin 0.5, Aspartate Amino Transf (AST/SGOT) 20, Alanine Aminotransferase (ALT/SGPT) 29, Alkaline Phosphatase 46, Total Protein 7.0, Albumin 3.3L, Globulin 3.7, Albumin/Globulin Ratio 0.9L Height (Feet): 5 Height (Inches): 8.00 Weight (Pounds): 210 General Appearance: alert EENT: normal ENT inspection Neck: supple Cardiovascular: normal rate Respiratory/Chest: lungs clear Abdomen: hypoactive bowel sounds Extremities: non-tender Saurabh Mccray MD Jul 05, 2019 07:22
--- NOTE | 2019-07-05 07:27 | NUR ---
HAND-OFF: Report given to Phillip GOMEZ.
--- NOTE | 2019-07-05 07:34 | NUR ---
NURSE NOTES: Received pt from JASON Nichols, pt was resting but c/o abd pain, no acute distress, will adm pain med, call light w/in reach.
[2019-07-05 08:00] VITALS: BP 143/87
[2019-07-05 10:46] LABS: BASOPHILS % (AUTO) 0.4 % (0.0-2.0); EOSINOPHILS % (AUTO) 1.8 % (0.0-3.0); HEMATOCRIT 45.3 % (42.0-52.0); HEMOGLOBIN 14.4 G/DL (14.2-18.0); LYMPHOCYTES % (AUTO) 23.2 % (20.0-45.0); MEAN CORPUSCULAR VOLUME 77 FL (80-99); MONOCYTES % (AUTO) 10.9 % (1.0-10.0); NEUTROPHILS % (AUTO) 63.7 % (45.0-75.0); PLATELET COUNT 319 K/UL (150-450); RED CELL DISTRIBUTION WIDTH 13.8 % (11.6-14.8); WHITE BLOOD COUNT 8.8 K/UL (4.8-10.8)
[2019-07-05 10:58] LABS: ALANINE AMINOTRANSFERASE 25 U/L (12-78); ALBUMIN/GLOBULIN RATIO 0.8 (1.0-2.7); ALKALINE PHOSPHATASE 48 U/L (46-116); AMYLASE 45 U/L (25-115); ANION GAP 7 mmol/L (5-15); ASPARTATE AMINO TRANSFERASE 17 U/L (15-37); BILIRUBIN,TOTAL 0.3 MG/DL (0.2-1.0); BLOOD UREA NITROGEN 9 mg/dL (7-18); CALCIUM 8.4 MG/DL (8.5-10.1); CARBON DIOXIDE 29 MMOL/L (21-32); CHLORIDE 106 MMOL/L (98-107); CREATININE 0.9 MG/DL (0.55-1.30); POTASSIUM 3.9 MMOL/L (3.5-5.1); SODIUM 142 MMOL/L (136-145)
--- NOTE | 2019-07-05 15:08 | Diagnostic Imaging Report ---
Indication: Abdominal pain Technique: Supine view of the abdomen Comparison: 03/25/2019 Findings: The stomach is mildly distended with gas. The bowel gas pattern is otherwise unremarkable. There are cholecystectomy clips. No masses or unusual calcifications. No definite significant interim change Impression: No definite acute process. Findings as above
--- NOTE | 2019-07-05 16:38 | NUR ---
FOREIGN LANGUAGE INTERPRETER: REVIEW SI: PANCREATITIS T 97.6 HR 72 RR 18 BP 143/87 SAT 98% ROOM AIR CALCIUM 8.4 ALBUMIN / GLOBULIN RATION 0.8 IS: 1/2 NS IVF @ 70ML/HR DILAUDID IV Q4HR PRN ADVANCE DIET FROM CLEAR LIQUID TO REGULAR MED/SURG STATUS DCP: PATIENT IS FROM HOME
--- NOTE | 2019-07-05 19:45 | NUR ---
NURSE NOTES: Received report from JASON Fisher. Patient in stable condition, walking in hallway.
--- NOTE | 2019-07-05 19:52 | NUR ---
HAND-OFF: Report given to JASON Campbell. pt is stable condition.
[2019-07-05 20:00] VITALS: BP 132/88
--- NOTE | 2019-07-05 20:00 | NUR ---
NURSE NOTES: c/o pain /10, given pain med IVP as ordered. No nausea, no vomiting. Patient is alert, oriented. Bed in low position, locked, side rails up x2, call light within reach. Encouraged to call as needed. Will continue to monitor.
--- NOTE | 2019-07-05 22:46 | General Progress Note ---
Assessment/Plan Problem List: (1) Gastritis ICD Codes: K29.70 - Gastritis, unspecified, without bleeding SNOMED: 4477277 (2) Dehydration ICD Codes: E86.0 - Dehydration SNOMED: 84188104 (3) Pancreatitis ICD Codes: K85.90 - Acute pancreatitis without necrosis or infection, unspecified SNOMED: 12327086 (4) Abdominal pain ICD Codes: R10.9 - Unspecified abdominal pain SNOMED: 09699071 Status: progressing Assessment/Plan: pancreatitis abdominal pain diet per gi reviewd chart and labs Subjective ROS Limited/Unobtainable: Yes Allergies: Coded Allergies: MORPHINE (Verified Allergy, Mild, itching, 11/20/18) HALOPERIDOL (Verified Allergy, Unknown, 11/20/18) KETOROLAC (Verified Allergy, Unknown, 01/01/18) PROCHLORPERAZINE (Verified Allergy, Unknown, 11/20/18) PROMETHAZINE (Verified Allergy, Unknown, 11/20/18) METOCLOPRAMIDE (Verified Adverse Reaction, Mild, 12/15/17) anxiety Objective Last 24 Hour Vital Signs Date Time Temp Pulse Resp B/P (MAP) Pulse Ox O2 Delivery O2 Flow Rate FiO2 07/05/19 08:00 97.6 72 18 143/87 (105) 98 07/05/19 07:50 Room Air 07/05/19 03:59 98.1 Intake and Output 07/04/19 07/05/19 19:00 07:00 Intake Total 70 ml Balance 70 ml IV Total 70 ml Laboratory Tests 07/05/19 10:20: White Blood Count 8.8, Red Blood Count 5.90, Hemoglobin 14.4, Hematocrit 45.3, Mean Corpuscular Volume 77L, Mean Corpuscular Hemoglobin 24.4L, Mean Corpuscular Hemoglobin Concent 31.8L, Red Cell Distribution Width 13.8, Platelet Count 319, Mean Platelet Volume 5.7L, Neutrophils (%) (Auto) 63.7, Lymphocytes (%) (Auto) 23.2, Monocytes (%) (Auto) 10.9H, Eosinophils (%) (Auto) 1.8, Basophils (%) (Auto) 0.4, Sodium Level 142, Potassium Level 3.9, Chloride Level 106, Carbon Dioxide Level 29, Anion Gap 7, Blood Urea Nitrogen 9, Creatinine 0.9, Estimat Glomerular Filtration Rate > 60, Glucose Level 97, Calcium Level 8.4L, Total Bilirubin 0.3, Aspartate Amino Transf (AST/SGOT) 17, Alanine Aminotransferase (ALT/SGPT) 25, Alkaline Phosphatase 48, Total Protein 6.6, Albumin 3.0L, Globulin 3.6, Albumin/Globulin Ratio 0.8L, Amylase Level 45, Lipase 163 Height (Feet): 5 Height (Inches): 8.00 Weight (Pounds): 210 Neck: supple Tamera Ponce MD Jul 05, 2019 22:46
[2019-07-06] VITALS (8 sets, daily range): BP systolic 118–140; BP diastolic 57–88
[2019-07-06] MEDS: HYDROmorphone 1mg/ml Carpuject IVP PRN ×3 (03:54→12:31)
[2019-07-06] MEDS: DiphenhydrAMINE 50mg/ml Inj IVP PRN ×3 (05:07→18:39)
--- NOTE | 2019-07-06 05:32 | NUR ---
NURSE NOTES: Per computer forensics technician, patient refused blood draws, would like labs drawn at a later time.
--- NOTE | 2019-07-06 07:30 | NUR ---
HAND-OFF: Report given to JASON Hillman and JASON Serrato.
--- NOTE | 2019-07-06 07:57 | NUR ---
NURSE NOTES: awake/alert. pain scale 7/10. in no apparent distress.
--- NOTE | 2019-07-06 09:11 | General Progress Note ---
Assessment/Plan Status: progressing Assessment/Plan: Assessment/Plan Problems: (1) Gastritis ICD Codes: K29.70 - Gastritis, unspecified, without bleeding SNOMED: 9422118 (2) Pancreatitis ICD Codes: K85.90 - Acute pancreatitis without necrosis or infection, unspecified SNOMED: 87395321 (3) Abdominal pain ICD Codes: R10.9 - Unspecified abdominal pain SNOMED: 34867723 Qualifiers: Qualified Codes: R10.13 - Epigastric pain (4) Pancreatic divisum ICD Codes: Q45.3 - Other congenital malformations of pancreas and pancreatic duct SNOMED: 56663509, 049080013 (5) Narcotic dependence, episodic use ICD Codes: F11.20 - Opioid dependence, uncomplicated Assessment/Plan History of ERCP with Pancreatic divisum with stent replacement in the minor ampulla. History of cholecystectomy Pain management Zofran as needed PPI Follow labs per patient has had recent ERCP and stent placement 9 days ago KUB reviewed no stent seen on reg diet pain medication seeking no plans for ERCP ok to dc Subjective ROS Limited/Unobtainable: Yes Allergies: Coded Allergies: MORPHINE (Verified Allergy, Mild, itching, 11/20/18) HALOPERIDOL (Verified Allergy, Unknown, 11/20/18) KETOROLAC (Verified Allergy, Unknown, 01/01/18) PROCHLORPERAZINE (Verified Allergy, Unknown, 11/20/18) PROMETHAZINE (Verified Allergy, Unknown, 11/20/18) METOCLOPRAMIDE (Verified Adverse Reaction, Mild, 12/15/17) anxiety Objective Last 24 Hour Vital Signs Date Time Temp Pulse Resp B/P (MAP) Pulse Ox O2 Delivery O2 Flow Rate FiO2 07/06/19 08:00 97.7 83 21 132/80 (97) 99 07/06/19 04:00 98.0 68 18 128/73 (91) 98 07/06/19 00:00 98.4 83 20 140/88 (105) 98 07/05/19 21:00 Room Air 07/05/19 20:00 97.9 85 18 132/88 (103) 98 Intake and Output 07/05/19 07/06/19 18:59 06:59 Intake Total 2120 ml Balance 2120 ml Intake Oral 1280 ml IV Total 840 ml # Voids 3 Laboratory Tests 11/23/19 10:20: White Blood Count 8.8, Red Blood Count 5.90, Hemoglobin 14.4, Hematocrit 45.3, Mean Corpuscular Volume 77L, Mean Corpuscular Hemoglobin 24.4L, Mean Corpuscular Hemoglobin Concent 31.8L, Red Cell Distribution Width 13.8, Platelet Count 319, Mean Platelet Volume 5.7L, Neutrophils (%) (Auto) 63.7, Lymphocytes (%) (Auto) 23.2, Monocytes (%) (Auto) 10.9H, Eosinophils (%) (Auto) 1.8, Basophils (%) (Auto) 0.4, Sodium Level 142, Potassium Level 3.9, Chloride Level 106, Carbon Dioxide Level 29, Anion Gap 7, Blood Urea Nitrogen 9, Creatinine 0.9, Estimat Glomerular Filtration Rate > 60, Glucose Level 97, Calcium Level 8.4L, Total Bilirubin 0.3, Aspartate Amino Transf (AST/SGOT) 17, Alanine Aminotransferase (ALT/SGPT) 25, Alkaline Phosphatase 48, Total Protein 6.6, Albumin 3.0L, Globulin 3.6, Albumin/Globulin Ratio 0.8L, Amylase Level 45, Lipase 163 Height (Feet): 5 Height (Inches): 8.00 Weight (Pounds): 210 General Appearance: alert EENT: normal ENT inspection Neck: supple Cardiovascular: normal rate Respiratory/Chest: lungs clear Abdomen: normal bowel sounds, non tender, soft Extremities: non-tender Saurabh Mccray MD Jul 06, 2019 09:11
--- NOTE | 2019-07-06 12:19 | Infectious Diseases Prog Note ---
Assessment/Plan Assessment/Plan IMPRESSION: Leukocytosis,resolved may have chronic pancreatitis, Gastritis, diarrhea, pancreatic divisum, narcotic dependence. RECOMMENDATION: Observe off antibiotic Subjective ROS Limited/Unobtainable: No Constitutional: Reports: no symptoms Respiratory: Reports: no symptoms Cardiovascular: Reports: no symptoms Gastrointestinal/Abdominal: Reports: diarrhea, other - abdominal pain Genitourinary: Reports: no symptoms Allergies: Coded Allergies: MORPHINE (Verified Allergy, Mild, itching, 11/20/18) HALOPERIDOL (Verified Allergy, Unknown, 11/20/18) KETOROLAC (Verified Allergy, Unknown, 01/01/18) PROCHLORPERAZINE (Verified Allergy, Unknown, 11/20/18) PROMETHAZINE (Verified Allergy, Unknown, 11/20/18) METOCLOPRAMIDE (Verified Adverse Reaction, Mild, 12/15/17) anxiety Objective Vital Signs Last 24 Hour Vital Signs Date Time Temp Pulse Resp B/P (MAP) Pulse Ox O2 Delivery O2 Flow Rate FiO2 07/06/19 11:53 97.1 77 20 122/57 (78) 97 07/06/19 09:40 97.7 93 21 132/88 (103) 99 07/06/19 09:33 Room Air 07/06/19 08:51 98.0 07/06/19 08:00 97.7 83 21 132/80 (97) 99 07/06/19 04:00 98.0 68 18 128/73 (91) 98 07/06/19 00:00 98.4 83 20 140/88 (105) 98 07/05/19 21:00 Room Air 07/05/19 20:00 97.9 85 18 132/88 (103) 98 Height (Feet): 5 Height (Inches): 8.00 Weight (Pounds): 210 General Appearance: no acute distress HEENT: mucous membranes moist Respiratory/Chest: lungs clear Cardiovascular: normal rate Abdomen: other Extremities: no edema Neurologic/Psychiatric: alert, oriented x 3, responsive Current Medications Medications (Trade) Dose Ordered Sig/Jeffrey Route PRN Reason Start Time Stop Time Status Last Admin Dose Admin Acetaminophen (Tylenol) 650 mg Q4H PRN ORAL Mild Pain/Temp > 100.5 07/03/19 18:30 08/02/19 18:29 Diphenhydramine HCl (Benadryl) 25 mg Q6H PRN IVP Itching 07/04/19 11:30 08/03/19 11:29 07/06/19 05:07 Hydromorphone HCl (Dilaudid) 1 mg Q4H PRN IVP For Pain 07/03/19 22:30 07/10/19 22:29 07/06/19 08:21 Sodium Chloride 1,000 ml @ 70 mls/hr [id number] IV 07/03/19 18:45 08/02/19 18:44 07/06/19 02:30 Pedro Luis Vines MD Jul 06, 2019 12:19
--- NOTE | 2019-07-06 12:59 | General Progress Note ---
Assessment/Plan Assessment/Plan: (1) Abdominal pain (2) Pancreas Divisum We will discontinue the Dilaudid and We will Start [place] 5/325mg PO 1 tab Q4H PRN severe pain and Neurontin 300mg TID. D/w Dr. Leal and he concurred. Subjective Date patient seen: Jul 06, 2019 Time patient seen: 12:15 - pm Allergies: Coded Allergies: MORPHINE (Verified Allergy, Mild, itching, 11/20/18) HALOPERIDOL (Verified Allergy, Unknown, 11/20/18) KETOROLAC (Verified Allergy, Unknown, 01/01/18) PROCHLORPERAZINE (Verified Allergy, Unknown, 11/20/18) PROMETHAZINE (Verified Allergy, Unknown, 11/20/18) METOCLOPRAMIDE (Verified Adverse Reaction, Mild, 12/15/17) anxiety Subjective REVIEW OF SYSTEMS: Denies rash, fever, chills, sweating, dizziness, drowsiness, sore throat, change in hearing or weight. No shortness of breath or chest pain. No nausea, vomiting. No bowel or bladder incontinence. No dysuria. He is complaining of abdominal pain. SUBJECTIVE: Patient is in bed and continues to c/o abdominal pain using 6 doses of Dilaudid in the last 24hrs. Was seen by GI no further studies will be performed. D/w pt about changing the Dilaudid to [place] and he seems to understand. Objective Last 24 Hour Vital Signs Date Time Temp Pulse Resp B/P (MAP) Pulse Ox O2 Delivery O2 Flow Rate FiO2 07/06/19 11:53 97.1 77 20 122/57 (78) 97 07/06/19 09:40 97.7 93 21 132/88 (103) 99 07/06/19 09:33 Room Air 07/06/19 08:51 98.0 07/06/19 08:00 97.7 83 21 132/80 (97) 99 07/06/19 04:00 98.0 68 18 128/73 (91) 98 07/06/19 00:00 98.4 83 20 140/88 (105) 98 07/05/19 21:00 Room Air 07/05/19 20:00 97.9 85 18 132/88 (103) 98 Intake and Output 07/05/19 07/06/19 19:00 07:00 Intake Total 70 ml 2050 ml Balance 70 ml 2050 ml Intake Oral 1280 ml IV Total 70 ml 770 ml # Voids 3 Height (Feet): 5 Height (Inches): 8.00 Weight (Pounds): 210 Objective GENERAL: Alert, awake, and oriented. LUNGS: Clear bilaterally. HEART: S1, S2 regular. ABDOMEN: Tenderness to palpation. EXTREMITIES: No cyanosis, no clubbing. NEUROLOGICAL: No changes. Sincere García Jul 06, 2019 12:59
[2019-07-06] MEDS ORDERED: HYDROcodone/Acetamin 5/325 tab ORAL PRN (13:15)
[2019-07-06] MEDS ORDERED: 1/2 NS 1000ml IV ONE (17:23)
--- NOTE | 2019-07-06 18:59 | NUR ---
NURSE NOTES: resting in bed. in no acute changes.
--- NOTE | 2019-07-06 19:24 | NUR ---
HAND-OFF: Report given to Oz EDWARDS RN.
--- NOTE | 2019-07-06 19:25 | NUR ---
NURSE NOTES: Received report from Kelsey Rutledge RN. Patient sleeping, no distress noted. Bed in low position, side rails up x2, call light within reach. Will continue to monitor.
--- NOTE | 2019-07-06 20:00 | NUR ---
NURSE NOTES: Patient asleep, respirations unlabored. Will continue to monitor.
--- NOTE | 2019-07-06 20:43 | General Progress Note ---
Assessment/Plan Problem List: (1) Gastritis ICD Codes: K29.70 - Gastritis, unspecified, without bleeding SNOMED: 7607342 (2) Dehydration ICD Codes: E86.0 - Dehydration SNOMED: 85466068 (3) Pancreatitis ICD Codes: K85.90 - Acute pancreatitis without necrosis or infection, unspecified SNOMED: 78892613 (4) Abdominal pain ICD Codes: R10.9 - Unspecified abdominal pain SNOMED: 59065145 Status: progressing Assessment/Plan: pancreatitis check lipase abdominal pain still present no na/v/d diet per gi reviewd chart and labs Subjective ROS Limited/Unobtainable: Yes Allergies: Coded Allergies: MORPHINE (Verified Allergy, Mild, itching, 11/20/18) HALOPERIDOL (Verified Allergy, Unknown, 11/20/18) KETOROLAC (Verified Allergy, Unknown, 01/01/18) PROCHLORPERAZINE (Verified Allergy, Unknown, 11/20/18) PROMETHAZINE (Verified Allergy, Unknown, 11/20/18) METOCLOPRAMIDE (Verified Adverse Reaction, Mild, 12/15/17) anxiety Objective Last 24 Hour Vital Signs Date Time Temp Pulse Resp B/P (MAP) Pulse Ox O2 Delivery O2 Flow Rate FiO2 07/06/19 16:00 98.3 76 19 118/75 (89) 96 07/06/19 15:53 98.3 76 19 118/75 (89) 96 07/06/19 13:04 97.1 77 20 122/57 (78) 97 07/06/19 11:53 97.1 77 20 122/57 (78) 97 07/06/19 09:40 97.7 93 21 132/88 (103) 99 07/06/19 09:33 Room Air 07/06/19 08:51 98.0 07/06/19 08:00 97.7 83 21 132/80 (97) 99 07/06/19 04:00 98.0 68 18 128/73 (91) 98 07/06/19 00:00 98.4 83 20 140/88 (105) 98 07/05/19 21:00 Room Air Intake and Output 07/05/19 07/06/19 19:00 07:00 Intake Total 70 ml 2050 ml Balance 70 ml 2050 ml Intake Oral 1280 ml IV Total 70 ml 770 ml # Voids 3 Height (Feet): 5 Height (Inches): 8.00 Weight (Pounds): 210 Cardiovascular: normal rate Respiratory/Chest: lungs clear Abdomen: tender Tamera Ponce MD Jul 06, 2019 20:43
--- NOTE | 2019-07-06 21:18 | NUR ---
NURSE NOTES: Patient was sleeping, easily awakened. Refused vitals, refused nursing assessment. States feels ok, just "wants to sleep and be left alone". Encouraged to call as needed, call light within reach, bed in low position, locked, side rails up x2. IVF running well. Will continue to monitor.
--- NOTE | 2019-07-07 | NUR ---
NURSE NOTES: Attempted to take vitals and assess patient, patient refused. Asked to be left alone. Patient has been sleeping, respirations are unlabored, noted IV site intact, IVF infusing well. Will continue to monitor.
[2019-07-07] MEDS: DiphenhydrAMINE 50mg/ml Inj IVP PRN (05:13)
--- NOTE | 2019-07-07 07:20 | NUR ---
HAND-OFF: Report given to JASON Berg and JASON Serrato. Patient resting in bed.
--- NOTE | 2019-07-07 07:30 | NUR ---
NURSE NOTES: Received report from JASON Campbell. Rounding done with outgoing nurse. Pt a/o x4, asleep. Denies any pain at this time. 1/2NS IV fluid is running @70ml/hr. Bed in lowest position, call light within reach. Will continue to monitor.
--- NOTE | 2019-07-07 08:49 | General Progress Note ---
Assessment/Plan Assessment/Plan: (1) Abdominal pain (2) Pancreas Divisum We will continue [place] and Neurontin D/w Dr. Leal and he concurred. Subjective Date patient seen: Jul 07, 2019 Time patient seen: 08:15 - am Allergies: Coded Allergies: MORPHINE (Verified Allergy, Mild, itching, 11/20/18) HALOPERIDOL (Verified Allergy, Unknown, 11/20/18) KETOROLAC (Verified Allergy, Unknown, 01/01/18) PROCHLORPERAZINE (Verified Allergy, Unknown, 11/20/18) PROMETHAZINE (Verified Allergy, Unknown, 11/20/18) METOCLOPRAMIDE (Verified Adverse Reaction, Mild, 12/15/17) anxiety Subjective REVIEW OF SYSTEMS: Denies rash, fever, chills, sweating, dizziness, drowsiness, sore throat, change in hearing or weight. No shortness of breath or chest pain. No nausea, vomiting. No bowel or bladder incontinence. No dysuria. SUBJECTIVE: Patient is in bed no c/o pain. Has not requested the [place] and refused the Neurontin. No new complaints at this time. Objective Last 24 Hour Vital Signs Date Time Temp Pulse Resp B/P (MAP) Pulse Ox O2 Delivery O2 Flow Rate FiO2 07/06/19 21:00 Room Air 07/06/19 16:00 98.3 76 19 118/75 (89) 96 07/06/19 15:53 98.3 76 19 118/75 (89) 96 07/06/19 13:04 97.1 77 20 122/57 (78) 97 07/06/19 11:53 97.1 77 20 122/57 (78) 97 07/06/19 09:40 97.7 93 21 132/88 (103) 99 07/06/19 09:33 Room Air 07/06/19 08:51 98.0 Intake and Output 07/06/19 07/07/19 18:59 06:59 Intake Total 1670 ml 210 ml Output Total 950 ml 450 ml Balance 720 ml -240 ml Intake Oral 970 ml IV Total 700 ml 210 ml Output Urine Total 950 ml 450 ml # Voids 2 1 Height (Feet): 5 Height (Inches): 8.00 Weight (Pounds): 210 Objective GENERAL: Alert, awake, and oriented. LUNGS: Clear bilaterally. HEART: S1, S2 regular. ABDOMEN: Tenderness to palpation. EXTREMITIES: No cyanosis, no clubbing. NEUROLOGICAL: No changes. Sincere García Jul 07, 2019 08:49
--- NOTE | 2019-07-07 10:04 | Infectious Diseases Prog Note ---
Assessment/Plan Assessment/Plan IMPRESSION: Leukocytosis,resolved may have chronic pancreatitis, Gastritis, diarrhea, pancreatic divisum, narcotic dependence. RECOMMENDATION: Observe off antibiotic Subjective ROS Limited/Unobtainable: Yes Constitutional: Reports: no symptoms Respiratory: Reports: no symptoms Gastrointestinal/Abdominal: Reports: no symptoms Genitourinary: Reports: no symptoms Allergies: Coded Allergies: MORPHINE (Verified Allergy, Mild, itching, 11/20/18) HALOPERIDOL (Verified Allergy, Unknown, 11/20/18) KETOROLAC (Verified Allergy, Unknown, 01/01/18) PROCHLORPERAZINE (Verified Allergy, Unknown, 11/20/18) PROMETHAZINE (Verified Allergy, Unknown, 11/20/18) METOCLOPRAMIDE (Verified Adverse Reaction, Mild, 12/15/17) anxiety Objective Vital Signs Last 24 Hour Vital Signs Date Time Temp Pulse Resp B/P (MAP) Pulse Ox O2 Delivery O2 Flow Rate FiO2 07/06/19 21:00 Room Air 07/06/19 16:00 98.3 76 19 118/75 (89) 96 07/06/19 15:53 98.3 76 19 118/75 (89) 96 07/06/19 13:04 97.1 77 20 122/57 (78) 97 07/06/19 11:53 97.1 77 20 122/57 (78) 97 Height (Feet): 5 Height (Inches): 8.00 Weight (Pounds): 210 General Appearance: no acute distress HEENT: mucous membranes moist Respiratory/Chest: lungs clear Cardiovascular: normal rate Abdomen: soft, non tender Extremities: no edema Neurologic/Psychiatric: alert, oriented x 3, responsive Current Medications Medications (Trade) Dose Ordered Sig/Jeffrey Route PRN Reason Start Time Stop Time Status Last Admin Dose Admin Acetaminophen (Tylenol) 650 mg Q4H PRN ORAL Mild Pain/Temp > 100.5 07/03/19 18:30 08/02/19 18:29 Acetaminophen/ Hydrocodone Bitart ([place] 5/325) 1 tab Q4H PRN ORAL severe pain 07/06/19 13:15 07/13/19 13:14 Diphenhydramine HCl (Benadryl) 25 mg Q6H PRN IVP Itching 07/04/19 11:30 08/03/19 11:29 07/07/19 05:13 Gabapentin (Neurontin) 300 mg THREE TIMES A DAY ORAL 07/06/19 13:15 08/05/19 13:14 Sodium Chloride 1,000 ml @ 70 mls/hr [id number] IV 07/03/19 18:45 08/02/19 18:44 07/07/19 09:14 Pedro Luis Vines MD Jul 07, 2019 10:04
--- NOTE | 2019-07-07 10:27 | General Progress Note ---
Assessment/Plan Assessment/Plan: Assessment/Plan Problems: (1) Gastritis ICD Codes: K29.70 - Gastritis, unspecified, without bleeding SNOMED: 8164483 (2) Pancreatitis ICD Codes: K85.90 - Acute pancreatitis without necrosis or infection, unspecified SNOMED: 90641557 (3) Abdominal pain ICD Codes: R10.9 - Unspecified abdominal pain SNOMED: 35685059 Qualifiers: Qualified Codes: R10.13 - Epigastric pain (4) Pancreatic divisum ICD Codes: Q45.3 - Other congenital malformations of pancreas and pancreatic duct SNOMED: 56062645, 347132966 (5) Narcotic dependence, episodic use ICD Codes: F11.20 - Opioid dependence, uncomplicated Assessment/Plan History of ERCP with Pancreatic divisum with stent replacement in the minor ampulla. History of cholecystectomy Pain management Zofran as needed PPI Follow labs per patient has had recent ERCP and stent placement 13 days ago KUB reviewed no stent seen on reg diet pain medication seeking no plans for ERCP ok to dc Subjective ROS Limited/Unobtainable: Yes Allergies: Coded Allergies: MORPHINE (Verified Allergy, Mild, itching, 11/20/18) HALOPERIDOL (Verified Allergy, Unknown, 11/20/18) KETOROLAC (Verified Allergy, Unknown, 01/01/18) PROCHLORPERAZINE (Verified Allergy, Unknown, 11/20/18) PROMETHAZINE (Verified Allergy, Unknown, 11/20/18) METOCLOPRAMIDE (Verified Adverse Reaction, Mild, 12/15/17) anxiety Objective Last 24 Hour Vital Signs Date Time Temp Pulse Resp B/P (MAP) Pulse Ox O2 Delivery O2 Flow Rate FiO2 07/06/19 21:00 Room Air 07/06/19 16:00 98.3 76 19 118/75 (89) 96 07/06/19 15:53 98.3 76 19 118/75 (89) 96 07/06/19 13:04 97.1 77 20 122/57 (78) 97 07/06/19 11:53 97.1 77 20 122/57 (78) 97 Intake and Output 07/06/19 07/07/19 18:59 06:59 Intake Total 1670 ml 210 ml Output Total 950 ml 450 ml Balance 720 ml -240 ml Intake Oral 970 ml IV Total 700 ml 210 ml Output Urine Total 950 ml 450 ml # Voids 2 1 Height (Feet): 5 Height (Inches): 8.00 Weight (Pounds): 210 General Appearance: alert EENT: normal ENT inspection Neck: normal alignment Cardiovascular: normal rate Respiratory/Chest: decreased breath sounds Abdomen: normal bowel sounds, non tender, soft Extremities: non-tender Saurabh Mccray MD Jul 07, 2019 10:27
[2019-07-07] MEDS ORDERED: 1/2 NS 1000ml IV ONE (12:49)
--- NOTE | 2019-07-07 12:50 | NUR ---
NURSE NOTES: Discharge instruction was given. All belongings checked with the patient and pt signed the paper. IV access, arm band were removed. Pt a/o x 4. Patient discharged in stable condition.
--- NOTE | 2019-07-08 09:28 | Discharge Summary ---
Discharge Summary Discharge Summary _ DATE OF ADMISSION: 07/03/2019 DATE OF DISCHARGE: 07/07/2019 DISCHARGED BY: Dr Ponce REASON FOR ADMISSION: 34 years old male with past medical history of pancreatitis, presented for evaluation of abdominal pain. Patient reported prior history of biliary stent placement. Patient reported increased abdominal discomfort in epigastric area associated with bloating, nausea and vomiting. Pain reported as severe, without radiation. He denied hematemesis or bloody stools. Patient had ERCP in the past. Patient denied alcohol use. Upon evaluation vital signs were stable, but blood pressure was slightly elevated 152/97. Laboratory work-up revealed mild leukocytosis WBC 12, hemoglobin and hematocrit stable. Urinalysis revealed no evidence of urinary tract infection , +2 protein. Stable electrolytes. BUN 10, creatinine 1.3. Glucose 104. Total bilirubin 0.3, stable LFT , lipase 176. Troponin negative. Albumin 3.5. Urine toxicology screen was positive for opiates. Abdominal ultrasound demonstrated no acute findings. Status post cholecystectomy. Query common bile duct stent. No hydronephrosis. In emergency department patient received antiemetic, analgesic as well as the PPI and admitted for further management. CONSULTANTS: ID specialist Dr. Martins GI specialist Dr. Mccray pain specialist Dr. Leal [facility] COURSE: Patient admitted to medical surgical floor. Patient initially was kept n.p.o. and started on IV fluids. GI specialist closely followed. Abdominal x-ray revealed gaseous distention of the stomach, cholecystectomy clips. No stent was seen Liver enzymes and lipase remained stable. Patient slowly started on diet and was advanced as tolerated. Patient had prior ERCP with a pancreatic divisum with stent replacement in the minor ampulla. Patient with history of cholecystectomy. Antiemetic provided as needed. GI prophylaxis with PPI provided. No plans for ERCP at this time. Pain management was addressed as per pain specialist. ID specialist followed. Leukocytosis resolved in 2 days. Patient had no fever. Infectious disease specialist recommended to keep patient off antibiotics. Patient clinically stabilized. Pain controlled. Patient was able to tolerate diet. Patient was stable for discharge FINAL DIAGNOSES: Chronic pancreatitis Gastritis Pancreatic divisum Narcotic dependency, episodic use Leukocytosis-resolved DISCHARGE MEDICATIONS: See Medication Reconciliation list. DISCHARGE INSTRUCTIONS: Patient was discharged home. Follow-up with a primary care provider in 1 to 2 weeks. I have been assigned to dictate discharge summary for this account. I was not involved in the patient's management. Erin Trejo NP Jul 08, 2019 09:28
[2019-07-08] MEDS ORDERED: ONDANSETRON ODT4 MG BC (12:19)
[2019-07-08] MEDS ORDERED: OMEPRAZOLE20 M2 ORAL (12:19)
== END 2019-07-07 12:50 | disposition home or self-care (01) | DRG 282 ==
LOC: EMR 11:26 → 3E 14:05 → EDBEDREQ 16:55
DX: K86.1 Other chronic pancreatitis (principal); K29.70 Gastritis, unspecified, without bleeding; Q45.3 Other congenital malformations of pancreas and pancreatic duct; Z88.6 Allergy status to analgesic agent; Z88.8 Allergy status to other drugs, medicaments and biological substances; F11.20 Opioid dependence, uncomplicated; D72.829 Elevated white blood cell count, unspecified; Z90.49 Acquired absence of other specified parts of digestive tract
CPT/HCPCS: 36415; 74018; 76700; 80053; 80307; 81003; 82150; 83690; 84484; 85025; 85610; 85730; 96374; 96375; 99285; J2405

== ENCOUNTER 2019-07-08 10:26 | Emergency (ER) | payer MEDICAID ==
[~2019-07-08] VITALS: Ht 172.7 cm; Wt 95.3 kg
[~2019-07-08 10:26] MED LIST changes: +ZOFRAN4 M3 ORAL
[2019-07-08 10:35] VITALS: BP 151/98
--- NOTE | 2019-07-08 10:35 | NUR ---
ED Nurse Note: Patient walked into ER c/o abdominal pain. Pt states pain is constant and has been ongoing for the past 11 days. Pt states pain is 7/10 and is sharp in nature. Pt states he had an episode of vomiting one hour ago and has had diarrhea since being discharged from the hospital yesterday. Pt is ambulatory, speaking in full sentences, alert and oriented and breathing normal, unlabored. Pt was placed on cardiac technologist and in hospital gown.
--- NOTE | 2019-07-08 10:42 | Emergency Room Report ---
History of Present Illness General Chief Complaint: Abdominal Pain Source: Patient Present Illness HPI Patient is a 34-year-old male presents after increased abdominal discomfort. Patient states that he had recently been released from the hospital. He reportedly been having increased nausea and vomiting. He had previously been seen in the hospital after increased abdominal pain and vomiting similar to current. He had a significant work-up which included laboratory testing which showed normal lipase and no evidence of pancreatitis at that time. Patient reports having multiple episodes of vomiting associated with diarrhea. He states that he had a previous history of ERCP as well as pancreatic stent. Recent imaging showed no evidence of continued stent in GI tract.He has been given prescription for oral pain medications. Patient reports having been seen in urgent care yesterday and having a white blood count of 14,000. Allergies: Coded Allergies: MORPHINE (Verified Allergy, Mild, itching, 11/20/18) HALOPERIDOL (Verified Allergy, Unknown, 11/20/18) KETOROLAC (Verified Allergy, Unknown, 01/01/18) PROCHLORPERAZINE (Verified Allergy, Unknown, 11/20/18) PROMETHAZINE (Verified Allergy, Unknown, 11/20/18) METOCLOPRAMIDE (Verified Adverse Reaction, Mild, 12/15/17) anxiety Patient History Past Medical History: see triage record Reviewed Nursing Documentation: PMH: Agreed; PSxH: Agreed Nursing Documentation-PMH Past Medical History: No History, Except For Hx Cardiac Problems: No Hx Cancer: No Hx Gastrointestinal Problems: Yes - PANCREATIC DIVISUM Hx Neurological Problems: No Review of Systems All Other Systems: negative except mentioned in HPI Physical Exam Vital Signs Date Time Temp Pulse Resp B/P (MAP) Pulse Ox O2 Delivery O2 Flow Rate FiO2 07/08/19 10:28 98.1 100 20 175/102 (126) 95 Room Air Sp02 EP Interpretation: reviewed, normal General Appearance: normal inspection, well appearing, no apparent distress, alert, GCS 15, non-toxic Head: atraumatic ENT: normal ENT inspection, hearing grossly normal, normal voice Neck: normal inspection, full range of motion, supple, no bony tend Respiratory: normal inspection, lungs clear, normal breath sounds, no respiratory distress, no retraction, no wheezing Cardiovascular #1: normal inspection, regular rate, rhythm, no edema Gastrointestinal: normal inspection, normal bowel sounds, non tender, soft, no guarding, no hernia Genitourinary: no CVA tenderness Musculoskeletal: normal inspection, back normal, normal range of motion Neurologic: alert, motor strength/tone normal, 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 Differential diagnoses included opiate withdrawal, narcotic dependence, pancreatitis, ischemic bowel, appendicitis, perforated viscus, abdominal aortic aneurysm, inferior myocardial infarction, viral gastroenteritis among others.Because patient's complexity imaging studies , and laboratory testing ordered. Patient has had multiple CT imaging studies in the past. Patient's laboratory testing essentially was improved from his prior visit to urgent care. Patient was given IV fluids. No evidence of pancreatitis at this time Patient does not appear to require inpatient management at this time. Patient appears to be stable for close outpatient follow up. Patient is advised to follow-up at his previously scheduled appointments. He was advised to return if worse. Labs Test 07/08/19 10:34 07/08/19 11:00 Urine Color Pale yellow Urine Appearance Clear Urine pH 5 (4.5-8.0) Urine Specific [place] 1.020 (1.005-1.035) Urine Protein 2+ (NEGATIVE) Urine Glucose (UA) Negative (NEGATIVE) Urine Ketones Negative (NEGATIVE) Urine Blood 3+ (NEGATIVE) Urine Nitrite Negative (NEGATIVE) Urine Bilirubin Negative (NEGATIVE) Urine Urobilinogen Normal MG/DL (0.0-1.0) Urine Leukocyte Esterase Negative (NEGATIVE) Urine RBC 2-4 /HPF (0 - 0) Urine WBC 0-2 /HPF (0 - 0) Urine Squamous Epithelial Cells Occasional /LPF Urine Bacteria Occasional /HPF (NONE) White Blood Count 12.7 K/UL (4.8-10.8) Red Blood Count 6.34 M/UL (4.70-6.10) Hemoglobin 15.1 G/DL (14.2-18.0) Hematocrit 48.2 % (42.0-52.0) Mean Corpuscular Volume 76 FL (80-99) Mean Corpuscular Hemoglobin 23.9 PG (27.0-31.0) Mean Corpuscular Hemoglobin Concent 31.4 G/DL (32.0-36.0) Red Cell Distribution Width 13.7 % (11.6-14.8) Platelet Count 318 K/UL (150-450) Mean Platelet Volume 5.4 FL (6.5-10.1) Neutrophils (%) (Auto) 72.0 % (45.0-75.0) Lymphocytes (%) (Auto) 16.5 % (20.0-45.0) Monocytes (%) (Auto) 9.8 % (1.0-10.0) Eosinophils (%) (Auto) 0.9 % (0.0-3.0) Basophils (%) (Auto) 0.8 % (0.0-2.0) Last Vital Signs Date Time Temp Pulse Resp B/P (MAP) Pulse Ox O2 Delivery O2 Flow Rate FiO2 07/08/19 10:28 98.1 100 20 175/102 (126) 95 Room Air Status: improved Disposition: HOME, SELF-CARE Condition: Stable Scripts Omeprazole (OMEPRAZOLE) 20 Mg Capsule.dr 20 MG ORAL DAILY, #30 CAP Prov: Terrance Moy MD 07/08/19 Ondansetron Odt* (ZOFRAN ODT*) 4 Mg Tab.rapdis 4 MG BC EVERY 6 HOURS PRN for Nausea & Vomiting, #10 TAB 0 Refills Prov: Terrance Moy MD 07/08/19 Terrance Moy MD Jul 08, 2019 10:42
[2019-07-08 10:45] LABS: APPEARANCE,URINE CLEAR; BILIRUBIN, URINE NEGATIVE (NEGATIVE); COLOR,URINE PALE YELLOW; GLUCOSE, URINE (UA) NEGATIVE (NEGATIVE); KETONES,URINE NEGATIVE (NEGATIVE); LEUKOCYTE ESTERASE ,URINE NEGATIVE (NEGATIVE); NITRITE,URINE NEGATIVE (NEGATIVE); PH,URINE 5 (4.5-8.0); PROTEIN,URINE 2+ (NEGATIVE); UROBILINOGEN,URINE NORMAL MG/DL (0.0-1.0)
[2019-07-08] MEDS ORDERED: Mylanta II UD 30ml ORAL ONE (10:45)
[2019-07-08] MEDS ORDERED: D5 1/2NS w/KCl 20mEq 1,000 ML IV SCH (10:45)
[2019-07-08] MEDS ORDERED: Lidocaine 2% Visc 15ml soln ORAL ONE (10:45)
[2019-07-08] MEDS ORDERED: Dicyclomine HCl 10mg/5ml oral soln ORAL ONE (10:45)
[2019-07-08 11:28] LABS: BASOPHILS % (AUTO) 0.8 % (0.0-2.0); EOSINOPHILS % (AUTO) 0.9 % (0.0-3.0); HEMATOCRIT 48.2 % (42.0-52.0); HEMOGLOBIN 15.1 G/DL (14.2-18.0); LYMPHOCYTES % (AUTO) 16.5 % (20.0-45.0); MEAN CORPUSCULAR VOLUME 76 FL (80-99); MONOCYTES % (AUTO) 9.8 % (1.0-10.0); PLATELET COUNT 318 K/UL (150-450); RED BLOOD COUNT 6.34 M/UL (4.70-6.10); RED CELL DISTRIBUTION WIDTH 13.7 % (11.6-14.8); WHITE BLOOD COUNT 12.7 K/UL (4.8-10.8)
[2019-07-08 11:40] LABS: ANION GAP 12 mmol/L (5-15); BLOOD UREA NITROGEN 15 mg/dL (7-18); CALCIUM 8.6 MG/DL (8.5-10.1); CARBON DIOXIDE 23 MMOL/L (21-32); CHLORIDE 106 MMOL/L (98-107); POTASSIUM 3.8 MMOL/L (3.5-5.1); SODIUM 141 MMOL/L (136-145)
[2019-07-08 11:44] LABS: ALANINE AMINOTRANSFERASE 31 U/L (12-78); ALBUMIN 3.5 G/DL (3.4-5.0); ALBUMIN/GLOBULIN RATIO 0.9 (1.0-2.7); ALKALINE PHOSPHATASE 50 U/L (46-116); ASPARTATE AMINO TRANSFERASE 21 U/L (15-37); BILIRUBIN,TOTAL 0.4 MG/DL (0.2-1.0)
[2019-07-08] MEDS ORDERED: HYDROcodone/Acetamin 5/325 tab ORAL ONE (12:15)
--- NOTE | 2019-07-08 12:16 | NUR ---
ED Nurse Note: Pt IV is no longer intact. IV potassium chloride stopped at this time Pt refused new IV insertion unless he is to receive IV dilaudid. NESTOR Moy at bedside with patient.
[2019-07-08] MEDS ORDERED: ONDANSETRON ODT4 MG BC (12:19)
[2019-07-08] MEDS ORDERED: OMEPRAZOLE20 M2 ORAL (12:19)
--- NOTE | 2019-07-08 12:25 | NUR ---
ER DISCHARGE NOTE: Patient is cleared to be discharged per ERMD, pt is aox4, on room air, with stable vital signs. pt was given dc and prescription instructions, pt was able to verbalize understanding, pt id band and iv site removed without complications. pt is able to ambulate with steady gait. pt took all belongings.
== END 2019-07-08 12:25 | disposition home or self-care (01) ==
LOC: EMR 10:40
DX: K29.70 Gastritis, unspecified, without bleeding (principal); Z88.5 Allergy status to narcotic agent; Z88.8 Allergy status to other drugs, medicaments and biological substances
CPT/HCPCS: 36415; 80053; 81003; 83690; 85025; 96360; Z7502; 99284

== ENCOUNTER 2019-08-02 11:44 | Emergency (ER) | payer MEDICAID ==
[~2019-08-02] VITALS: Ht 172.7 cm; Wt 95.3 kg
[~2019-08-02 11:44] MED LIST changes: +OMEPRAZOLE20 M2 ORAL; +ONDANSETRON ODT4 MG BC
[2019-08-02 12:00] VITALS: BP 144/91
--- NOTE | 2019-08-02 12:00 | NUR ---
ED Nurse Note: Patient ambulated into the ER with c/o abdominal pain x 4 days. 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 Patient is aox4, on room air with stable vital signs. Patient placed in gown and on cardiac monitors. No respirartory or cardiac distress noted.
[2019-08-02] MEDS ORDERED: HYDROmorphone 1mg/ml Carpuject IVP ONE (12:45)
--- NOTE | 2019-08-02 12:47 | Emergency Room Report ---
History of Present Illness General Chief Complaint: Abdominal Pain Source: Medical Record Present Illness HPI 34-year-old male with history of pancreatic divisum and cholecystectomy who presents to emergency room with vomiting and epigastric abdominal pain. Symptoms started 4 days ago with diffuse pain and episodes of vomiting. Today he had 6 episodes of nonbloody nonbilious vomiting. Patient reports this is consistent with his prior pancreatic duct episodes. He has had multiple ERCPs and stent placement with no resolution. He is pending evaluation by specialty surgery for his pancreatic divisum. He follows with Dr. Chaparro and Dr. Alvarez. Allergies: Coded Allergies: MORPHINE (Verified Allergy, Mild, itching, 11/20/18) HALOPERIDOL (Verified Allergy, Unknown, 11/20/18) KETOROLAC (Verified Allergy, Unknown, 01/01/18) PROCHLORPERAZINE (Verified Allergy, Unknown, 11/20/18) PROMETHAZINE (Verified Allergy, Unknown, 11/20/18) METOCLOPRAMIDE (Verified Adverse Reaction, Mild, 12/15/17) anxiety Nursing Documentation-H Hx Cardiac Problems: No Hx Hypertension: No Hx Pacemaker: No Hx Asthma: No Hx COPD: No Hx Diabetes: No Hx Cancer: No Hx Gastrointestinal Problems: Yes - PANCREATIC DIVISUM Hx Dialysis: No History Of Psychiatric Problem: No Hx Neurological Problems: No Hx Cerebrovascular Accident: No Hx Seizures: No Review of Systems Constitutional: Denies: chills, fever Respiratory: Denies: cough, shortness of breath Cardiovascular: Denies: chest pain, palpitations Gastrointestinal: Reports: abdominal pain, vomiting; Denies: diarrhea Genitourinary: Denies: hematuria, pain Musculoskeletal: Denies: joint swelling Skin: Denies: rash, lesions Neurological: Denies: headache, dizziness Physical Exam Vital Signs Date Time Temp Pulse Resp B/P (MAP) Pulse Ox O2 Delivery O2 Flow Rate FiO2 08/02/19 11:51 98.1 96 16 149/84 (105) 99 Room Air Sp02 EP Interpretation: reviewed General Appearance: well appearing, no apparent distress, non-toxic Head: normocephalic, atraumatic Eyes: bilateral eye normal inspection ENT: hearing grossly normal, EOM grossly intact, moist mucus membranes Neck: supple Respiratory: lungs clear, normal breath sounds, no respiratory distress, speaking full sentences Cardiovascular #1: regular rate, rhythm, normal capillary refill Cardiovascular #2: 2+ radial (R), 2+ radial (L) Gastrointestinal: soft, no mass, no organomegaly, non-distended, no guarding, no hernia, no rebound, other - Well-healed surgical scars Rectal: deferred Musculoskeletal: moves extm spontaneously, no lower extremity edema Neurologic: grossly normal Psychiatric: mood/affect normal Skin: warm/dry, normal turgor Medical Decision Making ER Course 34-year-old male with abdominal pain and persistent vomiting. Laboratory Tests Test 08/02/19 13:15 White Blood Count 9.7 K/UL (4.8-10.8) Red Blood Count 6.54 M/UL (4.70-6.10) H Hemoglobin 15.5 G/DL (14.2-18.0) Hematocrit 48.5 % (42.0-52.0) Mean Corpuscular Volume 74 FL (80-99) L Mean Corpuscular Hemoglobin 23.7 PG (27.0-31.0) L Mean Corpuscular Hemoglobin Concent 32.0 G/DL (32.0-36.0) Red Cell Distribution Width 13.3 % (11.6-14.8) Platelet Count 336 K/UL (150-450) Mean Platelet Volume 5.4 FL (6.5-10.1) L Neutrophils (%) (Auto) 61.2 % (45.0-75.0) Lymphocytes (%) (Auto) 25.0 % (20.0-45.0) Monocytes (%) (Auto) 11.8 % (1.0-10.0) H Eosinophils (%) (Auto) 1.2 % (0.0-3.0) Basophils (%) (Auto) 0.9 % (0.0-2.0) Urine Color Pale yellow Urine Appearance Clear Urine pH 6 (4.5-8.0) Urine Specific [place] 1.015 (1.005-1.035) Urine Protein 2+ (NEGATIVE) H Urine Glucose (UA) Negative (NEGATIVE) Urine Ketones Negative (NEGATIVE) Urine Blood 2+ (NEGATIVE) H Urine Nitrite Negative (NEGATIVE) Urine Bilirubin Negative (NEGATIVE) Urine Urobilinogen Normal MG/DL (0.0-1.0) Urine Leukocyte Esterase Negative (NEGATIVE) Urine RBC 0-2 /HPF (0 - 0) H Urine WBC 0 /HPF (0 - 0) Urine Squamous Epithelial Cells Occasional /LPF Urine Bacteria Occasional /HPF (NONE) Sodium Level 143 MMOL/L (136-145) Potassium Level 4.8 MMOL/L (3.5-5.1) Chloride Level 108 MMOL/L (98-107) H Carbon Dioxide Level 24 MMOL/L (21-32) Anion Gap 11 mmol/L (5-15) Blood Urea Nitrogen 17 mg/dL (7-18) Creatinine 1.1 MG/DL (0.55-1.30) Estimate Glomerular Filtration Rate > 60 mL/min (>60) Glucose Level 95 MG/DL (74-106) Calcium Level 9.2 MG/DL (8.5-10.1) Total Bilirubin 0.3 MG/DL (0.2-1.0) Aspartate Amino Transferase (AST) 30 U/L (15-37) Alanine Aminotransferase (ALT) 17 U/L (12-78) Alkaline Phosphatase 58 U/L (46-116) Total Protein 8.2 G/DL (6.4-8.2) Albumin 3.9 G/DL (3.4-5.0) Globulin 4.3 g/dL Albumin/Globulin Ratio 0.9 (1.0-2.7) L Amylase Level 65 U/L (25-115) Lipase 369 U/L (73-393) Lab Results Impression No signs of dehydration, ketones in urine, or elevated WBC. No elevated lipase. Reevaluation Time: 15:20 Last Vital Signs Date Time Temp Pulse Resp B/P (MAP) Pulse Ox O2 Delivery O2 Flow Rate FiO2 08/02/19 12:00 98.1 88 16 144/91 99 Room Air Status: improved Reevaluation Impression Patient symptoms improved with antiemetics. Reviewed all lab testing with patient patient stable for outpatient follow-up and discharge. Patient recommend to return to emergency room if any worsening or new symptoms. Disposition: HOME, SELF-CARE Condition: Stable Scripts Ondansetron Odt* (ZOFRAN ODT*) 4 Mg Tab.rapdis 4 MG BC EVERY 8 HOURS PRN for Nausea & Vomiting, #10 TAB 0 Refills Prov: Arturo Hernandez M.D. 08/02/19 Referrals: NOT CHOSEN IPA/MD,REFERRING (PCP) Patient Instructions: Abdominal Pain, Adult Additional Instructions: Please follow-up with your primary care doctor in 2 to 3 days for reevaluation. Arturo Hernandez M.D. Aug 02, 2019 12:47
[2019-08-02 13:37] LABS: APPEARANCE,URINE CLEAR; BILIRUBIN, URINE NEGATIVE (NEGATIVE); COLOR,URINE PALE YELLOW; GLUCOSE, URINE (UA) NEGATIVE (NEGATIVE); KETONES,URINE NEGATIVE (NEGATIVE); LEUKOCYTE ESTERASE ,URINE NEGATIVE (NEGATIVE); NITRITE,URINE NEGATIVE (NEGATIVE); PH,URINE 6 (4.5-8.0); PROTEIN,URINE 2+ (NEGATIVE); UROBILINOGEN,URINE NORMAL MG/DL (0.0-1.0)
[2019-08-02 13:40] LABS: BASOPHILS % (AUTO) 0.9 % (0.0-2.0); EOSINOPHILS % (AUTO) 1.2 % (0.0-3.0); HEMATOCRIT 48.5 % (42.0-52.0); HEMOGLOBIN 15.5 G/DL (14.2-18.0); MEAN CORPUSCULAR VOLUME 74 FL (80-99); MONOCYTES % (AUTO) 11.8 % (1.0-10.0); NEUTROPHILS % (AUTO) 61.2 % (45.0-75.0); PLATELET COUNT 336 K/UL (150-450); RED BLOOD COUNT 6.54 M/UL (4.70-6.10); RED CELL DISTRIBUTION WIDTH 13.3 % (11.6-14.8); WHITE BLOOD COUNT 9.7 K/UL (4.8-10.8)
[2019-08-02 13:53] LABS: ANION GAP 11 mmol/L (5-15); BLOOD UREA NITROGEN 17 mg/dL (7-18); CALCIUM 9.2 MG/DL (8.5-10.1); CARBON DIOXIDE 24 MMOL/L (21-32); CHLORIDE 108 MMOL/L (98-107); CREATININE 1.1 MG/DL (0.55-1.30); POTASSIUM 4.8 MMOL/L (3.5-5.1); SODIUM 143 MMOL/L (136-145)
[2019-08-02 13:57] LABS: ALANINE AMINOTRANSFERASE 17 U/L (12-78); ALBUMIN 3.9 G/DL (3.4-5.0); ALBUMIN/GLOBULIN RATIO 0.9 (1.0-2.7); ALKALINE PHOSPHATASE 58 U/L (46-116); AMYLASE 65 U/L (25-115); ASPARTATE AMINO TRANSFERASE 30 U/L (15-37); BILIRUBIN,TOTAL 0.3 MG/DL (0.2-1.0)
[2019-08-02] MEDS ORDERED: ONDANSETRON ODT4 MG BC (15:21)
--- NOTE | 2019-08-02 15:30 | NUR ---
ER DISCHARGE NOTE: Patient is cleared to be discharged per ERMDarlene Hernandez, pt is aox4, on room air, with stable vital signs. pt was given dc and prescription instructions, pt was able to verbalize understanding, pt id band and iv site removed without complications. pt is able to ambulate with steady gait. pt took all belongings.
[2019-08-02 15:33] VITALS: BP 140/96
== END 2019-08-02 15:30 | disposition home or self-care (01) ==
LOC: EMR 12:32 → CANBEDREQ 14:48 → EMR 15:30
DX: R11.10 Vomiting, unspecified (principal); R10.9 Unspecified abdominal pain; Z90.49 Acquired absence of other specified parts of digestive tract; Z88.6 Allergy status to analgesic agent
CPT/HCPCS: 36415; 80053; 81003; 82150; 83690; 85025; 96361; 96374; 96375; J1170; J2405; J7030; Z7502; 99284

== ENCOUNTER 2019-09-28 13:52 | Emergency (ER) | payer MEDICAID ==
[~2019-09-28] VITALS: Ht 175.3 cm; Wt 93.0 kg
[2019-09-28] MEDS ORDERED: HYDROmorphone 1mg/ml Carpuject IVP ONE ×2 (15:15→17:45)
--- NOTE | 2019-09-28 15:16 | Emergency Room Report ---
History of Present Illness General Chief Complaint: Abdominal Pain Source: Patient Present Illness HPI Disclaimer: Please note that this report is being documented using DRAGON technology. This can lead to erroneous entry secondary to incorrect interpretation by the dictating instrument. 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 Symptoms began 3 to 4 days ago with diarrhea beginning 2 days ago. Notes worsening pain in the upper abdomen and difficulty holding down any medications. He has been using Zofran without significant improvement. States he has not taken anything for pain. He has had multiple ERCPs and MRIs as well as pancreatic stent placement. He gets recurrent pancreatitis and recurrent abdominal pain. He currently does not have a ground transportation operator but was previously following up Dr. Mccray PMH: Pancreatic divisum PSH: Cholecystectomy, pancreatic stents, ERCPs Allergies: Morphine, Haldol, Reglan Social Hx: Denies alcohol use Allergies: Coded Allergies: MORPHINE (Verified Allergy, Mild, itching, 11/20/18) HALOPERIDOL (Verified Allergy, Unknown, 11/20/18) KETOROLAC (Verified Allergy, Unknown, 01/01/18) PROCHLORPERAZINE (Verified Allergy, Unknown, 11/20/18) PROMETHAZINE (Verified Allergy, Unknown, 11/20/18) METOCLOPRAMIDE (Verified Adverse Reaction, Mild, 12/15/17) anxiety Nursing Documentation-PMH Hx Cardiac Problems: No Hx Hypertension: No Hx Pacemaker: No Hx Asthma: No Hx COPD: No Hx Diabetes: No Hx Cancer: No Hx Gastrointestinal Problems: Yes - PANCREATIC DIVISUM Hx Dialysis: No Hx Neurological Problems: No Hx Cerebrovascular Accident: No Hx Seizures: No Review of Systems All Other Systems: negative except mentioned in HPI Physical Exam Vital Signs Date Time Temp Pulse Resp B/P (MAP) Pulse Ox O2 Delivery O2 Flow Rate FiO2 09/28/19 14:10 99.0 100 18 139/76 (97) 95 Room Air General: Awake and alert, no acute distress HEENT: NC/AT. EOMI. Neck: Supple, trachea midline Chest Wall: No tenderness, no deformity Cardiovascular: RRR. S1 and S2 normal. No murmur appreciated Resp: Normal work of breathing. No cough, wheezing or crackles appreciated Abdomen: Abdomen is soft, nondistended. Nontender Skin: Intact. No abrasions, laceration or rash over the exposed skin MSK: Normal tone and bulk. Moving all extremities. No obvious deformity. Neuro: Awake and alert. Mentating appropriately. Back/Spine: No midline tenderness in the cervical, thoracic or lumbosacral spine. Medical Decision Making Diagnostic Impression: Primary Impression: Abdominal pain ER Course 34-year-old male with history of pancreatic divisum recently stented at [facility] 08/08 presents for evaluation of 1 week epigastric discomfort. He was well-appearing with stable vital signs. Notes persistent emesis. Differential includes was not limited to pancreatitis, obstruction, dehydration , gastritis, gastroenteritis, chronic pancreatitis. Will obtain labs, give IV fluids, antiemetics and pain medications. Will discuss imaging with his ground transportation operator prior to ordering Laboratory Tests Test 09/28/19 16:00 09/28/19 16:30 Urine Color Pale yellow Urine Appearance Clear Urine pH 6 (4.5-8.0) Urine Specific [place] 1.015 (1.005-1.035) Urine Protein 2+ (NEGATIVE) H Urine Glucose (UA) Negative (NEGATIVE) Urine Ketones Negative (NEGATIVE) Urine Blood 1+ (NEGATIVE) H Urine Nitrite Negative (NEGATIVE) Urine Bilirubin Negative (NEGATIVE) Urine Urobilinogen Normal MG/DL (0.0-1.0) Urine Leukocyte Esterase Negative (NEGATIVE) Urine RBC 2-4 /HPF (0 - 0) H Urine WBC 0-2 /HPF (0 - 0) Urine Squamous Epithelial Cells None /LPF (NONE/OCC) Urine Bacteria Occasional /HPF (NONE) Urine Opiates Screen Negative (NEGATIVE) Urine Barbiturates Screen Negative (NEGATIVE) Phencyclidine (PCP) Screen Negative (NEGATIVE) Urine Amphetamines Screen Negative (NEGATIVE) Urine Benzodiazepines Screen Negative (NEGATIVE) Urine Cocaine Screen Negative (NEGATIVE) Urine Marijuana (THC) Screen Negative (NEGATIVE) White Blood Count 11.6 K/UL (4.8-10.8) H Red Blood Count 5.99 M/UL (4.70-6.10) Hemoglobin 14.6 G/DL (14.2-18.0) Hematocrit 45.2 % (42.0-52.0) Mean Corpuscular Volume 75 FL (80-99) L Mean Corpuscular Hemoglobin 24.4 PG (27.0-31.0) L Mean Corpuscular Hemoglobin Concent 32.4 G/DL (32.0-36.0) Red Cell Distribution Width 16.6 % (11.6-14.8) H Platelet Count 307 K/UL (150-450) Mean Platelet Volume 6.0 FL (6.5-10.1) L Neutrophils (%) (Auto) 67.2 % (45.0-75.0) Lymphocytes (%) (Auto) 20.4 % (20.0-45.0) Monocytes (%) (Auto) 11.0 % (1.0-10.0) H Eosinophils (%) (Auto) 0.7 % (0.0-3.0) Basophils (%) (Auto) 0.6 % (0.0-2.0) Sodium Level 143 MMOL/L (136-145) Potassium Level 4.1 MMOL/L (3.5-5.1) Chloride Level 106 MMOL/L (98-107) Carbon Dioxide Level 25 MMOL/L (21-32) Anion Gap 12 mmol/L (5-15) Blood Urea Nitrogen 17 mg/dL (7-18) Creatinine 1.0 MG/DL (0.55-1.30) Estimate Glomerular Filtration Rate > 60 mL/min (>60) Glucose Level 97 MG/DL (74-106) Calcium Level 9.3 MG/DL (8.5-10.1) Total Bilirubin 0.2 MG/DL (0.2-1.0) Aspartate Amino Transferase (AST) 17 U/L (15-37) Alanine Aminotransferase (ALT) 24 U/L (12-78) Alkaline Phosphatase 50 U/L (46-116) Total Protein 7.6 G/DL (6.4-8.2) Albumin 3.7 G/DL (3.4-5.0) Globulin 3.9 g/dL Albumin/Globulin Ratio 0.9 (1.0-2.7) L Lipase 231 U/L (73-393) Reevaluation Time: 18:07 Last Vital Signs Date Time Temp Pulse Resp B/P (MAP) Pulse Ox O2 Delivery O2 Flow Rate FiO2 09/28/19 14:10 99.0 100 18 139/76 (97) 95 Room Air Reevaluation Impression Labs are returned within normal limits. Lipase negative. No signs of dehydration or acute pancreatitis at this time. Discussed with his ground transportation operator, Dr. Hilliard, who states the patient does not require hospital admission at this time. Will discharge with symptomatic medications and follow-up on an outpatient basis. Disposition: HOME, SELF-CARE Condition: Stable Scripts Ondansetron Odt* (ZOFRAN ODT*) 4 Mg Tab.rapdis 4 MG BC EVERY 6 HOURS PRN for Nausea & Vomiting, #20 TAB 0 Refills Prov: Marvin Shanks MD 09/28/19 Marvin Shanks MD Sep 28, 2019 15:16
[2019-09-28 16:21] LABS: APPEARANCE,URINE CLEAR; BILIRUBIN, URINE NEGATIVE (NEGATIVE); COLOR,URINE PALE YELLOW; GLUCOSE, URINE (UA) NEGATIVE (NEGATIVE); KETONES,URINE NEGATIVE (NEGATIVE); LEUKOCYTE ESTERASE ,URINE NEGATIVE (NEGATIVE); NITRITE,URINE NEGATIVE (NEGATIVE); PH,URINE 6 (4.5-8.0); PROTEIN,URINE 2+ (NEGATIVE); UROBILINOGEN,URINE NORMAL MG/DL (0.0-1.0)
--- NOTE | 2019-09-28 16:23 | NUR ---
ED Nurse Note: clinical services manager here to draw pt as difficult to obtain labs. tolerates iv start well. pt relates abd pain today. abd soft nt no n/v/d relates he has had multiple ercp and scarring with stents placed. a/ox4
[2019-09-28 16:41] LABS: BASOPHILS % (AUTO) 0.6 % (0.0-2.0); EOSINOPHILS % (AUTO) 0.7 % (0.0-3.0); HEMATOCRIT 45.2 % (42.0-52.0); HEMOGLOBIN 14.6 G/DL (14.2-18.0); LYMPHOCYTES % (AUTO) 20.4 % (20.0-45.0); MEAN CORPUSCULAR VOLUME 75 FL (80-99); NEUTROPHILS % (AUTO) 67.2 % (45.0-75.0); PLATELET COUNT 307 K/UL (150-450); RED BLOOD COUNT 5.99 M/UL (4.70-6.10); RED CELL DISTRIBUTION WIDTH 16.6 % (11.6-14.8); WHITE BLOOD COUNT 11.6 K/UL (4.8-10.8)
--- NOTE | 2019-09-28 16:42 | NUR ---
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 ivf infusing slowly.
[2019-09-28 16:53] LABS: ANION GAP 12 mmol/L (5-15); BLOOD UREA NITROGEN 17 mg/dL (7-18); CALCIUM 9.3 MG/DL (8.5-10.1); CARBON DIOXIDE 25 MMOL/L (21-32); CHLORIDE 106 MMOL/L (98-107); POTASSIUM 4.1 MMOL/L (3.5-5.1); SODIUM 143 MMOL/L (136-145)
[2019-09-28 16:56] LABS: ALANINE AMINOTRANSFERASE 24 U/L (12-78); ALBUMIN 3.7 G/DL (3.4-5.0); ALBUMIN/GLOBULIN RATIO 0.9 (1.0-2.7); ALKALINE PHOSPHATASE 50 U/L (46-116); ASPARTATE AMINO TRANSFERASE 17 U/L (15-37); BILIRUBIN,TOTAL 0.2 MG/DL (0.2-1.0)
--- NOTE | 2019-09-28 17:13 | NUR ---
ED Nurse Note: pt requesting pain meds and antinausea meds. amb steady gait to brp. md made aware of request
[2019-09-28] MEDS ORDERED: HYDROcodone/Acetamin 10/325 tab ORAL ONE (17:15)
[2019-09-28] MEDS ORDERED: ONDANSETRON ODT4 MG BC (17:29)
--- NOTE | 2019-09-28 17:30 | NUR ---
ED Nurse Note: pt refuses po pain meds. takes zofran for n/v. to reeval pt for dispo. ivf infusing slowly
--- NOTE | 2019-09-28 17:48 | NUR ---
ED Nurse Note: reeval by . pt to have further pain meds. and consulting with gi md dasilva
[2019-09-28 18:25] VITALS: BP 136/72
[2019-09-28 18:26] VITALS: BP 136/72
--- NOTE | 2019-09-28 18:27 | NUR ---
ED Nurse Note: Pt cleared by health care Provider for discharge. DC instructions/prescription was given and explained to pt and verbalized understanding of teachings. All medical devices such as ID band removed. Pt is AAO x4, ambulatory and left with all personal belongings.
== END 2019-09-28 18:28 | disposition home or self-care (01) ==
LOC: EMR 14:50
DX: R10.13 Epigastric pain (principal); Z90.49 Acquired absence of other specified parts of digestive tract; Z88.6 Allergy status to analgesic agent; Z88.8 Allergy status to other drugs, medicaments and biological substances; R11.10 Vomiting, unspecified; R19.7 Diarrhea, unspecified
CPT/HCPCS: 36415; 80053; 80307; 81003; 83690; 85025; 96361; 96374; 96375; 96376; J1170; J2405; J7030; S0028; Z7502; 99284

== ENCOUNTER 2019-10-03 22:44 | Emergency (ER) | payer MEDICAID ==
[~2019-10-03] VITALS: Ht 167.6 cm; Wt 63.5 kg
[2019-10-03 23:12] VITALS: BP 132/88
--- NOTE | 2019-10-03 23:12 | NUR ---
ED Nurse Note: Patient walked in to ED c/o right upper abdominal pain, nausea and vomiting. Stated pain started last 09/28 and has been on and off since then. 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 No episodes of vomiting at this time. Afebrile. Not in any distress. VSS.
--- NOTE | 2019-10-03 23:16 | NUR ---
ED Nurse Note: ERMD at bedside.
--- NOTE | 2019-10-03 23:25 | Emergency Room Report ---
History of Present Illness General Chief Complaint: Abdominal Pain Source: Patient Present Illness HPI Disclaimer: Please note that this report is being documented using DRAGON technology. This can lead to erroneous entry secondary to incorrect interpretation by the dictating instrument. 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 Patient was seen in the emergency department proxy 1 week ago with similar symptoms. He has had multiple ERCPs and MRIs as well as pancreatic stent placement. He gets recurrent pancreatitis and recurrent abdominal pain. He currently does not have a transportation department head but was previously following up Dr. Mccray. He did see a Dr. Chaparro at [facility] after his discharge and does not have any planned procedures or other intervention scheduled. He has been using Zofran. PMH: Pancreatic divisum PSH: Cholecystectomy, pancreatic stents, ERCPs Allergies: Morphine, Haldol, Reglan Social Hx: Denies alcohol use Allergies: Coded Allergies: MORPHINE (Verified Allergy, Mild, itching, 11/20/18) HALOPERIDOL (Verified Allergy, Unknown, 11/20/18) KETOROLAC (Verified Allergy, Unknown, 01/01/18) PROCHLORPERAZINE (Verified Allergy, Unknown, 11/20/18) PROMETHAZINE (Verified Allergy, Unknown, 11/20/18) METOCLOPRAMIDE (Verified Adverse Reaction, Mild, 12/15/17) anxiety Nursing Documentation-PMH Hx Cardiac Problems: No Hx Hypertension: No Hx Pacemaker: No Hx Asthma: No Hx COPD: No Hx Diabetes: No Hx Cancer: No Hx Gastrointestinal Problems: Yes - PANCREATIC DIVISUM Hx Dialysis: No Hx Neurological Problems: No Hx Cerebrovascular Accident: No Hx Seizures: No Review of Systems All Other Systems: negative except mentioned in HPI Physical Exam Vital Signs Date Time Temp Pulse Resp B/P (MAP) Pulse Ox O2 Delivery O2 Flow Rate FiO2 10/03/19 23:04 98.6 96 16 132/88 (103) 97 Room Air General: Awake and alert, no acute distress, resting comfortably on my entering the room HEENT: NC/AT. EOMI. Cardiovascular: RRR. S1 and S2 normal. No murmur appreciated Resp: Normal work of breathing. No cough, wheezing or crackles appreciated Abdomen: Abdomen is soft, nondistended. Tender in the upper quadrants particularly epigastrium and right upper quadrant. Non-peritonitic Skin: Intact. No abrasions, laceration or rash over the exposed skin MSK: Normal tone and bulk. Moving all extremities. No obvious deformity. Neuro: Awake and alert. Mentating appropriately. Medical Decision Making Diagnostic Impression: Primary Impression: Abdominal pain ER Course 34-year-old male history of recurrent pancreatitis presents for evaluation of persistent abdominal pain. Must rule out acute pancreatitis and will repeat labs. Will give IV fluids and antiemetics. Otherwise the patient appears comfortable in no acute distress. Can advance work-up as needed however I discussed with his transportation department head, Dr. Burns, on last visit to the emergency department who stated there was nothing further to do for the patient and that no further interventions were planned. Reevaluation Time: 00:25 Last Vital Signs Date Time Temp Pulse Resp B/P (MAP) Pulse Ox O2 Delivery O2 Flow Rate FiO2 10/03/19 23:04 98.6 96 16 132/88 (103) 97 Room Air Reevaluation Impression Alerted by nursing staff that the patient wished to leave. He is a very difficult stick and nursing staff was unable to obtain blood for some time. Multiple nurses tried he became very frustrated become aggressive with nursing staff verbally. He stated not want his labs and wanted to go home at this time. He had no vomiting or signs of discomfort while in the emergency department. I will discharge the patient and he can follow-up on an outpatient basis. Encouraged him to return to ED with worsening symptoms and to call his new GI doctor to discuss ongoing pain Disposition: HOME, SELF-CARE Condition: Stable Marvin Shanks MD Oct 03, 2019 23:25
[2019-10-04 00:25] VITALS: BP 132/88
--- NOTE | 2019-10-04 00:25 | NUR ---
ED Nurse Note: Pt wants to leave againts medical advice for unknown reason. ERMD notified. Explained risk and benefits. Pt started to get verbally aggresive and uncooperative. Pt refused to sign AMA form. ID band removed. AA&Ox4, ambulatory. Left with all his belongings.
[2019-10-04 00:32] LABS: APPEARANCE,URINE CLEAR; BILIRUBIN, URINE NEGATIVE (NEGATIVE); COLOR,URINE PALE YELLOW; GLUCOSE, URINE (UA) NEGATIVE (NEGATIVE); KETONES,URINE NEGATIVE (NEGATIVE); LEUKOCYTE ESTERASE ,URINE NEGATIVE (NEGATIVE); NITRITE,URINE NEGATIVE (NEGATIVE); PH,URINE 6.5 (4.5-8.0); PROTEIN,URINE NEGATIVE (NEGATIVE); UROBILINOGEN,URINE NORMAL MG/DL (0.0-1.0)
== END 2019-10-04 00:25 | disposition home or self-care (01) ==
LOC: EMR 23:42
DX: R10.9 Unspecified abdominal pain (principal); Z90.49 Acquired absence of other specified parts of digestive tract; Z88.6 Allergy status to analgesic agent
CPT/HCPCS: 81003; 96361; 96374; Z7502; 99284

== ENCOUNTER 2019-10-24 15:52 | Inpatient (IN) | payer MEDICAID ==
[~2019-10-24] VITALS: Ht 172.7 cm; Wt 92.1 kg
[2019-10-24 16:15] VITALS: BP 149/94
--- NOTE | 2019-10-24 16:15 | NUR ---
ED Nurse Note: Patient walked into ED from home c/o abdominal pain. Patient has history of multiple ERCP surgeries and elevated lipase. Patient AxO x 4, no s/s of acute distress. 24 g IV started in left hand, blood and urine sent to lab.
[2019-10-24] MEDS ORDERED: HYDROmorphone 1mg/ml Carpuject IVP ONE (16:45)
--- NOTE | 2019-10-24 16:57 | NUR ---
ED Nurse Note: Xray at bedside.
--- NOTE | 2019-10-24 17:13 | Diagnostic Imaging Report ---
EXAM: XR Abdomen, 1 View CLINICAL HISTORY: ABD PAIN TECHNIQUE: Frontal supine view of the abdomen/pelvis. COMPARISON: 07/05/2019. FINDINGS: Gastrointestinal tract: Nonobstructive bowel gas pattern. Bones/joints: Unremarkable. IMPRESSION: Nonobstructive bowel gas pattern.
--- NOTE | 2019-10-24 17:14 | Diagnostic Imaging Report ---
EXAM: XR Chest, 1 View CLINICAL HISTORY: ABD PAIN TECHNIQUE: Frontal view of the chest. COMPARISON: 06/22/2019. FINDINGS: Lungs: Unremarkable. No consolidation. Pleural space: Unremarkable. No pneumothorax. Heart: Unremarkable. No cardiomegaly. Mediastinum: Unremarkable. Bones/joints: Unremarkable. IMPRESSION: No acute cardiopulmonary disease.
--- NOTE | 2019-10-24 17:43 | Emergency Room Report ---
History of Present Illness General Chief Complaint: Abdominal Pain Source: Patient Present Illness HPI Patient presents with persistent vomiting despite use of Zofran. The patient reports that this is happened in the past. Patient with history of recurrent bouts of pancreatitis and leukocytosis. Most recently has been seen at [facility]. They are trying to decide whether to put a pancreatic stent back in. The pain is rated 7/10 and constant. It is mid abdomen. Aching and pressure. He feels more nausea. He feels dehydrated. He has no pain medication at home. He reports normal bowel movements and the stool has been brown in color. There is no hematemesis, coffee grounds or hematochezia. No fevers, chills, sore throat, chest pain, palpitations, diarrhea, dysuria, shortness of breath, joint pain, rashes, depression, anxiety, visual changes, dizziness, headache. The patient was last admitted June 2019. Discharge diagnoses: Chronic pancreatitis Gastritis Pancreatic divisum Narcotic dependency, episodic use Leukocytosis-resolved COVID-19 risk:Travel to [facility]: No Allergies: Coded Allergies: MORPHINE (Verified Allergy, Mild, itching, 11/20/18) HALOPERIDOL (Verified Allergy, Unknown, 11/20/18) KETOROLAC (Verified Allergy, Unknown, 01/01/18) PROCHLORPERAZINE (Verified Allergy, Unknown, 11/20/18) PROMETHAZINE (Verified Allergy, Unknown, 11/20/18) METOCLOPRAMIDE (Verified Adverse Reaction, Mild, 12/15/17) anxiety Patient History Past Medical History: see triage record Past Surgical History: other - Pancreatic stent Social History: Denies: alcohol use, drug use Social History Narrative From home Reviewed Nursing Documentation: PMH: Agreed; PSxH: Agreed Nursing Documentation-PMH Past Medical History: No History, Except For Hx Cardiac Problems: No Hx Hypertension: No Hx Pacemaker: No Hx Asthma: No Hx COPD: No Hx Diabetes: No Hx Cancer: No Hx Gastrointestinal Problems: Yes - PANCREATIC DIVISUM Hx Dialysis: No History Of Psychiatric Problem: No Hx Neurological Problems: No Hx Cerebrovascular Accident: No Hx Seizures: No Review of Systems All Other Systems: negative except mentioned in HPI Physical Exam Vital Signs Date Time Temp Pulse Resp B/P (MAP) Pulse Ox O2 Delivery O2 Flow Rate FiO2 10/24/19 16:09 98.4 72 16 149/94 (112) 99 Room Air Sp02 EP Interpretation: reviewed, normal General Appearance: well appearing, no apparent distress, GCS 15 Head: normocephalic Eyes: bilateral eye normal inspection, bilateral eye PERRL, bilateral eye EOMI ENT: moist mucus membranes Neck: supple Respiratory: lungs clear, normal breath sounds Cardiovascular #1: regular rate, rhythm Cardiovascular #2: 2+ radial (R) Gastrointestinal: normal inspection, normal bowel sounds, no mass, non- distended, no guarding, no rebound, tenderness - Mid abdomen Genitourinary: no CVA tenderness Musculoskeletal: back normal, normal range of motion, gait/station normal Neurologic: alert, oriented x3, grossly normal Psychiatric: mood/affect normal Skin: no rash, warm/dry Medical Decision Making Diagnostic Impression: Primary Impression: Intractable vomiting Qualified Codes: R11.2 - Nausea with vomiting, unspecified Additional Impressions: History of pancreatitis Leukocytosis Qualified Codes: D72.829 - Elevated white blood cell count, unspecified ER Course Patient presents with persistent vomiting and abdominal pain. Differential includes gastritis, pancreatitis, electrolyte imbalance, narcotic seeking behavior amongst others. Evaluation with EKG, chest x-ray, abdominal film and labs. Treatment with IV hydration, Zofran, Pepcid and analgesia. Chest x-ray normal. Abdomen paucity of gas. CBC with leukocytosis. Lipase normal. Electrolytes unremarkable. Patient requested medication for pain. Pain is improved but still vomiting. Patient requested Benadryl for vomiting. Patient still nauseated no vomiting. Zofran repeated. Patient admitted to the hospital. Laboratory Tests Test 10/24/19 17:20 White Blood Count 11.7 K/UL (4.8-10.8) H Red Blood Count 6.22 M/UL (4.70-6.10) H Hemoglobin 15.8 G/DL (14.2-18.0) Hematocrit 48.5 % (42.0-52.0) Mean Corpuscular Volume 78 FL (80-99) L Mean Corpuscular Hemoglobin 25.3 PG (27.0-31.0) L Mean Corpuscular Hemoglobin Concent 32.5 G/DL (32.0-36.0) Red Cell Distribution Width 18.9 % (11.6-14.8) H Platelet Count 279 K/UL (150-450) Mean Platelet Volume 7.1 FL (6.5-10.1) Neutrophils (%) (Auto) 65.3 % (45.0-75.0) Lymphocytes (%) (Auto) 23.2 % (20.0-45.0) Monocytes (%) (Auto) 9.2 % (1.0-10.0) Eosinophils (%) (Auto) 1.3 % (0.0-3.0) Basophils (%) (Auto) 1.0 % (0.0-2.0) Prothrombin Time 10.0 SEC (9.30-11.50) Prothrombin Time INR 0.9 (0.9-1.1) Activated Partial Thromboplast Time 28 SEC (23-33) Urine Color Pale yellow Urine Appearance Clear Urine pH 5 (4.5-8.0) Urine Specific [place] 1.025 (1.005-1.035) Urine Protein 1+ (NEGATIVE) H Urine Glucose (UA) Negative (NEGATIVE) Urine Ketones Negative (NEGATIVE) Urine Blood 3+ (NEGATIVE) H Urine Nitrite Negative (NEGATIVE) Urine Bilirubin Negative (NEGATIVE) Urine Urobilinogen Normal MG/DL (0.0-1.0) Urine Leukocyte Esterase Negative (NEGATIVE) Urine RBC 5-10 /HPF (0 - 0) H Urine WBC 0-2 /HPF (0 - 0) Urine Squamous Epithelial Cells None /LPF (NONE/OCC) Urine Bacteria Few /HPF (NONE) Urine Mucus Moderate /LPF (NONE/OCC) H Sodium Level 141 MMOL/L (136-145) Potassium Level 3.7 MMOL/L (3.5-5.1) Chloride Level 105 MMOL/L (98-107) Carbon Dioxide Level 23 MMOL/L (21-32) Anion Gap 13 mmol/L (5-15) Blood Urea Nitrogen 14 mg/dL (7-18) Creatinine 1.0 MG/DL (0.55-1.30) Estimate Glomerular Filtration Rate > 60 mL/min (>60) Glucose Level 110 MG/DL (74-106) H Calcium Level 8.9 MG/DL (8.5-10.1) Magnesium Level 1.7 MG/DL (1.8-2.4) L Total Bilirubin 0.2 MG/DL (0.2-1.0) Aspartate Amino Transferase (AST) 15 U/L (15-37) Alanine Aminotransferase (ALT) 32 U/L (12-78) Alkaline Phosphatase 59 U/L (46-116) Total Creatine Kinase 160 U/L (26-308) Total Protein 7.3 G/DL (6.4-8.2) Albumin 3.8 G/DL (3.4-5.0) Globulin 3.5 g/dL Albumin/Globulin Ratio 1.1 (1.0-2.7) Lipase 324 U/L (73-393) Urine Opiates Screen Negative (NEGATIVE) Urine Barbiturates Screen Negative (NEGATIVE) Phencyclidine (PCP) Screen Negative (NEGATIVE) Urine Amphetamines Screen Negative (NEGATIVE) Urine Benzodiazepines Screen Negative (NEGATIVE) Urine Cocaine Screen Negative (NEGATIVE) Urine Marijuana (THC) Screen Negative (NEGATIVE) Serum Alcohol < 3 mg/dL Rhythm Strip Diag. Results EP Interpretation: yes Rhythm: NSR, no PVC's, no ectopy Chest X-Ray Diagnostic Results Chest X-Ray Diagnostic Results : Chest X-Ray Ordered: Yes # of Views/Limited/Complete: 1 View Indication: Other EP Interpretation: Yes Interpretation: no consolidation, no effusion, no pneumothorax Impression: No acute disease Electronically Signed by: Electronically signed by Jamie Carrillo MD Other X-Ray Diagnostic Results Other X-Ray Diagnostic Results : X-Ray ordered: Abdomen # of Views/Limited Vs Complete: 1 View Indication: Pain EP Interpretation: Yes Interpretation: nonspecific bowel gas, no sbo, other - No masses, paucity of gas Impression: No acute disease Electronically Signed by: Electronically signed by Jamie Carrillo MD Last Vital Signs Date Time Temp Pulse Resp B/P (MAP) Pulse Ox O2 Delivery O2 Flow Rate FiO2 10/25/19 00:19 Room Air 10/24/19 20:00 98.0 81 19 154/100 (118) 99 Status: improved Disposition: ADMITTED INPATIENT Condition: Serious Referrals: NOT CHOSEN IPA/,REFERRING (PCP) Jamie Carrillo MD Oct 24, 2019 17:43
[2019-10-24] MEDS ORDERED: DiphenhydrAMINE 25mg Tab ORAL PRN ×2 (17:45→22:00)
[2019-10-24] MEDS ORDERED: Mylanta II UD 30ml ORAL PRN (17:45)
[2019-10-24] MEDS ORDERED: DiphenhydrAMINE 50mg/ml Inj IVP ONE ×2 (17:45→18:30)
[2019-10-24 18:05] VITALS: BP 139/90
[2019-10-24] MEDS ORDERED: HYDROmorphone 1mg/ml Carpuject IVP PRN (18:10)
[2019-10-24 18:17] LABS: EOSINOPHILS % (AUTO) 1.3 % (0.0-3.0); HEMATOCRIT 48.5 % (42.0-52.0); HEMOGLOBIN 15.8 G/DL (14.2-18.0); LYMPHOCYTES % (AUTO) 23.2 % (20.0-45.0); MEAN CORPUSCULAR VOLUME 78 FL (80-99); MONOCYTES % (AUTO) 9.2 % (1.0-10.0); NEUTROPHILS % (AUTO) 65.3 % (45.0-75.0); PLATELET COUNT 279 K/UL (150-450); RED BLOOD COUNT 6.22 M/UL (4.70-6.10); RED CELL DISTRIBUTION WIDTH 18.9 % (11.6-14.8); WHITE BLOOD COUNT 11.7 K/UL (4.8-10.8)
[2019-10-24 18:19] LABS: ANION GAP 13 mmol/L (5-15); BLOOD UREA NITROGEN 14 mg/dL (7-18); CALCIUM 8.9 MG/DL (8.5-10.1); CARBON DIOXIDE 23 MMOL/L (21-32); CHLORIDE 105 MMOL/L (98-107); POTASSIUM 3.7 MMOL/L (3.5-5.1); SODIUM 141 MMOL/L (136-145)
[2019-10-24 18:20] LABS: APPEARANCE,URINE CLEAR; BILIRUBIN, URINE NEGATIVE (NEGATIVE); COLOR,URINE PALE YELLOW; GLUCOSE, URINE (UA) NEGATIVE (NEGATIVE); KETONES,URINE NEGATIVE (NEGATIVE); LEUKOCYTE ESTERASE ,URINE NEGATIVE (NEGATIVE); NITRITE,URINE NEGATIVE (NEGATIVE); PH,URINE 5 (4.5-8.0); PROTEIN,URINE 1+ (NEGATIVE); UROBILINOGEN,URINE NORMAL MG/DL (0.0-1.0)
[2019-10-24 18:22] LABS: INR 0.9 (0.9-1.1)
[2019-10-24 18:23] LABS: ALANINE AMINOTRANSFERASE 32 U/L (12-78); ALBUMIN 3.8 G/DL (3.4-5.0); ALBUMIN/GLOBULIN RATIO 1.1 (1.0-2.7); ALKALINE PHOSPHATASE 59 U/L (46-116); ASPARTATE AMINO TRANSFERASE 15 U/L (15-37); BILIRUBIN,TOTAL 0.2 MG/DL (0.2-1.0); CREATINE KINASE 160 U/L (26-308)
[2019-10-24] MEDS ORDERED: Hydromorphone 0.5mg/0.5ml inj IVP ONE (18:30)
--- NOTE | 2019-10-24 19:14 | NUR ---
HAND-OFF: Report given to Annia GOMEZ.
--- NOTE | 2019-10-24 19:45 | NUR ---
TRANSFER TO FLOOR: Patient transferred to as ordered, per Dr Ponce. Report given to JASON Bautista. Belongings and medications given to . Family and or S/O informed of transfer.
[2019-10-24 20:00] VITALS: BP 154/100
[2019-10-24] MEDS ORDERED: LR 1000ml 1,000 ML IV SCH (20:00)
--- NOTE | 2019-10-24 20:50 | NUR ---
NURSE NOTES: Received report from JASON Milner. Patient arrived on the unit at 1999. Ambulatory with steady gate. ANO x4. On room air with no signs of distress or SOB. Skin intact. Belongings checked with patient. Reports pain as 7/10, and nausea. Bed locked and in lowest position. Orders received by Dr. Ponce. Will follow plan of care.
[2019-10-24] MEDS ORDERED: Heparin 5000 units/ml inj SUBQ SCH (21:00)
[2019-10-24] MEDS: HYDROmorphone 1mg/ml Carpuject IVP PRN (21:32)
--- NOTE | 2019-10-24 21:45 | NUR ---
NURSE NOTES: Patient requesting stronger pain medication. Left message with Dr. Leal, per Dr. Ponce request. Awaiting orders.
[2019-10-24] MEDS: DiphenhydrAMINE 50mg/ml Inj IVP PRN (23:15)
[2019-10-25] MEDS: HYDROmorphone 1mg/ml Carpuject IVP PRN ×6 (01:44→21:27)
[2019-10-25 04:00] VITALS: BP 111/66
[2019-10-25] MEDS: DiphenhydrAMINE 50mg/ml Inj IVP PRN ×4 (05:46→21:20)
--- NOTE | 2019-10-25 07:36 | NUR ---
HAND-OFF: Report given to JASON Yip.
--- NOTE | 2019-10-25 07:45 | NUR ---
NURSE NOTES: patient is in the bed alert and awake. respiration is even and unlabored on room air. denies any chest pain and discomfort. noted with 22 gauge IV line on left hand. no infiltration noted. stated that he has abdominal pain 3/10, and waiting for his next pain medication due time. no distended abdomen noted. call light is within reach, bed is in a locked position for fall precaution.
[2019-10-25 08:00] VITALS: BP 151/94
[2019-10-25 08:01] LABS: BASOPHILS % (AUTO) 1.1 % (0.0-2.0); EOSINOPHILS % (AUTO) 1.8 % (0.0-3.0); HEMATOCRIT 45.6 % (42.0-52.0); HEMOGLOBIN 15.3 G/DL (14.2-18.0); LYMPHOCYTES % (AUTO) 30.9 % (20.0-45.0); MEAN CORPUSCULAR VOLUME 78 FL (80-99); MONOCYTES % (AUTO) 11.2 % (1.0-10.0); NEUTROPHILS % (AUTO) 55.1 % (45.0-75.0); PLATELET COUNT 258 K/UL (150-450); RED BLOOD COUNT 5.88 M/UL (4.70-6.10); RED CELL DISTRIBUTION WIDTH 17.4 % (11.6-14.8); WHITE BLOOD COUNT 9.1 K/UL (4.8-10.8)
[2019-10-25 08:36] LABS: ALANINE AMINOTRANSFERASE 25 U/L (12-78); ALBUMIN 3.6 G/DL (3.4-5.0); ALBUMIN/GLOBULIN RATIO 1.1 (1.0-2.7); ALKALINE PHOSPHATASE 49 U/L (46-116); ANION GAP 11 mmol/L (5-15); ASPARTATE AMINO TRANSFERASE 16 U/L (15-37); BILIRUBIN,TOTAL 0.5 MG/DL (0.2-1.0); BLOOD UREA NITROGEN 8 mg/dL (7-18); CALCIUM 9.1 MG/DL (8.5-10.1); CARBON DIOXIDE 23 MMOL/L (21-32); CHLORIDE 106 MMOL/L (98-107); CREATININE 0.9 MG/DL (0.55-1.30); POTASSIUM 4.2 MMOL/L (3.5-5.1); SODIUM 140 MMOL/L (136-145)
[2019-10-25] MEDS ORDERED: Pantoprazole Inj IV SCH (09:00)
--- NOTE | 2019-10-25 11:00 | NUR ---
NURSE NOTES: patient requested for breakthrough pain medication, called Dr. Leal, left a message to his voicemail.
--- NOTE | 2019-10-25 11:30 | NUR ---
Dr Foley saw patient today and changed order for Benadryl and also ordered clear liquid. order noted and carried out. Patient is aware, verbalized understanding.
--- NOTE | 2019-10-25 11:50 | NUR ---
NURSE NOTES: patient continues to request for breakthrough pain medication, called Dr. Leal the second time, left a message.
[2019-10-25 12:00] VITALS: BP 141/89
[2019-10-25 16:00] VITALS: BP 138/81
--- NOTE | 2019-10-25 19:22 | NUR ---
HAND-OFF: Report given to
--- NOTE | 2019-10-25 19:23 | NUR ---
NURSE NOTES: Patient off the unit with dayshift charge nurse Jose to the vending machine.
--- NOTE | 2019-10-25 19:35 | NUR ---
NURSE NOTES: Patient ambulatory in steady gait, ambulating the [address] way. Breathing on room air without distress. IV noted on the right hand intact running IVF as ordered. Will continue to monitor and provide care as ordered.
[2019-10-25 21:30] VITALS: BP 141/94
--- NOTE | 2019-10-25 22:00 | History and Physical Report ---
DATE OF ADMISSION: 10/24/2019 HISTORY OF PRESENT ILLNESS: The patient admitted for pancreatitis. The patient has chronic pancreatitis, admitted for acute pancreatitis on top of the chronic pancreatitis. The patient denies nausea, vomiting, or diarrhea. Denies fever or chills. Denies shortness of breath. Denies cough. Does have some itching as well. The patient's abdominal pain is epigastric associated with nausea, occasional vomiting. Denies diarrhea. Denies coffee-grounds emesis. PAST MEDICAL HISTORY: Chronic pancreatitis, gastroparesis. PAST SURGICAL HISTORY: History of pancreatic stent. SOCIAL HISTORY: Denies history of smoking, denies history of alcohol, or illicit drugs. REVIEW OF SYSTEMS: HEENT: Denies headaches. RESPIRATORY: Denies shortness of breath. Denies cough. CARDIOVASCULAR: Denies chest pain or orthopnea. GASTROINTESTINAL: Does have nausea and vomiting. Denies diarrhea. He does have abdominal pain for couple days epigastric in nature. EXTREMITIES: Denies pain in the lower extremities. CENTRAL NERVOUS SYSTEM: Denies change in vision or speech pattern. PHYSICAL EXAMINATION: VITAL SIGNS: Temperature is 97.9, pulse is 73, blood pressure 151/94. HEENT: PERRLA. NECK: Supple. No lymphadenopathy. CHEST: Clear to auscultation. CARDIOVASCULAR: Regular rate and rhythm. No murmurs or extra sounds. GASTROINTESTINAL: Epigastric tenderness. No rebound. No organomegaly. Soft. EXTREMITIES: Reflexes equal on both sides. Moves all four extremities. Sensory intact to light touch. LABORATORY AND DIAGNOSTIC DATA: WBC of 11.7, hemoglobin of 15.8. Lipase of 324. Sodium 141, potassium 3.7. ASSESSMENT AND PLAN: Acute pancreatitis on top of chronic pancreatitis. Dr. Leal and Dr. Foley has been consulted for management of the pain as well as for management of pancreatitis we keep the patient NPO and we will give IV fluids. Tamera Ponce M.D. DR: Jessica JOB#: [id number] CC:
[2019-10-26] MEDS: HYDROmorphone 1mg/ml Carpuject IVP PRN ×6 (01:28→21:47)
[2019-10-26 01:40] VITALS: BP 136/76
[2019-10-26] MEDS: DiphenhydrAMINE 50mg/ml Inj IVP PRN ×3 (05:26→21:46)
[2019-10-26 05:33] VITALS: BP 140/98
--- NOTE | 2019-10-26 06:14 | NUR ---
NURSE NOTES: Per patient, patient vomited twice during the shift. Reached Dr. Foley to inform about the vomiting. Left a message. Will wait for any new orders to follow up. Patient in stable condition. Will continue to monitor.
--- NOTE | 2019-10-26 07:30 | NUR ---
NURSE NOTES: Received patient A/A/Ox4, ambulates on the hallway with a steady gait. On room air with no s/sx of acute cardio-resp distress or SOB. Skin intact. Bed locked and in lowest position. brakes and lock engaged. call light is within reach. Will follow plan of care.
--- NOTE | 2019-10-26 07:54 | NUR ---
HAND-OFF: Report given to PAUL Kelley. Plan of care endorsed.
[2019-10-26 08:00] VITALS: BP 127/83
[2019-10-26 12:00] VITALS: BP 141/79
--- NOTE | 2019-10-26 13:30 | Consultation ---
History of Present Illness General Date patient seen: Oct 26, 2019 Time patient seen: 01:15 - pm Chief Complaint: Abdominal Pain Referring physician: Rosario Reason for Consultation: Pain Management Present Illness HPI SUBJECTIVE: Patient showing no signs of pain or distress. Was admitted due to abdominal pain and pancreatitis. Started on Dilaudid 1mg IV Q4H PRN severe pain. Doing well and pain is tolerated at a moderate level. No new complaints at this time. Allergies: Coded Allergies: MORPHINE (Verified Allergy, Mild, itching, 11/20/18) HALOPERIDOL (Verified Allergy, Unknown, 11/20/18) KETOROLAC (Verified Allergy, Unknown, 01/01/18) PROCHLORPERAZINE (Verified Allergy, Unknown, 11/20/18) PROMETHAZINE (Verified Allergy, Unknown, 11/20/18) METOCLOPRAMIDE (Verified Adverse Reaction, Mild, 12/15/17) anxiety Medication History Scheduled PRN Ondansetron Odt* (Zofran Odt*), 4 MG BC EVERY 6 HOURS PRN for Nausea & Vomiting Discontinued Medications Ondansetron Odt* (Zofran Odt*), 4 MG BC EVERY 8 HOURS PRN for Nausea & Vomiting Discontinued Reason: Pt stopped taking med Patient History Healthcare decision maker Resuscitation status Full Code Advanced Directive on File No Past Medical/Surgical History Past Medical/Surgical History: (1) Intractable vomiting (2) History of pancreatitis (3) Leukocytosis (4) Abdominal pain (5) Gastritis (6) Pancreatitis Review of Systems ROS Narrative REVIEW OF SYSTEMS: Denies rash, fever, chills, sweating, dizziness, drowsiness, sore throat, change in hearing or weight. No shortness of breath or chest pain. No nausea, vomiting. No bowel or bladder incontinence. No dysuria. Physical Exam Physical Exam Narrative GENERAL: Alert, awake, and oriented. LUNGS: Clear bilaterally. HEART: S1, S2 regular. ABDOMEN: Tenderness to palpation. EXTREMITIES: No cyanosis, no clubbing. NEUROLOGICAL: No focal defect. Last 24 Hour Vital Signs Date Time Temp Pulse Resp B/P (MAP) Pulse Ox O2 Delivery O2 Flow Rate FiO2 10/26/19 12:00 98.6 72 18 141/79 (99) 97 10/26/19 10:16 98.5 10/26/19 09:00 Room Air 10/26/19 08:00 98.0 73 17 127/83 (98) 97 10/26/19 05:33 98.5 81 18 140/98 (112) 100 10/26/19 01:40 97.6 68 18 136/76 (96) 98 10/25/19 21:30 98.2 71 20 141/94 (110) 100 10/25/19 21:00 Room Air 10/25/19 16:00 98.8 79 16 138/81 (100) 99 Intake and Output 10/25/19 10/26/19 19:00 07:00 Intake Total 525 ml 975 ml Balance 525 ml 975 ml IV Total 525 ml 975 ml Height (Feet): 5 Height (Inches): 8.00 Weight (Pounds): 203 Medications Current Medications Medications (Trade) Dose Ordered Sig/Jeffrey Route PRN Reason Start Time Stop Time Status Last Admin Dose Admin Diphenhydramine HCl (Benadryl) 50 mg Q6H PRN IVP Itching 10/25/19 12:30 11/24/19 12:29 10/26/19 05:26 Hydromorphone HCl (Dilaudid) 1 mg Q4H PRN IVP For Pain 10/24/19 20:45 10/31/19 20:44 10/26/19 09:46 Ondansetron HCl (Zofran) 4 mg Q6H PRN IVP Nausea & Vomiting 10/24/19 20:45 11/23/19 20:44 10/24/19 21:31 Sodium Chloride 1,000 ml @ 75 mls/hr [id number] IV 10/24/19 20:45 11/23/19 20:44 10/26/19 12:06 Assessment/Plan Assessment/Plan: (1) Abdominal pain (2) Pancreas Divisum (3) Pancreatitis We will continue Dilnoeid D/w Dr. Leal and he concurred. Sincere García Oct 26, 2019 13:30
--- NOTE | 2019-10-26 14:11 | NUR ---
NURSE NOTES: *Pharmacy Discrepancy* Scanned and administered 1 mg Dilaudid at 1354. Filled out pain assessment leaving out pain score which was 7/10. Assessment was saved and cannot be edited to reflect pain score. Spoke with pharmacist, Angelito, to report discrepancy. Charge nurse aware.
--- NOTE | 2019-10-26 14:42 | NUR ---
NURSE NOTES: DR FOWLER MADE AWARE OF THE PAIN ON THE FOOT. AWAITING FOR A CALLBACK. WILL CONT TO MONITOR.
[2019-10-26 16:00] VITALS: BP 131/77
--- NOTE | 2019-10-26 18:57 | General Progress Note ---
Assessment/Plan Assessment/Plan: Assessment - Pancreas divisum - h/o pancreatitis in past - N/V - suspect due to narcotics Recommendations - advance po diet - wean off narcotics - OK for d/c from GI standpoint - Advised to f/u at [facility] Subjective Allergies: Coded Allergies: MORPHINE (Verified Allergy, Mild, itching, 11/20/18) HALOPERIDOL (Verified Allergy, Unknown, 11/20/18) KETOROLAC (Verified Allergy, Unknown, 01/01/18) PROCHLORPERAZINE (Verified Allergy, Unknown, 11/20/18) PROMETHAZINE (Verified Allergy, Unknown, 11/20/18) METOCLOPRAMIDE (Verified Adverse Reaction, Mild, 12/15/17) anxiety Subjective Feels same had some vomiting after narcotics but still wants more food Objective Last 24 Hour Vital Signs Date Time Temp Pulse Resp B/P (MAP) Pulse Ox O2 Delivery O2 Flow Rate FiO2 10/26/19 18:25 98.5 10/26/19 16:00 98.5 79 17 131/77 (95) 98 10/26/19 12:00 98.6 72 18 141/79 (99) 97 10/26/19 09:00 Room Air 10/26/19 08:00 98.0 73 17 127/83 (98) 97 10/26/19 05:33 98.5 81 18 140/98 (112) 100 10/26/19 01:40 97.6 68 18 136/76 (96) 98 10/25/19 21:30 98.2 71 20 141/94 (110) 100 10/25/19 21:00 Room Air Intake and Output 10/25/19 10/26/19 19:00 07:00 Intake Total 525 ml 975 ml Balance 525 ml 975 ml IV Total 525 ml 975 ml Height (Feet): 5 Height (Inches): 8.00 Weight (Pounds): 203 Objective Obese WM NCAT supple CTA RR abd soft no edema Mikael Foley MD Oct 26, 2019 18:57
--- NOTE | 2019-10-26 18:59 | NUR ---
NURSE NOTES: MADE DR POOL REGARDING PATIENT PAIN ON HIS FOOT. AWAITING FOR A CALLBACK.
--- NOTE | 2019-10-26 19:00 | NUR ---
HAND-OFF: Report given to
--- NOTE | 2019-10-26 20:37 | NUR ---
NURSE NOTES: Patient in bed, awake, alert x 4and verbally responsive. Ambulates, steady gate. No complaint of pain or discomfort at this time. Respiration is even and unlabored. IV site noted, iv fluid is infusing as ordered. Bed in low and locked position. Kept clean and comfortable. Call light is at bedside. Will continue plan of care.
--- NOTE | 2019-10-26 21:32 | General Progress Note ---
Assessment/Plan Problem List: (1) Abdominal pain ICD Codes: R10.9 - Unspecified abdominal pain SNOMED: 28926931 (2) History of pancreatitis ICD Codes: Z87.19 - Personal history of other diseases of the digestive system SNOMED: 06486198981359 (3) Gastritis ICD Codes: K29.70 - Gastritis, unspecified, without bleeding SNOMED: 6120103 (4) Pancreatitis ICD Codes: K85.90 - Acute pancreatitis without necrosis or infection, unspecified SNOMED: 06259409 Status: progressing Assessment/Plan: acute pancreatitis on top of pancreatitis is improving afebrile lipase is going down less pain Subjective Allergies: Coded Allergies: MORPHINE (Verified Allergy, Mild, itching, 11/20/18) HALOPERIDOL (Verified Allergy, Unknown, 11/20/18) KETOROLAC (Verified Allergy, Unknown, 01/01/18) PROCHLORPERAZINE (Verified Allergy, Unknown, 11/20/18) PROMETHAZINE (Verified Allergy, Unknown, 11/20/18) METOCLOPRAMIDE (Verified Adverse Reaction, Mild, 12/15/17) anxiety Objective Last 24 Hour Vital Signs Date Time Temp Pulse Resp B/P (MAP) Pulse Ox O2 Delivery O2 Flow Rate FiO2 10/26/19 18:25 98.5 10/26/19 16:00 98.5 79 17 131/77 (95) 98 10/26/19 12:00 98.6 72 18 141/79 (99) 97 10/26/19 09:00 Room Air 10/26/19 08:00 98.0 73 17 127/83 (98) 97 10/26/19 05:33 98.5 81 18 140/98 (112) 100 10/26/19 01:40 97.6 68 18 136/76 (96) 98 Intake and Output 10/25/19 10/26/19 19:00 07:00 Intake Total 525 ml 975 ml Balance 525 ml 975 ml IV Total 525 ml 975 ml Height (Feet): 5 Height (Inches): 8.00 Weight (Pounds): 203 Abdomen: tender Tamera Ponce MD Oct 26, 2019 21:32
--- NOTE | 2019-10-27 01:00 | NUR ---
NURSE NOTES: Patient refused vital signs, educated the patient, still refused. Patient is alert x 4. No distress noted. Call light is at bedside. Will continue to monitor.
[2019-10-27] MEDS: HYDROmorphone 1mg/ml Carpuject IVP PRN ×6 (01:50→22:30)
--- NOTE | 2019-10-27 04:46 | NUR ---
NURSE NOTES: Patient refused vital signs. No distress noted. Call light is at bedside. Will reassess patient.
[2019-10-27] MEDS: DiphenhydrAMINE 50mg/ml Inj IVP PRN ×3 (05:59→22:30)
--- NOTE | 2019-10-27 07:14 | NUR ---
HAND-OFF: Report given to Vicki Ayala.
--- NOTE | 2019-10-27 07:40 | NUR ---
NURSE NOTES: Received patient ambulating. IV site intact and patent. Bed in low and locked position, call light on the bed. Patient has pain in abdomen, will give PRN pain medication when due. No signs of respiratory distress or pain. Room board updated, will continue to monitor.
[2019-10-27 08:23] VITALS: BP 150/96
--- NOTE | 2019-10-27 08:39 | General Progress Note ---
Assessment/Plan Assessment/Plan: (1) Abdominal pain (2) Pancreas Divisum (3) Pancreatitis We will continue Dilaudid D/w Dr. Leal and he concurred. Subjective Date patient seen: Oct 27, 2019 Time patient seen: 08:00 - am Allergies: Coded Allergies: MORPHINE (Verified Allergy, Mild, itching, 11/20/18) HALOPERIDOL (Verified Allergy, Unknown, 11/20/18) KETOROLAC (Verified Allergy, Unknown, 01/01/18) PROCHLORPERAZINE (Verified Allergy, Unknown, 11/20/18) PROMETHAZINE (Verified Allergy, Unknown, 11/20/18) METOCLOPRAMIDE (Verified Adverse Reaction, Mild, 12/15/17) anxiety Subjective REVIEW OF SYSTEMS: Denies rash, fever, chills, sweating, dizziness, drowsiness, sore throat, change in hearing or weight. No shortness of breath or chest pain. No nausea, vomiting. No bowel or bladder incontinence. No dysuria. SUBJECTIVE: Patient is doing well pain has been stable on the Dilaudid. No new complaints at this time. Objective Last 24 Hour Vital Signs Date Time Temp Pulse Resp B/P (MAP) Pulse Ox O2 Delivery O2 Flow Rate FiO2 10/27/19 08:23 97.5 84 18 150/96 (114) 96 10/26/19 21:00 Room Air 10/26/19 18:25 98.5 10/26/19 16:00 98.5 79 17 131/77 (95) 98 10/26/19 12:00 98.6 72 18 141/79 (99) 97 10/26/19 09:00 Room Air Intake and Output 10/26/19 10/27/19 19:00 07:00 Intake Total 750 ml 750 ml Balance 750 ml 750 ml IV Total 750 ml 750 ml Height (Feet): 5 Height (Inches): 8.00 Weight (Pounds): 203 Objective GENERAL: Alert, awake, and oriented. LUNGS: Clear bilaterally. HEART: S1, S2 regular. ABDOMEN: Tenderness to palpation. EXTREMITIES: No cyanosis, no clubbing. NEUROLOGICAL: No changes. Sincere García Oct 27, 2019 08:39
--- NOTE | 2019-10-27 10:30 | NUR ---
NURSE NOTES: Patient ambulating without assist on unit.
[2019-10-27 12:00] VITALS: BP 112/78
--- NOTE | 2019-10-27 12:30 | Consultation ---
DATE OF CONSULTATION: 10/25/2019 GASTROENTEROLOGY CONSULTATION CONSULTING PHYSICIAN: Mikael Foley M.D. CHIEF COMPLAINT: I was asked to see this patient by Dr. Tamera Ponce today for evaluation of pancreatitis. HISTORY OF PRESENT ILLNESS: The patient is a 34-year-old white male with a diagnosis of pancreas divisum. He was then admitted to the hospital due to abdominal pain attributable to pancreatitis. The patient has been seen at multiple institutions including [facility], [facility], and [facility] in [place]. He stated he has had 11-12 years of this, but the last one was done in July [address] Mccray at [facility]. He states he has recurrent bouts of pain and is being evaluated for a permanent stent placement. He had temporary pancreatic duct stent for recurrent abdominal pain. He has a concern that he is now admitted due to his symptoms of abdominal pain, nausea, and vomiting for 4-5 days. PAST MEDICAL HISTORY: recurrent pancreatitis and history of pancreas divisum. FAMILY HISTORY: Noncontributory. SOCIAL HISTORY: The patient is single and does not drink alcohol. REVIEW OF SYSTEMS: Otherwise negative. PHYSICAL EXAMINATION: GENERAL: A pleasant white man, seen in his room. HEENT: Normocephalic and atraumatic. Sclerae are anicteric. Oropharynx is clear. NECK: Supple. CHEST: Clear to auscultation. CARDIAC: Revealed regular rate. ABDOMEN: Soft with mild tenderness to palpation in the epigastric region. EXTREMITIES: Revealed no edema. LABORATORY DATA: Noted. ASSESSMENT: This patient presents with a history of recurrent pancreatitis due to pancreas divisum. Diet can be advanced as tolerated. The patient should go to [facility] after discharge for discussion and plan of his symptoms. In the meantime, IV hydration was given and treatment should be conservative at this time. RECOMMENDATIONS: Per above discussion and per orders written in the chart. Thank you for asking me to participate in the care of this patient. Mikael oFley M.D. DR: OWEN JOB#: [id number] CC: MARCUS
--- NOTE | 2019-10-27 12:30 | NUR ---
NURSE NOTES: Patient ambulating without assist on unit.
[2019-10-27 16:00] VITALS: BP 150/91
--- NOTE | 2019-10-27 19:11 | NUR ---
HAND-OFF: Report given to JASON Looney.
--- NOTE | 2019-10-27 19:30 | NUR ---
NURSE NOTES: Patient in bed, awake, alert and verbally responsive. ABle to make needs known. No complaint of pain or discomfort noted at this time. Respiration is even and unlabored. IV site noted, iv fluid if infusing as ordered. Bed in low and locked position. Provided safe environment. Call light is at bedside. Will continue plan of care.
--- NOTE | 2019-10-27 20:50 | General Progress Note ---
Assessment/Plan Problem List: (1) Abdominal pain ICD Codes: R10.9 - Unspecified abdominal pain SNOMED: 77559535 (2) History of pancreatitis ICD Codes: Z87.19 - Personal history of other diseases of the digestive system SNOMED: 04479308304008 (3) Gastritis ICD Codes: K29.70 - Gastritis, unspecified, without bleeding SNOMED: 4224703 (4) Pancreatitis ICD Codes: K85.90 - Acute pancreatitis without necrosis or infection, unspecified SNOMED: 29611967 Status: progressing Assessment/Plan: pt said is still vomitting and doesnt want to go home and not ready to go home yet lipase is going down less pain Subjective ROS Limited/Unobtainable: Yes Allergies: Coded Allergies: MORPHINE (Verified Allergy, Mild, itching, 11/20/18) HALOPERIDOL (Verified Allergy, Unknown, 11/20/18) KETOROLAC (Verified Allergy, Unknown, 01/01/18) PROCHLORPERAZINE (Verified Allergy, Unknown, 11/20/18) PROMETHAZINE (Verified Allergy, Unknown, 11/20/18) METOCLOPRAMIDE (Verified Adverse Reaction, Mild, 12/15/17) anxiety Objective Last 24 Hour Vital Signs Date Time Temp Pulse Resp B/P (MAP) Pulse Ox O2 Delivery O2 Flow Rate FiO2 10/27/19 16:00 97.8 78 18 150/91 (110) 97 10/27/19 12:00 98.1 73 18 112/78 (89) 97 10/27/19 09:00 Room Air 10/27/19 08:23 97.5 84 18 150/96 (114) 96 10/26/19 21:00 Room Air Intake and Output 10/26/19 10/27/19 19:00 07:00 Intake Total 750 ml 750 ml Balance 750 ml 750 ml IV Total 750 ml 750 ml Height (Feet): 5 Height (Inches): 8.00 Weight (Pounds): 203 Cardiovascular: normal rate Respiratory/Chest: lungs clear Abdomen: soft Tamera Ponce MD Oct 27, 2019 20:50
--- NOTE | 2019-10-27 22:38 | General Progress Note ---
Assessment/Plan Status: progressing Assessment/Plan: Assessment - Pancreas divisum - h/o pancreatitis in past - N/V - suspect due to narcotics Recommendations - advance po diet - wean off narcotics - OK for d/c from GI standpoint - Advised to f/u at [facility] Subjective Allergies: Coded Allergies: MORPHINE (Verified Allergy, Mild, itching, 11/20/18) HALOPERIDOL (Verified Allergy, Unknown, 11/20/18) KETOROLAC (Verified Allergy, Unknown, 01/01/18) PROCHLORPERAZINE (Verified Allergy, Unknown, 11/20/18) PROMETHAZINE (Verified Allergy, Unknown, 11/20/18) METOCLOPRAMIDE (Verified Adverse Reaction, Mild, 12/15/17) anxiety Subjective Feels same tolerating po diet vomiting intermittently, due to narcotics Objective Last 24 Hour Vital Signs Date Time Temp Pulse Resp B/P (MAP) Pulse Ox O2 Delivery O2 Flow Rate FiO2 10/27/19 16:00 97.8 78 18 150/91 (110) 97 10/27/19 12:00 98.1 73 18 112/78 (89) 97 10/27/19 09:00 Room Air 10/27/19 08:23 97.5 84 18 150/96 (114) 96 Intake and Output 10/26/19 10/27/19 19:00 07:00 Intake Total 750 ml 750 ml Balance 750 ml 750 ml IV Total 750 ml 750 ml Height (Feet): 5 Height (Inches): 8.00 Weight (Pounds): 203 Objective Obese WM NCAT supple CTA RR abd soft no edema Mikael Foley MD Oct 27, 2019 22:38
--- NOTE | 2019-10-27 22:55 | NUR ---
NURSE NOTES: Patient complained of abdominal pain, 7/10. Given PRN pain medication as ordered. Patient has sandwich. Call light is at bedside. WIll continue plan of care.
--- NOTE | 2019-10-28 00:37 | NUR ---
NURSE NOTES: Patient refused vital signs. Patient is alert x 4, noted saying he just wants to sleep. NO s/s of distress noted. Respiration is even . call light is at bedside. No nausea or vomiting noted. Will reassess patient.
[2019-10-28] MEDS: HYDROmorphone 1mg/ml Carpuject IVP PRN ×4 (02:21→14:22)
[2019-10-28 04:00] VITALS: BP 120/67
--- NOTE | 2019-10-28 05:00 | NUR ---
NURSE NOTES: Patient is awake, alert x 4. RN asked patient regarding nausea, patient only has nausea after eating the sandwich. No nausea while up in bed. No vomiting noted. Call light is at bedside. WIll continue plan of care.
[2019-10-28] MEDS: DiphenhydrAMINE 50mg/ml Inj IVP PRN ×2 (06:04→14:21)
--- NOTE | 2019-10-28 07:09 | NUR ---
HAND-OFF: Report given to JASON Grigsby.
--- NOTE | 2019-10-28 07:10 | NUR ---
NURSE NOTES: Report received from Martinez GOMEZ. Patient is awake and alert x 4. Patient is currently ambulating in hallway. Patient does not have chest pain or shortness of breath. Patient appears anxious about his discharge and when he gets pain medication next. Educated patient on when he next gets pain medication. Informed patient that Carroll GOMEZ will speak with MD about discharge, patient was originally to be discharged home yesterday but patient became nauseous a time of discharge. Will follow up with MD. Will continue to follow plan of care.
[2019-10-28 08:00] VITALS: BP 147/84
--- NOTE | 2019-10-28 10:02 | NUR ---
CASE MANAGEMENT:INITIAL REVIEW 10/25/2019 44 YR OLD MALE FROM HOME CC;ABDOMINAL PAIN SI;PANCREATITIS. INTRACTABLE VOMITING. LEUKOCYTOSIS. 98.4 76 18 149/94 99% ON RA WBC 11.7 MG 1.7 UA+ PROTEIN, BLOOD, RBC, MUCUS CXR = NO ACUTE PROCESS ABD XR = Nonobstructive bowel gas pattern. IS;IVF NS BOLUS ADMITTED TO MED SURG MED SURG STATUS DCP;FROM HOME CASE MANAGEMENT:REVIEW 10/26/2019 SI;GASTRITIS, PANCREATITIS. 98.8 79 18 151/94 99% ON RA LABS WNL IS;IVF NS @ 75 ML/HR IBUPROFEN PO Q6 HRS PRN ZOFRAN IV Q6 HRS PRN DILAUDID IV Q4 HRS PRN MED SURG STATUS DCP;FROM HOME CASE MANAGEMENT:REVIEW 10/27/2019 SI;GASTRITIS, PANCREATITIS. 98.3 84 18 150/91 96% ON RA NO LABS AVAILABLE IS;IVF NS @ 75 ML/HR IBUPROFEN PO Q6 HRS PRN ZOFRAN IV Q6 HRS PRN DILAUDID IV Q4 HRS PRN MED SURG STATUS DCP;FROM HOME
[2019-10-28 12:00] VITALS: BP 120/80
--- NOTE | 2019-10-28 13:38 | General Progress Note ---
Assessment/Plan Assessment/Plan: (1) Abdominal pain (2) Pancreas Divisum (3) Pancreatitis We will continue Dilaudid D/w Dr. Leal and he concurred. Subjective Date patient seen: Oct 28, 2019 Time patient seen: 01:30 - pm Allergies: Coded Allergies: MORPHINE (Verified Allergy, Mild, itching, 11/20/18) HALOPERIDOL (Verified Allergy, Unknown, 11/20/18) KETOROLAC (Verified Allergy, Unknown, 01/01/18) PROCHLORPERAZINE (Verified Allergy, Unknown, 11/20/18) PROMETHAZINE (Verified Allergy, Unknown, 11/20/18) METOCLOPRAMIDE (Verified Adverse Reaction, Mild, 12/15/17) anxiety Subjective REVIEW OF SYSTEMS: Denies rash, fever, chills, sweating, dizziness, drowsiness, sore throat, change in hearing or weight. No shortness of breath or chest pain. No nausea, vomiting. No bowel or bladder incontinence. No dysuria. SUBJECTIVE: Patient has been stable and tolerated on the Dilaudid. no new complaints at this time. Objective Last 24 Hour Vital Signs Date Time Temp Pulse Resp B/P (MAP) Pulse Ox O2 Delivery O2 Flow Rate FiO2 10/28/19 12:00 99.0 79 20 120/80 (93) 97 10/28/19 09:00 Room Air 10/28/19 08:00 98.3 73 18 147/84 (105) 94 10/28/19 04:00 97.3 62 16 120/67 (84) 96 10/27/19 21:00 Room Air 10/27/19 16:00 97.8 78 18 150/91 (110) 97 Intake and Output 10/27/19 10/28/19 19:00 07:00 Intake Total 825 ml 625 ml Balance 825 ml 625 ml IV Total 825 ml 625 ml Height (Feet): 5 Height (Inches): 8.00 Weight (Pounds): 203 Objective GENERAL: Alert, awake, and oriented. LUNGS: Clear bilaterally. HEART: S1, S2 regular. ABDOMEN: Tenderness to palpation. EXTREMITIES: No cyanosis, no clubbing. NEUROLOGICAL: No changes. Sincere García Oct 28, 2019 13:38
[2019-10-28 16:00] VITALS: BP 122/59
--- NOTE | 2019-10-28 18:33 | NUR ---
NURSE NOTES: Patient discharged home per MD orders. Patient was able to consume food without vomiting after. Educated patient on reasons to return to hospital. Informed patient to follow up with primary care and GI doctor within the next week. Patient verbalized understanding and how no questions at this time. Paper work signed. Belongings reviewed. All belongings present and sent home with patient. IV removed. Name band removed. No further question from patient. Patient in stable condition. Alert and oriented x 4. Patient able to ambulate. Carroll GOMEZ walked patient down to [facility]. Care for patient to end at this time.
[2019-10-28] MEDS ORDERED: 1/2 NS 1000ml IV ONE (18:36)
--- NOTE | 2019-10-28 21:46 | General Progress Note ---
Assessment/Plan Assessment/Plan: Assessment - Pancreas divisum - h/o pancreatitis in past - N/V - suspect due to narcotics Recommendations - advance po diet - wean off narcotics - OK for d/c from GI standpoint - Advised to f/u at [facility] Subjective Allergies: Coded Allergies: MORPHINE (Verified Allergy, Mild, itching, 11/20/18) HALOPERIDOL (Verified Allergy, Unknown, 11/20/18) KETOROLAC (Verified Allergy, Unknown, 01/01/18) PROCHLORPERAZINE (Verified Allergy, Unknown, 11/20/18) PROMETHAZINE (Verified Allergy, Unknown, 11/20/18) METOCLOPRAMIDE (Verified Adverse Reaction, Mild, 12/15/17) anxiety Subjective Feels same tolerating po diet vomiting intermittently, due to narcotics Objective Last 24 Hour Vital Signs Date Time Temp Pulse Resp B/P (MAP) Pulse Ox O2 Delivery O2 Flow Rate FiO2 10/28/19 16:00 98.2 67 18 122/59 (80) 100 10/28/19 12:00 99.0 79 20 120/80 (93) 97 10/28/19 09:00 Room Air 10/28/19 08:00 98.3 73 18 147/84 (105) 94 10/28/19 04:00 97.3 62 16 120/67 (84) 96 Intake and Output 10/27/19 10/28/19 19:00 07:00 Intake Total 825 ml 625 ml Balance 825 ml 625 ml IV Total 825 ml 625 ml Height (Feet): 5 Height (Inches): 8.00 Weight (Pounds): 203 Objective Obese WM NCAT supple CTA RR abd soft no edema Mikael Foley MD Oct 28, 2019 21:46
--- NOTE | 2019-10-30 09:14 | Discharge Summary ---
Discharge Summary Discharge Summary _ DATE OF ADMISSION: 10/24/2019 DATE OF DISCHARGE: 10/28/2019 DISCHARGED BY: Dr. Ponce REASON FOR ADMISSION: 34 years old male with history of chronic pancreatitis, gastritis, narcotic dependency, presented with a complaint of persistent vomiting episodes, despite use of Zofran. Patient reported similar episodes in the past. Patient was recently had been seen at [facility] for possible placement of pancreatic stent . Pain reported to be constant ,7 out of 10, mid abdominal ,nonradiating ,aching and pressure-like. Patient felt dehydrated. He had no pain medication at home. He reported normal bowel movements ,no hematochezia ,no melena. No fever or chills. No chest pain or palpitations, no shortness of breath. No diarrhea. Upon evaluation vital signs were stable. Laboratory work-up revealed mild leukocytosis with WBC 11.7, stable hemoglobin , hematocrit and platelet count. Urinalysis revealed no evidence of urinary tract infection, but showed +1 protein , +3 blood. Stable electrolytes and renal parameters. Magnesium 1.7. Stable LFT and lipase. Urine toxicology screen was negative. EKG revealed sinus rhythm, no acute ischemic changes. Abdominal x-ray revealed nonobstructive bowel gas pattern. Chest x-ray demonstrated no acute cardiopulmonary pathology. Patient received analgesic and antiemetic, but =continued vomiting and admitted to the hospital for intractable vomiting , leukocytosis ,and history of pancreatitis. CONSULTANTS: GI specialist Dr. Foley pain specialist Dr. Leal [facility] COURSE: Patient admitted to medical surgical floor. Patient initially was kept n.p.o. on IV fluids. Pain management was addressed as per pain specialist recommendation. Antiemetic provided as needed. Supportive care provided. GI prophylaxis with a PPI provided. Patient slowly started on diet as tolerated. Per GI specialist , nausea and vomiting suspected to be due to chronic narcotic use. GI specialist recommended weaning off narcotic. P Patient was able to tolerate diet. Patient was stable for discharge. Follow-up with [facility] for further outpatient management of pancreatitis. FINAL DIAGNOSES: Pancreatic divisum Pancreatitis Nausea and vomiting , probably due to narcotics Gastritis Abdominal pain DISCHARGE MEDICATIONS: The list of medication was sent with patient. DISCHARGE INSTRUCTIONS: Patient was discharged home. Follow-up with [facility] for further management . I have been assigned to dictate discharge summary for this account. I was not involved in the patient's management. Erin Trejo NP Oct 30, 2019 09:14
== END 2019-10-28 18:37 | disposition home or self-care (01) | DRG 282 ==
LOC: EMR 17:13 → 4E 17:19 → EDBEDREQ 18:45 → 4E 22:47
DX: K85.90 Acute pancreatitis without necrosis or infection, unspecified (principal); K86.1 Other chronic pancreatitis; Q45.3 Other congenital malformations of pancreas and pancreatic duct; K29.70 Gastritis, unspecified, without bleeding; Z88.6 Allergy status to analgesic agent; Z88.8 Allergy status to other drugs, medicaments and biological substances
CPT/HCPCS: 36415; 71045; 74018; 80053; 80307; 81003; 82550; 83690; 83735; 85025; 85610; 85730; 96361; 96374; 96375; 96376; 99285; G0480; J2405; J7030

== ENCOUNTER 2019-11-02 15:39 | Inpatient (IN) | payer MEDICAID ==
[~2019-11-02] VITALS: Ht 172.7 cm; Wt 93.0 kg
[2019-11-02 15:50] VITALS: BP 148/85
--- NOTE | 2019-11-02 15:55 | NUR ---
ED Nurse Note: Patient walked into ED from home c/o nausea, vomiting, and abdominal pain since this AM. Patient states he has ernesto vomiting clear liquids. Patient was discharged Sunday for after being admitted for the same thing. Patient AxO x 4, no s/s of acute distress. Patient on the cardiac cath lab technologist, 24 g IV started in right wrist, patent and intact. Blood and urine sent to lab.
--- NOTE | 2019-11-02 16:08 | Emergency Room Report ---
History of Present Illness General Chief Complaint: Abdominal Pain Source: Patient Present Illness HPI Patient presents with intractable vomiting. The patient was admitted here for the same. He has a history of pancreas divisum. He was discharged on Sunday. He states he only has Zofran at home. He is vomiting clear liquids. There may have been some specks of blood. He has had scant stools without any blood. He denies any fevers or chills. There is no upper respiratory symptoms. He claims he has lost 14 pounds since discharge. Was to follow up with [facility]. Previously the patient had a pancreatic stent. He had a difficult difficulty with this and it was removed. Discharge summary: Pancreatic divisum Pancreatitis Nausea and vomiting , probably due to narcotics Gastritis Abdominal pain COVID-19 risk:Contact w/high r: No COVID-19 risk:Travel to affect: No Has patient experienced brown: No Allergies: Coded Allergies: MORPHINE (Verified Allergy, Mild, itching, 11/20/18) HALOPERIDOL (Verified Allergy, Unknown, 11/20/18) KETOROLAC (Verified Allergy, Unknown, 01/01/18) PROCHLORPERAZINE (Verified Allergy, Unknown, 11/20/18) PROMETHAZINE (Verified Allergy, Unknown, 11/20/18) METOCLOPRAMIDE (Verified Adverse Reaction, Mild, 12/15/17) anxiety Patient History Past Medical History: see triage record Past Surgical History: other - pancreatic stent - removed Social History: Denies: alcohol use - prior Social History Narrative from home Reviewed Nursing Documentation: PMH: Agreed; PSxH: Agreed Nursing Documentation-PMH Hx Cardiac Problems: No Hx Hypertension: No Hx Pacemaker: No Hx Asthma: No Hx COPD: No Hx Diabetes: No Hx Cancer: No Hx Gastrointestinal Problems: Yes - PANCREATIC DIVISUM Hx Dialysis: No Hx Neurological Problems: No Hx Cerebrovascular Accident: No Hx Seizures: No Review of Systems All Other Systems: negative except mentioned in HPI Physical Exam Vital Signs Date Time Temp Pulse Resp B/P (MAP) Pulse Ox O2 Delivery O2 Flow Rate FiO2 11/02/19 15:46 98.2 106 18 165/105 (125) 98 Nasal Cannula Sp02 EP Interpretation: reviewed, normal General Appearance: well appearing, no apparent distress, GCS 15 Head: normocephalic, atraumatic Eyes: bilateral eye normal inspection, bilateral eye PERRL, bilateral eye EOMI ENT: moist mucus membranes Neck: supple Respiratory: lungs clear, normal breath sounds Cardiovascular #1: no edema, tachycardia Cardiovascular #2: 2+ radial (R) Gastrointestinal: normal inspection, normal bowel sounds, no mass, non- distended, no guarding, no rebound, tenderness - reported diffusely Genitourinary: no CVA tenderness Musculoskeletal: back normal, normal range of motion, gait/station normal Neurologic: alert, oriented x3, grossly normal Psychiatric: anxious Skin: no rash, warm/dry, Ecchymosis/Bruising - IV sites Medical Decision Making Diagnostic Impression: Primary Impression: Intractable vomiting Qualified Codes: R11.2 - Nausea with vomiting, unspecified Additional Impressions: Pancreatic divisum Abdominal pain Qualified Codes: R10.84 - Generalized abdominal pain ER Course Patient presents with intractable vomiting. Differential includes dehydration, electrolyte imbalance, pancreatitis, drug-seeking behavior amongst others. Patient evaluated with labs. Based on exam imaging studies not indicated at this time. Patient treated with IV hydration and Zofran and Benadryl. Patient requesting pain medication. Dilaudid ordered. Labs with normal WBC, CMP, UA., tox and lipase. Elevated H/H. Still with nausea and unable to keep down fluids. Admit med. Requesting more pain meds. NAD. Dr. Ponce requests patient be admitted to panel MD as he feels patient mainly with narcotic seeking behavior. Admit med Dr. Colon. Laboratory Tests Test 11/02/19 16:10 White Blood Count 9.9 K/UL (4.8-10.8) Red Blood Count 6.29 M/UL (4.70-6.10) H Hemoglobin 16.2 G/DL (14.2-18.0) Hematocrit 49.1 % (42.0-52.0) Mean Corpuscular Volume 78 FL (80-99) L Mean Corpuscular Hemoglobin 25.7 PG (27.0-31.0) L Mean Corpuscular Hemoglobin Concent 32.9 G/DL (32.0-36.0) Red Cell Distribution Width 19.2 % (11.6-14.8) H Platelet Count 255 K/UL (150-450) Mean Platelet Volume 7.1 FL (6.5-10.1) Neutrophils (%) (Auto) 71.4 % (45.0-75.0) Lymphocytes (%) (Auto) 17.8 % (20.0-45.0) L Monocytes (%) (Auto) 8.6 % (1.0-10.0) Eosinophils (%) (Auto) 1.3 % (0.0-3.0) Basophils (%) (Auto) 0.9 % (0.0-2.0) Prothrombin Time 10.2 SEC (9.30-11.50) Prothrombin Time INR 1.0 (0.9-1.1) Activated Partial Thromboplast Time 27 SEC (23-33) Urine Color Pale yellow Urine Appearance Clear Urine pH 6 (4.5-8.0) Urine Specific [place] 1.010 (1.005-1.035) Urine Protein 1+ (NEGATIVE) H Urine Glucose (UA) Negative (NEGATIVE) Urine Ketones Negative (NEGATIVE) Urine Blood 1+ (NEGATIVE) H Urine Nitrite Negative (NEGATIVE) Urine Bilirubin Negative (NEGATIVE) Urine Urobilinogen Normal MG/DL (0.0-1.0) Urine Leukocyte Esterase Negative (NEGATIVE) Urine RBC 0-2 /HPF (0 - 0) H Urine WBC 0-2 /HPF (0 - 0) Urine Squamous Epithelial Cells None /LPF (NONE/OCC) Urine Bacteria None /HPF (NONE) Sodium Level 140 MMOL/L (136-145) Potassium Level 3.9 MMOL/L (3.5-5.1) Chloride Level 103 MMOL/L (98-107) Carbon Dioxide Level 22 MMOL/L (21-32) Anion Gap 15 mmol/L (5-15) Blood Urea Nitrogen 7 mg/dL (7-18) Creatinine 1.1 MG/DL (0.55-1.30) Estimated Glomerular Filtration Rate > 60 mL/min (>60) Glucose Level 115 MG/DL (74-106) H Calcium Level 9.5 MG/DL (8.5-10.1) Total Bilirubin 0.4 MG/DL (0.2-1.0) Aspartate Amino Transferase (AST) 20 U/L (15-37) Alanine Aminotransferase (ALT) 40 U/L (12-78) Alkaline Phosphatase 59 U/L (46-116) Total Creatine Kinase 113 U/L (26-308) Total Protein 8.0 G/DL (6.4-8.2) Albumin 4.1 G/DL (3.4-5.0) Globulin 3.9 g/dL Albumin/Globulin Ratio 1.1 (1.0-2.7) Lipase 102 U/L (73-393) Urine Opiates Screen Negative (NEGATIVE) Urine Barbiturates Screen Negative (NEGATIVE) Phencyclidine (PCP) Screen Negative (NEGATIVE) Urine Amphetamines Screen Negative (NEGATIVE) Urine Benzodiazepines Screen Negative (NEGATIVE) Urine Cocaine Screen Negative (NEGATIVE) Urine Marijuana (THC) Screen Negative (NEGATIVE) Rhythm Strip Diag. Results EP Interpretation: yes Rhythm: NSR, no PVC's, no ectopy Last Vital Signs Date Time Temp Pulse Resp B/P (MAP) Pulse Ox O2 Delivery O2 Flow Rate FiO2 11/02/19 17:45 98.0 81 17 146/80 100 Nasal Cannula Status: improved Disposition: ADMITTED INPATIENT Condition: Serious Referrals: Tamera Ponce MD (PCP) Jamie Carrillo MD Nov 02, 2019 16:08
[2019-11-02] MEDS ORDERED: DiphenhydrAMINE 50mg/ml Inj IVP ONE (16:15)
[2019-11-02 16:29] LABS: BASOPHILS % (AUTO) 0.9 % (0.0-2.0); EOSINOPHILS % (AUTO) 1.3 % (0.0-3.0); HEMATOCRIT 49.1 % (42.0-52.0); HEMOGLOBIN 16.2 G/DL (14.2-18.0); LYMPHOCYTES % (AUTO) 17.8 % (20.0-45.0); MEAN CORPUSCULAR VOLUME 78 FL (80-99); MONOCYTES % (AUTO) 8.6 % (1.0-10.0); NEUTROPHILS % (AUTO) 71.4 % (45.0-75.0); PLATELET COUNT 255 K/UL (150-450); RED BLOOD COUNT 6.29 M/UL (4.70-6.10); RED CELL DISTRIBUTION WIDTH 19.2 % (11.6-14.8); WHITE BLOOD COUNT 9.9 K/UL (4.8-10.8)
[2019-11-02 16:34] LABS: APPEARANCE,URINE CLEAR; BILIRUBIN, URINE NEGATIVE (NEGATIVE); COLOR,URINE PALE YELLOW; GLUCOSE, URINE (UA) NEGATIVE (NEGATIVE); KETONES,URINE NEGATIVE (NEGATIVE); LEUKOCYTE ESTERASE ,URINE NEGATIVE (NEGATIVE); NITRITE,URINE NEGATIVE (NEGATIVE); PH,URINE 6 (4.5-8.0); PROTEIN,URINE 1+ (NEGATIVE); UROBILINOGEN,URINE NORMAL MG/DL (0.0-1.0)
[2019-11-02 16:37] LABS: ANION GAP 15 mmol/L (5-15); BLOOD UREA NITROGEN 7 mg/dL (7-18); CALCIUM 9.5 MG/DL (8.5-10.1); CARBON DIOXIDE 22 MMOL/L (21-32); CHLORIDE 103 MMOL/L (98-107); CREATININE 1.1 MG/DL (0.55-1.30); POTASSIUM 3.9 MMOL/L (3.5-5.1); SODIUM 140 MMOL/L (136-145)
[2019-11-02 16:41] LABS: ALANINE AMINOTRANSFERASE 40 U/L (12-78); ALBUMIN 4.1 G/DL (3.4-5.0); ALBUMIN/GLOBULIN RATIO 1.1 (1.0-2.7); ALKALINE PHOSPHATASE 59 U/L (46-116); ASPARTATE AMINO TRANSFERASE 20 U/L (15-37); BILIRUBIN,TOTAL 0.4 MG/DL (0.2-1.0); CREATINE KINASE 113 U/L (26-308)
--- NOTE | 2019-11-02 16:45 | NUR ---
ED Nurse Note: MRSA swab sent to lab, patient refusing VRE swab.
[2019-11-02] MEDS ORDERED: Hydromorphone 0.5mg/0.5ml inj IVP ONE (17:00)
[2019-11-02 17:45] VITALS: BP 146/80
--- NOTE | 2019-11-02 17:45 | NUR ---
ED Nurse Note: Patient resting in bed, no s/s of acute distress.
--- NOTE | 2019-11-02 19:08 | NUR ---
ED Nurse Note: Report given to Jasper GOMEZ
--- NOTE | 2019-11-02 19:10 | NUR ---
NURSE NOTES: Received report from ER Nurse Espinoza. F will wait for pt arrival
--- NOTE | 2019-11-02 19:20 | NUR ---
NURSE NOTES: Pt arrived to the unit , ambulating and was escorted by the Er nurse Espinoza , pt in stable condition, a/o x 4 breaths even regular and unlabored. pt c/o pain 10/20. Notified pt that pain medication will be provided as soon as it is available, Pt has a 24G on the Rt fore arm , saline locked ,skin intact, oriented pt to the room , bed in low locked position and call light with in reach
--- NOTE | 2019-11-02 20:30 | NUR ---
NURSE NOTES: Admission orders received , verified and carried
[2019-11-02] MEDS ORDERED: HYDROmorphone 1mg/ml Carpuject IVP PRN (21:00)
[2019-11-02] MEDS: DiphenhydrAMINE 50mg/ml Inj IVP PRN (21:25)
[2019-11-03] VITALS: BP 137/83
[2019-11-03] MEDS: DiphenhydrAMINE 50mg/ml Inj IVP PRN ×4 (03:35→23:39)
[2019-11-03 04:00] VITALS: BP 133/99
[2019-11-03 07:21] LABS: BASOPHILS % (AUTO) 0.4 % (0.0-2.0); EOSINOPHILS % (AUTO) 1.4 % (0.0-3.0); HEMATOCRIT 48.1 % (42.0-52.0); HEMOGLOBIN 15.9 G/DL (14.2-18.0); LYMPHOCYTES % (AUTO) 21.4 % (20.0-45.0); MEAN CORPUSCULAR VOLUME 78 FL (80-99); MONOCYTES % (AUTO) 12.5 % (1.0-10.0); NEUTROPHILS % (AUTO) 64.4 % (45.0-75.0); PLATELET COUNT 255 K/UL (150-450); RED BLOOD COUNT 6.17 M/UL (4.70-6.10); RED CELL DISTRIBUTION WIDTH 16.9 % (11.6-14.8); WHITE BLOOD COUNT 11.2 K/UL (4.8-10.8)
[2019-11-03 07:25] LABS: ALANINE AMINOTRANSFERASE 29 U/L (12-78); ALBUMIN/GLOBULIN RATIO 1.1 (1.0-2.7); ALKALINE PHOSPHATASE 52 U/L (46-116); AMYLASE 38 U/L (25-115); ANION GAP 13 mmol/L (5-15); ASPARTATE AMINO TRANSFERASE 17 U/L (15-37); BILIRUBIN,TOTAL 0.4 MG/DL (0.2-1.0); BLOOD UREA NITROGEN 12 mg/dL (7-18); CALCIUM 9.2 MG/DL (8.5-10.1); CARBON DIOXIDE 26 MMOL/L (21-32); CHLORIDE 104 MMOL/L (98-107); CREATININE 1.1 MG/DL (0.55-1.30); SODIUM 143 MMOL/L (136-145)
--- NOTE | 2019-11-03 07:30 | NUR ---
NURSE NOTES: Patient is pacing around unit. Patient appears disheveled. Patient is disruptive and does not agree with plan of care. NPO status discussed with patient, reinforcement needed. All safety measures provided. Will continue to monitor.
--- NOTE | 2019-11-03 07:42 | NUR ---
HAND-OFF: Report given to Vicki Lima .
--- NOTE | 2019-11-03 09:00 | NUR ---
NURSE NOTES: Patient is calling RN offensive names and being disruptive at nurses station. Charge nurse attempted to deescalate situation, patient gets more irritable and continues to verbally abuse staff.
--- NOTE | 2019-11-03 10:09 | NUR ---
NURSE NOTES: Patient is upset about pain medication administration schedule. Patient is agitated and verbally abusing RN. All safety measures provided. Will continue to monitor.
--- NOTE | 2019-11-03 11:00 | History and Physical Report ---
DATE OF ADMISSION: 11/02/2019 REASON FOR ADMISSION: Intractable vomiting. HISTORY OF PRESENT ILLNESS: This is a 34-year-old male, who has had multiple admissions to an outside hospital. The patient with history of pancreas divisum. The patient was just recently discharged and was given Zofran. On discharge, the patient apparently vomiting again. The patient has had multiple interventions by GI. The patient has no other upper respiratory tract symptoms. The patient has had a history of pancreatic stent and also has had subsequently removal. PAST MEDICAL HISTORY: Notable for recurrent pancreatitis, pancreatic divisum, history of pancreatic stent, history of nausea and vomiting, and history of gastritis. MEDICATIONS: Reviewed. ALLERGIES: Reviewed. SOCIAL HISTORY: The patient notes prior alcohol use, but currently nonsmoker. The patient is unemployed. REVIEW OF SYSTEMS: Otherwise negative. PHYSICAL EXAMINATION: GENERAL: This is a well-developed male, comfortable. VITAL SIGNS: Stable. HEENT: Negative. NECK: Supple. LUNGS: Clear. CARDIAC: S1, S2. Regular rate and rhythm. ABDOMEN: With diffuse tenderness. EXTREMITIES: No edema. LABORATORY DATA: Reviewed. Chemistry essentially negative. Amylase, lipase negative. White cell count 11.2. IMPRESSION: 1. Nausea and vomiting. 2. History of pancreatitis. 3. History of pancreatic stent. 4. Possible opioid dependence. RECOMMENDATIONS: Supportive care, NPO, GI evaluation, Zofran p.r.n., Dilaudid p.r.n., discharge once stable and able to tolerate p.o. Guido Colon M.D. DR: ARI JOB#: [id number] CC:
--- NOTE | 2019-11-03 12:54 | NUR ---
NURSE NOTES: Patient is irritated and saying racist remarks and accusing RN of saying statements that were not made. Patient is wandering the hallway and accusing RN of being "mean". Security called, patient is fabricating stories about RN, RN inspection and testing supervisor called. Patient continues to be agitated.
--- NOTE | 2019-11-03 13:30 | NUR ---
NURSE NOTES: Patient continues to be verbally abusive to RN and is shouting racist remarks. RN aerosol supervisor attempted to deescalate situation. Patient continues to be agitated. All safety measures provided. Will continue to monitor.
--- NOTE | 2019-11-03 13:58 | NUR ---
CASE MANAGEMENT: INITIAL REVIEW 34YR OLD MALE HERE FROM HOME CC: DISCHARGED 5 DAYS AGO; ABD PAIN AND NAUSEA SI:INTRACTABLE VOMITING . PANCREATIC DIVISM . ABD PAIN BG 115 RBC 6.29 IS:IVF NS BOLUS X1 IV PEPCID X1 IV ZOFRAN X1 \: [facility] UN[facility] DCP: HOME WHEN STABLE CASE MANAGEMENT: REVIEW 11/03/19 SI:INTRACTABLE VOMITING . PANCREATIC DIVISM . ABD PAIN HX PANCREATITIS WBC 11.2 RBC 6.17 IS:IV NS@100ML/HR IV DILAUDID Q3HR/PRN IV ZOFRAN Q6HR/PRN \: [facility] UN[facility] DCP: HOME WHEN STABLE PLAN: NPO CONTROL PAIN AMBULATE Addendum: 11/03/19 at 1421 by AKHIL LANIER LVN INTERQUAL MET
--- NOTE | 2019-11-03 14:15 | NUR ---
NURSE NOTES: Report given to Geeta GOEMZ. Patient handed off, plan of care endorsed.
--- NOTE | 2019-11-03 14:15 | NUR ---
NURSE NOTES:RECEIVED REPORT FR. WILLEM GOMEZ RE:CONTINUITY OF CARE.WILL CONTINUE PLAN OF CARE,PAIN REGIMEN DISCUSSED WITH PT. AND VERBALIZED UNDERSTANDING.MEDICATED WITH DILAUDID 2MG IVP.FOR C/O CONSTANT ABDOMINAL SHARP PAIN 02/19,IV SITE PATENT.
--- NOTE | 2019-11-03 14:45 | NUR ---
NURSE NOTES:RESTING IN BED,PAIN 3/10,APPEARS COMFORTABLE.NO SIGN OF DISRUPTIVE BEHAVIOR
[2019-11-03 16:00] VITALS: BP 143/94
--- NOTE | 2019-11-03 17:22 | NUR ---
NURSE NOTES:C/O ITCHING AND ABDOMINAL PAIN 03/22.MEDICATED WITH BENADRYL 25 MG IV/AND DILAUDID 2MGIV.
--- NOTE | 2019-11-03 17:52 | NUR ---
NURSE NOTES:WATCHING TV,CLAIMS HES OKAY,APPEARS COMFORTABLE.NO EPISODE OF VOMITING.REMAINS NPO.
--- NOTE | 2019-11-03 19:44 | NUR ---
NURSE NOTES: Received patient in bed, awake, alert, oriented x4, IV site is clean dry and intact, patient can make his needs known, ambulatory with steady gate, no acute distress noted, patient requested to be placed on clear liquid diet, clear liq diet order obtained from Dr. Mccray. CN was made aware. Call light is within reach, bed is lowered, locked, alarm is on, will continue to monitor for comfort and safety.
[2019-11-03 20:00] VITALS: BP 143/96
[2019-11-04] VITALS: BP 129/87
[2019-11-04 04:00] VITALS: BP 131/78
[2019-11-04] MEDS: DiphenhydrAMINE 50mg/ml Inj IVP PRN (06:01)
--- NOTE | 2019-11-04 07:23 | NUR ---
HAND-OFF: Report given to La Nena GOMEZ.
--- NOTE | 2019-11-04 07:45 | NUR ---
NURSE NOTES: Pt sitting in bed, awake, alert, oriented x4, IV site is clean dry and intact, Noted pt just had one episode of vomiting w/ orange color containing jello. Pt states that "I ate jello and tea and I vomited what I ate." Denies any pain at this time. Call light is within reach, bed is lowered, locked. will continue to monitor.
[2019-11-04 08:00] VITALS: BP 136/88
--- NOTE | 2019-11-04 08:53 | General Progress Note ---
Assessment/Plan Assessment/Plan: Assessment/Plan Assessment/Plan: Assessment - Pancreas divisum - h/o pancreatitis in past - N/V - suspect due to narcotics Recommendations - advance po diet - wean off narcotics - OK for d/c from GI standpoint -no evidence of pancreatitis at this time - Subjective Allergies: Coded Allergies: MORPHINE (Verified Allergy, Mild, itching, 11/20/18) HALOPERIDOL (Verified Allergy, Unknown, 11/20/18) KETOROLAC (Verified Allergy, Unknown, 01/01/18) PROCHLORPERAZINE (Verified Allergy, Unknown, 11/20/18) PROMETHAZINE (Verified Allergy, Unknown, 11/20/18) METOCLOPRAMIDE (Verified Adverse Reaction, Mild, 12/15/17) anxiety Objective Last 24 Hour Vital Signs Date Time Temp Pulse Resp B/P (MAP) Pulse Ox O2 Delivery O2 Flow Rate FiO2 11/04/19 08:00 98.8 82 18 136/88 (104) 96 11/04/19 06:32 97.9 11/04/19 04:00 97.9 78 18 131/78 (95) 98 11/04/19 00:00 98.3 87 18 129/87 (101) 97 11/03/19 22:28 98.3 11/03/19 22:21 99.0 11/03/19 21:19 Room Air 11/03/19 20:00 99.9 18 143/96 (112) 98 11/03/19 16:00 99.3 98 143/94 (110) 95 11/03/19 09:00 Room Air Intake and Output 11/03/19 11/04/19 19:00 07:00 Intake Total 900 ml Balance 900 ml Intake IV Total 900 ml # Voids 2 # Bowel Movements 1 Height (Feet): 5 Height (Inches): 8.00 Weight (Pounds): 205 General Appearance: alert EENT: normal ENT inspection Neck: supple Cardiovascular: normal rate Respiratory/Chest: decreased breath sounds Abdomen: normal bowel sounds, non tender, soft Extremities: non-tender Saurabh Mccray MD Nov 04, 2019 08:53
[2019-11-04] MEDS ORDERED: Docusate 100mg cap ORAL SCH (09:00)
--- NOTE | 2019-11-04 09:40 | NUR ---
CASE MANAGEMENT: REVIEW 11/04/19 SI:INTRACTABLE VOMITING . PANCREATIC DIVISM . ABD PAIN HX PANCREATITIS 98.8 82 18 136/88% ON RA IS:IV NS@100ML/HR IV DILAUDID Q3HR/PRN IV ZOFRAN Q6HR/PRN \: [facility]G UN[facility] DCP: HOME WHEN STABLE PLAN: LOW FAT DIET OK TO DC FROM GI STANDPOINT PAIN CONTROLLED AMBULATING WELL MONITOR WBC MONITOR RBC
--- NOTE | 2019-11-04 09:45 | General Progress Note ---
Assessment/Plan Assessment/Plan: 1. Nausea and vomiting. 2. History of pancreatitis. 3. History of pancreatic stent. 4. Possible opioid dependence. PLAN dc per gi advance diet home meds on dc impression, plan, and exam edited and reviewed in detail care discussed with RN Subjective Allergies: Coded Allergies: MORPHINE (Verified Allergy, Mild, itching, 11/20/18) HALOPERIDOL (Verified Allergy, Unknown, 11/20/18) KETOROLAC (Verified Allergy, Unknown, 01/01/18) PROCHLORPERAZINE (Verified Allergy, Unknown, 11/20/18) PROMETHAZINE (Verified Allergy, Unknown, 11/20/18) METOCLOPRAMIDE (Verified Adverse Reaction, Mild, 12/15/17) anxiety Subjective cleared by gi diet advanced Objective Last 24 Hour Vital Signs Date Time Temp Pulse Resp B/P (MAP) Pulse Ox O2 Delivery O2 Flow Rate FiO2 11/04/19 09:00 Room Air 11/04/19 08:00 98.8 82 18 136/88 (104) 96 11/04/19 06:32 97.9 11/04/19 04:00 97.9 78 18 131/78 (95) 98 11/04/19 00:00 98.3 87 18 129/87 (101) 97 11/03/19 22:28 98.3 11/03/19 22:21 99.0 11/03/19 21:19 Room Air 11/03/19 20:00 99.9 18 143/96 (112) 98 11/03/19 16:00 99.3 98 143/94 (110) 95 Intake and Output 11/03/19 11/04/19 19:00 07:00 Intake Total 900 ml Balance 900 ml Intake IV Total 900 ml # Voids 2 # Bowel Movements 1 Height (Feet): 5 Height (Inches): 8.00 Weight (Pounds): 205 Objective WDWN NAD clear breath sounds bilaterally without rhonchi or wheeze [id number] without MRG NABS nontender no HSM no CCE nonfocal Guido Colon MD Nov 04, 2019 09:45
[2019-11-04] MEDS ORDERED: Hydromorphone 0.5mg/0.5ml inj IVP PRN ×2 (10:30)
--- NOTE | 2019-11-04 11:30 | NUR ---
NURSE NOTES: Pt escorted out of hospital by security; IV H/L and ID wristband removed prior to D/C. MD and Nurse Beam Builder aware.
[2019-11-04] MEDS ORDERED: Miralax 17gm pkt ORAL SCH (21:00)
--- NOTE | 2019-11-06 08:34 | Discharge Summary ---
Discharge Summary Discharge Summary _ DATE OF ADMISSION: 11/02/2019 DATE OF DISCHARGE: 11/04/2019 DISCHARGED BY : Dr Colon REASON FOR ADMISSION: 34 years old male with past medical history of recurrent pancreatitis, pancreatic divisum, history of pancreatic stent, gastritis, was recently discharged from the hospital. Patient received antiemetic /Zofran upon discharge. Patient reported episodes of vomiting on clear liquids with some specks of blood. No hematochezia no melena. No fever or chills. No upper respiratory symptoms. Vital signs revealed no fever , mild tachycardia 106 . Laboratory work-up revealed no leukocytosis, stable hemoglobin, hematocrit and platelet count. INR 1.0. Stable electrolytes. Lipase 102. Stable LFT. Urinalysis revealed no evidence of urinary tract infection. Urine toxicology screen was negative. In ED patient received IV hydration, Zofran and Benadryl. Analgesic provided. Patient was still complaining of nausea and inability to keep down fluids . Patient subsequently was admitted for further management. CONSULTANTS: GI specialist Dr. Mccray [facility]: Patient admitted to medical surgical floor Patient was kept n.p.o. and started on the IV fluids. Analgesic and antiemetic provided as needed. GI prophylaxis provided. Bowel regimen initiated. GI specialist seen and evaluated patient. As per GI specialist, nausea and vomiting suspected to be due to narcotics. Patient slowly started on diet and was advanced as tolerated. GI specialist recommended to wean off narcotic. No evidence of pancreatitis at this time. Patient had multiply GI interventions in the past. GI specialist cleared patient for discharge and recommended low fat diet. Patient was stable for discharge. FINAL DIAGNOSES: Nausea and vomiting, likely due to narcotic dependence Pancreatic divisum History of recurrent pancreatitis History of pancreatic stent Possible opioid dependence DISCHARGE MEDICATIONS: List of medication was sent with patient. DISCHARGE INSTRUCTIONS: Patient was discharged home. Follow-up with a primary care provider in 1 week. I have been assigned to dictate discharge summary for this account. I was not involved in the patient's management. Erin Trejo NP Nov 06, 2019 08:34
== END 2019-11-04 11:20 | disposition left against medical advice (07) | DRG 249 ==
LOC: EMR 15:59 → 3E 16:32 → EDBEDREQ 17:51
DX: R11.2 Nausea with vomiting, unspecified (principal); F11.20 Opioid dependence, uncomplicated; Z88.6 Allergy status to analgesic agent; Z88.8 Allergy status to other drugs, medicaments and biological substances; Q45.3 Other congenital malformations of pancreas and pancreatic duct
CPT/HCPCS: 36415; 80053; 80307; 81003; 82150; 82550; 83690; 85025; 85610; 85730; 87081; 96361; 96374; 96375; 99285; J2405; J7030